=== PATIENT | male | born 1945 | race African-American/Black ===

== ENCOUNTER 2020-04-06 17:41 | Outpatient (REF) | payer MEDICARE, SELFPAY | END 2020-04-06 17:42 | disposition home or self-care (01) | LOC: HO.MRI 17:41 | PROVIDERS: PCP Family Medicine | DX: Z13.89 Encounter for screening for other disorder (principal) ==

== ENCOUNTER 2020-04-22 10:33 | Emergency (ER) | payer MEDICARE, SELFPAY ==
--- NOTE | 2020-04-22 10:54 | ED_ITS ---
HPI - Chest Pain General Chief Complaint: Chest Pain Stated Complaint: CHEST PAIN Time Seen by Provider: 04/22/20 10:54 Source: patient Mode of arrival: ambulatory Limitations: no limitations History of Present Illness HPI narrative: Patient with no known coronary artery disease in the past complaining of chest pain and left shoulder pain going on for last few weeks pain get worse patient when patient lays down or moves his left arm no shortness of breath/cough patient been seen by complaints coordinator and plan to have a stress test next week MD complaint: chest pain Onset (ago): week(s) Timing of current episode: episodic Prior episodes: Yes Onset: during rest Pain location: left chest Pain radiation: left arm Severity: mild Quality: aching Relieving factors: movement Treatment prior to arrival: none Related Data Previous Rx's Medication Instructions Recorded ibuprofen 600 mg PO Q8H PRN #20 tab 04/22/20 Allergies Allergy/AdvReac Type Severity Reaction Status Date / Time No Known Allergies Allergy Verified 05/25/20 14:54 [No Known Allergies*] Review of Systems Review of Systems: Constitutional : No Weight loss, No Fever, No Chills ENT/Mouth : No sore throat, No Rhinorrhea Eyes: No Eye Pain, No Swelling Cardiovascular : +Chest Pain, no palpitations Respiratory : No Cough, No Sputum, no shortness of breath Gastrointestinal : no Nausea, No Vomiting, No Diarrhea, No abdominal Pain, no black stools Genitourinary : No Dysuria, No Urinary Frequency Musculoskeletal : No joint pain, No Myalgias, No Joint Swelling Skin : No Skin Lesions, No rash Neuro : No Weakness, No Numbness, No Dizziness, No Headache Psych : No Anxiety/Panic, No Depression Heme/Lymph: No Bruising, No Lymphadenopathy Endocrine : No Polyuria, No Polydipsia All other systems reviewed and are negative [facility] Past Medical History Medical History Arthritis Diabetes HTN (hypertension) Social History Social History Alcohol intake: never Smoking Status: Never smoker Use of substances other than those prescribed or required for medical reasons: No Advance Directives: No Advance Directives Information Provided: No Physical Exam Vital Signs: Vital Signs: Last Vital Signs Temp 98.9 F 04/22/20 10:58 Pulse 56 04/22/20 10:58 Resp 14 04/22/20 10:58 BP 167/90 H 04/22/20 10:58 Pulse Ox 98 04/22/20 10:58 Body Mass Index 36.8 Appearance: Alert. Oriented X3. No acute distress. Eyes: Pupils equal, round and reactive to light. ENT: Pharynx normal. Neck: Normal inspection. Neck supple. CVS: Normal heart rate and rhythm. Pulses normal. Respiratory: No respiratory distress. Breath sounds normal. Left chest wall tenderness+ left shoulder tenderness+ good range of movement of left shoulder Abdomen: Soft and nontender. Bowel sounds are present, no mass palpable, no CVA tenderness Skin: Skin warm and dry. Normal skin color. Normal skin turgor. Extremities: No lower extremity edema. Neuro: Oriented X 3. No motor deficit. No sensory deficit. MDM - Chest Pain MDM Narrative Medical decision making narrative: Patient has atypical chest pain without any acute ST T wave changes facets has sensitive troponin is negative patient plantar stress test next week advised to follow with cardiology Lab Data Attestation: I reviewed the patient's lab results. Result diagrams: 04/22/20 11:09 04/22/20 11:09 Labs: Lab Results 04/22/20 04/22/20 04/22/20 Range/Units 11:09 11:09 11:09 WBC 5.8 (4.8-10.8) X10*3/uL RBC 5.30 (4.60-5.80) X10*6/uL Hgb 14.7 (14.0-18.0) g/dl Hct 44.8 (42-52) % MCV 84.5 (80-98) fL MCH 27.7 (27.0-33.0) pg MCHC 32.8 (31.0-36.0) g/dl RDW 14.6 (11.0-16.0) % Plt Count 163 (160-400) X10*3/uL MPV 10.2 (9.4-12.4) fL Immature Gran % (Auto) 0.3 (0.0-0.4) % Neut % (Auto) 45.4 (45-73) % Lymph % (Auto) 43.5 H (20-40) % [place] % (Auto) 8.4 (2-11) % Eos % (Auto) 1.5 (0-4) % Baso % (Auto) 0.9 (0-2) % Lymph # (Auto) 2.5 (1.2-4.9) X10*3/uL [place] # (Auto) 0.5 (0.1-1.2) X10*3/uL Eos # (Auto) 0.1 (0.0-0.4) X10*3/uL Baso # (Auto) 0.1 (0.0-0.2) X10*3/uL Abs Immat Gran (auto) 0.02 (0.00-0.03) X10*3/uL Absolute Neuts (auto) 2.7 (2.0-8.3) X10*3/uL Absolute Nucleated RBC 0.000 (0.0-0.012) X10*3/uL Nucleated RBC % (auto) 0.0 (0.0-0.2) /100WBC Hold Blue Top SEE NOTE Sodium 141 (135-145) mmol/L Potassium 4.6 (3.3-5.1) mmol/l Chloride 107 (96-108) mmol/L Carbon Dioxide 27 (22-29) mmol/L Anion Gap 12 (12-20) BUN 16 (9-16) mg/dL Creatinine 0.96 (0.5-1.4) mg/dL Estim Creat Clear Calc 72.2 Estimated GFR > 60 Random Glucose 86 (60-115) mg/dL Calcium 8.4 (8.4-10.2) mg/dL Troponin I High Sens (<3.5-35.0) ng/L 04/22/20 Range/Units 11:09 WBC (4.8-10.8) X10*3/uL RBC (4.60-5.80) X10*6/uL Hgb (14.0-18.0) g/dl Hct (42-52) % MCV (80-98) fL MCH (27.0-33.0) pg MCHC (31.0-36.0) g/dl RDW (11.0-16.0) % Plt Count (160-400) X10*3/uL MPV (9.4-12.4) fL Immature Gran % (Auto) (0.0-0.4) % Neut % (Auto) (45-73) % Lymph % (Auto) (20-40) % Payne % (Auto) (2-11) % Eos % (Auto) (0-4) % Baso % (Auto) (0-2) % Lymph # (Auto) (1.2-4.9) X10*3/uL [place] # (Auto) (0.1-1.2) X10*3/uL Eos # (Auto) (0.0-0.4) X10*3/uL Baso # (Auto) (0.0-0.2) X10*3/uL Abs Immat Gran (auto) (0.00-0.03) X10*3/uL Absolute Neuts (auto) (2.0-8.3) X10*3/uL Absolute Nucleated RBC (0.0-0.012) X10*3/uL Nucleated RBC % (auto) (0.0-0.2) /100WBC Hold Blue Top Sodium (135-145) mmol/L Potassium (3.3-5.1) mmol/l Chloride (96-108) mmol/L Carbon Dioxide (22-29) mmol/L Anion Gap (12-20) BUN (9-16) mg/dL Creatinine (0.5-1.4) mg/dL Estim Creat Clear Calc Estimated GFR Random Glucose (60-115) mg/dL Calcium (8.4-10.2) mg/dL Troponin I High Sens 7.5 (<3.5-35.0) ng/L ECG Data ECG #1: Attestation: I personally reviewed and interpreted this ECG as follows: Interpretation: Normal sinus rhythm bradycardia heart rate 53 incomplete right bundle branch block left axis deviation no acute ST T-wave changes no significant change from the previous EKGs Discharge Plan Discharge Clinical Impression: Musculoskeletal chest pain Patient Disposition: Home, Self-Care Instructions: Musculoskeletal Pain (ED) Additional Instructions: take Tylenol/ Motrin for pain as needed and follow-up with PCP Prescriptions: New ibuprofen 600 mg tablet 600 mg PO Q8H PRN (Reason: pain) Qty: 20 RF: 0 Interventions: ED Discharge Assessment Last Done: 04/22/20 12:20 Discharge Date/Time: 04/22/20 12:21 Print Language: Slovenian
[2020-04-22 10:58] VITALS: BP 167/90; PULSE 56; RESP 14; TEMP 37.2; O2SAT 98; BMI 36.8
--- NOTE | 2020-04-22 10:59 | ECG_ITS ---
Test Reason : CP Blood Pressure : / mmHG Vent. Rate : 053 BPM Atrial Rate : 053 BPM P-R Int : 166 ms QRS Dur : 102 ms QT Int : 428 ms P-R-T Axes : 019 -09 024 degrees QTc Int : 401 ms Sinus bradycardia Left axis deviation Incomplete right bundle branch block Borderline ECG When compared with ECG of 19-DEC-2019 02:31, No significant change was found Referred By: Rico Castañeda Electronically Signed By:NELSY HANSEN MD
--- NOTE | 2020-04-22 10:59 | XR_ITS ---
EXAMINATION: XR CHEST CLINICAL INFORMATION: Chest pain COMPARISON: 12/19/2019 TECHNIQUE: Frontal view of the chest was obtained. FINDINGS: The cardiomediastinal silhouette is unchanged. Low lung volumes with bronchovascular crowding. No focal consolidation or pulmonary edema. No visualized pneumothorax or pleural effusion. No acute osseous findings. XR/XR chest 1V IMPRESSION: No evidence of acute pulmonary disease.
[2020-04-22] MEDS: Aspirin 81 MG TAB.CHEW 162 MG PO (11:11)
[2020-04-22 11:15] LABS: Basophils Absolute Auto 0.1 X10*3/uL (0.0-0.2); Basophils Percent Auto 0.9 % (0-2); Eosinophils Absolute Auto 0.1 X10*3/uL (0.0-0.4); Eosinophils Percent Auto 1.5 % (0-4); Hematocrit 44.8 % (42-52); Hemoglobin 14.7 g/dl (14.0-18.0); Imm Gran Abs Auto 0.02 X10*3/uL (0.00-0.03); Imm Gran Pct Auto 0.3 % (0.0-0.4); Lymphocytes Absolute Auto 2.5 X10*3/uL (1.2-4.9); Lymphocytes Percent Auto 43.5 % (20-40); MANUAL DIFF FLAG NO; Mean Corpuscular HGB Conc 32.8 g/dl (31.0-36.0); Mean Corpuscular Hemoglobin 27.7 pg (27.0-33.0); Mean Corpuscular Volume 84.5 fL (80-98); Mean Platelet Volume 10.2 fL (9.4-12.4); Monocytes Absolute Auto 0.5 X10*3/uL (0.1-1.2); Monocytes Percent Auto 8.4 % (2-11); Neutrophils Absolute Auto 2.7 X10*3/uL (2.0-8.3); Neutrophils Percent Auto 45.4 % (45-73); Platelet Count 163 X10*3/uL (160-400); Red Cell Distribution Width 14.6 % (11.0-16.0); White Blood Count 5.8 X10*3/uL (4.8-10.8)
[2020-04-22 11:36] LABS: Anion Gap 12 (12-20); Blood Urea Nitrogen 16 mg/dL (9-16); Calcium 8.4 mg/dL (8.4-10.2); Carbon Dioxide 27 mmol/L (22-29); Chloride 107 mmol/L (96-108); Creatinine Clr Calc Pharmacy 72.2; Estimated Glomerular Filt Rate > 60; Glucose Random 86 mg/dL (60-115); Potassium 4.6 mmol/l (3.3-5.1); Sodium 141 mmol/L (135-145)
[2020-04-22 11:44] LABS: Troponin-I High Sensitivity 7.5 ng/L (<3.5-35.0)
[2020-04-22] MEDS: Ketorolac Tromethamine 30 MG/ML VIAL IVPUSH (12:20)
== END 2020-04-22 12:21 | disposition home or self-care (01) ==
PROVIDERS: Emergency Provider Internal Medicine
DX: R07.9 Chest pain, unspecified (principal)
CPT/HCPCS: 36415; 71045; 80048; 84484; 85025; 93005; 96374; 99284; J1885

== ENCOUNTER → 2020-04-27 07:54 | Outpatient (REF) | payer MEDICARE, SELFPAY ==
--- NOTE | 2020-04-27 | NM_ITS ---
Myocardial perfusion study Indication: Chest pain to evaluate for myocardial ischemia Technique: The patient was brought in for a Lexiscan perfusion study on 04/27/2020. Patient performed low-level exercise and was injected 0.4 mg of Lexiscan intravenously. Within a minute of injection, 30 mCi of sestamibi was given intravenously. Images were obtained using the SPECT gamma camera interlaced with the gating device. Images were obtained in supine position. Resting perfusion study was performed on 04/28/2020. Patient was administered 30 mCi of sestamibi intravenously at rest. Images were then obtained in supine position. Images obtained with and without CT attenuation. Total DLP 92 mGy-cm. Images were processed with the software and compared side to side in short axis, horizontal long axis and vertical long axis views. Findings: The stress perfusion study showed non attenuated images show mildly to moderately reduced uptake in the basal inferior wall of the LV myocardium. Remainder of the LV myocardium is normally perfused. Impression corrected images show some thinning and mildly reduced uptake in the distal septum of the LV myocardium.. The gated study shows normal LV systolic function with calculated LVEF of 67%. LV cavity is normal in size. The gated study shows normal systolic wall thickening and contraction of segments. Resting study shows no overall change in perfusion pattern compared to stress perfusion study. Gating at rest reveals normal systolic wall motion with ejection fraction at greater than 60 %. The findings are consistent with normal myocardial perfusion. NM/NM vinay perf SPECT rest & str Impression: 1. Myocardial perfusion imaging study shows normal myocardial perfusion 2. Gated LVEF is 67% 3. Transient ischemic dilatation not present EKG is nondiagnostic for ischemia
--- NOTE | 2020-04-27 07:40 | CA_ITS ---
Acquisition Time: 2020-04-27 09:10:06 Total Exercise Time: 00:02:00 Test Indications: Dyspnea Medications: OMEPRAZOLE BUSPIRONE ALBUTEROL METFORMIN LISINOPRIL ATENOLOL AMLODIPINE PRO AIR ASA Protocol: LEXISCAN Max HR: 066 BPM 44% of Pred: 147 BPM Max BP: 112/060 mmHG Max Work Load: 1.0 METS Pharmacological stress test using Lexiscan while sitting. C/o 8/10 chest pain in left upper chest that resolves in recovery. EKG without any arrhythmias. non-diagnostic for ischemia. Nuclear images to follow. Normotensiver esponse to test. Test reviewed with Dr. Carter. Referred By: Rakesh Blackwood Overread By: Kee Patterson
== END ==
LOC: HO.CARD 07:54
PROVIDERS: Visit Provider Internal Medicine Cardiovascular Disease
DX: R07.9 Chest pain, unspecified (principal)
CPT/HCPCS: 78452; 93017; A9500; J0280; J2785

== ENCOUNTER 2020-05-25 14:49 | Emergency (ER) | payer MEDICARE, SELFPAY ==
[2020-05-25 14:51] VITALS: BP 179/89; PULSE 60; RESP 18; TEMP 37.3; O2SAT 97; BMI 37.8
--- NOTE | 2020-05-25 16:00 | ED_ITS ---
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 Mode of arrival: ambulatory Limitations: no limitations History of Present Illness MD elicited complaint: headache and other (blurred vision, eye pain) Pertinent past history: other (no AC therapy, hx of cataracts and glaucoma for which he is being treated) Onset (ago): month(s) (blurred vision, eye pain and headache x 2 weeks) Onset description: gradually Location: occipital Severity: similar to previous episodes Quality & Timing: throbbing Exacerbating factors: none Relieving factors: nothing Context: occurred at rest Associated symptoms: other (blurred vision x 2 weeks - saw his eye doctor last week and checked his pressure given drops but states this is chronic and nothing new, also c/o feeling eye pain which was also during that time period) Treatments prior to arrival: other (evaluation by his eye doctor 1 week ago with symptoms 1 week prior) Related Data Previous Rx's Medication Instructions Recorded ibuprofen 600 mg PO Q8H PRN #20 tab 04/22/20 Allergies Allergy/AdvReac Type Severity Reaction Status Date / Time No Known Allergies Allergy Verified 05/25/20 14:54 [No Known Allergies*] Review of Systems Review of Systems: Constitutional : No Fever, No Chills, No Fatigue ENT/Mouth : No sore throat, No Rhinorrhea Eyes: pos Eye Pain, No Swelling, No Redness Cardiovascular : No Chest Pain, No SOB, No Dyspnea on Exertion Respiratory : No Cough, No Sputum Gastrointestinal : No Nausea, No Vomiting, No Diarrhea, No abdominal Pain Genitourinary : No Dysuria, No Urinary Frequency, No Hematuria, Musculoskeletal : No joint pain, No Myalgias, No Joint Swelling Skin : No Skin Lesions, No rash Neuro : No Weakness, No Numbness, No Dizziness, positive Headache Psych : No Anxiety/Panic, No Depression Heme/Lymph: No Bruising, No Bleeding,No Lymphadenopathy Endocrine : No Polyuria, No Polydipsia All other systems reviewed and are negative [facility] Past Medical History Attestation statement: The following information was validated with the patient. Medical History Arthritis Diabetes HTN (hypertension) Social History Social History Alcohol intake: never Smoking Status: Never smoker Advance Directives: No Advance Directives Information Provided: No Physical Exam Vital Signs: Vital Signs: Last Vital Signs Temp 98.0 F 05/25/20 16:42 Pulse 47 L 05/25/20 16:42 Resp 17 05/25/20 16:42 BP 144/79 H 05/25/20 16:42 Pulse Ox 96 05/25/20 16:42 Body Mass Index 37.8 Appearance: Alert. Oriented X3. No acute distress. Eyes: Pupils equal, round and reactive to light. able to count fingers and denies blurry vision at this time ENT: Pharynx normal. Neck: Normal inspection. Neck supple. no meningeal signs CVS: Normal heart rate and rhythm. Pulses normal. Respiratory: No respiratory distress. Breath sounds normal. Abdomen: Soft and nontender. Skin: Skin warm and dry. Normal skin color. Normal skin turgor. Extremities: No lower extremity edema. No calf ttp Neuro: Oriented X 3. No motor deficit. No sensory deficit. Steady gait no ataxia no drift Course Course Course Narrative: pateient states he feels better and wants to go home, stable for DC at this time MDM - Headache MDM Narrative Medical decision making narrative: 74 yo male wtih MIRIAM, HTN, cataracts and glaucoma c/o intermittent blurry vision, headaches, eye pain - all almost 1 month and was seen by his eye doctor and is on drops, has no blurry vision at this time and is in no distress has normal neuro exam and no ataxia, will obtain basic labs, CT head for mass, PO pain control - doubt acute glaucoma as he has no significant pain on exam, just had his eyes checked and is compliant with his eye drops - had his eye exam 7 days after the onset Lab Data Result diagrams: 05/25/20 16:41 05/25/20 16:41 Labs: Lab Results 05/25/20 05/25/20 05/25/20 Range/Units 16:40 16:40 16:41 WBC 6.5 (4.8-10.8) X10*3/uL RBC 5.40 (4.60-5.80) X10*6/uL Hgb 14.8 (14.0-18.0) g/dl Hct 45.9 (42-52) % MCV 85.0 (80-98) fL MCH 27.4 (27.0-33.0) pg MCHC 32.2 (31.0-36.0) g/dl RDW 14.3 (11.0-16.0) % Plt Count 162 (160-400) X10*3/uL MPV 10.5 (9.4-12.4) fL Immature Gran % (Auto) 0.5 H (0.0-0.4) % Neut % (Auto) 44.4 L (45-73) % Lymph % (Auto) 45.1 H (20-40) % [place] % (Auto) 7.6 (2-11) % Eos % (Auto) 1.5 (0-4) % Baso % (Auto) 0.9 (0-2) % Lymph # (Auto) 2.9 (1.2-4.9) X10*3/uL [place] # (Auto) 0.5 (0.1-1.2) X10*3/uL Eos # (Auto) 0.1 (0.0-0.4) X10*3/uL Baso # (Auto) 0.1 (0.0-0.2) X10*3/uL Abs Immat Gran (auto) 0.03 (0.00-0.03) X10*3/uL Absolute Neuts (auto) 2.9 (2.0-8.3) X10*3/uL Absolute Nucleated RBC 0.000 (0.0-0.012) X10*3/uL Nucleated RBC % (auto) 0.0 (0.0-0.2) /100WBC PT 12.4 (10.8-13.0) SEC INR 1.0 (0.9-1.1) APTT 34.8 (24.1-38.0) SEC Sodium (135-145) mmol/L Potassium (3.3-5.1) mmol/l Chloride (96-108) mmol/L Carbon Dioxide (22-29) mmol/L Anion Gap (12-20) BUN (9-16) mg/dL Creatinine (0.5-1.4) mg/dL Estim Creat Clear Calc Estimated GFR Random Glucose (60-115) mg/dL Calcium (8.4-10.2) mg/dL Magnesium (1.6-2.6) mg/dL Total Bilirubin (0.0-1.0) mg/dL Direct Bilirubin (0.0-0.5) mg/dL AST (5-37) U/L ALT (0-40) U/L Alkaline Phosphatase (39-117) U/L Troponin I High Sens 5.5 (<3.5-35.0) ng/L Total Protein (6.5-8.0) g/dL Albumin (3.5-5.0) g/dL 05/25/20 Range/Units 16:41 WBC (4.8-10.8) X10*3/uL RBC (4.60-5.80) X10*6/uL Hgb (14.0-18.0) g/dl Hct (42-52) % MCV (80-98) fL MCH (27.0-33.0) pg MCHC (31.0-36.0) g/dl RDW (11.0-16.0) % Plt Count (160-400) X10*3/uL MPV (9.4-12.4) fL Immature Gran % (Auto) (0.0-0.4) % Neut % (Auto) (45-73) % Lymph % (Auto) (20-40) % [place] % (Auto) (2-11) % Eos % (Auto) (0-4) % Baso % (Auto) (0-2) % Lymph # (Auto) (1.2-4.9) X10*3/uL [place] # (Auto) (0.1-1.2) X10*3/uL Eos # (Auto) (0.0-0.4) X10*3/uL Baso # (Auto) (0.0-0.2) X10*3/uL Abs Immat Gran (auto) (0.00-0.03) X10*3/uL Absolute Neuts (auto) (2.0-8.3) X10*3/uL Absolute Nucleated RBC (0.0-0.012) X10*3/uL Nucleated RBC % (auto) (0.0-0.2) /100WBC PT (10.8-13.0) SEC INR (0.9-1.1) APTT (24.1-38.0) SEC Sodium 141 (135-145) mmol/L Potassium 4.4 (3.3-5.1) mmol/l Chloride 103 (96-108) mmol/L Carbon Dioxide 31 H (22-29) mmol/L Anion Gap 11 L (12-20) BUN 17 H (9-16) mg/dL Creatinine 1.04 (0.5-1.4) mg/dL Estim Creat Clear Calc 67.4 Estimated GFR > 60 Random Glucose 98 (60-115) mg/dL Calcium 8.9 (8.4-10.2) mg/dL Magnesium 2.0 (1.6-2.6) mg/dL Total Bilirubin 0.2 (0.0-1.0) mg/dL Direct Bilirubin < 0.2 (0.0-0.5) mg/dL AST 18 (5-37) U/L ALT 21 (0-40) U/L Alkaline Phosphatase 84 (39-117) U/L Troponin I High Sens (<3.5-35.0) ng/L Total Protein 6.8 (6.5-8.0) g/dL Albumin 4.1 (3.5-5.0) g/dL ECG Data Attestation: I personally reviewed and interpreted this ECG as follows: ECG interpretation date: 05/25/20 ECG interpretation time: 16:39 Interpretation: Rate: 48 Rhythm: sinus bradycardia Lane: left Normal P waves. Normal ROGER. Normal QRS complex. ST T wave : normal no JAILENE qTC: normal prior studies: no acute ischemia The study has been interpreted contemporaneously by me. . Discharge Plan Discharge Clinical Impression: Tension headache Patient Disposition: Home, Self-Care Instructions: Acute Headache (ED) Additional Instructions: return to ED for any worsening symptoms or concerns Prescriptions: No Action ibuprofen 600 mg tablet 600 mg PO Q8H PRN (Reason: pain) Qty: 20 RF: 0 Referrals: [place],[facility] [Primary Care Provider] - 2 days (if not better on Friday) Print Language: Montenegrin
--- NOTE | 2020-05-25 16:12 | ECG_ITS ---
Test Reason : HEADACHE Blood Pressure : / mmHG Vent. Rate : 048 BPM Atrial Rate : 048 BPM P-R Int : 160 ms QRS Dur : 112 ms QT Int : 454 ms P-R-T Axes : 011 -08 022 degrees QTc Int : 405 ms Sinus bradycardia Incomplete right bundle branch block Borderline ECG When compared with ECG of 22-APR-2020 10:40, No significant change was found Referred By: Maggi Michelle Electronically Signed By:ABIGAIL MEJIA
--- NOTE | 2020-05-25 16:12 | CT_ITS ---
EXAMINATION: CT HEAD WITHOUT CONTRAST CLINICAL INFORMATION: Headache. COMPARISON: None TECHNIQUE: Contiguous axial imaging was performed from the skull base to vertex without intravenous administration of contrast. This CT examination was performed using dose optimization techniques as appropriate, variously including the following: *Automated exposure control *Adjustment of mA and/or kV according to patient size (this includes techniques or standardized protocols for targeted exams where dose is matched to indication/reason for exam; i.e. extremities or head) *Use of iterative reconstruction technique DLP: 661 mGy-cm FINDINGS: There is no evidence of acute intracranial hemorrhage or territorial infarction. No abnormal mass effect or midline shift is seen. Johnson to white matter differentiation is well preserved. No extra-axial fluid collections are identified. The ventricles are normal in size. There is no abnormal attenuation within the brain parenchyma. The osseous structures and soft tissues are normal. There is minimal mucoperiosteal thickening left ethmoid and left frontal sinuses.. CT/CT head/brain wo con IMPRESSION: No acute intracranial process seen.
[2020-05-25 16:42] VITALS: BP 144/79; PULSE 47; RESP 17; TEMP 36.7; O2SAT 96
[2020-05-25 16:50] LABS: MANUAL DIFF FLAG NO
[2020-05-25] MEDS: oxyCODONE HCl Immed Release 5 MG TABLET PO (16:52)
[2020-05-25 16:58] LABS: Basophils Absolute Auto 0.1 X10*3/uL (0.0-0.2); Basophils Percent Auto 0.9 % (0-2); Eosinophils Absolute Auto 0.1 X10*3/uL (0.0-0.4); Eosinophils Percent Auto 1.5 % (0-4); Hematocrit 45.9 % (42-52); Hemoglobin 14.8 g/dl (14.0-18.0); Imm Gran Abs Auto 0.03 X10*3/uL (0.00-0.03); Imm Gran Pct Auto 0.5 % (0.0-0.4); Lymphocytes Absolute Auto 2.9 X10*3/uL (1.2-4.9); Lymphocytes Percent Auto 45.1 % (20-40); Mean Corpuscular HGB Conc 32.2 g/dl (31.0-36.0); Mean Corpuscular Hemoglobin 27.4 pg (27.0-33.0); Mean Platelet Volume 10.5 fL (9.4-12.4); Monocytes Absolute Auto 0.5 X10*3/uL (0.1-1.2); Monocytes Percent Auto 7.6 % (2-11); Neutrophils Absolute Auto 2.9 X10*3/uL (2.0-8.3); Neutrophils Percent Auto 44.4 % (45-73); Platelet Count 162 X10*3/uL (160-400); Red Cell Distribution Width 14.3 % (11.0-16.0); White Blood Count 6.5 X10*3/uL (4.8-10.8)
[2020-05-25 17:02] LABS: Prothrombin Time 12.4 SEC (10.8-13.0)
[2020-05-25 17:04] LABS: Partial Thromboplastin Time 34.8 SEC (24.1-38.0)
[2020-05-25 17:06] LABS: Alanine Aminotransferase 21 U/L (0-40); Albumin Level 4.1 g/dL (3.5-5.0); Alkaline Phosphatase 84 U/L (39-117); Anion Gap 11 (12-20); Aspartate Amino Transferase 18 U/L (5-37); Bilirubin Direct < 0.2 mg/dL (0.0-0.5); Bilirubin Total 0.2 mg/dL (0.0-1.0); Blood Urea Nitrogen 17 mg/dL (9-16); Calcium 8.9 mg/dL (8.4-10.2); Carbon Dioxide 31 mmol/L (22-29); Chloride 103 mmol/L (96-108); Creatinine Clr Calc Pharmacy 67.4; Estimated Glomerular Filt Rate > 60; Glucose Random 98 mg/dL (60-115); Potassium 4.4 mmol/l (3.3-5.1); Sodium 141 mmol/L (135-145); Total Protein 6.8 g/dL (6.5-8.0)
[2020-05-25 17:10] LABS: Troponin-I High Sensitivity 5.5 ng/L (<3.5-35.0)
== END 2020-05-25 18:37 | disposition home or self-care (01) ==
PROVIDERS: Emergency Provider Emergency Medicine
DX: G44.209 Tension-type headache, unspecified, not intractable (principal); H53.8 Other visual disturbances; Z79.899 Other long term (current) drug therapy
CPT/HCPCS: 36415; 70450; 80048; 80076; 83735; 84484; 85025; 85610; 85730; 93005; 99284

== ENCOUNTER 2020-10-20 11:21 | Outpatient (REF) | payer MEDICARE, SELFPAY | END 2020-10-20 11:22 | disposition home or self-care (01) | LOC: HO.LAB 11:21 | PROVIDERS: Visit Provider Internal Medicine | DX: Z20.822 Contact with and (suspected) exposure to COVID-19 (principal) | CPT/HCPCS: C9803; U0003; U0005 ==

== ENCOUNTER 2021-06-02 20:11 | Emergency (ER) | payer MEDICARE, SELFPAY ==
--- NOTE | ~2021-06-02 | XR_ITS ---
EXAMINATION: XR CHEST CLINICAL INFORMATION: Chest pain COMPARISON: 04.22.2020 TECHNIQUE: Frontal view of the chest was obtained. FINDINGS: Normal symmetric lung volumes. No parenchymal consolidation. No pleural effusion. No pneumothorax. Cardiomediastinal silhouette and pulmonary vascularity are within normal limits. Aorta is tortuous and atherosclerotic. No acute osseous abnormalities. XR/XR chest 1V IMPRESSION: Unremarkable examination.
[2021-06-02 20:21] VITALS: BP 170/85; PULSE 53; RESP 16; TEMP 36.6; O2SAT 0; BMI 30.9
[2021-06-02 20:55] LABS: COVID-19 Test Negative (Negative)
[2021-06-02 23:25] VITALS: BP 163/79; PULSE 52; RESP 16; TEMP 36.7; O2SAT 98
--- NOTE | 2021-06-02 23:45 | ECG_ITS ---
Test Reason : CHEST PAIN Blood Pressure : / mmHG Vent. Rate : 050 BPM Atrial Rate : 050 BPM P-R Int : 182 ms QRS Dur : 100 ms QT Int : 456 ms P-R-T Axes : 011 -16 002 degrees QTc Int : 415 ms Sinus bradycardia Incomplete right bundle branch block Borderline ECG When compared with ECG of 25-MAY-2020 16:34, No significant change was found Referred By: Devang Fortune Electronically Signed By:ABIGAIL MEJIA
--- NOTE | 2021-06-02 23:46 | ED.CHESTPAIN ---
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 Chest pain started since 11/22 in the morning, woke up with left-sided chest pain, pain is localized to the left chest area, no radiation of the pain, pain described as dull aching pain, intermittent since 630 in the morning, the pain is worse with taking a deep breath. no relieving factor. Patient also is diabetic complaining of redness and itching of his penis for the past 2 days, patient tried the cream he uses for his psoriasis but with no relief. No penile discharge, patient is sexually not active for many years, patient declined any risk for STD. Related Data Previous Rx's Medication Instructions Recorded ibuprofen 600 mg tablet 600 mg PO Q8H PRN #20 tab 04/22/20 nystatin-triamcinolone 100,000 1 appl TOPICAL TID #30 g 06/03/21 unit/g-0.1 % topical cream Allergies Allergy/AdvReac Type Severity Reaction Status Date / Time No Known Allergies Allergy Verified 05/25/20 14:54 [No Known Allergies*] Review of Systems Review of Systems: All other systems are reviewed and are negative Constitutional: Reports as per HPI and Reports no additional constitutional complaints Eyes: Reports as per HPI and Reports no additional eye complaints Reports system reviewed and no additional complaints, except as documented Cardiovascular: Reports as per HPI and Reports no additional cardiovascular complaints Respiratory: Reports as per HPI and Reports no additional respiratory complaints Gastrointestinal: Reports as per HPI and Reports no additional gastrointestinal complaints Genitourinary: Reports no additional female genitourinary complaints Musculoskeletal: Reports no additional musculoskeletal complaints Skin/Breast: Reports system reviewed and no additional complaints, except as docu Psychiatric: Reports no additional psychiatric complaints Endocrine: Reports no additional endocrine complaints Hematologic/Lymphatic: Reports no additional hematologic/lymphatic complaints Allergic/Immunologic: Reports no additional allergic/immunologic complaints Reports system reviewed and no additional complaints, except as documented and Reports Abnormal speech present PMFSH Past Medical History Medical History Arthritis Diabetes HTN (hypertension) Social History Social History Alcohol intake: never Advance Directives: No Advance Directives Information Provided: No Physical Exam Vital Signs: Vital Signs: Last Vital Signs Temp 98.0 F 06/02/21 23:25 Pulse 52 06/02/21 23:25 Resp 16 06/02/21 23:25 BP 163/79 H 06/02/21 23:25 Pulse Ox 98 06/02/21 23:25 BMI result Body Mass Index 30.9 Vital signs have been reviewed as appeared to be correct. Blood pressure normal. Heart rate normal. Respiration rate normal. Temperature normal. Oxygen saturation normal. Appearance: Alert. Oriented X3. No acute distress. Head: Normal external exam. Normocephalic. Atraumatic. No Valentino signs noted. No raccoon eyes noted Eyes: PERRLA. EOMI. Conjunctiva and sclera normal. Eyelids normal. ENT: TM's Normal. Pharynx normal. Uvula midline. Moist mucous membranes. No trismus noted. No drooling noted. No muffled voice noted. Neck: Normal inspection. Neck supple. FROM. No adenopathy. Thyroid Normal. No meningeal signs. No neck mass noted. CVS: Normal heart rate and rhythm. Heart sound normal. No murmurs noted. Pulses normal throughout. Respiratory: No respiratory distress. Painless inspiration. Breath sounds normal. No wheezes/rales/rhonchi noted. Chest nontender. No accessory muscle usage noted or decreased air movement noted. Abdomen: Soft and nontender. Bowel sounds normal in all 4 quadrants. No distention noted. No organomegaly noted. No visible injury noted. exam: Redness of the glans penis, no penile discharge. Back: No CVA tenderness. Full range of motion noted. Skin: Skin warm and dry. Normal skin color. Normal skin turgor. No rashes/lesions/lacerations noted. Extremities: No lower extremity edema. Extremities exhibit normal range of motion. Extremities nontender. Neuro: Oriented X 3. Cranial nerve exam: II-XII are grossly intact No motor deficit. No sensory deficit. Reflexes normal. Course Course Course Narrative: For assessment and plan. 75-year-old male came in with complaint of chest pain started over 18 hours ago, patient has a negative high sensitive troponin, non ischemic finding on the EKG, unremarkable labs patient at low risk for PE/DVT. Patient should be safe to be discharged home. Patient also is complaining of redness of the gland penis, physical exam is consistent with fungal balanitis will treat with nystatin cream. MDM - Chest Pain Medical Records Data Attestation: I reviewed the patient's medical records. Lab Data Attestation: I reviewed the patient's lab results. Result diagrams: 06/03/21 00:12 06/03/21 00:12 Labs: Lab Results 06/02/21 06/03/21 06/03/21 Range/Units 20:34 00:12 00:12 WBC 5.6 (4.8-10.8) X10*3/uL RBC 5.75 (4.60-5.80) X10*6/uL Hgb 15.9 (14.0-18.0) g/dl Hct 49.5 (42.0-52.0) % MCV 86.1 (80.0-98.0) fL MCH 27.7 (27.0-33.0) pg MCHC 32.1 (31.0-36.0) g/dl RDW 14.6 (11.0-16.0) % Plt Count 128 L (160-400) X10*3/uL MPV 10.7 (9.4-12.4) fL Immature Gran % (Auto) 0.4 (0.0-0.4) % Neut % (Auto) 49.1 (45-73) % Lymph % (Auto) 39.5 (20-40) % [place] % (Auto) 8.9 (2-11) % Eos % (Auto) 1.4 (0-4) % Baso % (Auto) 0.7 (0-2) % Lymph # (Auto) 2.2 (1.2-4.9) X10*3/uL [place] # (Auto) 0.5 (0.1-1.2) X10*3/uL Eos # (Auto) 0.1 (0.0-0.4) X10*3/uL Baso # (Auto) 0.0 (0.0-0.2) X10*3/uL Abs Immat Gran (auto) 0.02 (0.00-0.03) X10*3/uL Absolute Neuts (auto) 2.7 (2.0-8.3) x10*3/uL Absolute Nucleated RBC 0.000 (0.0-0.012) X10*3/uL Nucleated RBC % (auto) 0.0 (0.0-0.2) /100WBC Sodium 142 (135-145) mmol/L Potassium 4.4 (3.3-5.1) mmol/L Chloride 105 (96-108) mmol/L Carbon Dioxide 30 H (22-29) mmol/L Anion Gap 11 L (12-20) BUN 16 (9-16) mg/dL Creatinine 1.04 (0.5-1.4) mg/dL Estim Creat Clear Calc 60.0 Estimated GFR > 60 Random Glucose 100 (60-115) mg/dL Calcium 9.3 (8.4-10.2) mg/dL Total Bilirubin 0.5 (0.0-1.0) mg/dL Direct Bilirubin 0.2 (0.0-0.5) mg/dL AST 20 (5-37) U/L ALT 24 (0-40) U/L Alkaline Phosphatase 79 (39-117) U/L Troponin I High Sens (<3.5-35.0) ng/L Total Protein 6.9 (6.5-8.0) g/dL Albumin 4.0 (3.5-5.0) g/dL Lipase 36 (8-78) U/L Urine Color Urine Appearance Urine pH (5.0-8.0) Ur Specific [place] (1.005-1.025) Urine Protein (NEG-TRACE) MG/DL Urine Glucose (UA) (NEG) MG/DL Urine Ketones (NEG) MG/DL Urine Blood (NEG) Urine Nitrite (NEG) Ur Leukocyte Esterase (NEG) COVID-19 (EDDA) Negative (Negative) COVID-19 Clin Com See Note 06/03/21 06/03/21 Range/Units 00:12 00:15 WBC (4.8-10.8) X10*3/uL RBC (4.60-5.80) X10*6/uL Hgb (14.0-18.0) g/dl Hct (42.0-52.0) % MCV (80.0-98.0) fL MCH (27.0-33.0) pg MCHC (31.0-36.0) g/dl RDW (11.0-16.0) % Plt Count (160-400) X10*3/uL MPV (9.4-12.4) fL Immature Gran % (Auto) (0.0-0.4) % Neut % (Auto) (45-73) % Lymph % (Auto) (20-40) % [place] % (Auto) (2-11) % Eos % (Auto) (0-4) % Baso % (Auto) (0-2) % Lymph # (Auto) (1.2-4.9) X10*3/uL [place] # (Auto) (0.1-1.2) X10*3/uL Eos # (Auto) (0.0-0.4) X10*3/uL Baso # (Auto) (0.0-0.2) X10*3/uL Abs Immat Gran (auto) (0.00-0.03) X10*3/uL Absolute Neuts (auto) (2.0-8.3) x10*3/uL Absolute Nucleated RBC (0.0-0.012) X10*3/uL Nucleated RBC % (auto) (0.0-0.2) /100WBC Sodium (135-145) mmol/L Potassium (3.3-5.1) mmol/L Chloride (96-108) mmol/L Carbon Dioxide (22-29) mmol/L Anion Gap (12-20) BUN (9-16) mg/dL Creatinine (0.5-1.4) mg/dL Estim Creat Clear Calc Estimated GFR Random Glucose (60-115) mg/dL Calcium (8.4-10.2) mg/dL Total Bilirubin (0.0-1.0) mg/dL Direct Bilirubin (0.0-0.5) mg/dL AST (5-37) U/L ALT (0-40) U/L Alkaline Phosphatase (39-117) U/L Troponin I High Sens 7.2 (<3.5-35.0) ng/L Total Protein (6.5-8.0) g/dL Albumin (3.5-5.0) g/dL Lipase (8-78) U/L Urine Color STRAW Urine Appearance CLEAR Urine pH 6.0 (5.0-8.0) Ur Specific [place] 1.010 (1.005-1.025) Urine Protein NEG (NEG-TRACE) MG/DL Urine Glucose (UA) NEG (NEG) MG/DL Urine Ketones NEG (NEG) MG/DL Urine Blood TRACE (NEG) Urine Nitrite NEG (NEG) Ur Leukocyte Esterase NEG (NEG) COVID-19 (EDDA) (Negative) COVID-19 Clin Com Imaging Data Chest x-ray: Attestation: I personally reviewed and interpreted this imaging study as follows: Radiologist's impression: Unremarkable examination. ECG Data ECG #1: Attestation: I personally reviewed and interpreted this ECG as follows: Interpretation: Sinus bradycardia 50 beats per minutes, incomplete right bundle-branch block, unremarkable intervals, no ST-T changes. EKG unchanged from previous EKG. Discharge Plan Discharge Clinical Impression: Balanitis, Chest pain Patient Disposition: Home, Self-Care Instructions: Chest Pain (ED), Balanitis (ED) Prescriptions: New nystatin-triamcinolone 100,000-0.1 unit/g-% cream 1 appl topical TID Qty: 30 RF: 0 No Action ibuprofen 600 mg tablet 600 mg PO Q8H PRN (Reason: pain) Qty: 20 RF: 0 Referrals: Physician,Unknown J [Primary Care Provider] - 2 days
[2021-06-03 00:18] LABS: Hemoglobin 15.9 g/dl (14.0-18.0); Imm Gran Abs Auto 0.02 X10*3/uL (0.00-0.03); Imm Gran Pct Auto 0.4 % (0.0-0.4); Neutrophils Absolute Auto 2.7 x10*3/uL (2.0-8.3); PLT CLUMP 1; Red Cell Distribution Width 14.6 % (11.0-16.0); SCAN SMEAR FLAG 1
[2021-06-03 00:20] LABS: Basophils Percent Auto 0.7 % (0-2); Eosinophils Absolute Auto 0.1 X10*3/uL (0.0-0.4); Eosinophils Percent Auto 1.4 % (0-4); Hematocrit 49.5 % (42.0-52.0); Lymphocytes Absolute Auto 2.2 X10*3/uL (1.2-4.9); Lymphocytes Percent Auto 39.5 % (20-40); Mean Corpuscular HGB Conc 32.1 g/dl (31.0-36.0); Mean Corpuscular Hemoglobin 27.7 pg (27.0-33.0); Mean Corpuscular Volume 86.1 fL (80.0-98.0); Mean Platelet Volume 10.7 fL (9.4-12.4); Monocytes Absolute Auto 0.5 X10*3/uL (0.1-1.2); Monocytes Percent Auto 8.9 % (2-11); Neutrophils Percent Auto 49.1 % (45-73); Platelet Count 128 X10*3/uL (160-400); Red Blood Count 5.75 X10*6/uL (4.60-5.80); White Blood Count 5.6 X10*3/uL (4.8-10.8)
[2021-06-03 00:22] LABS: MANUAL DIFF FLAG NO
[2021-06-03 00:38] LABS: Alanine Aminotransferase 24 U/L (0-40); Alkaline Phosphatase 79 U/L (39-117); Anion Gap 11 (12-20); Aspartate Amino Transferase 20 U/L (5-37); Bilirubin Direct 0.2 mg/dL (0.0-0.5); Bilirubin Total 0.5 mg/dL (0.0-1.0); Blood Urea Nitrogen 16 mg/dL (9-16); Calcium 9.3 mg/dL (8.4-10.2); Carbon Dioxide 30 mmol/L (22-29); Chloride 105 mmol/L (96-108); Estimated Glomerular Filt Rate > 60; Glucose Random 100 mg/dL (60-115); Lipase 36 U/L (8-78); Potassium 4.4 mmol/L (3.3-5.1); Sodium 142 mmol/L (135-145); Total Protein 6.9 g/dL (6.5-8.0)
[2021-06-03 00:42] LABS: Troponin-I High Sensitivity 7.2 ng/L (<3.5-35.0)
[2021-06-03 00:52] LABS: Appearance Urine CLEAR; Color Urine STRAW; Glucose Urine UA NEG (NEG); Leukocyte Esterase Urine NEG (NEG); Nitrite Urine NEG (NEG); UACC Culture Trigger NO; Urine Blood TRACE (NEG); Urine Ketones NEG (NEG); Urine Protein NEG (NEG-TRACE)
[2021-06-03 01:00] LABS: WBC Urine 0-2 /HPF (0-4)
== END 2021-06-03 01:34 | disposition home or self-care (01) ==
PROVIDERS: Emergency Provider Emergency Medicine
DX: N48.1 Balanitis (principal); R07.9 Chest pain, unspecified; E11.9 Type 2 diabetes mellitus without complications; I10 Essential (primary) hypertension; Z20.822 Contact with and (suspected) exposure to COVID-19
CPT/HCPCS: 36415; 71045; 80048; 80076; 81001; 83690; 84484; 85025; 87635; 93005; 99283; 99284

== ENCOUNTER 2021-08-09 10:52 | Outpatient (REF) | payer MEDICARE, SELFPAY ==
--- NOTE | ~2021-08-09 | XR_ITS ---
EXAMINATION: CERVICAL SPINE, THORACIC SPINE AND CHEST X-RAY CLINICAL INFORMATION: Neck pain and back pain. COMPARISON: None TECHNIQUE: 3 views cervical spine, 2 views thoracic spine and 2 views chest. FINDINGS: CERVICAL SPINE: There is normal cervical lordosis. The vertebral heights, alignment and disc heights are normal. There is minimal ventral spondylosis at the C5-C6 disc level. There is no visible acute fracture, dislocation or subluxation seen. DORSAL SPINE: There is maintained thoracic kyphosis. The vertebral heights and alignment are normal. There is no visible acute fracture, dislocation or subluxation seen. The paravertebral soft tissues are normal. CHEST: The lungs are well-expanded and clear of acute process. The heart size and pulmonary vascularity is normal. No gross bony abnormality seen. XR/XR thoracic spine 2V IMPRESSION: Unremarkable cervical spine exam except for minimal ventral spondylosis at the C5-C6 disc level. Unremarkable dorsal spine. Unremarkable chest exam.
--- NOTE | ~2021-08-09 | XR_ITS ---
EXAMINATION: CERVICAL SPINE, THORACIC SPINE AND CHEST X-RAY CLINICAL INFORMATION: Neck pain and back pain. COMPARISON: None TECHNIQUE: 3 views cervical spine, 2 views thoracic spine and 2 views chest. FINDINGS: CERVICAL SPINE: There is normal cervical lordosis. The vertebral heights, alignment and disc heights are normal. There is minimal ventral spondylosis at the C5-C6 disc level. There is no visible acute fracture, dislocation or subluxation seen. DORSAL SPINE: There is maintained thoracic kyphosis. The vertebral heights and alignment are normal. There is no visible acute fracture, dislocation or subluxation seen. The paravertebral soft tissues are normal. CHEST: The lungs are well-expanded and clear of acute process. The heart size and pulmonary vascularity is normal. No gross bony abnormality seen. XR/XR cervical spine 3V IMPRESSION: Unremarkable cervical spine exam except for minimal ventral spondylosis at the C5-C6 disc level. Unremarkable dorsal spine. Unremarkable chest exam.
--- NOTE | ~2021-08-09 | XR_ITS ---
EXAMINATION: CERVICAL SPINE, THORACIC SPINE AND CHEST X-RAY CLINICAL INFORMATION: Neck pain and back pain. COMPARISON: None TECHNIQUE: 3 views cervical spine, 2 views thoracic spine and 2 views chest. FINDINGS: CERVICAL SPINE: There is normal cervical lordosis. The vertebral heights, alignment and disc heights are normal. There is minimal ventral spondylosis at the C5-C6 disc level. There is no visible acute fracture, dislocation or subluxation seen. DORSAL SPINE: There is maintained thoracic kyphosis. The vertebral heights and alignment are normal. There is no visible acute fracture, dislocation or subluxation seen. The paravertebral soft tissues are normal. CHEST: The lungs are well-expanded and clear of acute process. The heart size and pulmonary vascularity is normal. No gross bony abnormality seen. XR/XR chest 2V IMPRESSION: Unremarkable cervical spine exam except for minimal ventral spondylosis at the C5-C6 disc level. Unremarkable dorsal spine. Unremarkable chest exam.
== END 2021-08-09 10:53 | disposition home or self-care (01) ==
LOC: HO.XRAY 10:52
PROVIDERS: Absent Provider Internal Medicine; PCP Internal Medicine; Visit Provider Family Medicine
DX: M54.9 Dorsalgia, unspecified (principal); M54.2 Cervicalgia; R06.02 Shortness of breath
CPT/HCPCS: 71046; 72040; 72070

== ENCOUNTER 2021-09-01 01:50 | Emergency (ER) | payer OTHER, SELFPAY ==
--- NOTE | ~2021-09-01 | XR_ITS ---
EXAMINATION: XR CHEST CLINICAL INFORMATION: Chest pain COMPARISON: 08/09/2021 TECHNIQUE: Frontal view of the chest was obtained. FINDINGS: The lungs are mildly hypoinflated. No focal consolidation is seen. No evidence of pneumothorax, significant pleural effusion, or pulmonary edema. Cardiac silhouette appears at the upper limits of normal in size and may be accentuated by low lung volumes. No acute osseous findings are seen. XR/XR chest 1V IMPRESSION: Mildly hypoinflated lungs without acute findings.
--- NOTE | 2021-09-01 01:51 | ECG_ITS ---
Test Reason : CP Blood Pressure : / mmHG Vent. Rate : 053 BPM Atrial Rate : 053 BPM P-R Int : 174 ms QRS Dur : 098 ms QT Int : 428 ms P-R-T Axes : 022 -14 037 degrees QTc Int : 401 ms Sinus bradycardia Incomplete right bundle branch block Borderline ECG When compared with ECG of 03-JUN-2021 00:29, No significant change was found Referred By: Generic ED Physician Electronically Signed By:LOU CARR MD
[2021-09-01 01:53] VITALS: BP 156/72; PULSE 53; RESP 18; TEMP 35.8; O2SAT 99; BMI 30.9
[2021-09-01 02:06] LABS: MANUAL DIFF FLAG NO
[2021-09-01 02:08] LABS: Basophils Absolute Auto 0.1 X10*3/uL (0.0-0.2); Basophils Percent Auto 0.7 % (0-2); Eosinophils Absolute Auto 0.1 X10*3/uL (0.0-0.4); Eosinophils Percent Auto 1.1 % (0-4); Hematocrit 43.7 % (42.0-52.0); Hemoglobin 14.4 g/dl (14.0-18.0); Imm Gran Abs Auto 0.04 X10*3/uL (0.00-0.03); Imm Gran Pct Auto 0.5 % (0.0-0.4); Lymphocytes Percent Auto 40.6 % (20-40); Mean Corpuscular Hemoglobin 27.7 pg (27.0-33.0); Mean Corpuscular Volume 84.2 fL (80.0-98.0); Mean Platelet Volume 10.7 fL (9.4-12.4); Monocytes Absolute Auto 0.6 X10*3/uL (0.1-1.2); Monocytes Percent Auto 8.6 % (2-11); Neutrophils Absolute Auto 3.6 x10*3/uL (2.0-8.3); Neutrophils Percent Auto 48.5 % (45-73); Platelet Count 147 X10*3/uL (160-400); Red Blood Count 5.19 X10*6/uL (4.60-5.80); Red Cell Distribution Width 15.1 % (11.0-16.0); White Blood Count 7.5 X10*3/uL (4.8-10.8)
[2021-09-01 02:13] VITALS: BP 139/73; PULSE 48; RESP 19; TEMP 36.6; O2SAT 96
[2021-09-01 02:32] LABS: Anion Gap 12 (12-20); Blood Urea Nitrogen 20 mg/dL (9-16); Calcium 9.2 mg/dL (8.4-10.2); Carbon Dioxide 28 mmol/L (22-29); Chloride 106 mmol/L (96-108); Creatinine Clr Calc Pharmacy 59.7; Estimated Glomerular Filt Rate > 60; Glucose Random 86 mg/dL (60-115); Potassium 3.9 mmol/L (3.3-5.1); Sodium 142 mmol/L (135-145)
[2021-09-01 02:36] LABS: Troponin-I High Sensitivity 4.8 ng/L (<3.5-35.0)
--- NOTE | 2021-09-01 02:48 | ED.CHESTPAIN ---
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 Mode of arrival: ambulatory Limitations: no limitations History of Present Illness MD complaint: chest pain Onset (ago): day(s) (on 08/31 at 1am) Timing of current episode: constant Prior episodes: Yes Onset: during rest Pain location: left chest Pain radiation: none Severity: moderate Quality: tightness Relieving factors: nothing Exacerbating factors: inspiration Associated symptoms: dyspnea Treatment prior to arrival: none Related Data Previous Rx's Medication Instructions Recorded ibuprofen 600 mg tablet 600 mg PO Q8H PRN #20 tab 04/22/20 nystatin-triamcinolone 100,000 1 appl TOPICAL TID #30 g 06/03/21 unit/g-0.1 % topical cream miconazole nitrate 2 % topical 1 appl TOPICAL BID #28 g 06/07/21 cream Allergies Allergy/AdvReac Type Severity Reaction Status Date / Time No Known Allergies Allergy Verified 09/01/21 01:59 [No Known Allergies*] Review of Systems Review of Systems: Constitutional : No Weight loss, No Fever, No Chills ENT/Mouth : No sore throat, No Rhinorrhea Eyes: No Eye Pain, No Swelling Cardiovascular : pos Chest Pain, pos SOB, no Dyspnea on Exertion, No Orthopnea, No Edema, No Palpitations Respiratory : No Cough, No Sputum Gastrointestinal : no Nausea, No Vomiting, No Diarrhea, No abdominal Pain, No Hematochezia, No Melena Genitourinary : No Dysuria, No Urinary Frequency Musculoskeletal : No joint pain, No Myalgias, No Joint Swelling Skin : No Skin Lesions, No rash Neuro : No Weakness, No Numbness, No Dizziness, No Headache Psych : No Anxiety/Panic, No Depression Heme/Lymph: No Bruising, No Lymphadenopathy Endocrine : No Polyuria, No Polydipsia All other systems reviewed and are negative PMFSH Past Medical History Attestation statement: The following information was validated with the patient. Medical History Arthritis Diabetes HTN (hypertension) Social History Social History (Updated 09/01/21 @ 03:08 by Maggi Michelle DO) Alcohol intake: never Patient Tobacco Use Status: Never used Tobacco Advance Directives: No Advance Directives Information Provided: Yes Physical Exam Vital Signs: Vital Signs: Last Vital Signs Temp 97.7 F 09/01/21 04:13 Pulse 51 09/01/21 04:13 Resp 18 09/01/21 04:13 BP 129/64 09/01/21 04:13 Pulse Ox 96 09/01/21 04:13 BMI result Body Mass Index 30.9 Appearance: Alert. Oriented X3. No acute distress. Eyes: Pupils equal, round and reactive to light. ENT: Pharynx normal. Neck: Normal inspection. Neck supple. CVS: Normal heart rate and rhythm. Pulses normal. Chest wall: ttp along L chest reproduces pain Respiratory: No respiratory distress. Breath sounds normal. Abdomen: Soft and nontender. Skin: Skin warm and dry. Normal skin color. Normal skin turgor. Extremities: No lower extremity edema. No calf ttp Neuro: Oriented X 3. No motor deficit. No sensory deficit. Course Course Course Narrative: repeat trop negative stable for DC MDM - Chest Pain MDM Narrative Medical decision making narrative: 76 yo male with hx of HTN, DM here with c/o L sided chest pain that is reproduceable and hurts to breathe. Denies trauma, cough, fevers. At this time will need labs, troponin x 2, EKG, ddimer - seems MSK in nature. PO pain medications. Dispo per results and findings. Lab Data Result diagrams: 09/01/21 02:01 09/01/21 02:01 Labs: Lab Results 09/01/21 09/01/21 09/01/21 Range/Units 02:01 02:01 02:01 WBC 7.5 (4.8-10.8) X10*3/uL RBC 5.19 (4.60-5.80) X10*6/uL Hgb 14.4 (14.0-18.0) g/dl Hct 43.7 (42.0-52.0) % MCV 84.2 (80.0-98.0) fL MCH 27.7 (27.0-33.0) pg MCHC 33.0 (31.0-36.0) g/dl RDW 15.1 (11.0-16.0) % Plt Count 147 L (160-400) X10*3/uL MPV 10.7 (9.4-12.4) fL Immature Gran % (Auto) 0.5 H (0.0-0.4) % Neut % (Auto) 48.5 (45-73) % Lymph % (Auto) 40.6 H (20-40) % [place] % (Auto) 8.6 (2-11) % Eos % (Auto) 1.1 (0-4) % Baso % (Auto) 0.7 (0-2) % Lymph # (Auto) 3.0 (1.2-4.9) X10*3/uL [place] # (Auto) 0.6 (0.1-1.2) X10*3/uL Eos # (Auto) 0.1 (0.0-0.4) X10*3/uL Baso # (Auto) 0.1 (0.0-0.2) X10*3/uL Abs Immat Gran (auto) 0.04 H (0.00-0.03) X10*3/uL Absolute Neuts (auto) 3.6 (2.0-8.3) x10*3/uL Absolute Nucleated RBC 0.000 (0.0-0.012) X10*3/uL Nucleated RBC % (auto) 0.0 (0.0-0.2) /100WBC D-Dimer High Sensitivty NG/ML Sodium 142 (135-145) mmol/L Potassium 3.9 (3.3-5.1) mmol/L Chloride 106 (96-108) mmol/L Carbon Dioxide 28 (22-29) mmol/L Anion Gap 12 (12-20) BUN 20 H (9-16) mg/dL Creatinine 1.03 (0.5-1.4) mg/dL Estim Creat Clear Calc 59.7 Estimated GFR > 60 Random Glucose 86 (60-115) mg/dL Calcium 9.2 (8.4-10.2) mg/dL Troponin I High Sens 4.8 (<3.5-35.0) ng/L 09/01/21 09/01/21 Range/Units 03:05 05:21 WBC (4.8-10.8) X10*3/uL RBC (4.60-5.80) X10*6/uL Hgb (14.0-18.0) g/dl Hct (42.0-52.0) % MCV (80.0-98.0) fL MCH (27.0-33.0) pg MCHC (31.0-36.0) g/dl RDW (11.0-16.0) % Plt Count (160-400) X10*3/uL MPV (9.4-12.4) fL Immature Gran % (Auto) (0.0-0.4) % Neut % (Auto) (45-73) % Lymph % (Auto) (20-40) % [place] % (Auto) (2-11) % Eos % (Auto) (0-4) % Baso % (Auto) (0-2) % Lymph # (Auto) (1.2-4.9) X10*3/uL [place] # (Auto) (0.1-1.2) X10*3/uL Eos # (Auto) (0.0-0.4) X10*3/uL Baso # (Auto) (0.0-0.2) X10*3/uL Abs Immat Gran (auto) (0.00-0.03) X10*3/uL Absolute Neuts (auto) (2.0-8.3) x10*3/uL Absolute Nucleated RBC (0.0-0.012) X10*3/uL Nucleated RBC % (auto) (0.0-0.2) /100WBC D-Dimer High Sensitivty < 150 NG/ML Sodium (135-145) mmol/L Potassium (3.3-5.1) mmol/L Chloride (96-108) mmol/L Carbon Dioxide (22-29) mmol/L Anion Gap (12-20) BUN (9-16) mg/dL Creatinine (0.5-1.4) mg/dL Estim Creat Clear Calc Estimated GFR Random Glucose (60-115) mg/dL Calcium (8.4-10.2) mg/dL Troponin I High Sens 3.9 (<3.5-35.0) ng/L ECG Data ECG #1: Attestation: I personally reviewed and interpreted this ECG as follows: ECG interpretation date: 09/01/21 ECG interpretation time: 03:09 Interpretation: Rate: 53 Rhythm: sinus bradycardia Lilly: left Normal P waves. Normal ROGER. incomplete RBBB ST T wave : normal no JAILENE qTC: normal prior studies: no acute ischemia The study has been interpreted contemporaneously by me. . Discharge Plan Discharge Clinical Impression: Atypical chest pain Patient Disposition: Home, Self-Care Instructions: Chest Pain (ED) Additional Instructions: return to ED for any worsening symptoms or concerns Prescriptions: No Action ibuprofen 600 mg tablet 600 mg PO Q8H PRN (Reason: pain) Qty: 20 0RF nystatin-triamcinolone 100,000-0.1 unit/g-% cream 1 appl topical TID Qty: 30 0RF miconazole nitrate 2 % cream 1 appl topical BID Qty: 28 0RF Referrals: [facility] [Primary Care Provider] - (if not better) Print Language: Kazakh
[2021-09-01] MEDS: HYDROcodone Bit/Acetam 5/325 TABLET 1 TAB PO (03:18)
[2021-09-01 03:25] LABS: D Dimer High Sensitivity < 150 NG/ML
[2021-09-01 04:13] VITALS: BP 129/64; PULSE 51; RESP 18; TEMP 36.5; O2SAT 96
[2021-09-01 06:01] LABS: Troponin-I High Sensitivity 3.9 ng/L (<3.5-35.0)
[2021-09-01 06:27] VITALS: BP 132/65; PULSE 55; RESP 15; O2SAT 97
== END 2021-09-01 07:03 | disposition home or self-care (01) ==
PROVIDERS: Emergency Provider Emergency Medicine
DX: R07.89 Other chest pain (principal); E11.9 Type 2 diabetes mellitus without complications; I10 Essential (primary) hypertension; Z79.899 Other long term (current) drug therapy
CPT/HCPCS: 36415; 71045; 80048; 84484; 85025; 85379; 93005; 99284; 99285

== ENCOUNTER → 2021-09-26 09:14 | Outpatient (REF) | payer OTHER, SELFPAY ==
--- NOTE | 2021-09-26 09:18 | CA_ITS ---
Transthoracic Echocardiogram Patient (Last, First, Middle): Osorio Castillo J Gender: Male Date of : 1945 Age: 76 Procedure Date: 09/26/2021 Procedure Type: Transthoracic Echocardiogram Location: OP Height: 162.56 cm Weight: 81.65 kg BSA: 1.87 m2 Heart Rate: bpm BP: 130 / 80 mmHg Dispute Coordinator: WALLY Henao MD: Salena Hutton DO Director Of Content And Programming: Bo Carter MD Symptoms: SOB Study Quality: Good ECG Rhythm: Sinus Conclusions: - 1. Normal LV systolic function with impaired relaxation filling pattern 2. Mildly dilated left atrium 3. Mild aortic and mitral regurgitation 4. Normal RV systolic pressure 5. No gross pericardial effusion Findings Left Ventricle Normal left ventricular size, thickness, and systolic function. The visually estimated ejection fraction is between 60-65%. Spectral Doppler is indicative of an impaired relaxation filling pattern. E/E prime ratio is between 8 and 15 consistent with indeterminate filling pressures. Evidence suggests grade I (mild) diastolic dysfunction. Peak GLS is , -20.4%, within normal limits. Right Ventricle Normal right ventricular cavity size and systolic function. Atria The left atrium is mildly dilated. There is no evidence of interatrial shunt. The right atrium is normal in size. Aortic Valve There is mild thickening of the aortic valve. There is no aortic valve stenosis. There is mild aortic valve regurgitation. Mitral Valve There is mild anterior and posterior mitral leaflet thickening. There is mild mitral valve regurgitation. There is no mitral valve stenosis. Pulmonic Valve The pulmonic valve was not well visualized. Tricuspid Valve Likely normal tricuspid valve structure and function. There is trace tricuspid valve regurgitation. The right ventricular systolic pressure is normal. The right ventricular systolic pressure is 26 mmHg. Normal right atrial pressure. There is no evidence of pulmonary hypertension. Great Vessels All visible segments of the aorta are normal in size. The pulmonary artery was not well visualized. Venous The inferior vena cava is normal in size and collapses greater than 50% with inspiration. Pericardium/Pleural There is no evidence of pericardial effusion. Measurements 2D Linear Measurements IVSd: 1.16 0.6-0.9/0.6-1.0 cm LVIDd: 4.50 3.9-5.3/4.2-5.9 cm LVIDd Index: 2.41 2.4-3.2/2.2-3.1 cm/m2 LVIDs: 2.98 2.0-3.6 cm LVPWd: 1.12 0.7-1.1 cm LA Diam: 3.50 2.7-3.8/3.0-4.0 cm LAIDs Index: 1.87 1.5-2.3 cm/m2 LV Mass: 229.36 67-162/88-224 g LV Mass Index: 122.65 43-95/49-115 g/m2 LVOT Diam: 2.20 3.0+(-)1.3 cm 2D Systolic Function EF 4C: 65.00 >55% EF 2C: 67.40 >55% EF BiP: 64.60 >55% Mitral Valve MV Pk E: 0.70 MV PK A: 0.77 MV Decel Time: 271.00 E/A: 0.90 E'Lateral: 7.07 E'Medial: 5.66 E/E' Med: 12.40 E/E' Lat: 10.00 PHT: 80.00 MVA PHT: 2.75 Decel Robertson: 2.59 Aortic Valve AoV Pk Abram: 1.60 AoV Mn Abram: 1.16 AoV VTI: 0.40 AoV Pk Grad: 10.00 Aov Mn Grad: 6.00 DANIEL Cont.VTI: 2.96 AI Pk Abram: 4.96 AI Robertson: 1.62 LVOT LVOT Pk Abram: 1.19 LVOT Mn Abram: 0.85 LVOT VTI: 0.31 LVOT Pk Grad: 6.00 LVOT Mn Grad: 3.00 LVOT Diam: 2.20 LVOT Area: 3.80 Diastolic Function MV Pk E: 0.70 MV Pk A: 0.77 E/A: 0.90 E'Medial: 5.66 E/E' Med: 12.40 E' Laterial: 7.07 E/E' Lat: 10.00 Right Ventricle TAPSE (mm): 25.20 TVS' Abram: 11.30 Tricuspid Valve TR Pk Abram: 2.42 TR Pk Grad: 23.00 RA Press: 3.00 RVSP: 26.00 Great Vessels Aorta Sinus of Valsalva: 3.93 2.0-3.[address] Ridge: 3.25 1.7-3.4 cm Ao Asc: 3.80 2.1-3.4 cm Ao Arch: 2.70 Updated in Other Vendor System with Status of Final Bo Carter MD electronically signed on 09/26/2021 11:49:23 AM with status of Final
== END ==
LOC: HO.CARD 09:14
PROVIDERS: Visit Provider Family Medicine
DX: R06.02 Shortness of breath (principal)
CPT/HCPCS: 93306; 93356

== ENCOUNTER 2021-11-25 08:37 | Emergency (ER) | payer OTHER, SELFPAY ==
[2021-11-25 10:14] LABS: COVID-19 Test Positive (Negative); IDNOW Serial# 55D5AD1C; Strep A Nucleic Acid Negative (Negative)
[2021-11-25 10:19] VITALS: BP 151/67; PULSE 57; RESP 18; TEMP 37.3; O2SAT 97; BMI 30.9
--- NOTE | 2021-11-25 10:51 | ED.URI ---
HPI - URI/Sore Throat General Chief Complaint: Upper Respiratory Symptoms Stated Complaint: Headache/Fever/Sore throat Time Seen by Provider: 11/25/21 10:51 History of Present Illness HPI Narrative: Patient complains of mild body aches, fatigue, felt warm, and a mild sore throat for 1 day, started yesterday, fully vaccinated for COVID, no shortness of breath no chest pain no nausea no vomiting he is eating and drinking normally and breathing comfortable Related Data Previous Rx's Medication Instructions Recorded ibuprofen 600 mg tablet 600 mg PO Q8H PRN pain #20 tabs 04/22/20 nystatin-triamcinolone 100,000 1 appl topical TID #30 grams 06/03/21 unit/g-0.1 % topical cream miconazole nitrate 2 % topical 1 appl topical BID #28 grams 06/07/21 cream Allergies Allergy/AdvReac Type Severity Reaction Status Date / Time No Known Allergies Allergy Verified 09/01/21 01:59 [No Known Allergies*] Review of Systems Review of Systems: Positive for mild sore throat, body aches, fatigue, feeling feverish Negatives no chills no dizziness no weakness no fainting no feeling faint no headache no neck pain no stiff neck no chest pain no shortness of breath no palpitations no abdominal pain no nausea vomiting or diarrhea no dysuria no skin rash Yes all other systems are reviewed and are negative [facility] Past Medical History Source: nursing notes reviewed Medical History Arthritis Diabetes HTN (hypertension) Social History Social History (Updated 09/01/21 @ 03:08 by Maggi Michelle DO) Alcohol intake: never Patient Tobacco Use Status: Never used Tobacco Advance Directives: No Advance Directives Information Provided: Yes Physical Exam Vital Signs: Vital Signs: Last Vital Signs Temp 99.2 F 11/25/21 10:19 Pulse 57 11/25/21 10:19 Resp 18 11/25/21 10:19 BP 151/67 H 11/25/21 10:19 Pulse Ox 97 11/25/21 10:19 O2 Del Method 11/25/21 10:19 BMI result Body Mass Index 30.9 General appearance comfortable no distress The sinuses nontender The pharynx is clear without redness swelling or exudate, mucous membranes moist, voice normal Neck is supple Respiratory no distress Chest is clear to auscultation bilateral Heart no murmur Abdomen soft nontender Extremities full range of motion x4 Skin no rash Course Course Course Narrative: Patient with 1 day of COVID system symptoms tested positive for COVID, when it checked with Pharmacy there were multiple drug interactions making Paxlovid difficult for him to take so he is referred for monoclonal antibodies Other collins well-appearing with no shortness of breath tolerating p.o. breathing comfortably ambulating easily MDM - URI/Sore Throat Lab Data Labs: Lab Results 11/25/21 11/25/21 Range/Units 09:52 09:52 COVID-19 (EDDA) Positive A (Negative) COVID-19 Clin Com See Note S. pyogenes GrpA [place] Negative (Negative) Discharge Plan Discharge Clinical Impression: COVID-19 Patient Disposition: Home, Self-Care Additional Instructions: You tested positive for COVID and are not seriously ill at this moment in time but COVID can get significantly worse We referred you for monoclonal antibody treatment in [facility], you have a she with the phone number They will call you, or you can call them if you have not heard from them by Friday morning Return any time for difficulty breathing, any worse condition or any concerns Prescriptions: No Action ibuprofen 600 mg tablet 600 mg PO Q8H PRN (Reason: pain) Qty: 20 0RF nystatin-triamcinolone 100,000-0.1 unit/g-% cream 1 appl topical TID Qty: 30 0RF miconazole nitrate 2 % cream 1 appl topical BID Qty: 28 0RF
== END 2021-11-25 12:42 | disposition home or self-care (01) ==
PROVIDERS: Emergency Provider Emergency Medicine Emergency Medical Services
DX: U07.1 COVID-19 (principal); R51.9 Headache, unspecified; R05.9 Cough, unspecified; J02.9 Acute pharyngitis, unspecified; Z79.899 Other long term (current) drug therapy
CPT/HCPCS: 87635; 87651; 99282; 99283

== ENCOUNTER 2021-12-14 02:03 | Emergency (ER) | payer OTHER, SELFPAY ==
--- NOTE | 2021-12-14 | ECG_ITS ---
Test Reason : BACK PAIN Blood Pressure : / mmHG Vent. Rate : 046 BPM Atrial Rate : 046 BPM P-R Int : 166 ms QRS Dur : 100 ms QT Int : 450 ms P-R-T Axes : 009 -17 012 degrees QTc Int : 393 ms Sinus bradycardia Incomplete right bundle branch block Borderline ECG When compared with ECG of 01-SEP-2021 01:52, No significant change was found Referred By: Maggi Michelle Electronically Signed By:Lauro Charles
--- NOTE | ~2021-12-14 | XR_ITS ---
EXAMINATION: XR CHEST CLINICAL INFORMATION: Chest pain COMPARISON: 09/01/2021 TECHNIQUE: Frontal view of the chest was obtained. FINDINGS: The lungs are hypoinflated with suggestion of minimal bibasilar atelectasis. No focal consolidation is seen. No evidence of pneumothorax, significant pleural effusion, or overt pulmonary edema. The cardiomediastinal contour is unremarkable. No acute osseous findings are seen. XR/XR chest 1V IMPRESSION: Low lung volumes without definite acute findings.
--- NOTE | 2021-12-14 02:17 | ED_ITS ---
HPI - Back Pain/Injury General Chief Complaint: Back Pain/Injury Stated Complaint: back pain, travels to his chest Time Seen by Provider: 12/14/21 02:17 Source: patient and lang interpreter Mode of arrival: ambulatory Limitations: no limitations History of Present Illness HPI Narrative: 76 yo male with hx of COPD, sleep apnea, HTN, DM here with c/o of pleuritic L sided chest pain starting at 1am. Pain is worse with breathing and movement MD elicited complaint: other (chest pain) Onset (ago): hour(s) (1am today ) Timing: intermittent Severity: moderate Quality: sharp Location: left upper back Radiation: chest Exacerbating factors: movement and deep breaths Relieving factors: none Context: other (woke from sleep) Associated symptoms: denies other symptoms Work related injury: No Related Data Previous Rx's Medication Instructions Recorded ibuprofen 600 mg tablet 600 mg PO Q8H PRN pain #20 tabs 04/22/20 nystatin-triamcinolone 100,000 1 appl topical TID #30 grams 06/03/21 unit/g-0.1 % topical cream miconazole nitrate 2 % topical 1 appl topical BID #28 grams 06/07/21 cream Allergies Allergy/AdvReac Type Severity Reaction Status Date / Time No Known Allergies Allergy Verified 12/14/21 02:18 [No Known Allergies*] Review of Systems Review of Systems: Constitutional : No Weight loss, No Fever, No Chills ENT/Mouth : No sore throat, No Rhinorrhea Eyes: No Eye Pain, No Swelling Cardiovascular : pos Chest Pain, pos SOB, no Dyspnea on Exertion, No Orthopnea, No Edema, No Palpitations Respiratory : No Cough, No Sputum Gastrointestinal : no Nausea, No Vomiting, No Diarrhea, No abdominal Pain, No Hematochezia, No Melena Genitourinary : No Dysuria, No Urinary Frequency Musculoskeletal : No joint pain, No Myalgias, No Joint Swelling Skin : No Skin Lesions, No rash Neuro : No Weakness, No Numbness, No Dizziness, No Headache Psych : No Anxiety/Panic, No Depression Heme/Lymph: No Bruising, No Lymphadenopathy Endocrine : No Polyuria, No Polydipsia All other systems reviewed and are negative PMFSH Past Medical History Attestation statement: The following information was validated with the patient. Medical History Arthritis Diabetes HTN (hypertension) Social History Social History Alcohol intake: never Patient Tobacco Use Status: Never used Tobacco Use of substances other than those prescribed or required for medical reasons: No Advance Directives: No Advance Directives Information Provided: No Physical Exam Vital Signs: Vital Signs: Last Vital Signs Temp 97.5 F 12/14/21 02:29 Pulse 46 L 12/14/21 04:00 Resp 22 H 12/14/21 04:00 BP 136/82 12/14/21 04:00 Pulse Ox 95 12/14/21 04:00 O2 Del Method 12/14/21 04:00 BMI result Body Mass Index 30.9 Appearance: Alert. Oriented X3. No acute distress. Eyes: Pupils equal, round and reactive to light. ENT: Pharynx normal. Neck: Normal inspection. Neck supple. CVS: Normal heart rate and rhythm. Pulses normal. Chest: ttp along left anterior chest wall reproduces pain Respiratory: No respiratory distress. Breath sounds normal. Abdomen: Soft and nontender. Skin: Skin warm and dry. Normal skin color. Normal skin turgor. Extremities: No lower extremity edema. No calf ttp Neuro: Oriented X 3. No motor deficit. No sensory deficit. Course Course Course Narrative: repeat trop flat, ddimer negative stable for DC, previously low HRs MDM - Back Pain/Injury MDM Narrative Medical decision making narrative: 76 yo male with hx of COPD, sleep apnea, HTN, DM here with c/o L sided pleuritic chest pain at this time will need EKG, CXR, troponin x 2, ddimer - pain is reproduceable and he is in no distress watching TV. Dispo per results and findings. Lab Data Result diagrams: 12/14/21 02:59 12/14/21 02:59 Labs: Lab Results 12/14/21 12/14/21 12/14/21 Range/Units 02:59 02:59 02:59 WBC 4.9 (4.8-10.8) X10*3/uL RBC 5.10 (4.60-5.80) X10*6/uL Hgb 14.3 (14.0-18.0) g/dl Hct 43.4 (42.0-52.0) % MCV 85.1 (80.0-98.0) fL MCH 28.0 (27.0-33.0) pg MCHC 32.9 (31.0-36.0) g/dl RDW 14.6 (11.0-16.0) % Plt Count 142 L (160-400) X10*3/uL MPV 10.7 (9.4-12.4) fL Immature Gran % (Auto) 0.4 (0.0-0.4) % Neut % (Auto) 46.4 (45-73) % Lymph % (Auto) 40.7 H (20-40) % [place] % (Auto) 10.7 (2-11) % Eos % (Auto) 1.0 (0-4) % Baso % (Auto) 0.8 (0-2) % Lymph # (Auto) 2.0 (1.2-4.9) X10*3/uL [place] # (Auto) 0.5 (0.1-1.2) X10*3/uL Eos # (Auto) 0.1 (0.0-0.4) X10*3/uL Baso # (Auto) 0.0 (0.0-0.2) X10*3/uL Abs Immat Gran (auto) 0.02 (0.00-0.03) X10*3/uL Absolute Neuts (auto) 2.3 (2.0-8.3) x10*3/uL Absolute Nucleated RBC 0.000 (0.0-0.012) X10*3/uL Nucleated RBC % (auto) 0.0 (0.0-0.2) /100WBC D-Dimer High Sensitivty 157 NG/ML Sodium 142 (135-145) mmol/L Potassium 4.1 (3.3-5.1) mmol/L Chloride 109 H (96-108) mmol/L Carbon Dioxide 24 (22-29) mmol/L Anion Gap 13 (12-20) BUN 24 H (9-16) mg/dL Creatinine 0.92 (0.5-1.4) mg/dL Estim Creat Clear Calc 66.9 Estimated GFR > 60 Random Glucose 109 (60-115) mg/dL Calcium 8.5 D (8.4-10.2) mg/dL Magnesium 2.0 (1.6-2.6) mg/dL Total Bilirubin 0.5 (0.0-1.0) mg/dL Direct Bilirubin 0.2 (0.0-0.5) mg/dL AST 20 (5-37) U/L ALT 22 (0-40) U/L Alkaline Phosphatase 103 D (39-117) U/L Troponin I High Sens (<3.5-35.0) ng/L Total Protein 6.2 L (6.5-8.0) g/dL Albumin 3.6 (3.5-5.0) g/dL 12/14/21 12/14/21 Range/Units 02:59 05:03 WBC (4.8-10.8) X10*3/uL RBC (4.60-5.80) X10*6/uL Hgb (14.0-18.0) g/dl Hct (42.0-52.0) % MCV (80.0-98.0) fL MCH (27.0-33.0) pg MCHC (31.0-36.0) g/dl RDW (11.0-16.0) % Plt Count (160-400) X10*3/uL MPV (9.4-12.4) fL Immature Gran % (Auto) (0.0-0.4) % Neut % (Auto) (45-73) % Lymph % (Auto) (20-40) % [place] % (Auto) (2-11) % Eos % (Auto) (0-4) % Baso % (Auto) (0-2) % Lymph # (Auto) (1.2-4.9) X10*3/uL [place] # (Auto) (0.1-1.2) X10*3/uL Eos # (Auto) (0.0-0.4) X10*3/uL Baso # (Auto) (0.0-0.2) X10*3/uL Abs Immat Gran (auto) (0.00-0.03) X10*3/uL Absolute Neuts (auto) (2.0-8.3) x10*3/uL Absolute Nucleated RBC (0.0-0.012) X10*3/uL Nucleated RBC % (auto) (0.0-0.2) /100WBC D-Dimer High Sensitivty NG/ML Sodium (135-145) mmol/L Potassium (3.3-5.1) mmol/L Chloride (96-108) mmol/L Carbon Dioxide (22-29) mmol/L Anion Gap (12-20) BUN (9-16) mg/dL Creatinine (0.5-1.4) mg/dL Estim Creat Clear Calc Estimated GFR Random Glucose (60-115) mg/dL Calcium (8.4-10.2) mg/dL Magnesium (1.6-2.6) mg/dL Total Bilirubin (0.0-1.0) mg/dL Direct Bilirubin (0.0-0.5) mg/dL AST (5-37) U/L ALT (0-40) U/L Alkaline Phosphatase (39-117) U/L Troponin I High Sens 6.3 D 5.3 (<3.5-35.0) ng/L Total Protein (6.5-8.0) g/dL Albumin (3.5-5.0) g/dL ECG Data Attestation: I personally reviewed and interpreted this ECG as follows: ECG interpretation date: 12/14/21 ECG interpretation time: 02:18 Interpretation: Rate: 46 Rhythm: sinus bradycardia [place]: Normal P waves. Normal ROGER. incomplete RBBB ST T wave : normal no JAILENE qTC: normal prior studies: no acute ischemia The study has been interpreted contemporaneously by me. Discharge Plan Discharge Clinical Impression: Atypical chest pain Patient Disposition: Home, Self-Care Instructions: Chest Pain (ED) Additional Instructions: return to ED for any worsening symptoms or concerns hable con lopez m?dico acerca de lopez dolor en el pecho - an?lisis de adrienne del coraz?n negativos y prueba de co?gulos de adrienne negativa Prescriptions: No Action ibuprofen 600 mg tablet 600 mg PO Q8H PRN (Reason: pain) Qty: 20 0RF nystatin-triamcinolone 100,000-0.1 unit/g-% cream 1 appl topical TID Qty: 30 0RF miconazole nitrate 2 % cream 1 appl topical BID Qty: 28 0RF Referrals: [facility] [Primary Care Provider] - 3 days Print Language: Greek
[2021-12-14 02:18] VITALS: BP 173/84; PULSE 51; RESP 18; TEMP 36.4; O2SAT 93; BMI 30.9
[2021-12-14 02:29] VITALS: BP 165/84; PULSE 46; RESP 20; TEMP 36.4; O2SAT 94
[2021-12-14] MEDS: Acetaminophen 325 MG TABLET 650 MG PO (03:00)
[2021-12-14] MEDS: Cyclobenzaprine HCl 10 MG TABLET PO (03:00)
[2021-12-14 03:03] LABS: MANUAL DIFF FLAG NO
[2021-12-14 03:05] LABS: Basophils Percent Auto 0.8 % (0-2); Eosinophils Absolute Auto 0.1 X10*3/uL (0.0-0.4); Hematocrit 43.4 % (42.0-52.0); Hemoglobin 14.3 g/dl (14.0-18.0); Imm Gran Abs Auto 0.02 X10*3/uL (0.00-0.03); Imm Gran Pct Auto 0.4 % (0.0-0.4); Lymphocytes Percent Auto 40.7 % (20-40); Mean Corpuscular HGB Conc 32.9 g/dl (31.0-36.0); Mean Corpuscular Volume 85.1 fL (80.0-98.0); Mean Platelet Volume 10.7 fL (9.4-12.4); Monocytes Absolute Auto 0.5 X10*3/uL (0.1-1.2); Monocytes Percent Auto 10.7 % (2-11); Neutrophils Absolute Auto 2.3 x10*3/uL (2.0-8.3); Neutrophils Percent Auto 46.4 % (45-73); Platelet Count 142 X10*3/uL (160-400); Red Cell Distribution Width 14.6 % (11.0-16.0); White Blood Count 4.9 X10*3/uL (4.8-10.8)
[2021-12-14 03:12] LABS: D Dimer High Sensitivity 157 NG/ML
[2021-12-14 03:26] LABS: Troponin-I High Sensitivity 6.3 ng/L (<3.5-35.0)
[2021-12-14 03:27] LABS: Alanine Aminotransferase 22 U/L (0-40); Albumin Level 3.6 g/dL (3.5-5.0); Alkaline Phosphatase 103 U/L (39-117); Anion Gap 13 (12-20); Aspartate Amino Transferase 20 U/L (5-37); Bilirubin Direct 0.2 mg/dL (0.0-0.5); Bilirubin Total 0.5 mg/dL (0.0-1.0); Blood Urea Nitrogen 24 mg/dL (9-16); Calcium 8.5 mg/dL (8.4-10.2); Carbon Dioxide 24 mmol/L (22-29); Chloride 109 mmol/L (96-108); Creatinine Clr Calc Pharmacy 66.9; Estimated Glomerular Filt Rate > 60; Glucose Random 109 mg/dL (60-115); Potassium 4.1 mmol/L (3.3-5.1); Sodium 142 mmol/L (135-145); Total Protein 6.2 g/dL (6.5-8.0)
[2021-12-14 04:00] VITALS: BP 136/82; PULSE 46; RESP 22; O2SAT 95
[2021-12-14 05:27] LABS: Troponin-I High Sensitivity 5.3 ng/L (<3.5-35.0)
[2021-12-14 05:52] VITALS: BP 153/65; PULSE 45; RESP 19; O2SAT 94
== END 2021-12-14 06:08 | disposition home or self-care (01) ==
PROVIDERS: Emergency Provider Emergency Medicine
DX: R07.89 Other chest pain (principal); I10 Essential (primary) hypertension; E11.9 Type 2 diabetes mellitus without complications
CPT/HCPCS: 36415; 71045; 80048; 80076; 83735; 84484; 85025; 85379; 93005; 99283; 99284; 99285

== ENCOUNTER → 2022-07-18 10:55 | Outpatient (BNVA) | payer OTHER, SELFPAY | PROVIDERS: PCP Emergency Medicine; Visit Provider Nurse Practitioner Family | DX: M47.26 Other spondylosis with radiculopathy, lumbar region (principal); E11.40 Type 2 diabetes mellitus with diabetic neuropathy, unspecified; I10 Essential (primary) hypertension; Z86.59 Personal history of other mental and behavioral disorders | CPT/HCPCS: 99202 ==

== ENCOUNTER 2022-09-04 11:35 | Emergency (ER) | payer OTHER, SELFPAY ==
--- NOTE | ~2022-09-04 | XR_ITS ---
EXAMINATION: XR CHEST CLINICAL INFORMATION: Chest pain COMPARISON: 12/14/2021 TECHNIQUE: 2 views of the chest were obtained. FINDINGS: No focal consolidation, pulmonary edema, or pleural effusion. Stable cardiomediastinal silhouette. XR/XR chest 2V IMPRESSION: No acute cardiopulmonary findings.
--- NOTE | ~2022-09-04 | CT_ITS ---
EXAMINATION: CT ABDOMEN AND PELVIS WITHOUT CONTRAST CLINICAL INFORMATION: Abdominal pain. Diarrhea. COMPARISON: None available. TECHNIQUE: Multidetector volumetric imaging was performed from the superior aspect of the liver through the pubic symphysis. Sagittal and coronal reformatted images were obtained on the technologist's workstation. This CT examination was performed using dose optimization techniques as appropriate, variously including the following: *Automated exposure control *Adjustment of mA and/or kV according to patient size (this includes techniques or standardized protocols for targeted exams where dose is matched to indication/reason for exam; i.e. extremities or head) *Use of iterative reconstruction technique DLP: 653 mGy-cm FINDINGS: LUNG BASES: The visualized lung bases are unremarkable. LIVER, GALLBLADDER, AND BILIARY TREE: The liver is normal in size, shape, and attenuation. No focal hepatic lesion or biliary ductal dilatation is present. The gallbladder is unremarkable with no evidence of radiopaque gallstones, gallbladder wall thickening, or obvious pericholecystic inflammatory changes. PANCREAS: Unremarkable. SPLEEN: Unremarkable. ADRENAL GLANDS: Unremarkable. KIDNEYS AND URETERS: The kidneys are normal in size, shape, and attenuation. No hydronephrosis, hydroureter, or calculi seen. No perinephric stranding. Small left renal cyst. No imaging follow-up recommended. BLADDER: Unremarkable. GASTROINTESTINAL TRACT: Diverticulosis. No evidence of diverticulitis. Duodenal diverticulum adjacent to the head of the pancreas. The small and large bowel are otherwise unremarkable. The appendix is unremarkable. ABDOMINAL WALL: No significant hernia is appreciated. LYMPH NODES: Normal. VASCULAR: Unremarkable. PELVIC VISCERA: Slightly enlarged prostate gland. OSSEOUS STRUCTURES: Degenerative changes of the spine. CT/CT abdomen pelvis wo IV con IMPRESSION: Diverticulosis. No evidence of diverticulitis. Slightly enlarged prostate gland. Fleischner guidelines were followed.
[2022-09-04 11:39] VITALS: BP 127/69; PULSE 54; RESP 18; TEMP 36.6; O2SAT 98; BMI 31.8
--- NOTE | 2022-09-04 11:40 | ED_ITS ---
HPI - Chest Pain General Chief Complaint: Back Pain/Injury <Danielle Wong NP - Last Filed: 09/04/22 12:30> Stated Complaint: Chest pain/Back pain <Danielle Wong NP - Last Filed: 09/04/22 12:30> Time Seen by Provider: 09/04/22 12:56 <Danielle Wong NP - Last Filed: 09/04/22 12:30> Source: patient and RN notes reviewed <OSWALDO Crooks - Last Filed: 09/04/22 18:12> Mode of arrival: ambulatory <OSWALDO Crooks Last Filed: 09/04/22 18:12> Limitations: no limitations <OSWALDO Crooks Last Filed: 09/04/22 18:12> History of Present Illness HPI narrative: This is a 77-year-old Algerian-speaking male, with a past medical history of hyperlipidemia, hypertension, and diabetes, who presents emergency department today with complaints of chest pain x3 days. Patient reports that he woke up in the middle the night with this chest pain and has been constant since. He describes this chest pain as pressure and electricity that radiates down his left arm. He has some shortness of breath associated with pain. Patient reports that he had couple episodes of diarrhea test he denies any abdominal pain, nausea, fevers, chills, dizziness, blurred vision, calf pain. Denies any recent travels, cancer history, history of blood clots, recent hospitalizations or surgeries. He is a former smoker, quit 20 years ago. No other complaints or concerns at this time. <OSWALDO Crooks Last Filed: 09/04/22 18:12> MD complaint: chest pain <OSWALDO Crooks Last Filed: 09/04/22 18:12> Onset (ago): day(s) <OSWALDO Crooks Last Filed: 09/04/22 18:12> Timing of current episode: constant <OSWALDO Crooks Last Filed: 09/04/22 18:12> Prior episodes: No <OSWALDO Crooks Last Filed: 09/04/22 18:12> Onset: during rest and awoke with symptoms <OSWALDO Crooks Last Filed: 09/04/22 18:12> Pain location: left chest and right chest <OSWALDO Crooks - Last Filed: 09/04/22 18:12> Pain radiation: left arm <OSWALDO Crooks - Last Filed: 09/04/22 18:12> Severity: moderate <OSWALDO Crooks - Last Filed: 09/04/22 18:12> Quality: tightness and shooting <OSWALDO Crooks - Last Filed: 09/04/22 18:12> Relieving factors: nothing <OSWALDO Crooks - Last Filed: 09/04/22 18:12> Exacerbating factors: nothing <OSWALDO Crooks - Last Filed: 09/04/22 18:12> Treatment prior to arrival: none <OSWALDO Crooks - Last Filed: 09/04/22 18:12> Risk Factors Coronary artery disease risk factors: diabetes, hyperlipidemia and hypertension <OSWALDO Crooks - Last Filed: 09/04/22 18:12> Thoracic aortic dissection risk factors: none <OSWALDO Crooks Last Filed: 09/04/22 18:12> Related Data Home Medications: Home Medications Medication Instructions Recorded Confirmed albuterol sulfate 90 mcg/actuation 2 puff inhalation Q4-6H PRN 07/18/22 aerosol inhaler (Ventolin HFA) amlodipine 5 mg tablet 5 mg PO DAILY blood pressure 07/18/22 atorvastatin 10 mg tablet 10 mg PO BEDTIME 07/18/22 betamethasone dipropionate 0.05 % topical BID 07/18/22 topical ointment buspirone 5 mg tablet 5 mg PO BID 07/18/22 carvedilol 3.125 mg tablet 3.125 mg PO BID 07/18/22 clobetasol 0.05 % topical cream g topical DAILY 07/18/22 diclofenac sodium 1 % topical gel 2 g topical BID PRN pain 07/18/22 fluticasone propionate 250 0 inh inhalation 07/18/22 mcg/actuation blister powder for inhalation (Flovent Diskus) lisinopril 30 mg tablet 30 mg PO DAILY 07/18/22 olopatadine 0.2 % eye drops 1 drp ophthalmic (eye) BID 07/18/22 sertraline 50 mg tablet 50 mg PO DAILY 07/18/22 tramadol 50 mg tablet 50 mg PO Q12H PRN 07/18/22 Previous Rx's Medication Instructions Recorded ibuprofen 600 mg tablet 600 mg PO Q8H PRN pain #20 tabs 04/22/20 nystatin-triamcinolone 100,000 1 appl topical TID #30 grams 06/03/21 unit/g-0.1 % topical cream miconazole nitrate 2 % topical 1 appl topical BID #28 grams 06/07/21 cream <Danielle Wong NP - Last Filed: 09/04/22 12:30> Allergies/Adverse Reactions: Allergies Allergy/AdvReac Type Severity Reaction Status Date / Time No Known Allergies Allergy Verified 12/14/21 02:18 [No Known Allergies*] <Danielle Wong NP - Last Filed: 09/04/22 12:30> Review of Systems Review of Systems: Yes all other systems are reviewed and are negative <OSWALDO Crooks - Last Filed: 09/04/22 18:12> [facility] Past Medical History Attestation statement: The following information was validated with the patient. <OSWALDO Crooks - Last Filed: 09/04/22 18:12> Medical History: Medical History Arthritis Diabetes HTN (hypertension) <Danielle Wong NP - Last Filed: 09/04/22 12:30> Social History Social History: Social History Alcohol intake: never Patient Tobacco Use Status: Never used Tobacco Smoked in Last 30 Days: No Use of substances other than those prescribed or required for medical reasons: No Advance Directives: No Advance Directives Information Provided: Yes <Danielle Wong NP - Last Filed: 09/04/22 12:30> Physical Exam Vital Signs: Vital Signs: Last Vital Signs Temp 98.0 F 09/04/22 13:16 Pulse 50 09/04/22 14:41 Resp 19 09/04/22 14:41 BP 122/71 09/04/22 14:41 Pulse Ox 97 09/04/22 14:41 O2 Del Method Room Air 09/04/22 14:41 BMI result Body Mass Index 31.8 <Danielle Wong NP - Last Filed: 09/04/22 12:30> Vital Signs: Last Vital Signs Temp 98.0 F 09/04/22 13:16 Pulse 50 09/04/22 14:41 Resp 19 09/04/22 14:41 BP 122/71 09/04/22 14:41 Pulse Ox 97 09/04/22 14:41 O2 Del Method Room Air 09/04/22 14:41 BMI result Body Mass Index 31.8 <OSWALDO Crooks - Last Filed: 09/04/22 18:12> Appearance: Alert. Oriented X3. No acute distress. Eyes: Pupils equal, round and reactive to light. ENT: Pharynx normal. Moist mucus membranes Neck: Normal inspection. Neck supple. CVS: Normal heart rate and rhythm. Pulses normal. S1S2 regular. Respiratory: No respiratory distress. Breath sounds normal. Lungs clear to auscultation bilaterally. Abdomen: Soft, tenderness to palpation to the right lower quadrant with mild guarding. Normoactive bowel sounds Skin: Skin warm and dry. Normal skin color. Normal skin turgor. No rashes. Extremities: No lower extremity edema. No calf tenderness, no lower extremity edema Neuro: Oriented X 3. No motor deficit. No sensory deficit. CN II-XII intact. <OSWALDO Crooks - Last Filed: 09/04/22 18:12> Course Course Course Narrative: This is a rapid medical exam. Deferred additional HPI, ROS, PE to primary provider. 77 yo male with history of DM, back pain here with 2 days of left shoulder/left chest pain x 2 days with no other associated symptoms. Worsened with movement and deep breathing. Will check labs, EKG, CXR, covid screen. VSS <Danielle Wong NP - Last Filed: 09/04/22 12:30> Reevaluation(s) Reevaluation #1: Patient reports that his chest pain is improved after aspirin. First troponin 5.9. CT abdomen and 2nd troponin still pending. <OSWALDO Crooks - Last Filed: 09/04/22 18:12> Time: 14:20 <OSWALDO Crooks - Last Filed: 09/04/22 18:12> Reevaluation #2: Second troponin 6. Patient re-evaluated. Patient reports that he has been pain-free since receiving aspirin today. Patient has a flat troponin x2, chest x-ray normal. No tachycardia, hypoxia, or risk factors for PE. No lower extremity swelling or calf pain. Patient is completely asymptomatic and would like to be discharged. I stressed the importance of following up with his primary care physician regarding this visit. Patient understands and agrees with plan. Patient stable for discharge. <OSWALDO Crooks - Last Filed: 09/04/22 18:12> Time: 16:20 <OSWALDO Crooks - Last Filed: 09/04/22 18:12> Medications Administered Discontinued Medications Generic Name Dose Route Start Last Admin Trade Name Freq PRN Reason Stop Dose Admin Aspirin 324 mg 09/04/22 13:19 09/04/22 13:31 Aspirin 81 Mg Tab.Chew PO 09/04/22 13:20 324 mg ONCE ONE Administration Nitroglycerin 0.4 mg 09/04/22 13:19 09/04/22 15:43 Nitroglycerin 0.4 Mg Tab.Subl SUBLINGUAL 09/04/22 13:20 Not Given ONCE ONE <Danielle Wong NP - Last Filed: 09/04/22 12:30> Medications Administered Discontinued Medications Generic Name Dose Route Start Last Admin Trade Name Freq PRN Reason Stop Dose Admin Aspirin 324 mg 09/04/22 13:19 09/04/22 13:31 Aspirin 81 Mg Tab.Chew PO 09/04/22 13:20 324 mg ONCE ONE Administration Nitroglycerin 0.4 mg 09/04/22 13:19 09/04/22 15:43 Nitroglycerin 0.4 Mg Tab.Subl SUBLINGUAL 09/04/22 13:20 Not Given ONCE ONE <OSWALDO Croosk - Last Filed: 09/04/22 18:12> Medical Decision Making Medical Decision Making MDM Narrative: 77-year-old female, with a past medical history of diabetes, hyperlipidemia, hypertension, presents emergency department today with 3 day history of chest pain that awoke him while he is sleeping. He states that his pain has been constant and radiates intermittently down his left arm. He r eports some associated shortness of breath. Vital signs within normal limits upon arrival. Patient is well-appearing is in no acute distress. On examination patient has reproducible left-sided chest pain as well as left-sided abdominal pain. Patient medicated with aspirin, deferring nitroglycerin secondary to bradycardia at 54. CT abdomen obtained due to tenderness palpation his left lower quadrant. EKG with sinus bradycardia with incomplete right bundle-branch block similar to previous EKGs. Plan: CT abdomen, troponin x2, labs, EKG <OSWALDO Crooks - Last Filed: 09/04/22 18:12> Differential Diagnosis Differential Diagnoses: The differential diagnosis associated with the presentation includes <OSWALDO Crooks - Last Filed: 09/04/22 18:12> ACS, Pneumonia, pneumothorax, chest wall strain <OSWALDO Crooks - Last Filed: 09/04/22 18:12> Lab Data Result Diagrams: 09/04/22 11:54 09/04/22 11:54 <Danielle Wong NP - Last Filed: 09/04/22 12:30> Labs: Lab Results 09/04/22 09/04/22 09/04/22 Range/Units 11:54 11:54 11:54 WBC 4.7 L (4.8-10.8) X10*3/uL RBC 5.36 (4.60-5.80) X10*6/uL Hgb 15.0 (14.0-18.0) g/dl Hct 45.6 (42.0-52.0) % MCV 85.1 (80.0-98.0) fL MCH 28.0 (27.0-33.0) pg MCHC 32.9 (31.0-36.0) g/dl RDW 14.6 (11.0-16.0) % Plt Count 142 L (160-400) X10*3/uL MPV 10.4 (9.4-12.4) fL Immature Gran % (Auto) 0.6 H (0.0-0.4) % Neut % (Auto) 43.8 L (45-73) % Lymph % (Auto) 45.9 H (20-40) % [place] % (Auto) 8.1 (2-11) % Eos % (Auto) 0.8 (0-4) % Baso % (Auto) 0.8 (0-2) % Lymph # (Auto) 2.2 (1.2-4.9) X10*3/uL [place] # (Auto) 0.4 (0.1-1.2) X10*3/uL Eos # (Auto) 0.0 (0.0-0.4) X10*3/uL Baso # (Auto) 0.0 (0.0-0.2) X10*3/uL Abs Immat Gran (auto) 0.03 (0.00-0.03) X10*3/uL Absolute Neuts (auto) 2.1 (2.0-8.3) x10*3/uL Absolute Nucleated RBC 0.000 (0.0-0.012) X10*3/uL Nucleated RBC % (auto) 0.0 (0.0-0.2) /100WBC PT 11.9 (10.0-13.1) SEC INR 1.0 (0.9-1.1) D-Dimer High Sensitivty 178 NG/ML Sodium 140 (135-145) mmol/L Potassium 4.5 (3.3-5.1) mmol/L Chloride 109 H (96-108) mmol/L Carbon Dioxide 24 (22-29) mmol/L Anion Gap 12 (12-20) BUN 17 H (9-16) mg/dL Creatinine 1.05 (0.5-1.4) mg/dL Estim Creat Clear Calc 56.5 Estimated GFR > 60 Random Glucose 147 H (60-115) mg/dL Calcium 8.9 (8.4-10.2) mg/dL Total Bilirubin 0.3 (0.0-1.0) mg/dL Direct Bilirubin 0.1 (0.0-0.5) mg/dL AST 27 (5-37) U/L ALT 28 (0-40) U/L Alkaline Phosphatase 91 (39-117) U/L Troponin I High Sens (<3.5-35.0) ng/L Total Protein 6.2 L (6.5-8.0) g/dL Albumin 3.7 (3.5-5.0) g/dL COVID-19 (EDDA) (Negative) COVID-19 Clin Com 09/04/22 09/04/22 09/04/22 Range/Units 11:54 12:23 14:57 WBC (4.8-10.8) X10*3/uL RBC (4.60-5.80) X10*6/uL Hgb (14.0-18.0) g/dl Hct (42.0-52.0) % MCV (80.0-98.0) fL MCH (27.0-33.0) pg MCHC (31.0-36.0) g/dl RDW (11.0-16.0) % Plt Count (160-400) X10*3/uL MPV (9.4-12.4) fL Immature Gran % (Auto) (0.0-0.4) % Neut % (Auto) (45-73) % Lymph % (Auto) (20-40) % [place] % (Auto) (2-11) % Eos % (Auto) (0-4) % Baso % (Auto) (0-2) % Lymph # (Auto) (1.2-4.9) X10*3/uL [place] # (Auto) (0.1-1.2) X10*3/uL Eos # (Auto) (0.0-0.4) X10*3/uL Baso # (Auto) (0.0-0.2) X10*3/uL Abs Immat Gran (auto) (0.00-0.03) X10*3/uL Absolute Neuts (auto) (2.0-8.3) x10*3/uL Absolute Nucleated RBC (0.0-0.012) X10*3/uL Nucleated RBC % (auto) (0.0-0.2) /100WBC PT (10.0-13.1) SEC INR (0.9-1.1) D-Dimer High Sensitivty NG/ML Sodium (135-145) mmol/L Potassium (3.3-5.1) mmol/L Chloride (96-108) mmol/L Carbon Dioxide (22-29) mmol/L Anion Gap (12-20) BUN (9-16) mg/dL Creatinine (0.5-1.4) mg/dL Estim Creat Clear Calc Estimated GFR Random Glucose (60-115) mg/dL Calcium (8.4-10.2) mg/dL Total Bilirubin (0.0-1.0) mg/dL Direct Bilirubin (0.0-0.5) mg/dL AST (5-37) U/L ALT (0-40) U/L Alkaline Phosphatase (39-117) U/L Troponin I High Sens 5.9 6.0 (<3.5-35.0) ng/L Total Protein (6.5-8.0) g/dL Albumin (3.5-5.0) g/dL COVID-19 (EDDA) Negative (Negative) COVID-19 Clin Com See Note <Danielle Wong, WELFARE DIRECTOR - Last Filed: 09/04/22 12:30> Lab Results 09/04/22 09/04/22 09/04/22 Range/Units 11:54 11:54 11:54 WBC 4.7 L (4.8-10.8) X10*3/uL RBC 5.36 (4.60-5.80) X10*6/uL Hgb 15.0 (14.0-18.0) g/dl Hct 45.6 (42.0-52.0) % MCV 85.1 (80.0-98.0) fL MCH 28.0 (27.0-33.0) pg MCHC 32.9 (31.0-36.0) g/dl RDW 14.6 (11.0-16.0) % Plt Count 142 L (160-400) X10*3/uL MPV 10.4 (9.4-12.4) fL Immature Gran % (Auto) 0.6 H (0.0-0.4) % Neut % (Auto) 43.8 L (45-73) % Lymph % (Auto) 45.9 H (20-40) % [place] % (Auto) 8.1 (2-11) % Eos % (Auto) 0.8 (0-4) % Baso % (Auto) 0.8 (0-2) % Lymph # (Auto) 2.2 (1.2-4.9) X10*3/uL [place] # (Auto) 0.4 (0.1-1.2) X10*3/uL Eos # (Auto) 0.0 (0.0-0.4) X10*3/uL Baso # (Auto) 0.0 (0.0-0.2) X10*3/uL Abs Immat Gran (auto) 0.03 (0.00-0.03) X10*3/uL Absolute Neuts (auto) 2.1 (2.0-8.3) x10*3/uL Absolute Nucleated RBC 0.000 (0.0-0.012) X10*3/uL Nucleated RBC % (auto) 0.0 (0.0-0.2) /100WBC PT 11.9 (10.0-13.1) SEC INR 1.0 (0.9-1.1) D-Dimer High Sensitivty 178 NG/ML Sodium 140 (135-145) mmol/L Potassium 4.5 (3.3-5.1) mmol/L Chloride 109 H (96-108) mmol/L Carbon Dioxide 24 (22-29) mmol/L Anion Gap 12 (12-20) BUN 17 H (9-16) mg/dL Creatinine 1.05 (0.5-1.4) mg/dL Estim Creat Clear Calc 56.5 Estimated GFR > 60 Random Glucose 147 H (60-115) mg/dL Calcium 8.9 (8.4-10.2) mg/dL Total Bilirubin 0.3 (0.0-1.0) mg/dL Direct Bilirubin 0.1 (0.0-0.5) mg/dL AST 27 (5-37) U/L ALT 28 (0-40) U/L Alkaline Phosphatase 91 (39-117) U/L Troponin I High Sens (<3.5-35.0) ng/L Total Protein 6.2 L (6.5-8.0) g/dL Albumin 3.7 (3.5-5.0) g/dL COVID-19 (EDDA) (Negative) COVID-19 Clin Com 09/04/22 09/04/22 09/04/22 Range/Units 11:54 12:23 14:57 WBC (4.8-10.8) X10*3/uL RBC (4.60-5.80) X10*6/uL Hgb (14.0-18.0) g/dl Hct (42.0-52.0) % MCV (80.0-98.0) fL MCH (27.0-33.0) pg MCHC (31.0-36.0) g/dl RDW (11.0-16.0) % Plt Count (160-400) X10*3/uL MPV (9.4-12.4) fL Immature Gran % (Auto) (0.0-0.4) % Neut % (Auto) (45-73) % Lymph % (Auto) (20-40) % [place] % (Auto) (2-11) % Eos % (Auto) (0-4) % Baso % (Auto) (0-2) % Lymph # (Auto) (1.2-4.9) X10*3/uL [place] # (Auto) (0.1-1.2) X10*3/uL Eos # (Auto) (0.0-0.4) X10*3/uL Baso # (Auto) (0.0-0.2) X10*3/uL Abs Immat Gran (auto) (0.00-0.03) X10*3/uL Absolute Neuts (auto) (2.0-8.3) x10*3/uL Absolute Nucleated RBC (0.0-0.012) X10*3/uL Nucleated RBC % (auto) (0.0-0.2) /100WBC PT (10.0-13.1) SEC INR (0.9-1.1) D-Dimer High Sensitivty NG/ML Sodium (135-145) mmol/L Potassium (3.3-5.1) mmol/L Chloride (96-108) mmol/L Carbon Dioxide (22-29) mmol/L Anion Gap (12-20) BUN (9-16) mg/dL Creatinine (0.5-1.4) mg/dL Estim Creat Clear Calc Estimated GFR Random Glucose (60-115) mg/dL Calcium (8.4-10.2) mg/dL Total Bilirubin (0.0-1.0) mg/dL Direct Bilirubin (0.0-0.5) mg/dL AST (5-37) U/L ALT (0-40) U/L Alkaline Phosphatase (39-117) U/L Troponin I High Sens 5.9 6.0 (<3.5-35.0) ng/L Total Protein (6.5-8.0) g/dL Albumin (3.5-5.0) g/dL COVID-19 (EDDA) Negative (Negative) COVID-19 Clin Com See Note <OSWALDO Crooks Last Filed: 09/04/22 18:12> Independent Interpretation I performed an independent interpretation of an: EKG <OSWALDO Crooks Filed: 09/04/22 18:12> Interpretation: Vent. Rate : 053 BPM ? ? Atrial Rate : 053 BPM ?? P-R Int : 164 ms? QRS Dur : 104 ms ? ? QT Int : 428 ms ? ? ? P-R-T Axes : 012 -25 020 degrees ?? QTc Int : 401 ms ? Sinus bradycardia Incomplete right bundle branch block Borderline ECG When compared with ECG of 14-DEC-2021 02:02, No significant change was found <OSWALDO Crooks Filed: 09/04/22 18:12> Radiology Impression Discussion of test interpretation with radiology: I have reviewed the radiologist's reading. <OSWALDO Crooks Filed: 09/04/22 18:12> Radiologist Impression: EXAMINATION: CT ABDOMEN AND PELVIS WITHOUT CONTRAST? CLINICAL INFORMATION: Abdominal pain. Diarrhea.? COMPARISON: None available.? TECHNIQUE: Multidetector volumetric imaging was performed from the superior aspect of the liver through the pubic symphysis. Sagittal and coronal reformatted images were obtained on the technologist's workstation.? This CT examination was performed using dose optimization techniques as appropriate, variously including the following: *Automated exposure control *Adjustment of mA and/or kV according to patient size (this includes techniques or standardized protocols for targeted exams where dose is matched to indication/reason for exam; i.e. extremities or head) *Use of iterative reconstruction technique DLP: 653 mGy-cm FINDINGS: LUNG BASES: The visualized lung bases are unremarkable.? LIVER, GALLBLADDER, AND BILIARY TREE: The liver is normal in size, shape, and attenuation. No focal hepatic lesion or biliary ductal dilatation is present. The gallbladder is unremarkable with no evidence of radiopaque gallstones, gallbladder wall thickening, or obvious pericholecystic inflammatory changes.? PANCREAS: Unremarkable.? SPLEEN: Unremarkable.? ADRENAL GLANDS: Unremarkable.? KIDNEYS AND URETERS: The kidneys are normal in size, shape, and attenuation. No hydronephrosis, hydroureter, or calculi seen. No perinephric stranding. Small left renal cyst. No imaging follow-up recommended. BLADDER: Unremarkable.? GASTROINTESTINAL TRACT: Diverticulosis. No evidence of diverticulitis. Duodenal diverticulum adjacent to the head of the pancreas. The small and large bowel are otherwise unremarkable. The appendix is unremarkable.? ABDOMINAL WALL: No significant hernia is appreciated.? LYMPH NODES: Normal. VASCULAR: Unremarkable. PELVIC VISCERA: Slightly enlarged prostate gland. OSSEOUS STRUCTURES: Degenerative changes of the spine. CT/CT abdomen pelvis wo IV con IMPRESSION: Diverticulosis. No evidence of diverticulitis. Slightly enlarged prostate gland.? ? Fleischner guidelines were followed. Dictated By: Lisa Dickens MD <OSWALDO Crooks - Last Filed: 09/04/22 18:12> Scores Heart Score History: -1- moderately suspicious <OSWALDO Crooks - Last Filed: 09/04/22 18:12> ECG: -0- normal <OSWALDO Crooks - Last Filed: 09/04/22 18:12> Age: -2- > or = 65 <OSWALDO Crooks - Last Filed: 09/04/22 18:12> Risk factory: -2- 3 or more risk factors or treated atherosclerosis <OSWALDO Crooks - Last Filed: 09/04/22 18:12> Troponin: -0- < or = normal limit <OSWALDO Crooks - Last Filed: 09/04/22 18:12> Score: 5 <OSWALDO Crooks - Last Filed: 09/04/22 18:12> Risk: 16.6% <OSWALDO Crooks - Last Filed: 09/04/22 18:12> Discharge Plan Discharge Clinical Impression: Chest pain <Danielle Wong NP - Last Filed: 09/04/22 12:30> Patient Disposition: Home, Self-Care <Danielle Wong NP - Last Filed: 09/04/22 12:30> Instructions: Chest Pain (ED) <Danielle Wong NP - Last Filed: 09/04/22 12:30> Additional Instructions: Your chest x-ray, CT scan, blood work performed today was reassuring. We gave you aspirin and your chest pain completely resolved. Please follow-up with your primary care physician regarding this visit. If you develop any new or worsening symptoms please return for re-evaluation. Jacobo radiograf?a de t?rax, tomograf?a computarizada, an?lisis de adrienne realizados hoy fueron tranquilizadores. Te dimos aspirina y tu dolor de pecho se resolvi? por completo. Ondina un seguimiento con jacobo m?dico de atenci?n primaria con respecto a esta visita. Si desarrolla s?ntomas nuevos o que empeoran, regrese para minesh reevaluaci?n. <Danielle Wong NP - Last Filed: 09/04/22 12:30> Prescriptions: No Action ibuprofen 600 mg tablet 600 mg PO Q8H PRN (Reason: pain) Qty: 20 0RF nystatin-triamcinolone 100,000-0.1 unit/g-% cream 1 appl topical TID Qty: 30 0RF miconazole nitrate 2 % cream 1 appl topical BID Qty: 28 0RF sertraline 50 mg tablet 50 mg PO DAILY buspirone 5 mg tablet 5 mg PO BID clobetasol 0.05 % cream topical DAILY olopatadine 0.2 % drops 1 drp ophthalmic (eye) BID tramadol 50 mg tablet 50 mg PO Q12H PRN carvedilol 3.125 mg tablet 3.125 mg PO BID diclofenac sodium 1 % gel 2 g topical BID PRN (Reason: pain) Flovent Diskus 250 mcg/actuation blister with device 0 inh inhalation betamethasone dipropionate 0.05 % ointment topical BID lisinopril 30 mg tablet 30 mg PO DAILY amlodipine 5 mg tablet 5 mg PO DAILY atorvastatin 10 mg tablet 10 mg PO BEDTIME albuterol sulfate [Ventolin HFA] 90 mcg/actuation HFA aerosol inhaler 2 puff inhalation Q4-6H PRN <Danielle Wong NP - Last Filed: 09/04/22 12:30> Interventions: ED Discharge Assessment Last Done: 09/04/22 16:59 <Danielle Wong NP - Last Filed: 09/04/22 12:30> Discharge Date/Time: 09/04/22 17:00 <Danielle Wong NP - Last Filed: 09/04/22 12:30> Print Language: Algerian <Danielle Wong NP - Last Filed: 09/04/22 12:30>
--- NOTE | 2022-09-04 11:40 | ECG_ITS ---
Test Reason : chest pain Blood Pressure : / mmHG Vent. Rate : 053 BPM Atrial Rate : 053 BPM P-R Int : 164 ms QRS Dur : 104 ms QT Int : 428 ms P-R-T Axes : 012 -25 020 degrees QTc Int : 401 ms Sinus bradycardia Incomplete right bundle branch block Borderline ECG When compared with ECG of 14-DEC-2021 02:02, No significant change was found Referred By: Danielle Wong Electronically Signed By:LOU CARR MD
[2022-09-04 12:08] LABS: MANUAL DIFF FLAG NO
[2022-09-04 12:09] LABS: Basophils Percent Auto 0.8 % (0-2); Eosinophils Percent Auto 0.8 % (0-4); Hematocrit 45.6 % (42.0-52.0); Imm Gran Abs Auto 0.03 X10*3/uL (0.00-0.03); Imm Gran Pct Auto 0.6 % (0.0-0.4); Lymphocytes Absolute Auto 2.2 X10*3/uL (1.2-4.9); Lymphocytes Percent Auto 45.9 % (20-40); Mean Corpuscular HGB Conc 32.9 g/dl (31.0-36.0); Mean Corpuscular Volume 85.1 fL (80.0-98.0); Mean Platelet Volume 10.4 fL (9.4-12.4); Monocytes Absolute Auto 0.4 X10*3/uL (0.1-1.2); Monocytes Percent Auto 8.1 % (2-11); Neutrophils Absolute Auto 2.1 x10*3/uL (2.0-8.3); Neutrophils Percent Auto 43.8 % (45-73); Platelet Count 142 X10*3/uL (160-400); Red Blood Count 5.36 X10*6/uL (4.60-5.80); Red Cell Distribution Width 14.6 % (11.0-16.0); White Blood Count 4.7 X10*3/uL (4.8-10.8)
[2022-09-04 12:27] LABS: Alanine Aminotransferase 28 U/L (0-40); Albumin Level 3.7 g/dL (3.5-5.0); Alkaline Phosphatase 91 U/L (39-117); Anion Gap 12 (12-20); Aspartate Amino Transferase 27 U/L (5-37); Bilirubin Direct 0.1 mg/dL (0.0-0.5); Bilirubin Total 0.3 mg/dL (0.0-1.0); Blood Urea Nitrogen 17 mg/dL (9-16); Calcium 8.9 mg/dL (8.4-10.2); Carbon Dioxide 24 mmol/L (22-29); Chloride 109 mmol/L (96-108); Creatinine Clr Calc Pharmacy 56.5; Estimated Glomerular Filt Rate > 60; Glucose Random 147 mg/dL (60-115); Potassium 4.5 mmol/L (3.3-5.1); Sodium 140 mmol/L (135-145); Total Protein 6.2 g/dL (6.5-8.0)
[2022-09-04 12:32] LABS: Prothrombin Time 11.9 SEC (10.0-13.1); Troponin-I High Sensitivity 5.9 ng/L (<3.5-35.0)
--- OUTSIDE RECORDS SUMMARY | 2022-09-04 12:44 | XMS_ITS | Continuity of Care Document ---
Author Name Unknown Organization [facility] ter Address [address] [place] [id number]- Care Team Providers Care Dehydration Plant Operator Name Role Phone Not on Staff, PCP Primary Care Physician Unavail able Encounter [facility] [place] Date(s): 09/28/21 - 11/24/[address] [address] Attending Physician: Jaren Estrada MD Admitting Physician: Jaren Estrada MD Referring Physician: Marta Grande MD Allergies, Adverse Reactions, Alerts No Known Allergies Immunizations Given and Recorded Vaccine Date Status Refusal Reason Influenza Vaccine (oldterm) 1 02/01/09 Given Tetanus-Diphth Toxoids, Adult (oldterm) 2 12/21/08 Given 1Admin Note: vis 11/30 2Admin Note: vis given Medications Advair HFA 115 mcg / 21 mcg 2 puffs, Inhalation, 2 times a day, # 60 each, 6 Refills, Maintenance, 09/28/21 15:46:00 EDT, Aerosol, [id number], Partial fill upon patient request if the prescription is for a schedule II opioid drug., 2 puffs Inhalation 2 times a day, 165,... Start Date: 09/28/21 Status: Ordered amlodipine 5 mg oral tablet By Mouth, Daily before breakfast, 0 Refills, Maintenance, 01/12/14 11:44:36, Tablet Start Date: 01/12/14 Status: Ordered Aspirin = 81 mg, By Mouth, Daily, 0 Refills Start Date: 10/13/08 Status: Ordered Cymbalta 60 mg oral enteric coated capsule 1 capsule = 60 mg, By Mouth, Daily, # 30 capsule, 0 Refills, Maintenance, 01/11/14 15:47:07, EC Capsule Start Date: 01/11/14 Status: Ordered Lipitor 10 mg oral tablet 1 tablet = 10 mg, By Mouth, Daily, # 30 tablet, 0 Refills, Maintenance, 01/11/14 15:44:50, Tablet Start Date: 01/11/14 Status: Ordered lisinopril 40 mg oral tablet 1 tablet = 40 mg, By Mouth, Daily, # 90 tablet, 0 Refills, Maintenance Start Date: 08/15/09 Stop Date: 01/20/09 Status: Ordered nitroglycerin 0.4 mg sublingual tablet 1 tablet = 0.4 mg, Sublingual, Every 5 minutes, PRN Chest Pain, # 100 tablet, 0 Refills, Maintenance, 01/11/14 15:44:06, Tablet Start Date: 01/11/14 Status: Ordered omeprazole 20 mg oral enteric coated capsule 1 capsule = 20 mg, By Mouth, Daily, # 30 capsule, 0 Refills, Maintenance, 01/11/14 15:46:51, EC Capsule Start Date: 01/11/14 Status: Ordered Percocet-5 Tablet 1, tablet, By Mouth, Every 6 hours, PRN, Refills 0, Tot. Refills 0, Maintenance, 01/11/14 15:48:50 Start Date: 01/11/14 Status: Ordered Spacer Spacer, See Instructions, # 1 each, Refills 0, Tot. Refills 0, Maintenance, Use as directed with MDI. ICD-10: J45.909, 09/28/21 15:49:00 EDT, Supply, 165, cm, 09/28/21 15:29:00 EDT, Height Start Date: 09/28/21 Status: Ordered tramadol 50 mg oral tablet 1 tablet = 50 mg, By Mouth, Every 8 hours, PRN Pain, # 20 tablet, 0 Refills, Maintenance Start Date: 09/27/09 Status: Ordered Problem List Condition Effective Dates Status Health Status Inform ant Chronic low back pain(Confirmed) 06/28/09 Active Hypertension(Confirmed) Active Obese class I(Confirmed) Active
--- OUTSIDE RECORDS SUMMARY | 2022-09-04 12:44 | XMS_ITS | Continuity of Care Document ---
Author Name Unknown Organization [facility] Address [address] [place] [address]- Care Team Providers Care Chief Security Officer Name Role Phone Not on Staff, PCP Primary Care Physician Unavail able [place] [facility] [place] - 03/27/22 [facility] [address] [place], [place] [address] Allergies, Adverse Reactions, Alerts No Known Allergies Immunizations Given and Recorded Vaccine Date Status Refusal Reason Influenza Vaccine (oldterm) 1 02/01/09 Given Tetanus-Diphth Toxoids, Adult (oldterm) 2 12/21/08 Given 1Admin Note: vis 11/30 2Admin Note: vis given Medications Advair HFA 230 mcg / 21 mcg 2 puffs, Inhalation, 2 times a day, # 180 each, 6 Refills, Maintenance, 02/04/22 10:14:00 EDT, Aerosol, [id number], Partial fill upon patient request if the prescription is for a schedule II opioid drug., 2 puffs Inhalation 2 times a day, 165,... Start Date: 02/04/22 Status: Ordered Albuterol (Eqv-Proventil HFA) 90 mcg/inh inhalation aerosol 2 puffs, Inhalation, Every 6 hours, PRN Wheezing/Shortness of Breath, # 18 Gm, 6 Refills, Maintenance, 02/26/22 12:45:00 EDT, [id number], Partial fill upon patient request if the prescriptionis for a schedule II opioid drug., 165, cm, ... Start Date: 02/26/22 Status: Ordered amlodipine 5 mg oral tablet [...] Date: 09/27/09 Status: Ordered Problem List Condition Confirmation Course Effective Dates Status Health St [facility] Informant Chronic low back pain Confirmed 06/28/09 Active Hypertension Confirmed Active Obese class I Confirmed Active Patient Care team information Personnel Name: Not on Staff, PCP
--- OUTSIDE RECORDS SUMMARY | 2022-09-04 12:44 | XMS_ITS | Continuity of Care Document ---
Author Name Unknown Organization [facility] ter Address [address] [place] [address]- Care Team Providers Care Lan Analyst Name Role Phone Not on Staff, PCP Primary Care Physician Unavail able [place] [facility] [place] - 04/06/[address] [address]- Attending Physician: Jaren Estrada MD Admitting Physician: [...] I Confirmed Active Patient Care team information Care Team Personnel Name: Not on Staff, PCP Position: S Physician (General Medicine) Member Role: PCP Care Team Related Persons Name: SUE TANG Address: home [address] [place] [id number]
--- OUTSIDE RECORDS SUMMARY | 2022-09-04 12:44 | XMS_ITS | Continuity of Care Document ---
Author Name Unknown Organization [facility] Address [address] [address]- Care Team Providers Care Forklift Picker Name Role Phone Not on Staff, PCP Primary Care Physician Unavail able Encounter [facility] [place] Date(s): 08/10/21 - 12/06/21 [facility] [address] [place] [address] [place] [address] [place] Attending Physician: Marta Grande MD Admitting Physician: Marta Grande MD Referring Physician: Salena Hutton DO Allergies, Adverse Reactions, Alerts No Known Allergies Immunizations Given and Recorded Vaccine Date Status Refusal Reason Influenza Vaccine (oldterm) 1 02/01/09 Given Tetanus-Diphth Toxoids, Adult (oldterm) 2 12/21/08 Given 1Admin Note: vis 11/30 2Admin Note: vis given Medications Advair HFA 115 mcg / 21 mcg 2 puffs, Inhalation, 2 times a day, # 60 each, 6 Refills, Maintenance, 09/28/21 15:46:00 EDT, Aerosol, [id number], Partial fill upon patient request if the [...]
--- OUTSIDE RECORDS SUMMARY | 2022-09-04 12:44 | XMS_ITS | Continuity of Care Document ---
Author Name Unknown Organization [facility] Address [address] [place] [address]- Care Team Providers Care Product Builder Name Role Phone Not on Staff, PCP Primary Care Physician Unavail able Encounter [facility] [place] Date(s): 02/04/22 - 03/06/22 [facility] [address] [place], [place] [address] Allergies, Adverse Reactions, Alerts No Known Allergies [...]
[2022-09-04 12:59] LABS: COVID-19 Test Negative (Negative); IDNOW Serial# 08D9AD1C
[2022-09-04 13:16] VITALS: BP 139/79; PULSE 53; RESP 14; TEMP 36.7; O2SAT 93
[2022-09-04] MEDS: Aspirin 81 MG TAB.CHEW 324 MG PO (13:31)
[2022-09-04 14:41] VITALS: BP 122/71; PULSE 50; RESP 19; O2SAT 97
[2022-09-04 16:56] LABS: D Dimer High Sensitivity 178 NG/ML
== END 2022-09-04 17:00 | disposition home or self-care (01) ==
PROVIDERS: Nurse Practitioner Family; Physician Assistant Medical; Emergency Provider Emergency Medicine
DX: R07.9 Chest pain, unspecified (principal); R19.7 Diarrhea, unspecified; R10.9 Unspecified abdominal pain; I10 Essential (primary) hypertension; E78.5 Hyperlipidemia, unspecified; E11.8 Type 2 diabetes mellitus with unspecified complications
CPT/HCPCS: 36415; 71046; 74176; 80048; 80076; 84484; 85025; 85379; 85610; 87635; 93005; 99284

== ENCOUNTER 2023-01-30 18:05 | Outpatient (REF) | payer OTHER, SELFPAY ==
[2023-01-30 19:22] LABS: Influenza A PCR NEGATIVE (Negative); Influenza B PCR NEGATIVE (Negative); Resp Syncy Virus RNA Qual PCR NEGATIVE (Negative); SARS COV2 PCR INHOUSE NEGATIVE (Negative)
== END 2023-01-30 18:06 | disposition home or self-care (01) ==
LOC: HO.HHCLNP 18:05
PROVIDERS: Visit Provider Family Medicine
DX: Z20.822 Contact with and (suspected) exposure to COVID-19 (principal); J06.9 Acute upper respiratory infection, unspecified
CPT/HCPCS: 0241U

== ENCOUNTER 2023-03-19 11:29 | Emergency (ER) | payer OTHER, SELFPAY ==
--- NOTE | ~2023-03-19 | CT_ITS ---
EXAMINATION: CT HEAD W/O IV CONTRAST CT CERVICAL SPINE W/O IV CONTRAST CLINICAL INFORMATION: Posterior neck pain. Headache for 3 days. COMPARISON: Head CT from 05/15/2020 Radiographs of cervical spine from 08/09/2021. TECHNIQUE: Head - Contiguous axial imaging of the head was performed from the skull base to the vertex without the administration of intravenous contrast, and axial images are reconstructed at 2 mm and 5 mm slice thickness. Cervical spine - A volumetric, helical CT acquisition of the cervical spine was obtained without contrast; in addition to the standard set of axial images, multiplanar reformatted images were provided in the coronal and sagittal imaging planes. This CT examination was performed using dose optimization techniques as appropriate, variously including the following: *Automated exposure control *Adjustment of mA and/or kV according to patient size (this includes techniques or standardized protocols for targeted exams where dose is matched to indication/reason for exam; i.e. extremities or head) *Use of iterative reconstruction technique DLP: 1102 mGy-cm (total) FINDINGS: HEAD: No acute intracranial findings. Johnson to white matter differentiation is preserved. No evidence of intracranial hemorrhage, major vascular territory infarction, focal mass effect or midline shift. 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 Mild parenchymal volume loss with commensurate prominence of ventricles and sulci; no hydrocephalus or extra-axial fluid collections. The calvarium is intact and the visualized paranasal sinuses, mastoid air cells and middle ear cavities are clear. The temporomandibular joints are intact. There have been ocular lens extractions. The orbits are intact. CERVICAL SPINE: The craniocervical junction is normal. The occipital condyles, dens and atlantodental articulation are intact. There is mild dextrocurvature of the cervical and upper thoracic spine. The vertebral body heights and alignment are maintained. No fractures in the anterior or posterior elements. No prevertebral soft tissue edema or hematoma. The disc spaces are preserved. Small anterior vertebral osteophytes are present at C5-C6. The facet joints are unremarkable. Masses mild multilevel uncovertebral joint hypertrophy of the cervical spine. There is no overt disc herniation or spinal canal stenosis. Thyroid gland is unremarkable. CT/CT cervical spine wo IV con IMPRESSION: * No intracranial hemorrhage or other acute intracranial pathology. * No fracture or malalignment in the cervical spine. * There is mild spondylosis at C5-C6.
[2023-03-19 11:39] VITALS: BP 135/63; PULSE 47; RESP 16; TEMP 36.4; O2SAT 96; BMI 32.3
--- NOTE | 2023-03-19 11:45 | ED.GENADULT ---
HPI - General Adult General Chief complaint: General Medical Stated complaint: Headache Sent By [facility] History of Present Illness HPI narrative: left before completing treatment by ED provider. Related Data Home Medications Medication Instructions Recorded Confirmed albuterol sulfate 90 mcg/actuation 2 puff inhalation Q4-6H PRN 07/18/22 aerosol inhaler (Ventolin HFA) amlodipine 5 mg tablet 5 mg PO DAILY blood pressure 07/18/22 atorvastatin 10 mg tablet 10 mg PO BEDTIME 07/18/22 betamethasone dipropionate 0.05 % topical BID 07/18/22 topical ointment buspirone 5 mg tablet 5 mg PO BID 07/18/22 carvedilol 3.125 mg tablet 3.125 mg PO BID 07/18/22 clobetasol 0.05 % topical cream g topical DAILY 07/18/22 diclofenac sodium 1 % topical gel 2 g topical BID PRN pain 07/18/22 fluticasone propionate 250 0 inh inhalation 07/18/22 mcg/actuation blister powder for inhalation (Flovent Diskus) lisinopril 30 mg tablet 30 mg PO DAILY 07/18/22 olopatadine 0.2 % eye drops 1 drp ophthalmic (eye) BID 07/18/22 sertraline 50 mg tablet 50 mg PO DAILY 07/18/22 tramadol 50 mg tablet 50 mg PO Q12H PRN 07/18/22 Previous Rx's Medication Instructions Recorded ibuprofen 600 mg tablet 600 mg PO Q8H PRN pain #20 tabs 04/22/20 nystatin-triamcinolone 100,000 1 appl topical TID #30 grams 06/03/21 unit/g-0.1 % topical cream miconazole nitrate 2 % topical 1 appl topical BID #28 grams 06/07/21 cream Allergies Allergy/AdvReac Type Severity Reaction Status Date / Time No Known Allergies Allergy Verified 12/14/21 02:18 [No Known Allergies*] [facility] Past Medical History Medical History Arthritis Diabetes HTN (hypertension) Social History Social History Alcohol intake: never Patient Tobacco Use Status: Never used Tobacco Advance Directives: No Advance Directives Information Provided: No Physical Exam ED Vital Signs: Vital Signs - 24 hr 03/19/23 11:39 Temperature 97.5 F Pulse Rate 47 L Respiratory Rate 16 Blood Pressure 135/63 Pulse Oximetry 96 Oxygen Delivery Method Room Air BMI result Body Mass Index 32.3 Course Course Course Narrative: RME: 77 yold male presents to the ED for posterior neck pain and headache radiating down back and upper shoulders. patient denies any chest pain, shortness of breath, or lateral neck pain raditng left arm. patient dnies any fecer, nausea, chills, phtophobia, or trauma. Neuro exam is intact. headCT and cervical spine ct ordered. labs and EkG ordered Medical Decision Making Lab Data 03/19/23 12:14 03/19/23 12:14 Labs: Lab Results 03/19/23 Range/Units 12:14 WBC 4.6 L (4.8-10.8) X10*3/uL RBC 5.40 (4.60-5.80) X10*6/uL Hgb 14.8 (14.0-18.0) g/dl Hct 46.4 (42.0-52.0) % MCV 85.9 (80.0-98.0) fL MCH 27.4 (27.0-33.0) pg MCHC 31.9 (31.0-36.0) g/dl RDW 14.7 (11.0-16.0) % Plt Count 123 L (160-400) X10*3/uL MPV 10.6 (9.4-12.4) fL Immature Gran % (Auto) 0.4 (0.0-0.4) % Neut % (Auto) 48.9 (45-73) % Lymph % (Auto) 40.0 (20-40) % [place] % (Auto) 8.9 (2-11) % Eos % (Auto) 1.1 (0-4) % Baso % (Auto) 0.7 (0-2) % Lymph # (Auto) 1.8 (1.2-4.9) X10*3/uL [place] # (Auto) 0.4 (0.1-1.2) X10*3/uL Eos # (Auto) 0.1 (0.0-0.4) X10*3/uL Baso # (Auto) 0.0 (0.0-0.2) X10*3/uL Abs Immat Gran (auto) 0.02 (0.00-0.03) X10*3/uL Absolute Neuts (auto) 2.3 (2.0-8.3) x10*3/uL Absolute Nucleated RBC 0.000 (0.0-0.012) X10*3/uL Nucleated RBC % (auto) 0.0 (0.0-0.2) /100WBC PT 12.5 (11.1-13.3) SEC INR 1.0 (0.9-1.1) APTT 30.4 (26.0-36.4) SEC Sodium 144 (135-145) mmol/L Potassium 3.7 (3.3-5.1) mmol/L Chloride 107 (96-108) mmol/L Carbon Dioxide 31 H (22-29) mmol/L Anion Gap 10 L (12-20) BUN 14 (9-16) mg/dL Creatinine 0.92 (0.5-1.4) mg/dL Estim Creat Clear Calc 67.2 Estimated GFR > 60 Random Glucose 106 (60-115) mg/dL Calcium 9.4 (8.4-10.2) mg/dL Total Bilirubin 0.4 (0.0-1.0) mg/dL AST 23 (5-37) U/L ALT 21 (0-40) U/L Alkaline Phosphatase 87 (39-117) U/L Troponin I High Sens 7.8 (<3.5-35.0) ng/L Total Protein 6.7 (6.5-8.0) g/dL Albumin 3.9 (3.5-5.0) g/dL COVID-19 ([facility]) Negative (Negative) COVID-19 Clin Com See Note Influenza Type A ([place]) Negative (Negative) Influenza Type B ([place]) Negative (Negative) Influenza A & B Note See Note Discharge Plan Discharge Clinical Impression: Headache Patient Disposition: Left W/O Completing Treatment Prescriptions: No Action ibuprofen 600 mg tablet 600 mg PO Q8H PRN (Reason: pain) Qty: 20 0RF nystatin-triamcinolone 100,000-0.1 unit/g-% cream 1 appl topical TID Qty: 30 0RF miconazole nitrate 2 % cream 1 appl topical BID Qty: 28 0RF sertraline 50 mg tablet 50 mg PO DAILY buspirone 5 mg tablet 5 mg PO BID clobetasol 0.05 % cream topical DAILY olopatadine 0.2 % drops 1 drp ophthalmic (eye) BID tramadol 50 mg tablet 50 mg PO Q12H PRN carvedilol 3.125 mg tablet 3.125 mg PO BID diclofenac sodium 1 % gel 2 g topical BID PRN (Reason: pain) Flovent Diskus 250 mcg/actuation blister with device 0 inh inhalation betamethasone dipropionate 0.05 % ointment topical BID lisinopril 30 mg tablet 30 mg PO DAILY amlodipine 5 mg tablet 5 mg PO DAILY atorvastatin 10 mg tablet 10 mg PO BEDTIME albuterol sulfate [Ventolin HFA] 90 mcg/actuation HFA aerosol inhaler 2 puff inhalation Q4-6H PRN Discharge Date/Time: 03/19/23 17:47
--- NOTE | 2023-03-19 11:48 | ECG_ITS ---
Test Reason : neck pain radiating to shoulder Blood Pressure : / mmHG Vent. Rate : 045 BPM Atrial Rate : 045 BPM P-R Int : 182 ms QRS Dur : 104 ms QT Int : 476 ms P-R-T Axes : 010 -22 018 degrees QTc Int : 411 ms Sinus bradycardia Incomplete right bundle branch block Borderline ECG When compared with ECG of 04-SEP-2022 11:44, No significant change was found Referred By: Prosper Arboleda Electronically Signed By:NELSY HANSEN MD
[2023-03-19 12:20] LABS: MANUAL DIFF FLAG NO
[2023-03-19 12:35] LABS: Basophils Percent Auto 0.7 % (0-2); Eosinophils Absolute Auto 0.1 X10*3/uL (0.0-0.4); Eosinophils Percent Auto 1.1 % (0-4); Hematocrit 46.4 % (42.0-52.0); Hemoglobin 14.8 g/dl (14.0-18.0); Imm Gran Abs Auto 0.02 X10*3/uL (0.00-0.03); Imm Gran Pct Auto 0.4 % (0.0-0.4); Lymphocytes Absolute Auto 1.8 X10*3/uL (1.2-4.9); Mean Corpuscular HGB Conc 31.9 g/dl (31.0-36.0); Mean Corpuscular Hemoglobin 27.4 pg (27.0-33.0); Mean Corpuscular Volume 85.9 fL (80.0-98.0); Mean Platelet Volume 10.6 fL (9.4-12.4); Monocytes Absolute Auto 0.4 X10*3/uL (0.1-1.2); Monocytes Percent Auto 8.9 % (2-11); Neutrophils Absolute Auto 2.3 x10*3/uL (2.0-8.3); Neutrophils Percent Auto 48.9 % (45-73); Platelet Count 123 X10*3/uL (160-400); Red Cell Distribution Width 14.7 % (11.0-16.0); White Blood Count 4.6 X10*3/uL (4.8-10.8)
[2023-03-19 12:36] LABS: Alanine Aminotransferase 21 U/L (0-40); Albumin Level 3.9 g/dL (3.5-5.0); Alkaline Phosphatase 87 U/L (39-117); Anion Gap 10 (12-20); Aspartate Amino Transferase 23 U/L (5-37); Bilirubin Total 0.4 mg/dL (0.0-1.0); Blood Urea Nitrogen 14 mg/dL (9-16); Calcium 9.4 mg/dL (8.4-10.2); Carbon Dioxide 31 mmol/L (22-29); Chloride 107 mmol/L (96-108); Creatinine Clr Calc Pharmacy 67.2; Estimated Glomerular Filt Rate > 60; Glucose Random 106 mg/dL (60-115); Potassium 3.7 mmol/L (3.3-5.1); Sodium 144 mmol/L (135-145); Total Protein 6.7 g/dL (6.5-8.0)
[2023-03-19 12:44] LABS: Troponin-I High Sensitivity 7.8 ng/L (<3.5-35.0)
[2023-03-19 12:54] LABS: IDNOW Serial# 08D9AD1C
[2023-03-19 12:55] LABS: COVID-19 Test Negative (Negative); IDNOW Serial# BCCEAD1C; Influenza A Negative (Negative); Influenza B2 Negative (Negative)
[2023-03-19 13:10] LABS: Prothrombin Time 12.5 SEC (11.1-13.3)
[2023-03-19 13:13] LABS: Partial Thromboplastin Time 30.4 SEC (26.0-36.4)
== END 2023-03-19 17:47 | disposition left against medical advice (07) ==
PROVIDERS: Physician Assistant; Emergency Provider Emergency Medicine
DX: R51.9 Headache, unspecified (principal); M54.2 Cervicalgia; E11.40 Type 2 diabetes mellitus with diabetic neuropathy, unspecified; I10 Essential (primary) hypertension; R00.1 Bradycardia, unspecified; I45.10 Unspecified right bundle-branch block; R06.3 Periodic breathing; Z79.899 Other long term (current) drug therapy
CPT/HCPCS: 70450; 72125; 80053; 84484; 85025; 85610; 85730; 87502; 87635; 93005; 99283; 99284

== ENCOUNTER 2023-04-02 10:35 | Outpatient (AMB) | payer OTHER, SELFPAY ==
--- NOTE | 2023-04-02 12:14 | AM.OFFWIN_ITS ---
Intake Vital Signs 04/02/23 12:18 Height 5 ft 4 in Weight 180 lb BMI 30.9 BP 120/64 Blood Pressure Location Rt brachial Pulse 48 L Pulse Source Pulse Oximeter Pulse Oximetry (%) 98 Oxygen Delivery Method Room Air Intake Visit Reasons: EST/left eye popped blood vessel?(lobby) Intake Note: Pt is here c/o left eye redness. Patient Tobacco Use Status: Never used Tobacco Allergies No Known Allergies [No Known Allergies*] Allergy (Verified 04/02/23 12:45) HPI EST/left eye popped blood vessel?(lobby) HPI Details 77-year-old male presents to the office for a sick visit. Complaining of a red eye. Does not recall any fall or injury. Does not wear contact lenses. [facility] Medical History Arthritis Diabetes HTN (hypertension) Social History Alcohol intake: never Patient Tobacco Use Status: Never used Tobacco Physical Exam Vital Signs: Last Vital Signs Pulse 48 L 04/02/23 12:18 BP 120/64 04/02/23 12:18 Pulse Ox 98 04/02/23 12:18 Oxygen Delivery Method Room Air 04/02/23 12:18 BMI result Body Mass Index 30.9 Eyes Other: Left eye: Subconjunctival hemorrhage on the nasal side of the left eye. Corneas clear. Assessment & Plan Assessment & Plan (1) Subconjunctival hemorrhage: Code(s): H11.30 - Conjunctival hemorrhage, unspecified eye Plan: Reassurance. Symptoms should be self-limiting. Coding Level of Care Code Est Pt Level 3 (34569) Diagnoses Subconjunctival hemorrhage H11.30
[2023-04-02 12:18] VITALS: BP 120/64; PULSE 48; O2SAT 98; BMI 30.9
== END 2023-04-02 13:06 | disposition home or self-care (01) ==
PROVIDERS: Visit Provider Internal Medicine
DX: H11.30 Conjunctival hemorrhage, unspecified eye (principal)
CPT/HCPCS: 99213

== ENCOUNTER 2023-10-29 09:33 | Outpatient (REF) | payer OTHER, SELFPAY ==
[2023-10-29 12:07] LABS: MANUAL DIFF FLAG NO
[2023-10-29 12:17] LABS: Eosinophils Absolute Auto 0.1 X10*3/uL (0.0-0.4); Eosinophils Percent Auto 1.5 % (0-4); Hematocrit 45.1 % (42.0-52.0); Hemoglobin 14.5 g/dl (14.0-18.0); Imm Gran Abs Auto 0.03 X10*3/uL (0.00-0.03); Imm Gran Pct Auto 0.7 % (0.0-0.4); Lymphocytes Absolute Auto 1.6 X10*3/uL (1.2-4.9); Lymphocytes Percent Auto 38.4 % (20-40); Mean Corpuscular HGB Conc 32.2 g/dl (31.0-36.0); Mean Corpuscular Hemoglobin 27.8 pg (27.0-33.0); Mean Corpuscular Volume 86.4 fL (80.0-98.0); Mean Platelet Volume 11.1 fL (9.4-12.4); Monocytes Absolute Auto 0.6 X10*3/uL (0.1-1.2); Monocytes Percent Auto 14.1 % (2-11); Neutrophils Absolute Auto 1.8 x10*3/uL (2.0-8.3); Neutrophils Percent Auto 44.3 % (45-73); Platelet Count 133 X10*3/uL (160-400); Red Blood Count 5.22 X10*6/uL (4.60-5.80); Red Cell Distribution Width 15.5 % (11.0-16.0); White Blood Count 4.1 X10*3/uL (4.8-10.8)
[2023-10-29 12:31] LABS: Alanine Aminotransferase 21 U/L (0-40); Albumin Level 3.7 g/dL (3.5-5.0); Alkaline Phosphatase 79 U/L (39-117); Anion Gap 10 (12-20); Aspartate Amino Transferase 23 U/L (5-37); Bilirubin Direct 0.2 mg/dL (0.0-0.5); Bilirubin Total 0.3 mg/dL (0.0-1.0); Blood Urea Nitrogen 18 mg/dL (9-16); Calcium 9.1 mg/dL (8.4-10.2); Carbon Dioxide 28 mmol/L (22-29); Chloride 108 mmol/L (96-108); Cholesterol 117 mg/dL (<200); Estimated Glomerular Filt Rate > 60; Glucose Random 106 mg/dL (60-115); HDL Cholesterol 45 mg/dL (>40); LDL Cholesterol Calculated 57 mg/dL (<100); Potassium 4.2 mmol/L (3.3-5.1); Sodium 142 mmol/L (135-145); Total Protein 6.4 g/dL (6.5-8.0); Triglycerides 77 mg/dL (<150)
[2023-10-29 12:51] LABS: TSH reflex Free T4 1.41 uIU/mL (0.32-4.0)
== END 2023-10-29 09:34 | disposition home or self-care (01) ==
LOC: HO.HHCL 09:33
PROVIDERS: Visit Provider Internal Medicine
DX: E11.65 Type 2 diabetes mellitus with hyperglycemia (principal); I10 Essential (primary) hypertension
CPT/HCPCS: 36415; 80048; 80061; 80076; 84443; 85025

== ENCOUNTER 2023-12-18 10:43 | Outpatient (REF) | payer OTHER, SELFPAY ==
[2023-12-18 11:25] LABS: MANUAL DIFF FLAG NO
[2023-12-18 11:35] LABS: Basophils Absolute Auto 0.1 X10*3/uL (0.0-0.2); Basophils Percent Auto 1.2 % (0-2); Eosinophils Absolute Auto 0.1 X10*3/uL (0.0-0.4); Eosinophils Percent Auto 2.2 % (0-4); Hemoglobin 15.3 g/dl (14.0-18.0); Imm Gran Abs Auto 0.02 X10*3/uL (0.00-0.03); Imm Gran Pct Auto 0.5 % (0.0-0.4); Lymphocytes Absolute Auto 1.9 X10*3/uL (1.2-4.9); Lymphocytes Percent Auto 45.7 % (20-40); Mean Corpuscular HGB Conc 33.3 g/dl (31.0-36.0); Mean Corpuscular Volume 84.1 fL (80.0-98.0); Mean Platelet Volume 10.7 fL (9.4-12.4); Monocytes Absolute Auto 0.5 X10*3/uL (0.1-1.2); Monocytes Percent Auto 12.3 % (2-11); Neutrophils Absolute Auto 1.6 x10*3/uL (2.0-8.3); Neutrophils Percent Auto 38.1 % (45-73); Platelet Count 136 X10*3/uL (160-400); Red Blood Count 5.47 X10*6/uL (4.60-5.80); Red Cell Distribution Width 14.9 % (11.0-16.0); White Blood Count 4.1 X10*3/uL (4.8-10.8)
[2023-12-18 12:25] LABS: Alanine Aminotransferase 20 U/L (0-40); Albumin Level 3.9 g/dL (3.5-5.0); Alkaline Phosphatase 79 U/L (39-117); Anion Gap 13 (12-20); Aspartate Amino Transferase 21 U/L (5-37); Bilirubin Direct 0.1 mg/dL (0.0-0.5); Bilirubin Total 0.3 mg/dL (0.0-1.0); Blood Urea Nitrogen 14 mg/dL (9-16); C Reactive Protein 0.17 mg/dL (< or = 0.50); Calcium 9.2 mg/dL (8.4-10.2); Carbon Dioxide 25 mmol/L (22-29); Chloride 108 mmol/L (96-108); Estimated Glomerular Filt Rate > 60; Glucose Random 98 mg/dL (60-115); Potassium 4.2 mmol/L (3.3-5.1); Sodium 142 mmol/L (135-145); Total Protein 6.5 g/dL (6.5-8.0)
== END 2023-12-18 10:44 | disposition home or self-care (01) ==
LOC: HO.HHCL 10:43
PROVIDERS: Visit Provider Family Medicine
DX: K59.00 Constipation, unspecified (principal); R10.84 Generalized abdominal pain
CPT/HCPCS: 36415; 80048; 80076; 85025; 86140

== ENCOUNTER 2024-03-19 10:07 | Outpatient (AMB) | payer OTHER, SELFPAY ==
--- NOTE | 2024-03-19 10:08 | A.OFFVIS_ITS ---
Vital Signs 03/19/24 10:16 Height 5 ft 4 in Weight 190 lb 14.725 oz BMI 32.8 BP 138/76 Blood Pressure Location Lt brachial Position Sitting Pulse 46 L Pulse Source Pulse Oximeter Pulse Oximetry (%) 97 Oxygen Delivery Method Room Air Intake Visit Reasons: Colonoscopy Screening Intake Note: Relevant Flags or Indicators ? Requires Telegraph And Teletype Operator? Y Osorio presents in office today for a scheduled colonoscopy consultation. CC; According to historical visits, pt has previous colo with Dr. Tavera. How ever, upon calling [facility], they have no record of this and refuse to see him. According to HV, it has documented evidence of hyperplastic polyps ~2017. Pt's daughter confirms the procedure. Relevant GI Sx as reported per pt? None ? Hx of any recent surgeries? None ? Pertinent FMHx? Sister (colo cancer) Telegraph And Teletype Operator Required: Yes Telegraph And Teletype Operator Services: Telegraph And Teletype Operator Offered & Declined Telegraph And Teletype Operator Name: Family Information Interpreted: non-clinical & clinical Accompanied by: Daughter Allergies No Known Allergies [No Known Allergies*] Allergy (Verified 03/19/24 10:09) Medication List - Last Reconciled 03/19/24 by Yesenia Hirsch, QUILLER OPERATOR- albuterol sulfate 90 mcg/actuation (Ventolin HFA) 2 puffs inhalation Q4-6H PRN amlodipine 5 mg PO DAILY aspirin (Adult Aspirin Regimen) 81 mg PO DAILY atorvastatin 10 mg PO BEDTIME betamethasone dipropionate 0.05% topical BID buspirone 5 mg PO BID carvedilol 3.125 mg PO BID cholecalciferol (vitamin D3) (Vitamin D3) 50 mcg PO DAILY clobetasol 0.05% grams topical DAILY diclofenac sodium 1% 2 grams topical BID PRN fluticasone propionate 250 mcg/actuation (Flovent Diskus) 0 inhalations inhalation ibuprofen 600 mg PO Q8H PRN lisinopril 30 mg PO DAILY melatonin 1-1.5 tabs miconazole nitrate 2% 1 appl topical BID nystatin-triamcinolone 100,000-0.1 unit/g-% 1 appl topical TID olopatadine 0.2% (Pataday Once Daily Relief) 1 drp ophthalmic (eye) BEDTIME sertraline 50 mg PO DAILY tramadol 50 mg PO Q12H PRN HPI HPI Colonoscopy Screening: Details: 78 year old? male with past medical history of hypercholesteremia, hypertension, sleep apnea, depression, insomnia, is here today for pre colonoscopy screening.? Last colonoscopy was in November of 2016, tubular adenoma found. Patient was found to have suboptimal prep in the left side of his colon. Recommended to repeat colonoscopy in 5 years. Patient was sent to us by his PCP.? Patient denies any gastrointestinal symptoms in the past or at present.? Denies any personal or family history of gastrointestinal disease, colon polyps, or CRC.? Denies history of difficulty with sedation or anesthesia in the past.? History of sleep apnea.? Patient denies any cardiac or respiratory symptoms. Denies any chest pain or shortness of breath with or without exertion. Patient sees cardiology and reports to be doing well. Patient had normal nuclear stress test in 2019.?? No history of infectious? diseases like hepatitis A, B, C, HIV or tuberculosis.? Patient is not on any anticoagulation PFSH Medical History HTN (hypertension) Arthritis Diabetes Surgical History History of colonoscopy Social History Alcohol intake: former Patient Tobacco Use Status: Never used Tobacco Review of Systems Const Denies weight gain and Denies weight loss ENT Reports no additional complaints, Denies dysphagia and Denies odynophagia Card Reports no additional complaints Resp Reports no additional complaints GI Denies abdominal pain, Denies belching, Denies melena, Denies bloating, Denies change in bowel habits, Denies dysphagia, Denies excessive flatus, Denies dyspepsia, Denies heartburn, Denies diarrhea, Denies loose stools, Denies nausea, Denies odynophagia and Denies vomiting Reports no additional complaints Musc Reports no additional complaints Neuro Reports no additional complaints Psych Reports no additional complaints Endo Reports no additional complaints Physical Exam Vital Signs: Last Vital Signs Pulse 46 L 03/19/24 10:16 BP 138/76 03/19/24 10:16 Pulse Ox 97 03/19/24 10:16 Oxygen Delivery Method Room Air 03/19/24 10:16 BMI result Body Mass Index 32.8 Const General: healthy appearing, no acute distress and well developed Nutritional Appearance: well nourished and obese Orientation/consciousness: patient oriented x3 Resp Effort & Inspection: normal respiratory effort, able to speak in complete sentences, no tracheal deviation and symmetric chest movement Auscultation: clear to auscultation bilaterally Cardio Rate: regular rate GI Inspection: Yes normal to inspection, No distended and Yes obesity Palpation (GI): Soft to palpation, not firm, nontender and No hepatosplenomegaly present Auscultation: normal bowel sounds General: Yes no CVA tenderness Back/Spine/Pelvis Back: no CVA tenderness Skin General skin exam: elasticity normal, turgor normal and dry skin Neuro General: patient oriented x3 Psych Appearance: grossly normal Mental Status: mental status grossly normal Assessment & Plan Assessment & Plan (1) Screen for colon cancer: Code(s): Z12.11 - Encounter for screening for malignant neoplasm of colon Plan Patient denies any GI, cardiac or respiratory symptoms.? Patient has normal nuclear stress test in 2019. Denies any chest pain, shortness of breath with or without exertion. Denies any issues with anesthesia in the past.? Denies any history of sleep apnea.? No history infectious diseases in the past or present.? Patient is on low-dose aspirin..? No family history of colon cancer or polyps.? Patient denies melena, hematochezia, unintentional weight loss or ribbon like stools.? Discussed at length the pre-procedure,? prep, diet & medications as well as what to expect prior, during and after the procedure.?? Stressed the importance of good bowel prep.? Recommended the use of Vaseline or Calmoseptine OTC & baby wipes with bowel movements to promote comfort.? ?Patient verbalizes understanding and agrees to plan of care.? He was given the opportunity to ask questions and all questions answered.? We will see him after the procedure.? Medications: New polyethylene glycol 3350 (Miralax) As directed by gastroenterology department at [facility] 238 grams PO ONCE 238 grams 0RF Z12.11 - Encounter for screening for malignant neoplasm of colon bisacodyl (Dulcolax (bisacodyl)) take 4 tabs at noon the day before your colonoscopy 20 mg (4 x 5 mg) PO ONCE 1 day 4 tabs 0RF Z12.11 - Encounter for screening for malignant neoplasm of colon Coding Level of Care Code New Pt Level 3 (03553) Diagnoses Screen for colon cancer Z12.11 Time Spent (min) 40 Comment 30 minutes spent with patient and additional 10 minutes reviewing his records
[2024-03-19 10:16] VITALS: BP 138/76; PULSE 46; O2SAT 97; BMI 32.8
== END 2024-03-19 10:43 | disposition home or self-care (01) ==
PROVIDERS: Visit Provider Nurse Practitioner Family
DX: Z01.818 Encounter for other preprocedural examination (principal); Z12.11 Encounter for screening for malignant neoplasm of colon; Z86.0100 Personal history of colon polyps, unspecified
CPT/HCPCS: 99024

== ENCOUNTER → 2024-03-19 10:07 | Outpatient (BNVA) | payer OTHER, SELFPAY | PROVIDERS: Visit Provider Nurse Practitioner Family | DX: Z12.11 Encounter for screening for malignant neoplasm of colon (principal); Z86.0100 Personal history of colon polyps, unspecified | CPT/HCPCS: 99212 ==

== ENCOUNTER 2024-04-01 10:16 | Emergency (ER) | payer OTHER, SELFPAY ==
--- NOTE | ~2024-04-01 | XR_ITS ---
EXAMINATION: XR LUMBOSACRAL SPINE CLINICAL INFORMATION: Pain. COMPARISON: None available. TECHNIQUE: Three views of the lumbosacral spine. FINDINGS: Facet joint hypertrophy L5-S1. No acute cortical disruption. No gross malalignment. No lytic or blastic lesions. XR/XR lumbar spine 2-3V IMPRESSION: Spondylosis L5-S1 without acute fracture or trauma-related listhesis. Electronically signed by: Jens Vazquez MD 04/01/2024 12:18 PM [facility]
[2024-04-01 10:41] VITALS: BP 121/65; PULSE 52; RESP 16; TEMP 36.2; O2SAT 96; BMI 32.6
--- NOTE | 2024-04-01 11:36 | ED.BACK ---
HPI - Back Pain/Injury General Chief Complaint: Back Pain/Injury Stated Complaint: Back pain Time Seen by Provider: 04/01/24 11:20 Source: patient, RN notes reviewed and old records reviewed Mode of arrival: ambulatory History of Present Illness ED Provider: Cindy Silveira PA-C HPI Narrative: 78-year-old male with a past medical history of HTN, arthritis, diabetes, presenting to the ED complaining of acute on chronic low back pain radiating down bilateral LE x few days. Has been taking tramadol without relief. Denies recent injury, trauma, fall. Reports associated paresthesias down bilateral LE. Denies weakness, incontinence/retention, hematuria / dysuria, abdominal pain, fever Related Data Home Medications ?Medication ?Instructions ?Recorded ?Confirmed albuterol sulfate 90 mcg/actuation 2 puff inhalation Q4-6H PRN 07/18/22 03/19/24 aerosol inhaler (Ventolin HFA) amlodipine 5 mg tablet 5 mg PO DAILY blood pressure 07/18/22 03/19/24 atorvastatin 10 mg tablet 10 mg PO BEDTIME 07/18/22 03/19/24 betamethasone dipropionate 0.05 % topical BID 07/18/22 03/19/24 topical ointment buspirone 5 mg tablet 5 mg PO BID 07/18/22 03/19/24 carvedilol 3.125 mg tablet 3.125 mg PO BID 07/18/22 03/19/24 clobetasol 0.05 % topical cream g topical DAILY 07/18/22 03/19/24 diclofenac sodium 1 % topical gel 2 g topical BID PRN pain 07/18/22 03/19/24 fluticasone propionate 250 0 inh inhalation 07/18/22 03/19/24 mcg/actuation blister powder for inhalation (Flovent Diskus) lisinopril 30 mg tablet 30 mg PO DAILY 07/18/22 03/19/24 sertraline 50 mg tablet 50 mg PO DAILY 07/18/22 03/19/24 tramadol 50 mg tablet 50 mg PO Q12H PRN 07/18/22 03/19/24 aspirin 81 mg tablet,delayed 81 mg PO DAILY 03/19/24 03/19/24 release (Adult Aspirin Regimen) cholecalciferol (vitamin D3) 50 50 mcg PO DAILY 03/19/24 03/19/24 mcg (2,000 unit) capsule (Vitamin D3) melatonin 5 mg capsule mg PO BEDTIME PRN 03/19/24 03/19/24 Previous Rx's ?Medication ?Instructions ?Recorded ibuprofen 600 mg tablet 600 mg PO Q8H PRN pain #20 tabs 04/22/20 nystatin-triamcinolone 100,000 1 appl topical TID #30 grams 06/03/21 unit/g-0.1 % topical cream miconazole nitrate 2 % topical 1 appl topical BID #28 grams 06/07/21 cream olopatadine 0.2 % eye drops 1 drp ophthalmic (eye) BEDTIME 04/02/23 (Pataday Once Daily Relief) #2.5 mL bisacodyl 5 mg tablet,delayed 20 mg (4 x 5 mg) PO ONCE 1 day #4 03/19/24 release (Dulcolax (bisacodyl)) tabs polyethylene glycol 3350 17 238 g PO ONCE #238 grams 03/19/24 gram/dose oral powder (Miralax) acetaminophen 500 mg tablet 500 mg PO Q6H PRN fever or pain 04/01/24 (Tylenol Extra Strength) #14 tabs cyclobenzaprine 5 mg tablet 5 mg PO Q8H PRN pain (scale score 04/01/24 7-10) 5 days #14 tabs lidocaine 5 % topical patch 1 patch topical DAILY PRN pain #30 04/01/24 (Lidoderm) ea Allergies Allergy/AdvReac Type Severity Reaction Status Date / Time No Known Allergies Allergy Verified 04/01/24 10:45 [No Known Allergies*] Review of Systems Review of Systems: Yes all other systems are reviewed and are negative Constitutional: Constitutional: Reports as per HPI Neurologic: Denies Sensory deficit (Neuro) [facility] Past Medical History Attestation statement: The following information was validated with the patient. Source: old records reviewed Medical History HTN (hypertension) Arthritis Diabetes Surgical History History of colonoscopy Social History Social History Alcohol intake: former Patient Tobacco Use Status: Never used Tobacco Advance Directives: No Advance Directives Information Provided: Yes Physical Exam Vital Signs: Vital Signs: Last Vital Signs Temp 97.1 F 04/01/24 12:50 Pulse 52 04/01/24 12:50 Resp 16 04/01/24 12:50 BP 121/65 04/01/24 12:50 Pulse Ox 96 04/01/24 12:50 O2 Del Method Room Air 04/01/24 12:50 BMI result Body Mass Index 32.6 Const: General: cooperative, healthy appearing and no acute distress Orientation/consciousness: patient oriented x3 Limitations: no limitations HEENT: Head: Yes normal to inspection and Yes atraumatic Ears: hearing grossly normal bilaterally General nose exam: Normal external nose present Face and sinus: Yes normal facial exam Eyes: General: appearance normal, both eyes and all related structures EOM: EOMs intact bilaterally Neck: Neck: Yes normal visual inspection and Yes no meningeal signs Resp: Effort & Inspection: normal respiratory effort and no respiratory distress Cardio: Rate: regular rate GI: Inspection: Yes normal to inspection Palpation (GI): Soft to palpation, nontender, no guarding and not rigid : General: Yes no CVA tenderness Back/Spine/Pelvis: Other: No midline cervical/thoracic/lumbar spinous tenderness/step-off or deformity. + bilateral lumbar paraspinal reproducible tenderness to palpation. No rash/erythema Back: no CVA tenderness Skin: Rashes: no rashes Wounds: no wounds Neuro: Other: Strength intact throughout. No saddle anesthesia. Sensation intact to light touch. Neurovascular intact distally General: patient oriented x3, gait normal, tone normal, moves all extremities, no meningeal signs and no focal motor deficits Cranial nerves: Yes CN's II-XII intact bilaterally Gait exam (Neuro): Normal gait present Motor exam (neuro): 5/5 motor strength present throughout Sensory Exam: No Sensory deficit (Neuro) Extrem: General: Yes normal to inspection Course Course Course Narrative: 1227--XR lumbar spine 2-3V IMPRESSION: Spondylosis L5-S1 without acute fracture or trauma-related listhesis. Results discussed with patient including worrisome signs and symptoms and strict return precautions, and when to return to the emergency department. They verbalized understanding and feel safe for discharge at this time. Medications Administered Discontinued Medications Generic Name Dose Route Start Last Admin Trade Name Freq PRN Reason Stop Dose Admin Cyclobenzaprine HCl 10 mg 04/01/24 11:37 04/01/24 11:48 Cyclobenzaprine Hcl 10 Mg Tablet PO 04/01/24 11:38 10 mg ONCE ONE Administration Lidocaine 1 patch 04/01/24 11:37 04/01/24 11:48 Lidocaine 4 % Patch Adh..Patch TRANSDERMA 04/01/24 11:38 1 patch ONCE ONE Administration Protocol Medical Decision Making Medical Decision Making MDM Narrative: 78-year-old male with a past medical history of HTN, arthritis, diabetes, presenting to the ED complaining of acute on chronic low back pain radiating down bilateral LE x few days. On exam vital signs stable, NAD, nontoxic appearing physical exam as noted above with reproducible MSK tenderness. No midline spinous tenderness or red flag symptoms. Ambulating with steady gait. No saddle anesthesia. Concern for MSK pain/strain vs herniated disc vs sciatica. Low suspicion for cauda equina, cord compression, epidural abscess, renal stone or pyelo. Plan: X-rays ordered in triage, pain control Please refer to course for remaining clinical decision making, interpretation of labs/imaging results, and discussions with consultants and/or family members. Differential Diagnosis Differential Diagnoses: The differential diagnosis associated with the presentation includes As above Independent Interpretation I performed an independent interpretation of an: Plain X-Ray Radiology Impression Discussion of test interpretation with radiology: I have reviewed the radiologist's reading. External Record Review External record reviewed: Inpatient record, Office record, Outpatient record, Prior outpatient labs, Prior outpatient radiology, Primary care record and Outside ED record Tests considered The following testing was considered but not selected: As above Prescription Management I considered prescription management with: Pain Medication Chronic Conditions Patient?s care impacted by: Other Social Determinants Patient?s care significantly limited by Social Determinants of Health including: Problems related to primary support group and Other Social Determinant of Health Discharge Plan Discharge Clinical Impression: Lumbar radiculopathy Patient Disposition: Home, Self-Care Instructions: Lumbar Radiculopathy (ED) Additional Instructions: Your pain is likely musculoskeletal Flexeril is a muscle relaxer, take at night as it makes you drowsy, do not drive, drink alcohol, or operate machinery while taking it Lidoderm patches are numbing patches, apply to painful area In addition take Tylenol at home If symptoms persist or worsen, pain becomes unbearable, you developed urinary retention or incontinence, or weakness return to the ED Prescriptions: New acetaminophen [Tylenol Extra Strength] 500 mg tablet 500 mg PO Q6H PRN (Reason: fever or pain) Qty: 14 0RF lidocaine [Lidoderm] 5 % adhesive patch,medicated 1 patch topical DAILY MDD remove after 12 hours PRN (Reason: pain) Qty: 30 0RF Rx Instructions: leave on most painful area for up to 12 hrs cyclobenzaprine 5 mg tablet 5 mg PO Q8H PRN (Reason: pain (scale score 7-10)) 5 Days Qty: 14 0RF No Action ibuprofen 600 mg tablet 600 mg PO Q8H PRN (Reason: pain) Qty: 20 0RF nystatin-triamcinolone 100,000-0.1 unit/g-% cream 1 appl topical TID Qty: 30 0RF miconazole nitrate 2 % cream 1 appl topical BID Qty: 28 0RF olopatadine [Pataday Once Daily Relief] 0.2 % drops 1 drp ophthalmic (eye) BEDTIME Qty: 2.5 0RF sertraline 50 mg tablet 50 mg PO DAILY buspirone 5 mg tablet 5 mg PO BID clobetasol 0.05 % cream topical DAILY tramadol 50 mg tablet 50 mg PO Q12H PRN carvedilol 3.125 mg tablet 3.125 mg PO BID diclofenac sodium 1 % gel 2 g topical BID PRN (Reason: pain) Flovent Diskus 250 mcg/actuation blister with device 0 inh inhalation betamethasone dipropionate 0.05 % ointment topical BID lisinopril 30 mg tablet 30 mg PO DAILY amlodipine 5 mg tablet 5 mg PO DAILY atorvastatin 10 mg tablet 10 mg PO BEDTIME albuterol sulfate [Ventolin HFA] 90 mcg/actuation HFA aerosol inhaler 2 puff inhalation Q4-6H PRN cholecalciferol (vitamin D3) [Vitamin D3] 50 mcg (2,000 unit) capsule 50 mcg PO DAILY melatonin 5 mg capsule PO BEDTIME PRN Rx Instructions: 1-1.5 tabs aspirin [Adult Aspirin Regimen] 81 mg tablet,delayed release (DR/EC) 81 mg PO DAILY bisacodyl [Dulcolax (bisacodyl)] 5 mg tablet,delayed release (DR/EC) 20 mg PO ONCE 1 Days Qty: 4 0RF Rx Instructions: take 4 tabs at noon the day before your colonoscopy polyethylene glycol 3350 [Miralax] 17 gram/dose powder 238 g PO ONCE Qty: 238 0RF Rx Instructions: As directed by gastroenterology department at [facility] Referrals: [facility] [place] [facility] [Provider Group] Tammy Payan MD [Primary Care Provider] - Interventions: ED Discharge Assessment Last Done: 04/01/24 12:50 Discharge Date/Time: 04/01/24 12:50 Print Language: Bahraini
[2024-04-01] MEDS: Lidocaine 4 % Patch ADH..PATCH 1 PATCH TRANSDERMA (11:48)
[2024-04-01] MEDS: Cyclobenzaprine HCl 10 MG TABLET PO (11:48)
[2024-04-01 12:50] VITALS: BP 121/65; PULSE 52; RESP 16; TEMP 36.2; O2SAT 96
== END 2024-04-01 12:50 | disposition home or self-care (01) ==
PROVIDERS: Emergency Provider Emergency Medicine; PCP Internal Medicine
DX: M54.16 Radiculopathy, lumbar region (principal); Z79.899 Other long term (current) drug therapy
CPT/HCPCS: 72100; 99283

== ENCOUNTER → 2024-04-01 11:00 | Outpatient (BNV) | payer OTHER, SELFPAY | PROVIDERS: Emergency Provider Emergency Medicine; PCP Internal Medicine; Visit Provider Radiology Diagnostic Radiology | DX: M54.50 Low back pain, unspecified (principal) | CPT/HCPCS: 72100 ==

== ENCOUNTER 2024-04-06 11:52 | Outpatient (REF) | payer OTHER, SELFPAY ==
[2024-04-06 14:14] LABS: MANUAL DIFF FLAG NO
[2024-04-06 14:24] LABS: Basophils Percent Auto 0.9 % (0-2); Eosinophils Absolute Auto 0.1 X10*3/uL (0.0-0.4); Eosinophils Percent Auto 1.1 % (0-4); Hematocrit 47.2 % (42.0-52.0); Hemoglobin 15.1 g/dl (14.0-18.0); Imm Gran Abs Auto 0.02 X10*3/uL (0.00-0.03); Imm Gran Pct Auto 0.4 % (0.0-0.4); Lymphocytes Absolute Auto 2.1 X10*3/uL (1.2-4.9); Lymphocytes Percent Auto 44.3 % (20-40); Mean Corpuscular Hemoglobin 27.3 pg (27.0-33.0); Mean Corpuscular Volume 85.4 fL (80.0-98.0); Mean Platelet Volume 11.2 fL (9.4-12.4); Monocytes Absolute Auto 0.5 X10*3/uL (0.1-1.2); Monocytes Percent Auto 11.2 % (2-11); Neutrophils Percent Auto 42.1 % (45-73); Platelet Count 153 X10*3/uL (160-400); Red Blood Count 5.53 X10*6/uL (4.60-5.80); Red Cell Distribution Width 15.1 % (11.0-16.0); White Blood Count 4.6 X10*3/uL (4.8-10.8)
[2024-04-06 14:45] LABS: Anion Gap 13 (12-20); Blood Urea Nitrogen 15 mg/dL (9-16); Calcium 10.1 mg/dL (8.4-10.2); Carbon Dioxide 30 mmol/L (22-29); Chloride 105 mmol/L (96-108); Estimated Glomerular Filt Rate > 60; Glucose Random 109 mg/dL (60-115); Potassium 5.1 mmol/L (3.3-5.1); Sodium 143 mmol/L (135-145)
== END 2024-04-06 11:53 | disposition home or self-care (01) ==
LOC: HO.CHCLDS 11:52
PROVIDERS: Visit Provider Internal Medicine
DX: L20.9 Atopic dermatitis, unspecified (principal)
CPT/HCPCS: 36415; 80048; 85025

== ENCOUNTER 2024-06-08 14:52 | Outpatient (REF) | payer OTHER, SELFPAY ==
--- NOTE | ~2024-06-08 | US_ITS ---
EXAMINATION: US TRIPLEX LOWER EXTREMITY, RIGHT CLINICAL INFORMATION: Edema, right lower extremity. COMPARISON: None available. TECHNIQUE: Color-flow triplex imaging with spectral analysis and compression Doppler were performed on the right lower extremity. FINDINGS: Respiratory variation, normal compression and augmented flow are noted throughout the right lower extremity. The visualized common femoral vein, superficial femoral vein, profunda femoral vein, popliteal vein and midcalf peroneal and posterior tibial venous segments show no evidence of deep venous thrombosis. There is no Morrow's cyst. Prominent 2.3 cm lymph node, right inguinal region with a fatty hilum. US/US venous duplex LE RT IMPRESSION: No acute deep venous thrombosis involving the right lower extremity. Negative exam. Electronically signed by: Jens Vazquez MD 06/08/2024 03:45 PM [facility]
== END 2024-06-08 14:53 | disposition home or self-care (01) ==
LOC: HO.US 14:52
PROVIDERS: Visit Provider Internal Medicine
DX: R60.0 Localized edema (principal)
CPT/HCPCS: 93971

== ENCOUNTER → 2024-06-08 14:55 | Outpatient (BNV) | payer OTHER, SELFPAY | PROVIDERS: Visit Provider Radiology Diagnostic Radiology | DX: R22.41 Localized swelling, mass and lump, right lower limb (principal) | CPT/HCPCS: 93971 ==

== ENCOUNTER 2024-06-13 07:18 | Outpatient (REF) | payer OTHER, SELFPAY ==
--- NOTE | ~2024-06-13 | MR_ITS ---
EXAMINATION: MR LUMBAR SPINE WITHOUT IV CONTRAST History: persistent pain Technique: Sagittal T1, T2 and STIR, and axial T1 and T2 weighted images of the lumbar spine were obtained per departmental protocol. Comparison: Correlation is made to plain films of the lumbar spine dated 04/01/2024. Findings: The vertebral bodies maintain normal height, alignment, and marrow signal intensity. There is degenerative disc disease at the T11-12 and T12-L1 levels with disc desiccation and loss of disc height. The lumbar disks maintain normal height and hydration. At T12-L1,there is a mild disc bulge. There is no central spinal or neural foraminal stenosis. At L1-2, there is no evidence of disc herniation, central spinal stenosis, or neural foraminal narrowing. At L2-3, there is no evidence of disc herniation, central spinal stenosis, or neural foraminal narrowing. At L3-4, there is a mild disc bulge with central annular tear. There is mild bilateral facet osteoarthritis causing bilateral neural foraminal narrowing. There is no central spinal stenosis. At L4-5, there is a moderate diffuse disc bulge with a central annular tear. There is moderate facet osteoarthritis causing bilateral neural foraminal narrowing At L5-S1, . There is a mild disc bulge. There is facet osteoarthritis causing bilateral neural foraminal narrowing. There is no central spinal stenosis. The conus terminates at the T12-L1 level and demonstrates normal signal intensity. Evaluation of the paraspinal soft tissues demonstrates a 2.5 cm left renal cyst. MR/MR lumbar spine wo con Impression: Degenerative changes of the lumbar spine as described. Electronically signed by: Matthew Hart MD 06/14/2024 01:04 PM [facility]ITT[facility]
--- NOTE | ~2024-06-13 | MR_ITS ---
CLINICAL HISTORY: persistent dizziness MR Brain without gadolinium Comparison: None Findings: No restricted diffusion. No intracranial mass or hemorrhage. No midline shift. No hydrocephalus. There is moderate diffuse atrophy and white matter signal changes possibly related to chronic microvascular ischemia. Vascular flow voids are intact. The orbits are normal. The sinuses and mastoid air cells are clear. No focal bone lesion. IMPRESSION: No acute findings. Findings possibly related to chronic microvascular ischemia This document has been electronically signed by: Christiano Cruz MD on 06/13/2024 08:52:01
== END 2024-06-13 07:19 | disposition home or self-care (01) ==
LOC: HO.MRI 07:18
PROVIDERS: Visit Provider Internal Medicine
DX: M54.42 Lumbago with sciatica, left side (principal); M54.41 Lumbago with sciatica, right side; G89.29 Other chronic pain; R42 Dizziness and giddiness
CPT/HCPCS: 70551; 72148

== ENCOUNTER → 2024-06-13 07:33 | Outpatient (BNV) | payer OTHER, SELFPAY | PROVIDERS: Visit Provider Specialist | DX: M51.369 Other intervertebral disc degeneration, lumbar region without mention of lumbar back pain or lower extremity pain (principal) | CPT/HCPCS: 70551; 72148 ==

== ENCOUNTER 2024-06-22 08:55 | Outpatient (RCR) | payer OTHER, SELFPAY ==
[2024-06-23 11:01] VITALS: BP 132/70; PULSE 59
== END 2024-10-27 08:54 | disposition home or self-care (01) ==
LOC: HO.PT 08:55
PROVIDERS: PCP Internal Medicine; Visit Provider Internal Medicine
DX: H83.2X3 Labyrinthine dysfunction, bilateral (principal)
CPT/HCPCS: 97112; 97163

== ENCOUNTER 2024-08-05 09:21 | Day surgery (SDC) | payer OTHER, SELFPAY ==
[2024-08-03 14:09] VITALS: BMI 32.8
--- NOTE | 2024-08-04 08:44 | P.CONAN_ITS ---
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 If so, by whom?: No Are you DNR?: No Advance Directives: No Advance Directives Information Provided: Yes Recently lost weight without trying: No Meds Allergies Allergy/AdvReac Type Severity Reaction Status Date / Time No Known Allergies Allergy Verified 04/01/24 10:45 [No Known Allergies*] Home Medications ?Medication ?Instructions ?Recorded ?Confirmed ?Last Taken ?Type albuterol sulfate 90 mcg/actuation 2 puff inhalation Q4-6H PRN 07/18/22 08/03/24 Unknown History aerosol inhaler (Ventolin HFA) Shortness Of Breath amlodipine 5 mg tablet 5 mg PO DAILY blood pressure 07/18/22 08/03/24 Unknown History atorvastatin 10 mg tablet 10 mg PO BEDTIME 07/18/22 08/03/24 Unknown History betamethasone dipropionate 0.05 % 1 appl topical BID 07/18/22 08/03/24 Unknown History topical ointment buspirone 5 mg tablet 5 mg PO BID 07/18/22 08/03/24 Unknown History carvedilol 3.125 mg tablet 3.125 mg PO BID 07/18/22 08/03/24 Unknown History clobetasol 0.05 % topical cream 1 appl topical DAILY 07/18/22 08/03/24 Unknown History diclofenac sodium 1 % topical gel 2 g topical BID PRN pain 07/18/22 08/03/24 Unknown History fluticasone propionate 250 1 inh inhalation BID 07/18/22 08/03/24 Unknown History mcg/actuation blister powder for inhalation (Flovent Diskus) lisinopril 30 mg tablet 30 mg PO DAILY 07/18/22 08/03/24 Unknown History sertraline 50 mg tablet 50 mg PO DAILY 07/18/22 08/03/24 Unknown History tramadol 50 mg tablet 50 mg PO Q12H PRN Pain 07/18/22 08/03/24 Unknown History aspirin 81 mg tablet,delayed 81 mg PO DAILY 03/19/24 08/03/24 Unknown History release (Adult Aspirin Regimen) cholecalciferol (vitamin D3) 50 50 mcg PO DAILY 03/19/24 08/03/24 Unknown History mcg (2,000 unit) capsule (Vitamin D3) melatonin 5 mg capsule 5 mg PO BEDTIME PRN Insomnia 03/19/24 08/03/24 Unknown History Exam Height,Weight and Vital Signs: Height 5 ft 4 in Weight 86.636 kg Pertinent Lab Results Pertinent Lab Results: Laboratory Tests 04/06/24 11:53 WBC 4.6 L Hgb 15.1 Hct 47.2 Plt Count 153 L Sodium 143 Potassium 5.1 D Chloride 105 Carbon Dioxide 30 H BUN 15 Creatinine 1.04 Narrative Narrative: EKG 2022 Vent. Rate : 045 BPM Atrial Rate : 045 BPM P-R Int : 182 ms QRS Dur : 104 ms QT Int : 476 ms P-R-T Axes : 010 -22 018 degrees QTc Int : 411 ms Sinus bradycardia Incomplete right bundle branch block Borderline ECG When compared with ECG of 04-SEP-2022 11:44, No significant change was found ECHO 2022 1. LV size is nml 2. Mod LVH 3. Overall LV sys function nml with EF 55-60% 4. Moderate aortic regurg 5. Mild Mitral regurg 6. Cannot determine pulmo pressures 7. No pericardial effusion 8. Asc aorta is dilated to 41mm 9. 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 If so, by whom?: No Are you DNR?: No Advance Directives: No Advance Directives Information Provided: Yes Recently lost weight without trying: No Meds Allergies Allergy/AdvReac Type Severity Reaction Status Date / Time No Known Allergies Allergy Verified 04/01/24 10:45 [No Known Allergies*] Home Medications ?Medication ?Instructions ?Recorded ?Confirmed ?Last Taken ?Type albuterol sulfate 90 mcg/actuation 2 puff inhalation Q4-6H PRN 07/18/22 08/03/24 Unknown History aerosol inhaler (Ventolin HFA) Shortness Of Breath amlodipine 5 mg tablet 5 mg PO DAILY blood pressure 07/18/22 08/03/24 Unknown History atorvastatin 10 mg tablet 10 mg PO BEDTIME 07/18/22 08/03/24 Unknown History betamethasone dipropionate 0.05 % 1 appl topical BID 07/18/22 08/03/24 Unknown History topical ointment buspirone 5 mg tablet 5 mg PO BID 07/18/22 08/03/24 Unknown History carvedilol 3.125 mg tablet 3.125 mg PO BID 07/18/22 08/03/24 Unknown History clobetasol 0.05 % topical cream 1 appl topical DAILY 07/18/22 08/03/24 Unknown History diclofenac sodium 1 % topical gel 2 g topical BID PRN pain 07/18/22 08/03/24 Unknown History fluticasone propionate 250 1 inh inhalation BID 07/18/22 08/03/24 Unknown History mcg/actuation blister powder for inhalation (Flovent Diskus) lisinopril 30 mg tablet 30 mg PO DAILY 07/18/22 08/03/24 Unknown History sertraline 50 mg tablet 50 mg PO DAILY 07/18/22 08/03/24 Unknown History tramadol 50 mg tablet 50 mg PO Q12H PRN Pain 07/18/22 08/03/24 Unknown History aspirin 81 mg tablet,delayed 81 mg PO DAILY 03/19/24 08/03/24 Unknown History release (Adult Aspirin Regimen) cholecalciferol (vitamin D3) 50 50 mcg PO DAILY 03/19/24 08/03/24 Unknown History mcg (2,000 unit) capsule (Vitamin D3) melatonin 5 mg capsule 5 mg PO BEDTIME PRN Insomnia 03/19/24 08/03/24 Unknown History Exam Height,Weight and Vital Signs: Height 5 ft 4 in Weight 86.636 kg Vital Signs Temp Pulse Resp BP Pulse Ox O2 Del Method 08/05/24 11:31 98.2 F 50 16 144/75 H 98 Room Air Pertinent Lab Results Pertinent Lab Results: Lab Results 08/05/24 Range/Units 11:36 POC Glucose 87 (60-115) mg/dL Laboratory Tests 04/06/24 11:53 WBC 4.6 L Hgb 15.1 Hct 47.2 Plt Count 153 L Sodium 143 Potassium 5.1 D Chloride 105 Carbon Dioxide 30 H BUN 15 Creatinine 1.04 Airway Mallampati Class: II TM Dist: >3cm Neck ROM: Full Denture: Upper Partial: Lower Loose/Missing/Broken Teeth: Yes (Full top denture, partial lower denture(not in). Denies broken or loose teeth) Heart: RRR Lungs: CTAB Assessment and Plan Assessment Anesthesia Assessment: Anesthesia Plan Discussed and Chart Reviewed Final Anesthetic Review Family History of Problems with Anesthesia: No History of Problems with Anesthesia: No NPO: Yes ASA Class: III Final Preanesthetic Review: No Changes in Pt Med Stat, Meds/Allgs Chart Reviewed, Consent Obtained/Reviewed and Anes Risks/Benef Reviewed Patient Risk: Intermediate Procedure Risk: Low Assessment/Block/Sedation in SS: Assess/Block/Sedation-SS Anesthetic Plan Anesthetic Plan: TIVA Disposition: Standard PACU
[2024-08-05 11:31] VITALS: BP 144/75; PULSE 50; RESP 16; TEMP 36.8; O2SAT 98; BMI 30.6
[2024-08-05 11:39] LABS: Glucose, Whole Blood 87 mg/dL (60-115)
[2024-08-05] MEDS: Lactated Ringers 1,000 ML 100 ML IVCONT (11:39)
--- NOTE | 2024-08-05 12:52 | MHC.SHP ---
Pre-Procedural Eval Section A - 24 Hr Update-Section A only Date of Service: 08/05/24 Section B - Complete if H&P > 30 days Chief Complaint: Hx of polyps Details of Present Illness: Medical History HTN (hypertension) Arthritis Diabetes Surgical History History of colonoscopy Present Medications: see Short Stay Collaborative assessment Allergies: Allergies Allergy/AdvReac Type Severity Reaction Status Date / Time No Known Allergies Allergy Verified 04/01/24 10:45 [No Known Allergies*] Review of Systems Review of Systems Comment: Ten point ROS negative Exam Exam Comment: Gen appear: No acute distress HEENT: no icterus Chest: No overt resp distress Abd: soft, nontender, nondistended Psych: Stable affect, answering questions appropriately Neuro: A/Ox3 noted to move all extremities spontaneously Ext: no peripheral edema Plan Diagnosis/Plan: Unchanged I have reviewed the history and physical and performed a pertinent physical examination on my patient. No changes have occurred unless specified. Time Spent With Patient Time: Total time managing care of this patient today ____ minutes.
--- NOTE | 2024-08-05 13:47 | P.OPN-COLO_ITS ---
Colonoscopy Operative Note Operative Note Date of Service: 08/05/24 Narrative: Procedure: Colonoscopy Indication: Personal history of polyps Endoscopist: Dipti Kenyon MD Anesthesia Provider: Shavon Boyce CRNA Anesthesia type: MAC Instrument: Olympus [id number]-H190L Consent: Indication, risks vs benefits, and alternatives were discussed with the patient who gave written informed consent to proceed. An carry out clerk and shelf stocker was utilized to assist with the consent. EKG, pulse, pulse oximetry and blood pressure were monitored throughout the procedure. Please see anesthesia flowsheet. Procedure: The patient was brought to the procedure room and placed in the left lateral decubitus position. IV medications were administered by the anesthesia provider in attendance. A digital rectal exam was performed which was normal. A distal attachment cap was affixed to the tip of the colonoscope which was then inserted through the anus and advanced through the colon to the cecum at 80 cm. Appendiceal orifice and ileocecal valve were identified. Mucosa was carefully examined under high definition white light as the instrument was slowly withdrawn in a retrograde panoramic fashion. Retroflexion was performed in rectum. The procedure was not difficult. There were no immediate obvious complications. The quality of the prep was BBPS: 0+1+2 = inadequate Withdrawal time 10 minutes. Limitations: Poor prep. Findings: Mucosa: Semi solid present through most of the right colon precluding exam for polyp detection. Protruding lesions: * Medium internal hemorrhoids without stigmata of recent bleeding. Excavated lesions: * Mild diverticulosis of left sided colon. Impression: 1. Poor prep 2. Diverticulosis 3. Internal hemorrhoids Recommendations: - Poor prep. - Repeat colonoscopy in 1 year if patient with history of advanced adenoma on previous colonoscopy.
[2024-08-05 14:38] VITALS: BP 130/71; PULSE 49; RESP 12; TEMP 36.4; O2SAT 97
[2024-08-05 14:50] VITALS: BP 139/74; PULSE 49; RESP 12; TEMP 36.4; O2SAT 97
== END 2024-08-05 15:53 | disposition home or self-care (01) ==
PROVIDERS: PCP Internal Medicine; Visit Provider Internal Medicine
PROC: 0DJD8ZZ Inspection of Lower Intestinal Tract, Via Natural or Artificial Opening Endoscopic (ICD-10-PCS; CPT 45378; principal; 2024-08-05 13:20)
DX: Z12.11 Encounter for screening for malignant neoplasm of colon (principal); Z86.0101 Personal history of adenomatous and serrated colon polyps; K57.30 Diverticulosis of large intestine without perforation or abscess without bleeding; K64.8 Other hemorrhoids; I10 Essential (primary) hypertension; I45.10 Unspecified right bundle-branch block; E11.9 Type 2 diabetes mellitus without complications; M19.90 Unspecified osteoarthritis, unspecified site; G47.31 Primary central sleep apnea; Z79.51 Long term (current) use of inhaled steroids; Z79.899 Other long term (current) drug therapy; Z79.82 Long term (current) use of aspirin
CPT/HCPCS: G0105; 82947; J2003; J2704

== ENCOUNTER → 2024-08-05 09:21 | Outpatient (BNV) | payer OTHER, SELFPAY | PROVIDERS: PCP Internal Medicine; Visit Provider Internal Medicine | DX: Z12.11 Encounter for screening for malignant neoplasm of colon (principal); Z86.0100 Personal history of colon polyps, unspecified; K57.30 Diverticulosis of large intestine without perforation or abscess without bleeding; Z91.199 Patient's noncompliance with other medical treatment and regimen due to unspecified reason | CPT/HCPCS: G0105 ==

== ENCOUNTER 2024-10-07 13:15 | Outpatient (AMB) | payer OTHER, SELFPAY ==
--- NOTE | 2024-10-07 13:44 | A.OFFVIS_ITS ---
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 Intake Note: New patient 2nd opinion dx chest pain c/o when over exerting will get a stabling pain in chest lasting a few seconds Orthopedic Cast Specialist Required: Yes Orthopedic Cast Specialist Services: Orthopedic Cast Specialist Offered & Declined Puzzle Assembler: Puzzle Assembler Present Accompanied by: Grand Child Allergies No Known Allergies [No Known Allergies*] Allergy (Verified 04/01/24 10:45) Medication List - Last Reconciled 10/07/24 by Bo Carter MD acetaminophen (Tylenol Extra Strength) 500 mg PO Q6H PRN albuterol sulfate 90 mcg/actuation (Ventolin HFA) 2 puffs inhalation Q4-6H PRN amlodipine 5 mg PO DAILY aspirin (Adult Aspirin Regimen) 81 mg PO DAILY atorvastatin 10 mg PO BEDTIME betamethasone dipropionate 0.05% 1 appl topical BID bisacodyl (Dulcolax (bisacodyl)) 20 mg (4 x 5 mg) PO ONCE 1 day bisacodyl (Dulcolax (bisacodyl)) 20 mg (4 x 5 mg) PO ONCE 1 day buspirone 5 mg PO BID carvedilol 3.125 mg PO BID cholecalciferol (vitamin D3) (Vitamin D3) 50 mcg PO DAILY clobetasol 0.05% 1 appl topical DAILY diclofenac sodium 1% 2 grams topical BID PRN fluticasone propionate 250 mcg/actuation (Flovent Diskus) 1 inh inhalation BID ibuprofen 600 mg PO Q8H PRN lidocaine 5% (Lidoderm) 1 patch topical DAILY PRN MDD remove after 12 hours lisinopril 30 mg PO DAILY melatonin 5 mg PO BEDTIME PRN methocarbamol 500 mg PO TID PRN miconazole nitrate 2% 1 appl topical BID nystatin-triamcinolone 100,000-0.1 unit/g-% 1 appl topical TID olopatadine 0.2% (Pataday Once Daily Relief) 1 drp ophthalmic (eye) BEDTIME polyethylene glycol 3350 (Miralax) 238 grams PO ONCE polyethylene glycol 3350 (Miralax) 238 grams PO ONCE 1 day sertraline 50 mg PO DAILY tramadol 50 mg PO Q12H PRN HPI Comments Details: Osorio was referred for cardiology evaluation, accompanied by his granddaughter who acts as sheltered workshop worker. Patient already is seeing another cardiology group in the area for last few years and has been worked up extensively by them as per the granddaughter. Granddaughter is not aware as to why he needs to see another photographic platemaker. Seems like patient had a fall few months ago. No clear syncopal episode. Patient denies any prolonged palpitation irregular heartbeat. Used to have chest pain when he was doing heavy lifting but denies any chest pain since he has stopped doing heavy lifting. He was worked up for that and as per the granddaughter had a stress test as well as echocardiogram. Was told that he had thickening of the muscle of the heart and was the reason for his chest pain. However he exercise extensively and bikes from [place] to [place] and has no symptoms when he does exertional activity. He has history of hypertension and on multiple antihypertensives and blood pressures been well optimized. Bowel on diabetes with chest per the granddaughter who is well controlled. Uses CPAP regularly [facility] Medical History (Updated 10/07/24 @ 14:18 by Bo Carter MD) Bundle branch block, right Central sleep apnea Depression Elevated cholesterol Back pain HTN (hypertension) Arthritis Diabetes Surgical History History of colonoscopy Social History Alcohol intake: former Patient Tobacco Use Status: Never used Tobacco Review of Systems Const Denies chills, Denies daytime sleepiness, Denies fatigue, Denies fever(s), Denies frequent falls, Denies poor appetite, Denies snoring, Denies stops breathing during sleep, Denies weakness, Denies weight gain and Denies weight loss Eyes Denies loss of vision ENT Denies dizziness and Denies hearing loss Card Denies chest pain, Denies claudication, Denies leg edema, Denies lightheadednes s, Denies palpitations, Denies dyspnea, Denies dyspnea on exertion and Denies orthopnea Resp Denies cough, Denies excessive phlegm production, Denies dyspnea, Denies dyspnea on exertion, Denies snoring and Denies wheezing GI Denies abdominal pain, Denies hematochezia, Denies change in bowel habits, Denies nausea and Denies vomiting Denies dysuria and Denies urinary frequency Musc Denies arthralgias, Denies muscle weakness, Denies numbness and Denies other (frequent falls) Skin/Breast Denies nail changes and Denies rash Neuro Denies Abnormal speech present, Denies dizziness, Denies frequent falls, Denies loss of vision, Denies memory loss, Denies numbness and Denies weakness Psych Denies depression and Denies memory loss Endo Denies fatigue and Denies palpitations Dante/Lymph Reports easy bruising and Reports other (anemia) Aller/Immun Denies wheezing Physical Exam Vital Signs: Last Vital Signs Pulse 50 10/07/24 13:45 BP 122/80 10/07/24 13:45 BMI result Body Mass Index 29.5 Const General: cooperative, comfortable, no acute distress, well developed, alert, awake and Physically active Nutritional Appearance: average body habitus and well nourished Orientation/consciousness: patient oriented x3 HEENT Head: Yes normocephalic and Yes atraumatic Neck Neck: Yes trachea midline, Yes supple and Yes no JVD Resp Effort & Inspection: normal respiratory effort Auscultation: clear to auscultation bilaterally Cardio Jugular venous distension: no JVD Palpation: normal PMI Rate: regular rate Rhythm: regular rhythm Heart sounds: S1 normal heart sound present, S2 normal heart sound present, no click, no gallops, no murmurs and no rubs GI Auscultation: normal bowel sounds Skin General skin exam: no rashes or lesions noted Neuro General: patient oriented x3 Speech: No Abnormal speech present Extrem General: Yes no clubbing, cyanosis or edema Psych Appearance: grossly normal Office Procedures EKG Details: EKG shows sinus bradycardia with incomplete right bundle-branch block otherwise normal EKG [id number], Complete Assessment & Plan Assessment & Plan (1) HTN (hypertension): Comment: follows [facility] Cardiovascular Code(s): I10 - Essential (primary) hypertension Category: Medical Plan: Patient with longstanding hypertension on multiple antihypertensives and blood pressure is well optimized. Has been seen in the cardiology group outside. Has been worked up by them and as per the granddaughter there was no evidence of known significant coronary disease and has normal LV ejection fraction with hypertensive heart disease. Will try to obtain reports from the office although he is currently not having any active cardiac symptoms. There was no symptoms concerning for angina or heart failure. Blood pressure is currently well optimized encouraged to continue current therapy. Continue aggressive management of his metabolic syndrome. He is exercising extensively and has no symptoms with exertion. Encouraged to continue to participate in physical activity as tolerated. At this point time no further cardiac workup is indicated in his recommended to follow up with his cardiology group. Coding Level of Care Code New Pt Level 3 (26294) Complex EM visit Add On G2211 Diagnoses HTN (hypertension) I10 CPT Codes EKG - CPT: 99861-[id number], Complete ([id number])
[2024-10-07 13:45] VITALS: BP 122/80; PULSE 50; BMI 29.5
--- OUTSIDE RECORDS SUMMARY | 2024-10-07 13:48 | XMS_ITS | Encounter Summary ---
Author Organization [employer] Address [address] [place] [address] Care Team Providers Care Junior Administrative Assistant Name Role Phone Tammy Payan MD Primary Care Provide r Reason for Visit * Reason Comments Med Refill Encounter Details Date Type Department Care Team ([facility] st Contact Info) Description 03/28/2023 Refill [facility] [address], [place] [phone] Tammy Payan MD [address] [place], [place] [phone] Other chronic pain Social History Tobacco Use Types Packs/Day Years Used Date Smoking Tobacco: Former Cigarettes Smokeless Tobacco: Never Alcohol Use Standard Drinks/Week Comments Never 0 (1 standard drink = 0.6 oz pur e alcohol) Housing Stability Answer Date Recorded What is your housing situation today? I have marvni trevino 03/19/[address] you li ve. Do you have problems with any of the following? None of the above 03/19/2023 Food Insecurity Answer Date Recorded Within the past 12 months, y ou worried that your food would run out before you got money to buy more: Never True 03/19/2023 Within the past 12 months,th e food you bought just didn't last and you didn't have enough money to get more: Never True Transportation Answer Date Recorded In the past 12 months, has l ack of transportation kept you from medical appts, meetings, work or from getting things needed for daily living? No 03/19/2023 Utilities Answer Date Recorded In the past 12 months, has t he electric, gas, oil or water company threatened to shut off services in your home? No 03/19/2023 Depression Answer Date Recorded Patient Health Questionnaire-2 Score 0 07/24/2022 Sex and Gender Information Value Date Recorded Sex Assigned at Male 03/25/2022 10:15 AM EDT Legal Sex Male 10:15 AM EDT Gender Identity Male 03/25/2022 10:15 AM EDT Sexual Orientation Choose not to disclose 2021 10:15 AM EDT documented as of this encounter Miscellaneous Notes * Telephone Encounter - Tammy Pimentel MD - 03/28/2023 12:18 PM EDT Already done during today's visit documented in this encounter Plan of Treatment Upcoming Encounters Date Type Department Care Team (Late st Contact Info) Description 11/12/2024 9:00 AM EDT Telemedicine [facility] [address] [place] [address] Catherine North RN 11/29/2024 8:00 AM EDT Office Visit [facility] ADULT DENTAL [address] [place] [address] Sarah Gongora 12/09/2024 1:30 PM EDT Office Visit [facility] OPTOMETRY [address] [place] [address] MyronCorrina manriquez, OD [address] [place] [address] documented as of this encounter Visit Diagnoses Diagnosis Other chronic pain documented in this encounter Care Teams Junior Administrative Assistant Relationship Specialty Start Date End Date Tammy Payan MD [address] [place] [address] PCP - General Family Medicine 06/09/20 documented as of this encounter
--- OUTSIDE RECORDS SUMMARY | 2024-10-07 13:48 | XMS_ITS | Encounter Summary ---
Author Organization [employer] Address [address] [place] [address] Care Team Providers Care Publicity Expert Name Role Phone Tammy Payan MD Primary Care Provide r Reason for Visit * Reason Comments Med Refill Encounter Details Date Type Department Care Team ([facility] st Contact Info) Description 06/15/2024 Refill [facility] [address], [place] [phone] Tammy Payan MD [address] [place], [place] [phone] Multiple joint pain Social History Tobacco Use Types Packs/Day Years Used Date Smoking Tobacco: Former Cigarettes Passive Smoke Exposure: Current Smokeless Tobacco: Never Alcohol Use Standard Drinks/Week Comments Never 0 (1 standard drink = 0.6 oz pur e alcohol) Depression Answer Date Recorded Patient Health Questionnaire-9 Score 6 01/23/2024 Patient Health Questionnaire-9 Score 6 01/23/2024 Last PHQ-9: Questionnaire Data Not on file 0 01/23/2024 Housing Stability Answer Date Recorded What is your housing situation today? I have marvin trevino 10/14/[address] you li ve. Do you have problems with any of the following? None of the above 10/14/2023 Food Insecurity Answer Date Recorded Within the past 12 months, y ou worried that your food would run out before you got money to buy more: Never True 01/23/2024 Within the past 12 months,th e food you bought just didn't last and you didn't have enough money to get more: Never True Transportation Answer Date Recorded In the past 12 months, has l ack of transportation kept you from medical appts, meetings, work or from getting things needed for daily living? No 10/14/2023 Utilities Answer Date Recorded In the past 12 months, has t he electric, gas, oil or water company threatened to shut off services in your home? No 01/23/2024 Depression Answer Date Recorded Patient Health Questionnaire-2 Score 2 01/23/2024 Internet Access Answer Date Recorded Internet Access Q1 Yes 01/23/2024 Internet Access Q2 Not on file 01/23/2024 Sex and Gender Information Value Date Recorded Sex Assigned at Male 03/25/2022 10:15 AM EDT Legal Sex Male 10:15 AM EDT Gender Identity Male 03/25/2022 10:15 AM EDT Sexual Orientation Choose not to disclose 2021 10:15 AM EDT documented as of this encounter Plan of Treatment Upcoming Encounters Date Type Department Care Team (Late st Contact Info) Description 11/12/2024 9:00 AM EDT Telemedicine [facility] [address] [place] [phone] Catherine North, ALLI 11/29/2024 8:00 AM EDT Office Visit [facility] [address] [place] [address] Sarah Gongora 12/09/2024 1:30 PM EDT Office Visit [facility] [address] [place] [address] Corrina Sanches, OD [address] [place] [address] documented as of this encounter Visit Diagnoses Diagnosis Multiple joint pain Pain in joint, multiple sites documented in this encounter Additional Health Concerns Assessment Noted Time PHQ-9 Depression Total Score: 6 01/23/20 24 10:06 AM EDT documented as of this encounter Care Teams Publicity Expert Relationship Specialty Start Date End Date Tammy Payan MD [address] [place] [address] PCP - General Family Medicine 06/09/20 documented as of this encounter
--- OUTSIDE RECORDS SUMMARY | 2024-10-07 13:48 | XMS_ITS | Encounter Summary ---
Author Organization [employer] Address [address] [place] [address] Care Team Providers Care Chef & Owner Name Role Phone Tammy Payan MD Primary Care Provide r Encounter Details Date Type Department Care Team (Late st Contact Info) Description 11/25/2023 Orders Only [facility] [address] [place], [place] [phone] ProviderNgozi MD Social History Tobacco Use Types Packs/Day Years [...] before you got money to buy more: Sometimes True 2023 Within the past 12 months,th e food you bought just didn't last and you didn't have enough money to get more: Sometimes True 10/14/2023 Transportation Answer Date Recorded In the past [...] Info) Description 11/12/2024 9:00 AM EDT Telemedicine [facility] [address] [place] [address] Catherine North RN 11/29/2024 8:00 AM EDT Office Visit [facility] [address] [place] [address] Sarah Gongora 12/09/2024 1:30 PM EDT Office Visit [facility] [address] [place] [address] Corrina Sanches, OD [address] [place] [address] documented as of this encounter Procedures Procedure Name Priority Date/Time Associated Diagnosis Comments DERMATOPATHOLOGY REPORT Routine 11/18/19 12:36 PM EDT documented in this encounter Results * Dermatopathology Report (11/18/2023 12:36 PM EDT) us Historical Provider LAB BLOOD ORDERABLES Marily l Result documented in this encounter Visit Diagnoses Not on filedocumented in this encounter Care Teams Chef & Owner Relationship Specialty Start Date End Date Tammy Payan MD [address] [place] [address] PCP - General Family Medicine 06/09/20 documented as of this encounter
--- OUTSIDE RECORDS SUMMARY | 2024-10-07 13:49 | XMS_ITS | Clinical Summary ---
Author Organization [employer] Address [address] [place] [address] Care Team Providers Care Professional Poker Player Name Role Phone Tammy Payan MD Primary Care Provide r Allergies No known active allergies Medications dextran 70-hypromellose (artificial tears) 0.1-0.3 % ophthalmic solution apply 2 drops in each eye every 8 hrs as needed Active aspirin 81 MG EC tablet 1 tab PO daily Active cetirizine (ZyrTEC) 10 MG tablet take 1 tablet by oral route every day Active ibuprofen 800 MG tablet take 1 tablet by oral route 3 times every day with food Active ketotifen (Zaditor) 0.025 % ophthalmic solution instill 1 drop by ophthalmic route 2 times every day into affected eye(s) Active mirtazapine (Remeron) 7.5 MG tablet take 1 tablet by oral route every day at bedtime Active apremilast (Otezla) 10 & 20 & 30 MG tablet therapy pack tablet therapy pack FOLLOW BOX INSTRUCTIONS Active albuterol (ProAir HFA) 108 (90 Base) MCG/ACT inhaler inhale 2 puff by inhalation route every 4 - 6 hours as needed Active simethicone (Mylicon,Gas-X) 180 MG capsule take one with meals 3 times a day as needed Active terbinafine (LamISIL) 1 % cream apply by topical route every day to the affected and surrounding areas of skin 10/14/2 021 Active tiZANidine (Zanaflex) 2 MG tablet take 1 tablet by oral route every 8 hours as needed not to exceed 3 doses in 24 hours as needed for back muscle spasm 022 Active lidocaine (Lidoderm) 5 % patchIndication s:Chronic bilateral low back pain with right-sided sciatica apply 1 patch by transdermal route every day (May wear up to 12hours.) Strength: 5 % prn for low back pain 30 patch 022 Active lisinopril 30 MG tabletIndicatio ns:Essential hypertension Take 1 tablet (30 mg) by mouth in the morning. 90 tablet 3 023 Active Blood Pressure Monitoring (Omron 3 Series BP Monitor) deviceIndicatio ns:Essential hypertension Use to check blood pressure daily, goal <140/90 1 each 023 Active Flovent Diskus 250 MCG/ACT aerosol powder INHALE 1 PUFF TWICE DAILY. RINSE MOUTH AFTER USING. 60 each 3 023 Active clotrimazole (Clotrimazole Anti-Fungal) 1 % creamIndication s:Tinea cruris APPLY TO THE AFFECTED AREA(S) TOPICALLY TWICE DAILY IN THE MORNING AND IN THE EVENING FOR RASH on penis french 60 g 2 023 Active calcipotriene (Dovonex) 0.005 % ointment APPLY TO THE AFFECTED AREA(S) EVERY DAY RUB IN GENTLY AND COMPLETELY 60 g 3 023 Active hydrOXYzine HCl (Atarax) 25 MG tabletIndicatio ns:Pruritus Take 1 tablet (25 mg) by mouth every 6 (six) hours if needed for itching for up to 10 days. 30 tablet 024 Active glucose blood (FREESTYLE LITE) test stripIndication s:Psoriasis TEST BLOOD SUGAR EVERY DAY DIRECTED 100 strip 5 024 Active hydrOXYzine pamoate (Vistaril) 25 MG capsule Take 1 capsule (25 mg) by mouth every 6 (six) hours if needed for itching for up to 10 days. 30 capsule 024 Active FreeStyle lancetsIndicati ons:Type 2 diabetes mellitus with hyperglycemia, without long-term current use of insulin ([facility]) 1 each by Other route Once per day. 100 each 12 024 2024 Active busPIRone (Buspar) 5 MG tablet Take 5 mg by mouth. 022 Active carvedilol (Coreg) 3.125 MG tablet Take 3.125 mg by mouth 2 times daily. Active dupilumab (Dupixent) 300 MG/2ML solution prefilled syringe injectionIndica tions:Atopic dermatitis in adult Inject 1 Syringe (300 mg) under the skin every 14 (fourteen) days. 2 mL 11 024 Active glycerin (Adult) 2 g suppositoryIndi cations:Constip ation, unspecified constipation type Insert 1 suppository (2 g) into the rectum if needed each day for constipation. 24 suppository 024 Active atorvastatin (Lipitor) 10 MG tablet TAKE 1 TABLET BY MOUTH EVERY DAY AT BEDTIME 90 tablet 1 024 Active cholecalciferol (Vitamin D-3) 50 MCG (1999 UT) capsuleIndicati ons:Vitamin D deficiency Take 1 capsule by mouth daily 90 capsule 3 024 Active folic acid (Folvite) 1 MG tabletIndicatio ns:Atopic dermatitis in adult Take 1 tablet (1 mg) by mouth Once per day. 30 tablet 11 024 2024 Active Blood Glucose Monitoring Suppl (mYwindowe) w/Device kit TEST BLOOD SUGAR EVERY DAY 1 kit 024 Active lidocaine (Lidoderm) 5 % patchIndication s:Chronic low back pain, unspecified back pain laterality, unspecified whether sciatica present APPLY 1 PATCH TOPICALLY TO SKIN, LEAVE ON FOR 12 HOURS AND OFF FOR 12 HOURS DIRECTED 30 patch 1 024 Active amLODIPine (Norvasc) 5 MG tablet TAKE 1 TABLET BY MOUTH EVERY DAY 90 tablet 1 024 Active omeprazole OTC (PriLOSEC OTC) 20 MG EC tabletIndicatio ns:Generalized abdominal pain Take 1 tablet (20 mg) by mouth before breakfast. Do not crush, chew, or split. 30 tablet 11 025 2025 Active atorvastatin (Lipitor) 10 MG tabletIndicatio ns:Type 2 diabetes mellitus with hyperglycemia, without long-term current use of insulin ([facility]) TAKE 1 TABLET BY MOUTH EVERY DAY AT BEDTIME 90 tablet 1 025 Active doxepin (SINEquan) 10 MG capsuleIndicati ons:Pruritus TAKE 1 CAPSULE BY MOUTH AT BEDTIME 30 capsule 1 025 Active naloxone (Narcan) 4 mg/0.1 mL nasal sprayIndication s:Multiple joint pain FOR SUSPECTED OPIOID OVERDOSE. SPRAY 0.1mL IN ONE NOSTRIL. REPEAT IN ALTERNATE NOSTRIL 2-3 MINUTES IF NEEDED. SEEK MEDICAL ATTENTION IMMEDIATELY EVEN IF PATIENT RESPONDS. 2 each 2 025 Active acetaminophen (Tylenol) 500 MG tabletIndicatio ns:Chronic bilateral low back pain with bilateral sciatica Take 2 tablets (1,000 mg) by mouth every 8 (eight) hours if needed for moderate pain or fever for up to 25 doses. 50 tablet 025 Active gabapentin (Neurontin) 400 MG capsule TAKE 1 CAPSULE BY MOUTH EVERY DAY AT BEDTIME 30 capsule 1 025 Active triamcinolone (Kenalog) 0.1 % creamIndication s:Pruritus,Derm atitis, unspecified,Pru ritus Apply topically if needed in the morning and at bedtime (pain and swelling). 80 g 3 025 Active Diclofenac Sodium 1 % gelIndications: Multiple joint pain APPLY 2 GRAMS TOPICALLY AFFECTED AREA(S) TWICE DAILY NEEDED FOR PAIN 100 g 3 025 Active traMADol (Ultram) 50 MG tabletIndicatio ns:Multiple joint pain TAKE 1 TABLET BY MOUTH EVERY TWELVE HOURS NEEDED FOR SEVERE PAIN 56 tablet 025 2024 Active traMADol (Ultram) 50 MG tabletIndicatio ns:Multiple joint pain TAKE 1 TABLET BY MOUTH EVERY TWELVE HOURS NEEDED FOR SEVERE PAIN 56 tablet 025 2024 Discontinued Active Problems Problem Noted Date Diagnosed Date Acute otitis media 07/22/2024 Assessment & Plan (07/22/2024 12:24 PM EST): Augmentin prescribed twice a day for 7-day Dizziness 06/08/2024 Assessment & Plan (07/22/2024 12:24 PM EST): I printed the information of the ENT and physical therapy referral Chronic bilateral low back pain with bilateral s ciatica 06/08/2024 Assessment & Plan (07/22/2024 12:24 PM EST): Apply heat on affected area Acetaminophen as needed Other chest pain 06/08/2024 Vestibular disequilibrium involving both inner e ars 06/08/2024 Leg edema, right 06/08/2024 Generalized abdominal pain 12/18/2023 Assessment & Plan (12/18/2023 10:35 AM EDT): -no evidence of acute abdomen -likely due to constipation, which pt reports -differential includes GERD and constipation, less likely early diverticulitis -will trial omeprazole and glycerin suppositories -given strict ER precautions -ordered labs to r/o infectious origin -advised if symptoms worsen to go to ER to get CT scan Constipation 12/18/2023 Pruritus 06/17/2023 Assessment & Plan (06/17/2023 4:32 PM EST): Hydroxyzine PRN Dermatology referral printed and given to patient Rectal pain 03/28/2023 Assessment & Plan (10/23/2023 9:58 AM EDT): GI referral printed for patient Chronic headache 03/28/2023 Assessment & Plan (03/28/2023 10:42 AM EDT): Acetaminophen PRN, lease consult with retort engineer about CPAP machine Dermatitis 03/28/2023 Class 1 obesity 01/16/2023 Treatment-emergent central sleep apnea 3 Candidiasis 01/16/2023 Assessment & Plan (01/16/2023 1:34 PM EDT): No evidence of super infection. We reviewed which medication to use on which body part. If symptoms do not improve call and follow up with dermatology. -Clotrimazole cream given. Aortic valve regurgitation 05/06/2022 Bradycardia 05/06/2022 Chronic obstructive lung disease 05/06/2022 Dry eyes 05/06/2022 Hypertension 05/06/2022 Assessment & Plan (07/22/2024 12:23 PM EST): Seems to be under control advised low-sodium diet continue with same medication regimen Assessment & Plan (04/21/2024 10:15 AM EST): -Today his blood pressure is elevated but on further questioning he only took one of his blood pressure medications, Ia advise to take all of them withou missing them I also advised: - Aerobic exercise to reduce BP. Initial goal of 30 min walk 3-5x/week. Increase as tolerated. - low-sodium diet (goal: <2g/day) and heart healthy diet such as DASH to reduce BP and prevent ASCVD. - Home BP monitoring 1-2 x day with goal of <140/90. - Seek immediate medical attention for chest pain, palpitations, SOB, syncope, or sudden changes in mental status. - Do not change or discontinue current prescriptions without first consulting health care provider Assessment & Plan (01/23/2024 10:55 AM EDT): Today BP is elevated I advise low Na diet and weight reduction C/w amlodipine 5mg daily and carvedilol 3.125mg BID on review of chart it looks he is not taking lisinopril I advise to monitor BP at home log BP and bring medication to nurse visit in 2 weeks If BP is not at goal and he is not taking lisinopril plan is to add lisinopril 10mg daily if he is taking lisinopril plan is to increase amlodipine dose to 10mg Assessment & Plan (10/23/2023 9:58 AM EDT): Maintenance: BMP: ordered today Lipid Panel: ordered today ASCVD Risk:Patient is on atorvastatin 10 mg and aspirin 81mg daily - Aerobic exercise to reduce BP. Initial goal of 30 min walk 3-5x/week. Increase as tolerated. - low-sodium diet (goal: <2g/day) and heart healthy diet such as DASH to reduce BP and prevent ASCVD. - Home BP monitoring 1-2 x day with goal of <140/90. - Seek immediate medical attention for chest pain, palpitations, SOB, syncope, or sudden changes in mental status. - Do not change or discontinue current prescriptions without first consulting health care provider Assessment & Plan (06/17/2023 4:31 PM EST): - Aerobic exercise to reduce BP. Initial goal of 30 min walk 3-5x/week. Increase as tolerated. - low-sodium diet (goal: <2g/day) and heart healthy diet such as DASH to reduce BP and prevent ASCVD. - Home BP monitoring 1-2 x day with goal of <140/90. - Seek immediate medical attention for chest pain, palpitations, SOB, syncope, or sudden changes in mental status. - Do not change or discontinue current prescriptions without first consulting health care provider Assessment & Plan (03/28/2023 10:43 AM EDT): - Aerobic exercise to reduce BP. Initial goal of 30 min walk 3-5x/week. Increase as tolerated. - low-sodium diet (goal: <2g/day) and heart healthy diet such as DASH to reduce BP and prevent ASCVD. - Home BP monitoring 1-2 x day with goal of <140/90. - Seek immediate medical attention for chest pain, palpitations, SOB, syncope, or sudden changes in mental status. - Do not change or discontinue current prescriptions without first consulting health care provider Assessment & Plan (01/01/2023 9:38 AM EDT): I advise to take his medications every day and do not miss any dose continue taking lisinopril 30mg daily and amlodipine 5mg daily Monitor BP at home and come back in 2 weeks for nurse visit if BP is not at goal increase lisinopril to 40mg and increase amlodipine to 10mg I advise low Na diet and weight reduction Assessment & Plan (10/11/2022 1:57 PM EDT): - Aerobic exercise to reduce BP. Initial goal of 30 min walk 3-5x/week. Increase as tolerated. - low-sodium diet (goal: <2g/day) and heart healthy diet such as DASH to reduce BP and prevent ASCVD. - Home BP monitoring 1-2 x day with goal of <140/90. - Seek immediate medical attention for chest pain, palpitations, SOB, syncope, or sudden changes in mental status. - Do not change or discontinue current prescriptions without first consulting health care provider Assessment & Plan (07/24/2022 9:35 AM EST): Uncontrolled, it may be related to pain. Compliant w/meds Continue lisinopril + amlodipine same dose FU in 6w after being seen by pain clinic Counseled re low salt diet/increase moderate physical activity. Check home BP BIW and prn CP/DC/ALLEN Non smoking patient. 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 We reviewed which medication to use on which body part. If symptoms do not improve call and follow up with dermatology. Restarts clobetasol ointment 01/16/2023. 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 Type 2 diabetes mellitus 07/31/2019 Assessment & Plan (07/22/2024 12:24 PM EST): Diabetes is: controlled - Lab Results Component Value Date HGBA1C 6.0 07/22/2024 HGBA1C 5.9 04/21/2024 HGBA1C 5.7 12/16/2023 - Lab Results Component Value Date MICROALBUR 27.4 02/15/2021 CREATININE 1.04 04/06/2024 -Changes: Diabetic diet counseling done today - Diabetic eye exam: Referral done - Diabetic foot exam: Pending - Continue lifestyle modifications - Continue current medications - Follow up: 3 months Assessment & Plan (04/21/2024 10:16 AM EST): Diabetes is: controlled - Lab Results Component Value Date HGBA1C 5.9 04/21/2024 HGBA1C 5.7 12/16/2023 HGBA1C 6.2 (A) 06/17/2023 - Lab Results Component Value Date MICROALBUR 27.4 02/15/2021 CREATININE 1.04 04/06/2024 -Changes: none - Diabetic eye exam:pending - Diabetic foot exam:pending - Continue lifestyle modifications - Continue current medications - Follow up: 3 months Assessment & Plan (01/23/2024 10:56 AM EDT): Controlled c/w same medications and interventions Assessment & Plan (10/23/2023 9:59 AM EDT): Diabetes is: controlled - Lab Results Component Value Date HGBA1C 6.2 (A) 06/17/2023 HGBA1C 6.2 (A) 01/01/2023 HGBA1C 6.1 (H) 08/08/2022 - Lab Results Component Value Date MICROALBUR 27.4 02/15/2021 CREATININE 0.92 03/19/2023 -Changes: none - Diabetic eye exam:up to date - Diabetic foot exam:up to date - Continue lifestyle modifications - Continue current medications - Follow up: 3 months Assessment & Plan (06/17/2023 4:31 PM EST): - Lab Results Component Value Date HGBA1C 6.2 (A) 06/17/2023 HGBA1C 6.2 (A) 01/01/2023 HGBA1C 6.1 (H) 08/08/2022 - Lab Results Component Value Date MICROALBUR 27.4 02/15/2021 CREATININE 0.92 03/19/2023 - Diabetic eye exam:pending - Diabetic foot exam:pneding - Continue lifestyle modifications - Continue current medications Assessment & Plan (03/28/2023 10:43 AM EDT): Lab Results Component Value Date HGBA1C 6.2 (A) 01/01/2023 HGBA1C 6.1 (H) 08/08/2022 HGBA1C 6.3 (A) 07/24/2022 - Lab Results Component Value Date MICROALBUR 27.4 02/15/2021 CREATININE 0.92 03/19/2023 - Diabetic eye exam: - Diabetic foot exam: - Continue lifestyle modifications - Continue current medications Assessment & Plan (01/01/2023 9:39 AM EDT): - Lab Results Component Value Date HGBA1C 6.2 (A) 01/01/2023 HGBA1C 6.1 (H) 08/08/2022 HGBA1C 6.3 (A) 07/24/2022 - Lab Results Component Value Date MICROALBUR 27.4 02/15/2021 CREATININE 1.05 09/04/2022 - Diabetic eye exam: up to date - Diabetic foot exam: pending - Continue lifestyle modifications Assessment & Plan (10/11/2022 2:01 PM EDT): - Lab Results Component Value Date HGBA1C 6.1 (H) 08/08/2022 HGBA1C 6.3 (A) 07/24/2022 HGBA1C 6.2 (H) 05/09/2020 - Lab Results Component Value Date MICROALBUR 27.4 02/15/2021 CREATININE 1.05 09/04/2022 - Diabetic eye exam: up to date - Diabetic foot exam: done today, I will prescribe for patient diabetic shoes - Continue lifestyle modifications - Continue current medications Assessment & Plan (07/24/2022 9:36 AM EST): Controlled. A1c is at goal. Continue on life style modifications rx Counseled re more frequent low calorie/carb meals. Check fgstk 1x daily Encouraged physical activity as tolerated. I will send a rx for DM shoes due to plantar hyperkeratoses//risk of ulcerations. FU in 3 months. Mixed anxiety and depressive disorder 10/05/2018 Multiple joint pain 10/05/2018 Neck pain 10/05/2018 Senile hyperkeratosis 06/12/2018 Spasm 02/03/2014 Spinal stenosis 11/23/2012 Assessment & Plan (07/24/2022 9:32 AM EST): He has known DDD L-spine, currently on tramadol bid and gabapentin. MRI spine pending by pain clinic. Tylenol 1000mg bid x 2w then prn Increase gabapentin to 400mg at bedtime and fu w me in 6w Use Lidocaine patch prn + PTC mentholated creams Asthma 07/20/2012 Restrictive lung disease 07/20/2012 Morbid obesity 05/15/2012 Depressive disorder 03/30/2012 Obstructive sleep apnea syndrome 03/30/2012 Assessment & Plan (03/28/2023 10:42 AM EDT): F/u with specialist Assessment & Plan (01/01/2023 9:36 AM EDT): Patient follows with pulmonary, he reports his asthma medications where adjusted and he feels better, he also reports retort engineer ordered again his CPAP and he is waiting for it Shoulder pain 03/30/2012 Gastroesophageal reflux disease 11/01/2011 Hypertensive left ventricular hypertrophy 2011 Chronic low back pain 06/28/2009 Assessment & Plan (10/23/2023 9:59 AM EDT): Apply heat on affected area C/w PRMN pain meds, lidocaine patch refilled today Assessment & Plan (10/11/2022 1:59 PM EDT): Continue with current interventions Encounters Date Type Department Care Team Description 09/17/2024 Refill [facility] [address] [place] [address] Tammy Payan MD Multiple joint pain 08/31/2024 Orders Only [facility] [address] [place] [address] Acosta Burnett MD 08/27/2024 Refill [facility] [address] [place] [address] Tammy Payan MD Multiple joint pain 08/19/2024 Telephone [facility] [address] [place] [address] Tammy Payan MD 08/10/2024 10:00 AM EDT Office Visit [facility] [address] [place] [address] Acosta Burnett MD Pruritus (Primary Dx); Dermatitis, unspecified; Pruritus 08/10/2024 Travel 08/09/2024 Refill [facility] [address] [place] [address] Tammy Payan MD Multiple joint pain 08/06/2024 Refill [facility] [address] [place] [phone] Tammy Payan MD 08/05/2024 Orders Only GENERIC EXTERNAL DATA DEPARTMENT Provider, Generic External Data 08/04/[address] [address] Catherine North, ALLI Received SEARCH ENGINE OPTIMIZATION STRATEGIST Agreement and BPI Form 08/02/[address] [address] Tammy Payan MD verbal order request 07/22/2024 10:45 AM EST Office Visit [address] [address] Tammy Payan MD Acute otitis media, unspecified otitis media type (Primary Dx); Type 2 diabetes mellitus with hyperglycemia, without long-term current use of insulin (CMS/HCC); Primary hypertension; Dizziness; Chronic bilateral low back pain with bilateral sciatica 07/22/2024 Travel 07/20/2024 Orders Only [address] [address] Tammy Payan MD Type 2 diabetes mellitus with hyperglycemia, without long-term current use of insulin (CMS/HCC) (Primary Dx) 07/20/[address] [address] Tammy Payan MD telephone call 07/14/2024 Refill [facility] [address] [place] [phone] Tammy Payan MD Multiple joint pain 07/14/2024 Refill [facility] [address] [place] [address] [phone] Tammy Payan MD Multiple joint pain 07/14/2024 Refill [facility] [address] [place] [phone] Tammy Payan MD Multiple joint pain from Last 3 Months Immunizations Immunization Administration Dates Next Due Influenza High-dose Quadriva lent Preservative Free 03/28/2023,03/17/2020 Influenza Injectable Quadriv alant Preservative Free IIV4 MDCK 03/23/2021 Influenza Whole 02/01/2009 Influenza injectable quadriv alent preservative free 05/21/2019 Influenza, High Dose Seasona l, Preservative Free 04/21/2024 Influenza, IIV3, injectable 03/15/2011, 8 Influenza, Split (incl. anju fied surface antigen) 03/31/2013,03/30/2012 Pfizer Covid-19 Vaccine 12+ 04/21/2024,0 02/22/2021,08/18/2020,07/28 Pneumococcal Conjugate PCV 13 07/23/2019 Pneumococcal Polysaccharide PPSV23 10/11/2022, RSV Bivalent 09/02/2023 TD (adult), 2 Lf tetanus tox oid, preservative free, adsorbed 05/27/2008,01/24/2000 Td (adult), unspecified 12/21/2008 Tdap 03/30/2012 Zoster, Recombinant 09/02/2023,,04/28/2020,02/20 Social History Tobacco Use Types Packs/Day Years Used Date Smoking Tobacco: Former Cigarettes Passive Smoke Exposure: Current Smokeless Tobacco: Never Tobacco Cessation:Counseling Given: Not Answered Alcohol Use Standard Drinks/Week Comments Never 0 [...] not to disclose 2021 10:15 AM EDT Last Filed Vital Signs Vital Sign Reading Time Taken Comments Blood Pressure 147/76 08/10/2024 10:07 AM EDT Pulse 48 08/10/2024 10:07 AM EDT Temperature 36.7 ??C (98 ??F) 08/10/2024 10:07 AM EDT Respiratory Rate 20 08/10/2024 10:07 AM EDT Oxygen Saturation 98% 08/10/2024 10:07 AM EDT Inhaled Oxygen Concentration - - Weight 84.8 kg (187 lb) 08/10/2024 10:07 AM EDT Height 162.6 cm (5' 4 ) 08/10/2024 10:07 AM EDT Body Mass Index 32.1 08/10/2024 10:07 AM EDT Plan of Treatment Upcoming Encounters Date Type Department Care Team (Late st Contact Info) Description 11/12/2024 9:00 AM EDT Telemedicine [facility] [address] [place] [address] Catherine North RN 11/29/2024 8:00 AM EDT Office Visit [facility] [address], [place] [phone] Sarah Gongora 12/09/2024 1:30 PM EDT Office Visit [facility] [address] [place] [address] Corrina Sanches, OD [address] [place] [address] Health Maintenance Due Date Last Done Comments Anal Pap 1946 Dental X-Ray: Bitewings 1946 Dental X-Ray: Full Mouth 1946 Eye Exam 1956 Hepatitis A Vaccines (1 of 2 - Risk 2-dose series) 1965 Hepatitis B Vaccines (1 of 3 - Risk 3-dose series) 2006 DTaP/Tdap/Td Vaccines (2 - Td or Tdap) 03/30/2022 03/30/2012, 12/21/2008, 05/27/2008, Additional history exists Diabetes: Foot Exam 10/12/2023 10/11/2022, 10/11/2022, 10/11/2022, Additional history exists Dental Oral Exam 06/04/2024 12/02/2023 Dental Prophylaxis 06/04/2024 12/02/2023 COVID-19 Vaccine ( season) 2024 04/21/2024, 02/22/2021, 08/18/2020, Additional history exists Lipid Panel 10/28/2024 10/29/2023, 07/24, 02/15/2021, Additional history exists Diabetes: Hemoglobin A1C 01/19/2025 025, 04/21/2024, 12/16/2023, Additional history exists Depression Screening 01/22/2025 01/23/2024, 01/23/20 24 SDOH Screening 01/22/2025 01/23/2024 Alcohol/Substance Use Screening 04/21/2025 04/21/2024 Tobacco Screening 08/10/2025 08/10/2024 Hepatitis C Screening Completed 08/08/2022, 020 Pneumococcal Vaccine: 50+ Years Completed 10/11/2022, 07/23/2019, 01/24/2000 RSV Patients and Patients Aged 60 years or older Completed 09/02/2023 Zoster Vaccines Completed 09/02/2023, 03/27, 04/28/2020, Additional history exists Influenza Vaccine Completed 04/21/2024, , 03/23/2021, Additional history exists HIB Vaccines Aged Out No longer eligi ble based on patient's age to complete this topic HPV Vaccines Aged Out No longer eligi ble based on patient's age to complete this topic IPV Vaccines Aged Out No longer eligi ble based on patient's age to complete this topic Meningococcal B Vaccine Aged Out No l onger eligible based on patient's age to complete this topic Meningococcal Vaccine Aged Out No aliyah corinne eligible based on patient's age to complete this topic RSV under 20 months Aged Out No longe r eligible based on patient's age to complete this topic Rotavirus Vaccines Aged Out No longer eligible based on patient's age to complete this topic Procedures Procedure Name Priority Date/Time Associated Diagnosis Comments GLUCOSE, WHOLE BLOOD Routine 08/05/2024 11:36 AM EDT POCT GLYCATED HEMOGLOBIN, TOTAL Routine 07/22/2024 10:10 AM EST Type 2 diabetes mellitus with hyperglycemia, without long-term current use of insulin ([facility] [facility] POCT GLUCOSE Routine 07/22/2024 10:09 AM EST Type 2 diabetes mellitus with hyperglycemia, without long-term current use of insulin ([facility]) PROPHYLAXIS - ADULT Routine 12/02/2023 8 :00 AM EDT Dental plaque Dental calculus PERIODIC ORAL EVALUATION - ESTABLISHED PATIENT Routine 12/02/2023 8:00 AM EDT Dental plaque Dental calculus Encounter for dental examination Dental caries LIPID PANEL, STANDARD Routine 10/29/2023 9:36 AM EDT Type 2 diabetes mellitus with hyperglycemia, without long-term current use of insulin ([facility]) Primary hypertension HEPATITIS C AB W/RFL RNA, PCR W/RFL GENOTYPE,LIPA Routine 08/08/2022 9:33 AM EDT Penile lesion from Last 3 Months or Most Recently Relevant to Health Maintenance Results * Glucose, Whole Blood (08/05/2024 11:36 AM EDT) Glucose, Whole Blood 87 60 - 115 mg/dL [facility] Comment:METER #: [id number] 08/05/2024 11:3 6 AM EDT 08/05/2024 11:39 AM EDT us Generic External Data Provider LAB BLOOD ORDERAB LES Final Result [facility] [address] [place] [phone] * POCT HGB A1C (07/22/2024 10:10 AM EST) Hemoglobin A1C 6.0 4.0 - 6.0 % QC Media Lot # [id number] Lot# Expiration Date ,440 Blood 07/22/2024 10:1 0 AM EST us Tammy Pimentel MD POINT OF CARE TEST EN TER/EDIT ORDERABLES Final Result * POCT Glucose (07/22/2024 10:09 AM EST) Glucose Blood, POC 106 60 - 200 mg/dL QC Media Lot # [id number] Lot# Expiration Date ,053,973 Blood Capillary blood specimen / Unknown 07/22/2024 10:09 AM EST us Tammy Pimentel MD POINT OF CARE TEST EN TER/EDIT ORDERABLES Final Result * Lipid Panel, Standard (10/29/2023 9:36 AM EDT) Triglycerides 77 <150 mg/dL [facility] Comment:Desirable Triglyceri de: less than 150 mg/dLBorderline High Triglyceride 150-199 mg/dLHigh Triglyceride: 200-499 mg/dLVery High Triglyceride: greater than or equal to 5OO mg/dL Cholesterol 117 <200 mg/dL [facility] Comment:Desirable Cholestero l: less than 200 mg/dLBorderline High Cholesterol: 200-239 mg/dLHigh Cholesterol: greater than 239 mg/dL LDL Cholesterol Calculated 57 <100 mg/dL [facility] Comment:Desirable LDL: less than 100 mg/dLNear Optimal/Above Optimal LDL: 110- 129 mg/dLBorderline High LDL: 130-159 mg/dLHigh LDL: 160-189 mg/dLVery High LDL: greater than or equal to 190 mg/dL HDL Cholesterol 45 >40 mg/dL [facility] Comment:Desirable HDL: great er than 40 mg/dL Note: This HDL assay may give artificially low results in patients with liver disease. Blood Venous blood specimen / Unknown 10/29/2023 9:36 AM EDT 10/29/2023 11:56 AM EDT us Tammy Pimentel MD LAB BLOOD ORDERABLES Final Result Performing Organization Address City/[facility]/ZIP Co de Phone Number [facility] [address] [place] [address] [phone] * Hepatitis C Antibody with Reflex to HCV RNA,PCR w/Reflex to Genotype, LiPA (08/08/2022 9:33 AM EDT) Hepatitis C Antibody NON-REACT VIJAYA NON-REACT VIJAYA [facility] Index 0.06 <1.00 [facility] [place] [facility] Comment: HCV antibody was non-reactive. There is no laboratory evidence of HCV infection. In most cases, no further action is required. However, if recent HCV exposure is suspected, a test for HCV RNA (test code 74127) is suggested. For additional information, please refer to [email or web address] (This link is being provided for informational/ educational purposes only.) 08/08/2022 9:33 AM EDT 08/08/2022 9:34 AM EDT Narrative [facility] - 08/09/2022 6:44 PM EDT FASTING:UNKNOWN FASTING: UNKNOWN us Salena Hutton DO LAB BLOOD ORDERABLES Final R esult [facility] [address], [place] [address] [facility] [address] [place] [address] from Last 3 Months or Most Recently Relevant to Health Maintenance Insurance * Guarantor: Osorio Castillo Account Type Relation to Patient Date of Phone Billing Address Personal/Family Self [address] [place] Care Teams Professional Poker Player Relationship Specialty Start Date End Date Tammy Payan MD [address] [place] [address] PCP - General Family Medicine 06/09/20
--- OUTSIDE RECORDS SUMMARY | 2024-10-07 13:49 | XMS_ITS | Data Portability ---
Author Organization [employer] Address [address] [place] [address] Care Team Providers Care Briquette Machine Operator Helper Name Role Phone [facility] Referring Provider [facility] Referring Provider Assessment Encounter Date Assessment Date Assessment LastModified by Organization Details LastModified Time 12/07/2021 12/07/2021 I have reviewed and agree with the assessment and plan as documented by the radio sales account executive. I provided real time medical direction for this encounter and was immediately available to provide additional phone based assistance as needed. History as noted by radio sales account executive. Pt with recent cough, diagnosed with Covid-19 on 11/25 and received IV MAB. Pt reports that he no longer has congestion and he denies any fever or SOB, but he continues to have a cough intermittently productive of clear sputum and feels fatigued. He also reports burning pain in his bilateral chest with breathing. On exam, pt appears comfortable in no distress. Speech normal. Vital signs and O2 sat normal. Lungs clear, no wheezing. Impression: Post-viral (Covid-19) cough. No evidence at this time to suggest bacterial pneumonia or PE. Vital signs and O2 sat are normal and pt has no dyspnea. Lungs are clear. Discussed with pt (with radio sales account executive translating into Sri [place]ankan) that his current symptoms are related to his recent Covid infection and may last for several more weeks. He is prescribed benzonatate to use for his cough. Primary care team should f/u with the pt after the weekend, in 3-5 days to check on the patient's status. Pt instructed to seek medical attention right away with any worsening or new symptoms, such as fever or SOB. [email or web address] Not available 12/07/2021 15:51:51 Plan of Treatment Reminders Order Date Submit Date Provider Last Modified By Organization Details Last Modified Time Details Appointments None recorded. Lab None recorded. Referral None recorded. Procedures None recorded. Surgeries None recorded. Imaging None recorded. Medication Orders benzonatate 100 mg capsule 2021 022 [facility] #[id number], [address] [facility], [place], [address], 10:28:49 Patient TargetsNo targets recorded. Patient InstructionsNo instructions recorded. Reason for Referral None Reported. Medical Equipment None Reported. Medications Name Sig Start Date Stop Date Status Note LastModified by Organization Details LastModified Time buspirone 5 mg tablet active Not Available Not Available No t Available tizanidine 2 mg tablet TAKE 1 TABLET BY MOUTH EVERY 8 HOURS NEEDED FOR MUSCLE SPASMS IN BACK. DO NOT EXCEED 3 DOSES IN 24 HOURS active Not Available Not Available No t Available atorvastatin 10 mg tablet TAKE 1 TABLET BY MOUTH AT BEDTIME active Not Available Not Available No t Available miconazole nitrate 2 % topical cream APPLY 1 APPLICATION TOPICALLY DOS VECES AL D A active Not Available Not Available No t Available ibuprofen 800 mg tablet TAKE 1 TABLET BY MOUTH THREE TIMES DAILY WITH FOOD active Not Available Not Available No t Available simethicone 180 mg capsule TAKE 1 CAPSULE BY MOUTH THREE TIMES DAILY WITH MEALS NEEDED active Not Available Not Available No t Available fluconazole 150 mg tablet TAKE 1 TABLET BY ORAL ROUTE ONCE A WEEK FOR 6 WEEKS active Not Available Not Available Not Available ketotifen 0.025 % (0.035 %) eye drops PLACE 1 DROP INTO THE AFFECTED EYE(S) TWICE DAILY active Not Available Not Available Not Available prednisone 20 mg tablet TAKE 2 TABLETS BY MOUTH ONCE DAILY FOR 5 DAYS active Not Available Not Available No t Available betamethason e, augmented 0.05 % topical cream APPLY SPARINGLY TWICE A DAY TO AFFECTED AREAS IF NEEDED AVOID SENSITIVE SKIN active Not Available Not Available No t Available doxycycline hyclate 50 mg capsule TOME STEVE C PSULA DOS VECES AL D A active Not Available Not Available No t Available amlodipine 5 mg tablet TAKE 1 TABLET BY MOUTH EVERY DAY (for high blood pressure) active Not Available Not Available No t Available doxepin 10 mg capsule TAKE 1 CAPSULE BY MOUTH EVERY DAY active Not Available Not Available No t Available doxycycline monohydrate 100 mg tablet TOME STEVE TABLETA POR V A ORAL DOS VECES AL D A FOR 30 DAYS active Not Available Not Available No t Available tramadol 50 mg tablet TAKE 1 TABLET BY MOUTH EVERY 12 HOURS NEEDED active Not Available Not Available No t Available carvedilol 3.125 mg tablet TAKE 1 TABLET BY MOUTH TWICE DAILY WITH FOOD active Not Available Not Available No t Available prednisolone acetate 1 % eye drops,suspen debra INSTILL 1 DROP INTO BOTH EYES TWICE A DAY FOR 3 WEEKS THEN D/C active Not Available Not Available No t Available amlodipine 10 mg tablet TAKE 1 TABLET BY MOUTH EVERY DAY active Not Available Not Available No t Available benzonatate 100 mg capsule TOME STEVE C PSULA RAMA VECES AL D A CUANDO SEA NECESARIO POR 10 D active Not Available Not Available Not Available cephalexin 500 mg capsule TOME 1 C PSULA DOS VECES AL D A active Not Available Not Available No t Available erythromycin 5 mg/gram (0.5 %) eye ointment APPLY 1/2 INCH RIBBON INTO THE AFFECTED EYE(S) THREE TIMES DAILY active Not Available Not Available No t Available olopatadine 0.1 % eye drops PONGA STEVE GOTA EN LOS DOS OJOS DOS VECES AL D A active Not Available Not Available No t Available lisinopril 30 mg tablet TAKE 1 TABLET BY MOUTH EVERY DAY active Not Available Not Available No t Available gabapentin 300 mg capsule TAKE 1 CAPSULE BY ORAL ROUTE 1 TIME EVERY EVENING BEFORE BED FOR NEUROPATHY active Not Available Not Available N ot Available gabapentin 100 mg capsule TAKE 1 CAPSULE BY MOUTH THREE TIMES DAILY active Not Available Not Available Not Available clobetasol 0.05 % topical ointment APPLY A THIN LAYER TO AFFECTED AREA(S) EVERY DAY active Not Available Not Available No t Available betamethason e dipropionate 0.05 % topical ointment MIX WITH cerave AND APPLY A THIN LAYER TO AFFECTED AREA(S) TWICE DAILY active Not Available Not Available Not Available clotrimazole 1 % topical cream APPLY TO AFFECTED AREA(S) AND SURROUNDING AREA(S) TWICE DAILY IN THE MORNING AND EVENING active Not Available Not Available No t Available sertraline 50 mg tablet active Not Available Not Available Not Available Ventolin HFA 90 mcg/actuatio n aerosol inhaler INHALE 2 PUFFS BY MOUTH EVERY 4 TO 6 HOURS NEEDED active Not Available Not Available No t Available calcipotrien e 0.005 % topical ointment APPLY A THIN LAYER TO AFFECTED AREA(S) EVERY DAY RUB IN GENTLY AND COMPLETELY active Not Available Not Available N ot Available Advair HFA 115 mcg-21 mcg/actuatio n aerosol inhaler INHALE 2 PUFFS DOS VECES AL D A active Not Available Not Available No t Available FreeStyle Lite Strips TEST BLOOD SUGAR EVERY DAY active Not Available Not Available No t Available Athlete's Foot (terbinafine ) 1 % topical cream APPLY TO THE AFFECTED AREA(S) AND SURROUNDING AREA(S) EVERY DAY active Not Available Not Available No t Available FreeStyle [place] Lite kit TEST BLOOD SUGAR EVERY DAY active Not Available Not Available No t Available diclofenac 1 % topical gel APPLY 2 GRAMS TOPICALLY TWICE DAILY NEEDED FOR PAIN active Not Available Not Available No t Available Flovent Diskus 250 mcg/actuatio n powder for inhalation INHALE 1 PUFF BY MOUTH TWICE DAILY. RINSE MOUTH AFTER USING. active Not Available Not Available No t Available Artificial Tears ([id number] beatriz-glyceri n) 1 %-0.2 %-0.2 % eye drops INSTILL 2 DROPS IN EACH EYE EVERY 8 HOURS NEEDED active Not Available Not Available No t Available TRUEplus Lancets 33 gauge TEST BLOOD SUGAR EVERY DAY active Not Available Not Available No t Available Vitals Date Recorded Heart rate Respiratory rate Oxygen saturation Oxygen saturation in Arterial blood by Pulse oximetry Body temperature Systolic blood pressure Diastolic blood pressure Provider Name and Address Organization Details Last Updated DateTime 2 56 /min 18 /min 99 % 99 % 98.5 [degF] 142 mm[Hg] 81 mm[Hg] Tyrone Brady MD [address] [place] [address],[address], [place], [phone] [place] [address] [email or web address] 15:37:07 Date Recorded Respiratory rate Oxygen saturation Oxygen saturation in Arterial blood by Pulse oximetry Body temperature Heart rate Systolic blood pressure Diastolic blood pressure Provider Name and Address Organization Details Last Updated DateTime 2 16 /min 99 % 99 % 98.5 [degF] 56 /min 142 mm[Hg] 81 mm[Hg] Not Available [employer] 15:53:15 Social History None recorded. Functional Status None recorded. Mental Status None recorded. Family History Nothing Reported. Medical History No medical history recorded. Past Encounters Encounter ID Performer Location Encounter Start Date Encounter Closed Date Diagnosis/Indication Diagnosis SNOMED-CT Code Diagnosis ICD10 Code Diagnosis Note [id number] Tyrone Brady MD [facility] [email or web address] [address] [place] [phone] 12/07/2021 15:35:31 02/26/2022 12:02:24 Cough 91904303 R05.9 Health Concerns Section Related Observation LastModified by Organization Detai ls LastModified Time None Recorded Concern Status LastModified by Organization Details LastModified Time None Recorded Advance Directives Directive None Recorded Payers Insurance Date Sequence Insurance Name Policy Number Policy Berman Covered Member ID Berman Member ID Guarantor Name 09/18/2023 1 [facility] - DOS PRIOR TO 2022 - DUAL ELIGIBLE (MEDICARE REPLACEMENT/ADV ANTAGE - HMO) Osorio Castillo [id number] Osorio Castillo 09/18/2023 1 [facility] - DOS ON OR AFTER 2022 - DUAL ELIGIBLE - RETIREMENT OPTIONS AND ONE CARE (MEDICARE REPLACEMENT/ADV ANTAGE - HMO) Osorio Castillo [id number] Osorio Castillo Notes Date Note Type Note Provider Name and Address Organization Details Recorded Time 12/07/2021 text/html This was a supervised home visit with radio sales account executive Raulito Michael. HPI: Member reported his lungs hurt, has congestive cough, nauseous and reported was treated at the ER on 11/25/2021 for fever and sore throat, Lab was positive for Covid 19. Treated and had IV's with Covid treated the following Friday on 11/27, still felling weak and tires easily. Denies fever, sob or chest pains. Member would like his lungs checked and stated does not wish ER unless if needed. .................. .................. .................. .................. .................. .................. .................. ............... CRC Nursing Assessment: Comments: CRC RN DID NOT NEED FURTHER INFORMATION TO PROCSESS VISIT Member reported his lungs hurt, has congestive cough, nauseous and reported was treated at the ER on 11/25/2021 for fever and sore throat, Lab was positive for Covid 19. Treated and had IV's with Covid treated the following Friday on 11/27, still felling weak and tires easily. Denies fever, sob or chest pains. Member would like his lungs checked and stated does not wish ER unless if needed. .................. .................. .................. .................. .................. .................. .................. ............... [facility] Note: Vitals, assessment .................. .................. .................. .................. .................. .................. .................. ............... Disposition: Fulfilled Tyrone Brady MD [address] [facility],[address], [place], [phone], AMINAH GARZA 12/07/2021 16:36:24
--- OUTSIDE RECORDS SUMMARY | 2024-10-07 13:49 | XMS_ITS | Encounter Summary ---
Author Organization [employer] Address [address] [facility] [address] [place] [address] Care Team Providers Care Infrastructure Director Name Role Phone Tammy Payan MD Primary Care Provide r Encounter Details Date Type Department Care Team ([facility] st Contact Info) Description 08/31/2024 Orders Only [facility] MED [facility] PEDS [address] [place], [place] [phone] Acosta Burnett MD [address] [place] [address] Social History Tobacco Use Types Packs/Day Years [...] Info) Description 11/12/2024 9:00 AM EDT Telemedicine [facility] MEDICINE [address] [place] [address] Catherine North, ALLI 11/29/2024 8:00 AM EDT Office Visit [facility] ADULT DENTAL [address] [place] [address] Sarah Gongora 12/09/2024 1:30 PM EDT Office Visit [facility] OPTOMETRY [address] [place] [address] Myron, Corrina, OD [address] [place] [address] documented as of this encounter Visit Diagnoses Not on filedocumented in this encounter Additional Health Concerns Assessment Noted Time PHQ-9 Depression Total Score: 6 01/23/20 24 10:06 AM EDT documented as of this encounter Care Teams Infrastructure Director Relationship Specialty Start Date End Date Tammy Payan MD [address] [place] [address] PCP - General Family Medicine 06/09/20 documented as of this encounter
--- OUTSIDE RECORDS SUMMARY | 2024-10-07 13:49 | XMS_ITS | Encounter Summary ---
Author Organization [employer] Address [address] [place] [address] Care Team Providers Care Wire Brush Maker Name Role Phone Tammy Payan MD Primary Care Provide r Encounter Details Date Type Department Care Team (Late st Contact Info) Description 12/05/2023 Orders Only [facility] MED & PEDS [address] [place], [place] [phone] ProviderNgozi MD Social History Tobacco Use Types [...] Info) Description 11/12/2024 9:00 AM EDT Telemedicine [facility] MEDICINE [address] [place] [address] Catherine North RN 11/29/2024 8:00 AM EDT Office Visit [facility] ADULT DENTAL [address] [place] [address] Sarah Gongora 12/09/2024 1:30 PM EDT Office Visit [facility] OPTOMETRY [address] [place] [address] Corrina Sanches, OD [address] [place] [address] documented as of this encounter Procedures Procedure Name Priority Date/Time Associated Diagnosis Comments DERMATOPATHOLOGY REPORT Routine 11/18/2023 3:59 PM EDT documented in this encounter Results * Dermatopathology Report (11/18/2023 3:59 PM EDT) us Historical Provider LAB BLOOD ORDERABLES Marily l Result documented in this encounter Visit Diagnoses Not on filedocumented in this encounter Care Teams Wire Brush Maker Relationship Specialty Start Date End Date Tammy Payan MD [address] [place] [address] PCP - General Family Medicine 06/09/20 documented as of this encounter
--- OUTSIDE RECORDS SUMMARY | 2024-10-07 13:49 | XMS_ITS | Data Portability ---
Author Organization [place] - [facility], Allergy Address [address] [place] [id number] Care Team Providers Care Builder'S Labourer Name Role Phone DALE ALFREDO Primary Care Provider DALE ALFREDO Referring Provider Assessment Encounter Date Assessment Date Assessment LastModified by Organization Details LastModified Time 09/10/2024 09/10/2024 Patient with recent history of episodic positionally induced vertigo. Antonio-Hallpike was negative for vertigo and rotary nystagmus at physical therapy recently, deferred today. We discussed that the patient? s previous pattern of symptoms are most consistent with benign paroxysmal positional vertigo (BPPV), which may have been triggered or exacerbated by his poorly controlled diabetes. The pathophysiology of BPPV was discussed in detail. Patient currently requires no further workup or treatment. BPPV can recur and if the classic positionally induced symptoms do recur, patient can be provided with a referral to physical therapist knowledgeable with performance of Kodi maneuvers and vestibular therapy.? ? ? mboni Not available 09/10/2024 11:29:35 Plan of Treatment Reminders Order Date Submit Date Provider Last Modified By Organization Details Last Modified Time Details Appointments None record ed. Lab None record ed. Referral None record ed. Procedures None record ed. Surgeries None record ed. Imaging None record ed. Medication Orders None record ed. Patient TargetsNo targets recorded. Patient InstructionsNo instructions recorded. Reason for Referral None Reported. Results Created Date Observation Date Name Description Value Unit Range Abnormal Flag Note LastModifiedBy Organization Detail LastModifiedTime 09/14/19 25 audio gram No observ ation record ed. BARCODE Not Available 2024 10:01:14 Result Notes None recorded. Problems Name Problem SNOMED Code Status Onset Date Resolution Date Notes Provider Name and Address Organization Details Recorded Time Abnormal auditory perception 82474633 Active 2024 Jaclyn franco [place] [facility] 10:42:20 Tinnitus of right ear 4562040090651 Active 2024 PONCE BACON PA-C [address] [facility], [place], [phone], [facility] 11:29:09 Benign paroxysmal positional vertigo 471337558 Active 2024 PONCE BACON PA-C [address] [facility], [place], [phone], [facility] 11:29:24 Problem Notes None recorded. Procedures Surgical History Date Name Laterality Status Provider Name and Address Organization Details Recorded Time 09/11/19 25 Tympanometry - 35198 completed Jaclyn Lewis MA [facility] 09/10/2024 10:42:05 09/11/19 25 [employer] - 55192 completed Jaclyn Lewis MA [facility] 09/10/2024 10:42:00 Imaging Results Imaging Date Name Status LastModified by Organ [facility] Details LastModified Time 09/13/2024 audiogram completed BARCODE Information no t available 09/13/2024 10:01:14 Procedure Notes None recorded. Medical Equipment None Reported. Allergies No known drug allergies Medications Name Sig Start Date Stop Date Status Note LastModified by Organization Details LastModified Time atorvastati n 10 mg tablet TAKE 1 TABLET BY MOUTH DAILY AT BEDTIME active Not Available Not Available No t Available hydrocodone 5 mg-acetamin ophen 325 mg tablet TAKE 1 TABLET BY MOUTH EVERY 4 HOURS NEEDED active Not Available Not Available No t Available gabapentin 400 mg capsule TAKE 1 CAPSULE BY MOUTH AT BEDTIME active Not Available Not Available No t Available amlodipine 5 mg tablet TAKE 1 TABLET BY MOUTH EVERY DAY active Not Available Not Available No t Available doxepin 10 mg capsule TAKE 1 CAPSULE BY MOUTH DAILY AT BEDTIME active Not Available Not Available No t Available tramadol 50 mg tablet TAKE 1 TABLET BY MOUTH EVERY TWELVE HOURS NEEDED FOR SEVERE PAIN active Not Available Not Available No t Available acetaminoph en 500 mg tablet TAKE 2 TABLETS BY MOUTH EVERY 8 HOURS NEEDED FOR MODERATE PAIN OR FEVER active Not Available Not Available No t Available triamcinolo ne acetonide 0.1 % topical cream APPLY TOPICALLY TO THE AFFECTED AREA(S) TWICE DAILY IN THE MORNING AND AT BEDTIME NEEDED (PAIN AND SWELLING) active Not Available Not Available No t Available carvedilol 3.125 mg tablet TAKE 1 TABLET BY MOUTH TWICE DAILY WITH FOOD active Not Available Not Available No t Available methotrexat e sodium 2.5 mg tablet TAKE 6 TABLETS (15 MG) BY MOUTH ONCE A WEEK active Not Available Not Available No t Available meclizine 25 mg tablet TAKE 1 TABLET BY MOUTH THREE TIMES DAILY IN THE MORNING, AT NOON, AND AT BEDTIME NEEDED FOR DIZZINESS FOR UP TO 10 DAYS active Not Available Not Available No t Available lidocaine 5 % topical patch APPLY 1 PATCH TOPICALLY TO SKIN, LEAVE ON FOR 12 HOURS AND OFF FOR 12 HOURS DIRECTED active Not Available Not Available No t Available omeprazole 20 mg capsule,del ayed release TAKE 1 CAPSULE BY MOUTH EVERY DAY BEFORE BREAKFAST . DO NOT BREAK, CRUSH, DISSOLVE OR CHEW active Not Available Not Available No t Available folic acid 1 mg tablet TAKE 1 TABLET BY MOUTH EVERY DAY active Not Available Not Available No t Available hydroxyzine HCl 25 mg tablet TAKE 1 TABLET BY MOUTH AT BEDTIME NEEDED PRURITIS active Not Available Not Available No t Available albuterol sulfate HFA 90 mcg/actuati on aerosol inhaler INHALE 2 PUFFS BY MOUTH EVERY 6 HOURS NEEDED FOR WHEEZING/ SHORTNESS OF BREATH active Not Available Not Available No t Available ipratropium bromide 21 mcg (0.03 %) nasal spray 2 SPRAYS NARES, BOTH DAILY AT BEDTIME active Not Available Not Available No t Available amoxicillin 875 mg-potassiu m clavulanate 125 mg tablet TAKE 1 TABLET BY MOUTH TWICE DAILY FOR 7 DAYS active Not Available Not Available No t Available Laxative (bisacodyl) 5 mg tablet,keiry yed release TAKE 4 TABLETS BY MOUTH AT NOON THE DAY BEFORE YOUR COLONOSCO PY 09/10 completed Not Available Not Available Not Available glycerin (adult) rectal suppository UNWRAP and INSERT 1 SUPPOSITO RY RECTALLY EVERY DAY NEEDED CONSTIPAT ION 09/10 completed Not Available Not Available Not Available fluticasone propionate 230 mcg-salmete rol 21 mcg/actuati on HFA inhaler INHALE 2 PUFFS DOS VECES AL D A active Not Available Not Available No t Available FreeStyle Lite Strips USE DIRECTED TO TEST BLOOD SUGAR EVERY DAY active Not Available Not Available No t Available FreeStyle [place] Lite kit USE DIRECTED TO TEST BLOOD SUGAR EVERY DAY active Not Available Not Available No t Available diclofenac 1 % topical gel APPLY 2 GRAMS TOPICALLY TO AFFECTED AREA(S) TWICE DAILY NEEDED FOR PAIN active Not Available Not Available No t Available Gavilax 17 gram/dose oral powder TAKE 238 G ORALLY ONCE DIRECTED BY GASTROENT EROLOGY*I NS* active Not Available Not Available No t Available Vitamin D3 50 mcg (2,000 unit) capsule TAKE 1 CAPSULE BY MOUTH EVERY DAY active Not Available Not Available No t Available TRUEplus Lancets 33 gauge USE DIRECTED TO TEST BLOOD SUGAR EVERY DAY active Not Available Not Available No t Available Refresh Celluvisc 1 % eye gel in a dropperette PONGA STEVE GOTA EN LOS DOS OJOS CUATRO VECES AL D A active Not Available Not Available No t Available naloxone 4 mg/actuatio n nasal spray FOR SUSPECTED OPIOID OVERDOSE. SPRAY 0.1mL IN ONE NOSTRIL. REPEAT IN ALTERNATE NOSTRIL 2-3 MINUTES IF NEEDED. SEEK MEDICAL ATTENTION IMMEDIATE LY EVEN IF PATIENT RESPONDS. active Not Available Not Available No t Available Vitals Date Recorded Body height Body mass index (BMI) Body weight Provider Name and Address Organization Details Last Updated DateTime 09/10/2024 162.56 cm 30.9 kg/m2 60004.63 g Aditi Butt [place] - [facility] 09/10/2024 11:02:05 Social History None recorded. Functional Status None recorded. Mental Status None recorded. Family History Nothing Reported. Medical History Condition Response Tonsil Infections N Emphysema N Glaucoma N Depression Y COPD N Nasal or Sinus Problems N Anesthesia Complications N Arthritis N Hearing Loss N Cancer N Stroke N High Cholesterol N Liver Disease N Headaches Y Fibromyalgia N Speech Delay N Kidney Disease Y Allergies/Hayfever N Heart Problems N Anxiety Y Migraines Y Thyroid Problems N Developmental Delay N Anemia N Immune System Disorder N Heart Attack ([place]) N Other Skin Condition N Diabetes Y Rhinitis N Bleeding Disorder N Food Allergy N Hyperlipidemia N Dementia N Nasal polyps N Asthma N Sleep Disorder N GERD/Reflux N Hypertension Y Past Encounters Encounter ID Performer Location Encounter Start Date Encounter Closed Date Diagnosis/Indication Diagnosis SNOMED-CT Code Diagnosis ICD10 Code Diagnosis Note [id number] PONCE BACON PA-C [facility] [address] [address] 09/10/2024 09:44:30 09/10/2024 11:55:41 Abnormal auditory perception 98710285 H93.299 Audiologic al evaluation results: Right ear: {{Normal N ormal through 2 kHz Mild M oderate Mo derately-s evere Pura re Profoun d [facility]ent[facility] lly normal#}} {{hearing* hearing. 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 Left ear: {{Normal N ormal through 2 kHz Mild M oderate Mo derately-s evere Pura re Profoun d [facility]ent[facility] lly normal#}} {{hearing* hearing. 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 Tympanomet ry: Right Ear:{{Type A* Type A with rounded peak Type A with double peak Type As Type As with rounded peak Type Ad Type C Type C, shallow & rounded peak Type B Type B with large volume Cou ld not maintain a hermetic seal}} Left Ear:{{Type A* Type A with rounded peak Type A with double peak Type As Type As with rounded peak Type Ad Type C Type C, shallow & rounded peak Type B Type B with large volume Cou ld not maintain a hermetic seal}} Tinnitus of right ear 48 [id number] 108 H93.11 Benign par oxysmal positional vertigo 131537958 H81.13 Health Concerns Section Related Observation LastModified by Organization Detai ls LastModified Time None Recorded Concern Status LastModified by Organization Details LastModified Time None Recorded Advance Directives Directive None Recorded Payers Insurance Date Sequence Insurance Name Policy Number Policy Berman Covered Member ID Berman Member ID Guarantor Name 09/10/[address] [facility] - DOS ON OR AFTER 2022 - ONE CARE (MEDICARE REPLACEMENT/ADV ANTAGE - HMO) Osorio Castillo [id number] Osorio Castillo Notes Date Note Type Note Provider Name and Address Organization Details Recorded Time 09/10/2024 text/html 79yo male with diabetes and migraine presents for evaluation of disequilibrium. This started 4 months ago while on vacation. Granddaughter reports he was not checking his blood sugar at the time, and eating outside of his diabetic diet. He had a fall, and subjectively reports negative CT imaging and negative cardiac workup. Denies loss of consciousness. Since then, patient reports room-spinning dizziness lasting a couple seconds that occurs every couple weeks. This is not triggered by head position change. Associated double vision that resolves. No hearing loss. Occasional right-sided tinnitus. Patient denies associated confusion, slurred speech, chest pain, photophobia, nausea or vomiting. Patient went to vestibular therapy. Physical therapist was not suspicious for acute benign positional vertigo. Channing-Hallpike was negative at that time. PONCE BACON PA-C [address] [place] [address], [phone], [facility] - [facility] 09/10/2024 11:29:55
--- OUTSIDE RECORDS SUMMARY | 2024-10-07 13:49 | XMS_ITS | Encounter Summary ---
Author Organization [employer] Address [address] [facility] [address] [place] [address] Care Team Providers Care Tobacco Cutter Name Role Phone Tammy Payan MD Primary Care Provide r Encounter Details Date Type Department Care Team (Latest Contact Info) Description 04/08/2022 Abstract [facility] CONVERSIONS Dental, Provider, DDS Social History Tobacco Use Types Packs/Day Years Used Date Smoking Tobacco: Never Assessed Sex and Gender Information Value Date Recorded Sex Assigned at Male 03/25/2022 10:15 AM EDT Legal Sex Male 10:15 AM EDT Gender Identity Male 03/25/2022 10:15 AM EDT Sexual Orientation Choose not to disclose 2021 10:15 AM EDT documented as of this encounter Plan of Treatment Upcoming Encounters Date Type Department Care Team (Late st Contact Info) Description 11/12/2024 9:00 AM EDT Telemedicine [facility] MEDICINE [address] [place] [address] Catherine North RN 11/29/2024 8:00 AM EDT Office Visit [facility] ADULT DENTAL [address] [place] [address] Sarah Gongora 12/09/2024 1:30 PM EDT Office Visit [facility] OPTOMETRY [address] [place] [address] Corrina Sanches, OD [address] [place] [address] documented as of this encounter Visit Diagnoses Not on filedocumented in this encounter Care Teams Tobacco Cutter Relationship Specialty Start Date End Date Tammy Payan MD [address] [place] [address] PCP - General Family Medicine 06/09/20 documented as of this encounter
--- OUTSIDE RECORDS SUMMARY | 2024-10-07 13:49 | XMS_ITS | Encounter Summary ---
Author Organization [employer] Address [address] [facility] [address] [place] [address] Care Team Providers Care Cage Tender Name Role Phone Tammy Payan MD Primary Care Provide r Encounter Details Date Type Department Care Team (Latest Contact Info) Description 04/05/2021 Abstract [facility] CONVERSIONS Dental, Provider, DDS Social History Tobacco [...] Info) Description 11/12/2024 9:00 AM EDT Telemedicine [facility] MEDICINE [address] [place] [address] Catherine North RN 11/29/2024 8:00 AM EDT Office Visit [facility] ADULT DENTAL [address] [place], [place] [phone] Sarah Gongora 12/09/2024 1:30 PM EDT Office Visit [facility] OPTOMETRY [address] [place] [address] Corrina Sanches, OD [address] [place] [address] documented as of this encounter Visit Diagnoses Not on filedocumented in this encounter Care Teams Cage Tender Relationship Specialty Start Date End Date Tammy Payan MD [address] [place] [address] PCP - General Family Medicine 06/09/20 documented as of this encounter
--- OUTSIDE RECORDS SUMMARY | 2024-10-07 13:49 | XMS_ITS | Encounter Summary ---
Author Organization [employer] Address [address] [facility] [address] [place] [address] Care Team Providers Care Master Data Analyst Name Role Phone Tammy Payan MD Primary Care Provide r Reason for Visit * Reason Comments Med Refill Encounter Details Date Type Department Care Team ([facility] Contact Info) Description 11/04/2022 Refill [facility] [address] [place], [place] [phone] Tammy Payan MD [address] [place], [place] [phone] Tinmargarita trujillo Social History Tobacco Use Types Packs/Day Years Used Date Smoking Tobacco: Never Smokeless Tobacco: Never Alcohol Use Standard Drinks/Week Comments Never 0 (1 standard drink = 0.6 oz pur e alcohol) Depression Answer Date Recorded Patient Health Questionnaire-2 Score 0 07/24/2022 Sex and Gender Information Value Date Recorded Sex Assigned at Male 03/25/2022 10:15 AM EDT Legal Sex Male 10:15 AM EDT Gender Identity Male 03/25/2022 10:15 AM EDT Sexual Orientation Choose not to disclose 2021 10:15 AM EDT COVID-19 Exposure Response Date Recorded In the last 10 days, have yo u been in contact with someone who was confirmed or suspected to have Coronavirus/COVID-19? No / Unsure 10/11/2022 1:14 PM EDT documented as of this encounter Plan of Treatment Upcoming Encounters Date Type Department Care Team (Late Contact Info) Description 11/12/2024 9:00 AM EDT Telemedicine [facility] MEDICINE [address] [place] [address] Catherine North, ALLI 11/29/2024 8:00 AM EDT Office Visit [facility] ADULT DENTAL [address] [place], [place] [phone] Sarah Gongora 12/09/2024 1:30 PM EDT Office Visit [facility] OPTOMETRY [address] [place], [place] [phone] Corrina Sanches, OD [address] [place] [address] documented as of this encounter Visit Diagnoses Diagnosis Tinea cruris Dermatophytosis of groin and perianal area documented in this encounter Care Teams Master Data Analyst Relationship Specialty Start Date End Date Tammy Payan MD [address] [place], [place] [phone] PCP - General Family Medicine 06/09/20 documented as of this encounter
--- OUTSIDE RECORDS SUMMARY | 2024-10-07 13:49 | XMS_ITS | Encounter Summary ---
Author Organization [employer] Address [address] [place] [address] [address] [place] [address] Care Team Providers Care Outreach Analyst Name Role Phone Tammy Payan MD Primary Care Provide r Reason for Referral * Consultation (Routine) - Authorized Specialty Diagnoses / Procedures Referred By Contrikki t Referred To Contact Dermatology Diagnoses Atopic dermatitis in adult Acosta Burnett MD [address] [place] [address] Phone: tel: fax: ZZZ Duplicate - [facility] [address] [place], [place] Phone: tel: fax: Referral ID Status Reason Start Date Expiration Date Visits Requested Visits Authorized [id number] Authorized Specialty Services Required 12/24/2023 12/23/2024 1 1 Encounter Details Date Type Department Care Team (Late st Contact Info) Description 12/24/2023 Orders Only [facility]EDS [address] [place] [address] Acosta Burnett MD [address], [place] [phone] Atopic dermatitis in adult (Primary Dx) Social History Tobacco Use Types Packs/Day Years [...] Info) Description 11/12/2024 9:00 AM EDT Telemedicine [facility] MEDICINE [address] [place] [address] Catherine North RN 11/29/2024 8:00 AM EDT Office Visit [facility] ADULT DENTAL [address] [place], [place] [phone] Sarah Gongora 12/09/2024 1:30 PM EDT Office Visit [facility] OPTOMETRY [address] [place], [place] [phone] Corrina Sanches, BECKY [address] [place] [address] Scheduled Referrals Name Type Priority Associated Diagnoses Order Schedule Referral to Dermatology Outpatient Referral Routine Atopic dermatitis in adult Expected: 12/24/2023 (Approximate), Expires: 12/23/2024 documented as of this encounter Visit Diagnoses Diagnosis Atopic dermatitis in adult- Primary documented in this encounter Care Teams Outreach Analyst Relationship Specialty Start Date End Date Tammy Payan MD [address] [place] [address] PCP - General Family Medicine 06/09/20 documented as of this encounter
== END 2024-10-07 14:13 | disposition home or self-care (01) ==
LOC: HO.HCS 13:15
PROVIDERS: PCP Internal Medicine; Visit Provider Internal Medicine Cardiovascular Disease
DX: I10 Essential (primary) hypertension (principal)
CPT/HCPCS: 93010; 99213; G2211

== ENCOUNTER → 2024-10-07 13:15 | Outpatient (BNVA) | payer OTHER, SELFPAY | PROVIDERS: PCP Internal Medicine; Visit Provider Internal Medicine Cardiovascular Disease | DX: I10 Essential (primary) hypertension (principal); R00.1 Bradycardia, unspecified; I45.19 Other right bundle-branch block | CPT/HCPCS: 93005; 99212 ==

== ENCOUNTER 2024-12-27 07:55 | Emergency (ER) | payer OTHER, SELFPAY ==
--- NOTE | ~2024-12-27 | XR_ITS ---
EXAMINATION: XR CHEST CLINICAL INFORMATION: cp COMPARISON: Portable 23, 12/14/2021. TECHNIQUE: Frontal view of the chest was obtained. FINDINGS: The cardiac, hilar, and mediastinal contours are normal. The lungs are clear bilaterally. No pneumothorax or effusion. No focal osseous or soft tissue abnormality. XR/XR chest 1V IMPRESSION: No active pulmonary disease. Electronically signed by: Fadi Cabrera MD 12/27/2024 09:47 AM EDT
--- NOTE | ~2024-12-27 | CT_ITS ---
EXAMINATION: CT HEAD WITHOUT CONTRAST CLINICAL INFORMATION: mi COMPARISON: March 19, 2003. TECHNIQUE: Contiguous axial imaging was performed from the skull base to vertex without intravenous administration of contrast. This CT examination was performed using dose optimization techniques as appropriate, variously including the following: *Automated exposure control *Adjustment of mA and/or kV according to patient size (this includes techniques or standardized protocols for targeted exams where dose is matched to indication/reason for exam; i.e. extremities or head) *Use of iterative reconstruction technique DLP: 749 mGy-cm FINDINGS: No acute intracranial hemorrhage, mass effect, midline shift, hydrocephalus or herniation. Bilateral multifocal patchy deep periventricular white matter hypodensity involving centrum semiovale and rios radiata. Prominence of the extra-axial CSF spaces cerebral sulci and ventricles likely central volume loss. Sellar/suprasellar region demonstrated no gross masses. There is normal position of the cerebellar tonsils. Calcified plaques in the cavernous supraclinoid segments both ICAs. No air-fluid levels in the paranasal sinuses. Tympanic cavities and mastoid cells are aerated. 4 mm densities in the intraconal compartments of the orbits probably vascular. Probable prior surgery/antrectomy right maxillary sinus., Medial wall CT/CT head/brain wo IV con IMPRESSION: No acute intracranial hemorrhage. Small vessel occlusive disease. Global cerebral atrophy. Electronically signed by: Jens Vazquez MD 12/27/2024 10:48 AM EDT
[2024-12-27 07:59] VITALS: BP 198/93; PULSE 52; RESP 16; TEMP 36.1; O2SAT 96; BMI 34.3
--- OUTSIDE RECORDS SUMMARY | 2024-12-27 09:03 | XMS_ITS | Patient Health Record ---
Author Organization [facility] Address [address] [place] [address] Care Team Providers Care Refinery Operator Helper Name Role Phone May Noble Primary Care Provider Matthew Carlin [phone] Reason For Referral No Information Medications Medication SIG (Take, Route, Frequency, Duration) Notes Start Date End Date Status MiraLax (colon prep) 8.3 ounce (238) grams mixed with Gatorade or Crystal Light orally begin at 5:00 p.m. the day before the procedure for 1 day 09/22/2016 Active Dulcolax (colon prep) 5 MG take at 3:00 p.m and 7:00p.m. Orally two tablets twice a day for one day for 1 day 09/22/2016 Active Lisinopril Active Atorvastatin Calcium Active Aspir-81 Active traMADol HCl Active Problems Problem Type SNOMED Code ICD Code Onset Dates Problem Status W/U Status Risk Notes Problem 161122370 Encounter for screening for malignant neoplasm of colon (Z12.11) Active confirmed Problem Screening for malignant neoplasm of rectum (162625152) Encounter for screening for malignant neoplasm of rectum (Z12.12) Active confirmed Problem 05371460 Constipation, unspecified constipation type (K59.00) Active confirmed Plan Of Treatment Future Test Test Name Order Date COLONOSCOPY 09/19/2016 Insurance Providers Payer Name Payer Address Payer Phone Subscriber Number Group Number Insured Name Patient Relationship to Insured Coverage Start Date Coverage End Date [facility] [address] [place] [phone] [id number] SHAHEEN AMAYA Self - patient is the insured Medical (General) History Medical History History ICD Code Colonoscopy 11/05/2004--mild sigmoid div erticulosis and internal hemorrhoids Hypertension Hypercholesterolemia Arthritis--back/arms Denies [place],DM,CVA,Lung disease,renal dise ase Sleep apnea--uses CPAP EGD in 1999--mild reflux, gastritis with H.pylori Surgical History Surgery Date(Month/Year) Oral surgery 08/2016
--- OUTSIDE RECORDS SUMMARY | 2024-12-27 09:03 | XMS_ITS | Encounter Summary ---
Author Organization [employer] Address [address] [facility] 7t [place] [address] Care Team Providers Care Automatic Presser Name Role Phone Tammy Payan MD Primary Care Provide r Reason for Visit * Reason Comments Med Refill Encounter Details Date Type Department Care Team ([facility] st Contact Info) Description 03/28/2023 Refill [facility] MEDICINE [address] [place], [place] [phone] Tammy Payan MD [address] [place], [place] [phone] Other chronic pain Social History Tobacco Use Types Packs/Day Years Used Date Smoking Tobacco: Former Cigarettes Smokeless Tobacco: Never Alcohol Use Standard Drinks/Week Comments Never 0 (1 standard drink = 0.6 oz pur e alcohol) Housing Stability Answer Date Recorded What is your housing situation today? I have marvin trevino 03/19/[address] you [...] Care Team (Late st Contact Info) Description 04/29/2025 10:00 AM EST Telemedicine [facility] MEDICINE [address] [place] [address] Catherine North, ALLI documented as of this encounter Visit Diagnoses Diagnosis Other chronic pain documented in this encounter Care Teams Automatic Presser Relationship Specialty Start Date End Date Tammy Payan MD [address] [place] [address] PCP - General Family Medicine 06/09/20 documented as of this encounter
--- NOTE | 2024-12-27 09:09 | ECG_ITS ---
Test Reason : headache Blood Pressure : */* mmHG Vent. Rate : 45 BPM Atrial Rate : 45 BPM P-R Int : 198 ms QRS Dur : 108 ms QT Int : 454 ms P-R-T Axes : 17 -12 30 degrees QTcB Int : 392 ms Sinus bradycardia Incomplete right bundle branch block Borderline ECG When compared with ECG of 19-Mar-2023 12:08, No significant change was found Referred By: Hortensia Perez Electronically Signed By: ABIGAIL MEJIA
[2024-12-27 09:37] LABS: MANUAL DIFF FLAG NO
[2024-12-27 09:41] LABS: Hematocrit 43.8 % (42.0-52.0); Hemoglobin 14.6 g/dl (14.0-18.0); Imm Gran Abs Auto 0.02 X10*3/uL (0.00-0.03); Imm Gran Pct Auto 0.5 % (0.0-0.4); Lymphocytes Absolute Auto 1.6 X10*3/uL (1.2-4.9); Mean Corpuscular HGB Conc 33.3 g/dl (31.0-36.0); Mean Corpuscular Hemoglobin 28.1 pg (27.0-33.0); Mean Corpuscular Volume 84.2 fL (80.0-98.0); NRBC Abs Auto 0.000 X10*3/uL (0.0-0.012); NRBC Pct Auto 0.0 /100WBC (0.0-0.2); Platelet Count 119 X10*3/uL (160-400); Red Blood Count 5.20 X10*6/uL (4.60-5.80); White Blood Count 3.9 X10*3/uL (4.8-10.8)
--- NOTE | 2024-12-27 09:47 | ED_ITS ---
HPI - Headache General Chief Complaint: Headache Stated Complaint: Sob, and headaches Time Seen by Provider: 12/27/24 08:14 History of Present Illness HPI Narrative: Patient is 79 years old presents today with having headache on the left side. Radiating to the left chest. The chest pain is dull. It is worse at night. Improved during the day. Patient had some nausea associated with it. The symptoms been on and off for the last few days. There is no traveling history. There is no history of blood clot. There is no history of diabetes positive history of high cholesterol no history of smoking no history of AR. patient is from home. No travel history hit. No history of blood clots. Did say that the chest pain is somewhat made worse with deep breath. Patient headache is not associated with any gross change in vision. It is associated with mild nausea. There is no fever no chills. There is no focal weakness. Related Data Home Medications ?Medication ?Instructions ?Recorded ?Confirmed albuterol sulfate 90 mcg/actuation 2 puff inhalation Q 4-6H PRN 07/18/22 10/07/24 aerosol inhaler (Ventolin HFA) Shortness Of Breath amlodipine 5 mg tablet 5 mg PO DAILY blood pressure 07/18/22 10/07/24 atorvastatin 10 mg tablet 10 mg PO BEDTIME 07/18/22 betamethasone dipropionate 0.05 % 1 appl topical BID 0 07/18/22 10/07/24 topical ointment buspirone 5 mg tablet 5 mg PO BID 07/18/22 5 carvedilol 3.125 mg tablet 3.125 mg PO BID 07/18/22 clobetasol 0.05 % topical cream 1 appl topical DAILY 0 07/18/22 10/07/24 diclofenac sodium 1 % topical gel 2 g topical BID PRN pain 07/18/22 10/07/24 fluticasone propionate 250 1 inh inhalation BID 10/07/24 mcg/actuation blister powder for inhalation (Flovent Diskus) lisinopril 30 mg tablet 30 mg PO DAILY 07/18/2209/23 sertraline 50 mg tablet 50 mg PO DAILY 07/18/2209/23 tramadol 50 mg tablet 50 mg PO Q12H PRN Pain 07/1810/07/24 aspirin 81 mg tablet,delayed 81 mg PO DAILY 03/19/24 0 10/07/24 release (Adult Aspirin Regimen) cholecalciferol (vitamin D3) 50 50 mcg PO DAILY 10/07/24 mcg (2,000 unit) capsule (Vitamin D3) melatonin 5 mg capsule 5 mg PO BEDTIME PRN Insomnia 03/19/24 10/07/24 Previous Rx's ?Medication ?Instructions ?Recorded ibuprofen 600 mg tablet 600 mg PO Q8H PRN pain #20 t abs 04/22/20 nystatin-triamcinolone 100,000 1 appl topical TID #30 grams 06/03/21 unit/g-0.1 % topical cream miconazole nitrate 2 % topical 1 appl topical BID #28 grams 06/07/21 cream olopatadine 0.2 % eye drops 1 drp ophthalmic (eye) BED TIME 04/02/23 (Pataday Once Daily Relief) #2.5 mL bisacodyl 5 mg tablet,delayed 20 mg (4 x 5 mg) PO ONCE 1 day #4 03/19/24 release (Dulcolax (bisacodyl)) tabs polyethylene glycol 3350 17 238 g PO ONCE #238 grams 1 gram/dose oral powder (Miralax) acetaminophen 500 mg tablet 500 mg PO Q6H PRN fever or pain 04/01/24 (Tylenol Extra Strength) #14 tabs lidocaine 5 % topical patch 1 patch topical DAILY PRN pain #30 04/01/24 (Lidoderm) ea methocarbamol 500 mg tablet 500 mg PO TID PRN muscle s pasm #10 04/13/24 tabs bisacodyl 5 mg tablet,delayed 20 mg (4 x 5 mg) PO ONCE 1 day #4 07/30/24 release (Dulcolax (bisacodyl)) tabs polyethylene glycol 3350 17 238 g PO ONCE 1 day #238 g asim 07/30/24 gram/dose oral powder (Miralax) Allergies Allergy/AdvReac Type Severity Reaction Status Date / Time No Known Allergies (No Known Allergy Verified 12/27/24 07:59 Allergies*) Review of Systems 2 Review of Systems: Positive chest pain positive headache Yes all other systems are reviewed and are negative PMFSH Past Medical History Attestation statement: The following information was validated with the patient. Medical History Bundle branch block, right Central sleep apnea Depression Elevated cholesterol Back pain HTN (hypertension) Arthritis Diabetes Surgical History History of colonoscopy Social History Social History Alcohol intake: former Patient Tobacco Use Status: Never used Tobacco Advance Directives: No Advance Directives Information Provided: Yes Physical Exam 2 Exam: Exam: Appearance: Alert. Oriented X3. No acute distress. Eyes: Pupils equal, round and reactive to light. ENT: Pharynx normal. Neck: Normal inspection. Neck supple. No lymph nodes noted. No crepitus CVS: Normal heart rate and rhythm. Pulses normal. Normal S1 and S2 Respiratory: No respiratory distress. Breath sounds normal. No Wheezing. No rales Abdomen: Soft and nontender. No rigidity. No distention. good BS x4 Skin: Skin warm and dry. Normal skin color. Normal skin turgor. Extremities: No lower extremity edema. Neurovascular intact to all extremities. No Lacerations. No Rash Neuro: Oriented X 3. No motor deficit. No sensory deficit. Moving all extermities. No slurred speech Vital Signs: Vital Signs: Last Vital Signs Temp 96.9 F 12/27/24 12:04 Pulse 48 L 12/27/24 12:04 Resp 18 12/27/24 12:04 BP 159/65 H 12/27/24 12:04 Pulse Ox 95 12/27/24 12:04 O2 Del Method Room Air 12/27/24 12:04 BMI result Body Mass Index 34.3 Medications Administered Discontinued Medications Generic Name Dose Route Start Last Admin Trade Name Freq PRN Reason Stop Dose Admin Diphenhydramine HCl 25 mg 12/27/24 09:09 12/27/24 09:29 Diphenhydramine Hcl 50 Mg/Ml Vial IVPUSH 12/27/24 09:10 25 mg ONCE ONE Administration Sodium Chloride 1,000 mls @ 999 mls/hr 12/27/24 09:15 12/27/24 11:00 Ns IV 12/27/24 10:15 Infused .Q1H1M MARK ANTHONY Infusion Ketorolac Tromethamine 15 mg 12/27/24 09:09 12/27/24 09:28 Ketorolac Tromethamine 15 Mg/Ml Vial IVPUSH 12/27/24 09:10 15 mg ONCE ONE Administration Metoclopramide HCl 10 mg 12/27/24 09:09 12/27/24 09:30 Metoclopramide Hcl 10 Mg/2 Ml Vial IVPUSH 12/27/24 09:10 10 mg ONCE ONE Administration Medical Decision Making Medical Decision Making [facility] Narrative: Patient is 79 years old with nonspecific chest pain over the left chest also goes to the head. Patient's visual acuity is grossly intact. There is no bogginess in the either suggest patient has glaucoma. Pupils are equal reactive to light. Patient had headache it is one-sided. A CT scan of the head was done. There is no evidence of bleeding. Patient neurologically intact. Given migraine treatment. The headache completely resolved. Patient's chest pain is over the left chest. Pain is not associated with deep breath. Not associated with leg swelling. No history of blood clots. Patient's D-dimer is 191. In the setting of low risk unlikely to have PE. Patient's cardiac enzymes x2 sets were negative. In the setting of atypical chest pain negative cardiac enzymes heart score is less than 3. Patient's sed rate and CRP are negative. He does not have a history to suggest temporal arteritis. Will discharge patient home. Follow-up on an outpatient basis. My interpretation patient's chest x-ray showed no evidence of pneumonia no pneumothorax. Differential Diagnosis Differential Diagnoses: The differential diagnosis associated with the presentation includes ACS, PE, intracranial bleed, temporal arteritis, glaucoma, pneumonia, pneumothorax Admission/Observation Consideration of admission/observation: Escalation of care including admission/observation considered Lab Data [facility] Lab Attestation statement: I reviewed the patient's lab results. 12/27/24 09:29 12/27/24 09:28 Labs: Lab Results 12/27/24 12/27/24 12/27/24 Range/Units 09:27 09:28 09:29 WBC 3.9 L (4.8-10.8) X10*3/uL RBC 5.20 (4.60-5.80) X10*6/uL Hgb 14.6 (14.0-18.0) g/dl Hct 43.8 (42.0-52.0) % MCV 84.2 (80.0-98.0) fL MCH 28.1 (27.0-33.0) pg MCHC 33.3 (31.0-36.0) g/dl RDW 14.9 (11.0-16.0) % Plt Count 119 L (160-400) X10*3/uL MPV 10.1 (9.4-12.4) fL Immature Gran % (Auto) 0.5 H (0.0-0.4) % Neut % (Auto) 42.4 L (45-73) % Lymph % (Auto) 41.4 H (20-40) % [place] % (Auto) 12.9 H (2-11) % Eos % (Auto) 1.8 (0-4) % Baso % (Auto) 1.0 (0-2) % Lymph # (Auto) 1.6 (1.2-4.9) X10*3/uL [place] # (Auto) 0.5 (0.1-1.2) X10*3/uL Eos # (Auto) 0.1 (0.0-0.4) X10*3/uL Baso # (Auto) 0.0 (0.0-0.2) X10*3/uL Abs Immat Gran (auto) 0.02 (0.00-0.03) X10*3/uL Absolute Neuts (auto) 1.7 L (2.0-8.3) x10*3/uL Absolute Nucleated RBC 0.000 (0.0-0.012) X10*3/uL Nucleated RBC % (auto) 0.0 (0.0-0.2) /100WBC ESR 2 (0-15) MM/HR D-Dimer High Sensitivty 191 NG/ML Sodium 142 (135-145) mmol/L Potassium 4.4 (3.3-5.1) mmol/L Chloride 110 H (96-108) mmol/L Carbon Dioxide 27 (22-29) mmol/L Anion Gap 9 L (12-20) BUN 15 (9-16) mg/dL Creatinine 0.99 (0.5-1.4) mg/dL Estim Creat Clear Calc 60.2 Estimated GFR > 60 Random Glucose 105 (60-115) mg/dL Calcium 8.9 D (8.4-10.2) mg/dL Total Bilirubin 0.4 (0.0-1.0) mg/dL Direct Bilirubin 0.2 (0.0-0.5) mg/dL AST 32 (5-37) U/L ALT 34 (0-40) U/L Alkaline Phosphatase 74 (39-117) U/L Troponin I High Sens 17.3 D (<3.5-35.0) ng/L C-Reactive Protein < 0.10 (< or = 0.50) mg/dL Total Protein 6.5 (6.5-8.0) g/dL Albumin 3.9 (3.5-5.0) g/dL Lipase 31 (8-78) U/L Urine Color Urine Appearance Urine pH (5.0-9.0) Ur Specific [place] (1.005-1.025) Urine Protein (Neg-Trace) mg/dL Urine Glucose (UA) (Negative) mg/dL Urine Ketones (Negative) mg/dL Urine Blood (Negative) Urine Nitrite (Negative) Ur Leukocyte Esterase (Negative) Urine RBC (0-2) /HPF Urine WBC (0-5) /HPF Ur Squamous Epith Cells (0-2) /HPF Urine Bacteria (None Seen) Hyaline Casts (0-2) /LPF 12/27/24 12/27/24 Range/Units 10:25 12:55 WBC (4.8-10.8) X10*3/uL RBC (4.60-5.80) X10*6/uL Hgb (14.0-18.0) g/dl Hct (42.0-52.0) % MCV (80.0-98.0) fL MCH (27.0-33.0) pg MCHC (31.0-36.0) g/dl RDW (11.0-16.0) % Plt Count (160-400) X10*3/uL MPV (9.4-12.4) fL Immature Gran % (Auto) (0.0-0.4) % Neut % (Auto) (45-73) % Lymph % (Auto) (20-40) % [place] % (Auto) (2-11) % Eos % (Auto) (0-4) % Baso % (Auto) (0-2) % Lymph # (Auto) (1.2-4.9) X10*3/uL [place] # (Auto) (0.1-1.2) X10*3/uL Eos # (Auto) (0.0-0.4) X10*3/uL Baso # (Auto) (0.0-0.2) X10*3/uL Abs Immat Gran (auto) (0.00-0.03) X10*3/uL Absolute Neuts (auto) (2.0-8.3) x10*3/uL Absolute Nucleated RBC (0.0-0.012) X10*3/uL Nucleated RBC % (auto) (0.0-0.2) /100WBC ESR (0-15) MM/HR D-Dimer High Sensitivty NG/ML Sodium (135-145) mmol/L Potassium (3.3-5.1) mmol/L Chloride (96-108) mmol/L Carbon Dioxide (22-29) mmol/L Anion Gap (12-20) BUN (9-16) mg/dL Creatinine (0.5-1.4) mg/dL Estim Creat Clear Calc Estimated GFR Random Glucose (60-115) mg/dL Calcium (8.4-10.2) mg/dL Total Bilirubin (0.0-1.0) mg/dL Direct Bilirubin (0.0-0.5) mg/dL AST (5-37) U/L ALT (0-40) U/L Alkaline Phosphatase (39-117) U/L Troponin I High Sens 16.9 (<3.5-35.0) ng/L C-Reactive Protein (< or = 0.50) mg/dL Total Protein (6.5-8.0) g/dL Albumin (3.5-5.0) g/dL Lipase (8-78) U/L Urine Color Yellow Urine Appearance Clear Urine pH 7.0 (5.0-9.0) Ur Specific [place] 1.010 (1.005-1.025) Urine Protein 30 (1+) H (Neg-Trace) mg/dL Urine Glucose (UA) Negative (Negative) mg/dL Urine Ketones Negative (Negative) mg/dL Urine Blood Negative (Negative) Urine Nitrite Negative (Negative) Ur Leukocyte Esterase Negative (Negative) Urine RBC 0-2 (0-2) /HPF Urine WBC 0-5 (0-5) /HPF Ur Squamous Epith Cells 0-2 (0-2) /HPF Urine Bacteria None Seen (None Seen) Hyaline Casts 0-2 (0-2) /LPF Independent Interpretation I performed an independent interpretation of an: EKG (Sinus heart rate is 50 WI QRS QTC normal no acute ST segment elevation noted.), Plain X-Ray (Chest x-ray showed no evidence of pneumonia no pneumothorax.) and CT Scan (CT scan of the head was grossly negative for any acute evidence of bleeding.) Radiology Impression Discussion of test interpretation with radiology: I have reviewed the radiologist's reading. External Record Review External record reviewed: Inpatient record Chronic Conditions Patient?s care impacted by: Hypertension Discharge Plan Discharge Clinical Impression: Chest pain, Headache Patient Disposition: Home, Self-Care Instructions: Acute Headache (DC), Chest Pain (DC) Prescriptions: No Action bisacodyl [Dulcolax (bisacodyl)] 5 mg tablet,delayed release (DR/EC) 20 mg PO ONCE 1 Days Qty: 4 0RF Rx Instructions: take at 12pm the day before colonoscopy with plenty of water polyethylene glycol 3350 [Miralax] 17 gram/dose powder 238 g PO ONCE 1 Days Qty: 238 0RF Rx Instructions: THE DAY BEFORE your procedure mix entire bottle with 64 ounces of Gatorade- no red, blue or purple. AT 5PM Start drinking 1 cup every 15minutes until half is gone. Continue drinking plenty of clear liquids. AT 10PM Finish drinking remaining prep. ibuprofen 600 mg tablet 600 mg PO Q8H PRN (Reason: pain) Qty: 20 0RF nystatin-triamcinolone 100,000-0.1 unit/g-% cream 1 appl topical TID Qty: 30 0RF miconazole nitrate 2 % cream 1 appl topical BID Qty: 28 0RF acetaminophen [Tylenol Extra Strength] 500 mg tablet 500 mg PO Q6H PRN (Reason: fever or pain) Qty: 14 0RF lidocaine [Lidoderm] 5 % adhesive patch,medicated 1 patch topical DAILY MDD remove after 12 hours PRN (Reason: pain) Qty: 30 0RF Rx Instructions: leave on most painful area for up to 12 hrs methocarbamol 500 mg tablet 500 mg PO TID PRN (Reason: muscle spasm) Qty: 10 0RF olopatadine [Pataday Once Daily Relief] 0.2 % drops 1 drp ophthalmic (eye) BEDTIME Qty: 2.5 0RF sertraline 50 mg tablet 50 mg PO DAILY buspirone 5 mg tablet 5 mg PO BID clobetasol 0.05 % cream 1 appl topical DAILY tramadol 50 mg tablet 50 mg PO Q12H PRN (Reason: Pain) carvedilol 3.125 mg tablet 3.125 mg PO BID diclofenac sodium 1 % gel 2 g topical BID PRN (Reason: pain) Flovent Diskus 250 mcg/actuation blister with device 1 inh inhalation BID betamethasone dipropionate 0.05 % ointment 1 appl topical BID lisinopril 30 mg tablet 30 mg PO DAILY amlodipine 5 mg tablet 5 mg PO DAILY atorvastatin 10 mg tablet 10 mg PO BEDTIME albuterol sulfate [Ventolin HFA] 90 mcg/actuation HFA aerosol inhaler 2 puff inhalation Q4-6H PRN (Reason: Shortness Of Breath) cholecalciferol (vitamin D3) [Vitamin D3] 50 mcg (2,000 unit) capsule 50 mcg PO DAILY melatonin 5 mg capsule 5 mg PO BEDTIME PRN (Reason: Insomnia) Rx Instructions: 1-1.5 tabs aspirin [Adult Aspirin Regimen] 81 mg tablet,delayed release (DR/EC) 81 mg PO DAILY bisacodyl [Dulcolax (bisacodyl)] 5 mg tablet,delayed release (DR/EC) 20 mg PO ONCE 1 Days Qty: 4 0RF Rx Instructions: take 4 tabs at noon the day before your colonoscopy polyethylene glycol 3350 [Miralax] 17 gram/dose powder 238 g PO ONCE Qty: 238 0RF Rx Instructions: As directed by gastroenterology department at [facility] Referrals: Tammy Payan MD [Primary Care Provider, Internal Medicine] Bo Carter MD [Physician, Cardiology] Print Language: Amharic
[2024-12-27 09:52] LABS: D Dimer High Sensitivity 191 NG/ML
[2024-12-27 09:54] LABS: Alanine Aminotransferase 34 U/L (0-40); Albumin Level 3.9 g/dL (3.5-5.0); Alkaline Phosphatase 74 U/L (39-117); Anion Gap 9 (12-20); Aspartate Amino Transferase 32 U/L (5-37); Blood Urea Nitrogen 15 mg/dL (9-16); Calcium 8.9 mg/dL (8.4-10.2); Carbon Dioxide 27 mmol/L (22-29); Chloride 110 mmol/L (96-108); Creatinine Clr Calc Pharmacy 60.2; Estimated Glomerular Filt Rate > 60; Lipase 31 U/L (8-78); Potassium 4.4 mmol/L (3.3-5.1); Sodium 142 mmol/L (135-145); Total Protein 6.5 g/dL (6.5-8.0)
[2024-12-27 09:58] LABS: Troponin-I High Sensitivity 17.3 ng/L (<3.5-35.0)
[2024-12-27 10:39] LABS: Appearance Urine Clear; Glucose Urine UA Negative (Negative); PH 7.0 (5.0-9.0); Specific Gravity - Urine 1.010 (1.005-1.025); UMIC TRIGGER UACC YES
[2024-12-27 12:04] VITALS: BP 159/65; PULSE 48; RESP 18; TEMP 36.1; O2SAT 95
[2024-12-27 13:25] LABS: Troponin-I High Sensitivity 16.9 ng/L (<3.5-35.0)
[2024-12-27 14:04] VITALS: BP 159/65; PULSE 48; RESP 18; TEMP 36.1; O2SAT 95
== END 2024-12-27 14:05 | disposition home or self-care (01) ==
PROVIDERS: Emergency Provider Emergency Medicine Emergency Medical Services; PCP Internal Medicine
DX: R07.9 Chest pain, unspecified (principal); R51.9 Headache, unspecified; R11.0 Nausea
CPT/HCPCS: 36415; 70450; 71045; 80048; 80076; 81001; 83690; 84484; 85025; 85379; 85652; 86140; 93005; 96361; 96374; 96375; 99284; J1200; J1885; J2765

== ENCOUNTER → 2024-12-27 09:09 | Outpatient (BNV) | payer OTHER, SELFPAY | PROVIDERS: Emergency Provider Emergency Medicine Emergency Medical Services; PCP Internal Medicine; Visit Provider Internal Medicine | DX: I45.10 Unspecified right bundle-branch block (principal); R00.1 Bradycardia, unspecified | CPT/HCPCS: 93010 ==

== ENCOUNTER → 2024-12-27 09:09 | Outpatient (BNV) | payer OTHER, SELFPAY | PROVIDERS: Emergency Provider Emergency Medicine Emergency Medical Services; PCP Internal Medicine; Visit Provider Radiology Diagnostic Radiology | DX: G31.9 Degenerative disease of nervous system, unspecified (principal); I67.89 Other cerebrovascular disease; R52 Pain, unspecified | CPT/HCPCS: 70450; 71045 ==

== ENCOUNTER 2025-03-15 14:34 | Outpatient (REF) | payer OTHER, SELFPAY ==
--- OUTSIDE RECORDS SUMMARY | 2025-03-14 15:45 | XMS_ITS | Encounter Summary ---
Author Organization [employer] Address 75 [facility] 7t [place] [address] Care Team Providers Care Collar Separator Name Role Phone Tammy Payan MD Primary Care Provide r Reason for Referral * Consultation (Urgent) - Authorized Specialty Diagnoses / Procedures Referred By Contrikki t Referred To Contact Podiatry Diagnoses Pain in toes of both feet Ingrown toenail Suzan Loo MD [address] [place] [address] Phone: tel: fax: [facility] [address] Phone: tel: fax: Referral ID Status Reason Start Date Expiration Date Visits Requested Visits Authorized [id number] Authorized Specialty Services Required 5 03/14/2026 1 1 Reason for Visit * Reason Comments sick on site Encounter Details Date Type Department Care Team (Late st Contact Info) Description 03/14/2025 3:45 PM EDT Office Visit [facility] MEDICINE [address] [place], [place] [phone] Suzan Loo MD [address] [place], [place] [phone] Pain in toes of both feet (Primary Dx); Ingrown toenail; Encounter for immunization Social History Tobacco Use Types Packs/Day Years [...] AM EDT documented as of this encounter Last Filed Vital Signs Vital Sign Reading Time Taken Comments Blood Pressure 150/78 03/14/2025 4:01 PM EDT Pulse 55 03/14/2025 4:01 PM EDT Temperature 36.1 C (97 F) 03/14/2025 4:01 PM EDT Respiratory Rate 14 03/14/2025 4:01 PM EDT Oxygen Saturation 97% 03/14/2025 4:01 PM EDT Inhaled Oxygen Concentration - - Weight 88.5 kg (195 lb 3.2 oz) 03/14/2025 4:01 P M EDT Height - - Body Mass Index 33.51 08/10/2024 10:07 AM EDT documented in this encounter Plan of Treatment Upcoming Encounters Date Type Department Care Team (Late st Contact Info) Description 03/17/2025 2:15 PM EDT Office Visit [facility] ADULT DENTAL [address] [place] [address] Curt-Estefany Aquino, DDS [address] [place] [address] 04/29/2025 10:00 AM EST Telemedicine [facility] MEDICINE [address] [place] [address] Catherine North RN 05/10/2025 10:45 AM EST Office Visit [facility] MEDICINE [address] [place] [address] Tammy Payan MD [address] [place] [address] 06/22/2025 11:30 AM EST Office Visit [facility] OPTOMETRY [address] [place] [address] Myron, Corrina, OD [address] [place] [address] Scheduled Referrals Name Type Priority Associated Diagnoses Orde r Schedule Referral to Podiatry Outpatient Referral Urgent Pain in toes of both feet Ingrown toenail Expected: 03/14/2025 (Approximate), Expires: 03/14/2026 documented as of this encounter Procedures Procedure Name Priority Date/Time Associated Diagnosis Comments CBC WITH AUTO DIFFERENTIAL Routine 03/15/2025 3:28 PM EDT Pain in toes of both feet SED RATE BY MODIFIED WESTERGREN Routine 03/15/2025 3:28 PM EDT Pain in toes of both feet C-REACTIVE PROTEIN Routine 03/15/2025 3: 28 PM EDT Pain in toes of both feet URIC ACID Routine 03/15/2025 3:28 PM EDT Pain in toes of both feet XR TOES 2+ VIEWS LEFT Routine 03/15/2025 2:50 PM EDT Pain in toes of both feet XR TOES 2+ VIEWS RIGHT Routine 03/15/2025 2:46 PM EDT Pain in toes of both feet documented in this encounter Results * Uric acid (03/15/2025 3:28 PM EDT) Uric Acid 6.0 3.4 - 7.0 mg/dL [facility] Blood Venous blood specimen / Unknown 03/15/2025 3:28 PM EDT 03/15/2025 3:28 PM EDT Suzan Loo MD LAB BLOOD ORDERABLES Final Resul t Performing Organization Address City/[facility]/ZIP Co de Phone Number [facility] [address] [place] [address] [phone] * Sed Rate by Modified Aliciaren (03/15/2025 3:28 PM EDT) Erythrocyte Sedimentation Rate 5 0 - 15 MM/HR [facility] Comment:Patients with polycy themia and many hemoglobin abnormalitiesmay have depressed sed rates whereas patients with anemiamay have elevated sed rates. Blood Venous blood specimen / Unknown 03/15/2025 3:28 PM EDT 03/15/2025 3:28 PM EDT Suzan Loo MD LAB BLOOD ORDERABLES Final Resul t Performing Organization Address City/[facility]/ZIP Co de Phone Number [facility] [address] [place] [address] [phone] * C-reactive Protein (03/15/2025 3:28 PM EDT) Pathologist [facility] C Reactive Protein 0.14 < or = 0.50 mg/dL [facility] Blood Venous blood specimen / Unknown 03/15/2025 3:28 PM EDT 03/15/2025 3:28 PM EDT us Suzan Loo MD LAB BLOOD ORDERABLES Final Resul t [facility] [address] [place] [address] [phone] * (ABNORMAL) CBC auto differential (03/15/2025 3:28 PM EDT) [facility] White Blood Count 5.3 4.8 - 10.8 X10*3/uL [facility] Red Blood Count 5.46 4.60 - 5.80 X10*6/uL [facility] Hemoglobin 14.7 14.0 - 18.0 g/dl [facility] Hematocrit 45.7 42.0 - 52.0 % [facility] Mean Corpuscular Volume 83.7 80.0 - 98.0 fL [facility] Mean Corpuscular Hemoglobin 26.9(L) 27.0 - 33.0 pg [facility] Mean Corpuscular HGB Conc 32.2 31.0 - 36.0 g/dl [facility] Red Cell Distribution Width 14.6 11.0 - 16.0 % [facility] Platelet Count 124(L) 160 - 400 X10*3/uL [facility] Mean Platelet Volume 10.0 9.4 - 12.4 fL [facility] Neutrophils Percent Auto 43.6(L) 45 - 73 % [facility] Imm Gran Pct Auto 0.4 0.0 - 0.4 % [facility] Lymphocytes Percent Auto 43.1(H) 20 - 40 % [facility] Monocytes Percent Auto 10.9 2 - 11 % [facility] Eosinophils Percent Auto 1.3 0 - 4 % [facility] Basophils Percent Auto 0.7 0 - 2 % [facility] NRBC Pct Auto 0.0 0.0 - 0.2 /100WBC [facility] Neutrophils Absolute Auto 2.3 2.0 - 8.3 x10*3/uL [facility] Imm Gran Abs Auto 0.02 0.00 - 0.03 X10*3/uL [facility] Lymphocytes Absolute Auto 2.3 1.2 - 4.9 X10*3/uL [facility] Monocytes Absolute Auto 0.6 0.1 - 1.2 X10*3/uL [facility] Eosinophils Absolute Auto 0.1 0.0 - 0.4 X10*3/uL [facility] Basophils Absolute Auto 0.0 0.0 - 0.2 X10*3/uL [facility] NRBC Abs Auto 0.000 0.0 - 0.012 X10*3/uL [facility] Blood Venous blood specimen / Unknown 03/15/2025 3:28 PM EDT 03/15/2025 3:28 PM EDT us Suzan Loo MD LAB BLOOD ORDERABLES Final Resul t Performing Organization Address City/State/[facility] Co de Phone Number [facility] [address] [place] [phone] * XR Toes 2+ Left (03/15/2025 2:50 PM EDT) Anatomical Region Laterality Modality Lower Extremities, Toes Left Radiogra phic Imaging 03/15/2025 2:50 PM EDT Narrative 03/15/2025 3:01 PM EDT [address] [address] XRay Report Signed Patient: Osorio Castillo MR#: [id number] : 1945 Acct:[id number] Age/Sex: 79 / M ADM Date: 03/15/25 Loc: [facility] Attending Dr: Suzan Loo MD Ordering Physician: Suzan Loo MD Date of Service: 03/15/25 Procedure(s): XR toe LT min 2V Accession Number(s): [id number] cc: Suzan Loo MD Reason for Exam: big toe pain, acute. No known history of gout EXAMINATION: XR TOES 2 OR MORE VIEWS LEFT HISTORY: big toe pain, acute. No known history of gout COMPARISON: There are no prior studies available for comparison. FINDINGS: Three views of the left great toe are submitted. Osseous mineralization is normal. There is no fracture or dislocation. The joint spaces are preserved. No erosions are seen. The soft tissues are unremarkable. XR/XR toe LT min 2V IMPRESSION: Unremarkable examination of the left great toe. Electronically signed by: Matthew Hart MD 03/15/2025 02:59 PM EDT RP Dictated By: Matthew Hart MD Signed By: <Electronically signed by Matthew Hart MD in OV> 03/15/25 1459 DD/ 1450 TD/TT: 03/15/25 1456 Final Inspector And Tester: Procedure Note Donotuseinterpreter, Image - 03/15/2025 [place] [address] XRay Report Signed Patient: Osorio Castillo JMR#: [id number] : 7Acct:[id number] Age/Sex: 79 / MADM Date: 03/15/25 Loc: [facility] Attending Dr: Suzan Loo MD Ordering Physician: Suzan Loo MD Date of Service: 03/15/25 Procedure(s): XR toe LT min 2V Accession Number(s): [id number] cc: Suzan Loo MD Reason for Exam: big toe pain, acute. No known history of gout EXAMINATION: XR TOES 2 OR MORE VIEWS LEFT HISTORY: big toe pain, acute. No known history of gout COMPARISON: There are no prior studies available for comparison. FINDINGS: Three views of the left great toe are submitted. Osseous mineralization is normal. There is no fracture or dislocation. The joint spaces are preserved. No erosions are seen. The soft tissues are unremarkable. XR/XR toe LT min 2V IMPRESSION: Unremarkable examination of the left great toe. Electronically signed by: Matthew Hart MD 03/15/2025 02:59 PM EDT RP Dictated By: Matthew Hart MD Signed By: <Electronically signed by Matthew Hart MD in OV> 03/15/25 1459 DD/ 1450 TD/TT: 03/15/25 1456 Final Inspector And Tester: Suzan Loo MD IMG XR PROCEDURES Final Result * XR Toes 2+ Views Right (03/15/2025 2:46 PM EDT) Anatomical Region Laterality Modality Lower Extremities, Toes Left Radiogra phic Imaging 03/15/2025 2:46 PM EDT Narrative 03/15/2025 3:04 PM EDT [place] [address] XRay Report Signed Patient: Osorio Castillo MR#: [id number] : 1945 Acct:[id number] Age/Sex: 79 / M ADM Date: 03/15/25 Loc: [facility] Attending Dr: Suzan Loo MD Ordering Physician: Suzan Loo MD Date of Service: 03/15/25 Procedure(s): XR toe RT min 2V Accession Number(s): [id number] cc: Suzan Loo MD Reason for Exam: big toe pain, acute. No known history of gout EXAMINATION: XR TOES, RIGHT CLINICAL INFORMATION: big toe pain, acute. No known history of gout COMPARISON: None available. TECHNIQUE: 3 views of the right toes were obtained. FINDINGS: There is no fracture, dislocation, or suspicious bone lesion. Joint spaces are maintained. There is normal alignment. There are no periarticular erosions involving the hallux. There is a punched-out type erosion involving the medial PIP joint of the second digit, which could be in keeping with gout. There is no soft tissue abnormality. XR/XR toe RT min 2V IMPRESSION: 1. Normal appearing hallux. No fracture, dislocation, or arthropathy. 2. Periarticular erosion involving the PIP joint of the second digit, which could be in keeping with gouty etiology. Electronically signed by: Fadi Cabrera MD 03/15/2025 03:01 PM EDT RP Dictated By: Fadi Cabrera MD Signed By: <Electronically signed by Fadi Cabrera MD in OV> 03/15/25 1501 DD/ 1446 TD/TT: 03/15/25 1456 Final Inspector And Tester: Procedure Note Donotuseinterpreter, Image - 03/15/[address] [address] XRay Report Signed Patient: Osorio Castillo JMR#: [id number] : 7Acct:[id number] Age/Sex: 79 / MADM Date: 03/15/25 Loc: HO.VICKIAY Attending Dr: Suzan Loo MD Ordering Physician: Suzan Loo MD Date of Service: 03/15/25 Procedure(s): XR toe RT min 2V Accession Number(s): [id number] cc: Suzan Loo MD Reason for Exam: big toe pain, acute. No known history of gout EXAMINATION: XR TOES, RIGHT CLINICAL INFORMATION: big toe pain, acute. No known history of gout COMPARISON: None available. TECHNIQUE: 3 views of the right toes were obtained. FINDINGS: There is no fracture, dislocation, or suspicious bone lesion. Joint spaces are maintained. There is normal alignment. There are no periarticular erosions involving the hallux. There is a punched-out type erosion involving the medial PIP joint of the second digit, which could be in keeping with gout. There is no soft tissue abnormality. XR/XR toe RT min 2V IMPRESSION: 1. Normal appearing hallux. No fracture, dislocation, or arthropathy. 2. Periarticular erosion involving the PIP joint of the second digit, which could be in keeping with gouty etiology. Electronically signed by: Fadi Cabrera MD 03/15/2025 03:01 PM EDT RP Dictated By: Fadi Cabrera MD Signed By: <Electronically signed by Fadi Cabrera MD in OV> 03/15/25 1501 DD/ 1446 TD/TT: 03/15/25 1456 Final Inspector And Tester: Suzan Loo MD IMG XR PROCEDURES Final Result documented in this encounter Visit Diagnoses Diagnosis Pain in toes of both feet- Primary Ingrown toenail Ingrowing nail Encounter for immunization documented in this encounter Additional Health Concerns Assessment Noted Time PHQ-9 Depression Total Score: 6 01/23/20 24 10:06 AM EDT documented as of this encounter Care Teams Collar Separator Relationship Specialty Start Date End Date Tammy Payan MD [address] [place] [phone] PCP - General Family Medicine 06/09/20 documented as of this encounter
--- NOTE | ~2025-03-15 | XR_ITS ---
EXAMINATION: XR TOES, RIGHT CLINICAL INFORMATION: big toe pain, acute. No known history of gout COMPARISON: None available. TECHNIQUE: 3 views of the right toes were obtained. FINDINGS: There is no fracture, dislocation, or suspicious bone lesion. Joint spaces are maintained. There is normal alignment. There are no periarticular erosions involving the hallux. There is a punched-out type erosion involving the medial PIP joint of the second digit, which could be in keeping with gout. There is no soft tissue abnormality. XR/XR toe RT min 2V IMPRESSION: 1. Normal appearing hallux. No fracture, dislocation, or arthropathy. 2. Periarticular erosion involving the PIP joint of the second digit, which could be in keeping with gouty etiology. Electronically signed by: Fadi Cabrera MD 03/15/2025 03:01 PM EDT
--- NOTE | ~2025-03-15 | XR_ITS ---
EXAMINATION: XR TOES 2 OR MORE VIEWS LEFT HISTORY: big toe pain, acute. No known history of gout COMPARISON: There are no prior studies available for comparison. FINDINGS: Three views of the left great toe are submitted. Osseous mineralization is normal. There is no fracture or dislocation. The joint spaces are preserved. No erosions are seen. The soft tissues are unremarkable. XR/XR toe LT min 2V IMPRESSION: Unremarkable examination of the left great toe. Electronically signed by: Matthew Hart MD 03/15/2025 02:59 PM EDT
[2025-03-15 15:30] LABS: MANUAL DIFF FLAG NO
[2025-03-15 16:20] LABS: Imm Gran Abs Auto 0.02 X10*3/uL (0.00-0.03); Imm Gran Pct Auto 0.4 % (0.0-0.4); NRBC Abs Auto 0.000 X10*3/uL (0.0-0.012); NRBC Pct Auto 0.0 /100WBC (0.0-0.2); PLT CLUMP 1; SCAN SMEAR FLAG 1
[2025-03-15 16:22] LABS: Hematocrit 45.7 % (42.0-52.0); Hemoglobin 14.7 g/dl (14.0-18.0); Lymphocytes Absolute Auto 2.3 X10*3/uL (1.2-4.9); Mean Corpuscular HGB Conc 32.2 g/dl (31.0-36.0); Mean Corpuscular Hemoglobin 26.9 pg (27.0-33.0); Mean Corpuscular Volume 83.7 fL (80.0-98.0); Red Blood Count 5.46 X10*6/uL (4.60-5.80)
[2025-03-15 16:24] LABS: Platelet Count 124 X10*3/uL (160-400); White Blood Count 5.3 X10*3/uL (4.8-10.8)
[2025-03-15 16:50] LABS: Uric Acid 6.0 mg/dL (3.4-7.0)
--- OUTSIDE RECORDS SUMMARY | 2025-03-15 19:38 | XMS_ITS | Encounter Summary ---
Author Organization [employer] Address 75 [facility] 7t [place] [address] Care Team Providers Care Leather Goods I Assembler Name Role Phone Tammy Payan MD Primary Care Provide r Reason for Visit * Reason Onset Date Comments Results 03/15/2025 Encounter Details Date Type Department Care Team ([facility] st Contact Info) Description 03/15/2025 Results Follow-Up [facility] MEDICINE [address] [place] [address] Suzan Loo MD [address] [place] [address] XR Toes 2+ Views Right, CBC auto differential, C-reactive Protein, Additional followed-up results: 2 Social History Tobacco Use Types Packs/Day Years [...] encounter Miscellaneous Notes * Telephone Encounter - Kristine Guzman RN - 03/15/2025 3:16 PM EDT TC placed to pt caregiver Amarilis in regard to the result of the XR of the pt toes. Amarilis was advised that the XR was normal on the left foot with some inflammatory change on the second toe of the right foot. Amarilis informed that once the pt blood work results are reviewed the provider will be ableto form a better understanding and causation of the pt pain. Amarilis stated understanding and had nofurther questions at this time. ----- Message from Suzan Loo MD sent at 03/15/2025 3:15 PM EDT ----- Please inform patient and caregiver that X-ray was normal on left foot / toes, and there was an inflammatory change on 2nd toe of right foot. Otherwise, normal. We are still waiting for lab result. Thank you. ----- Message ----- From: Anyi Ris Results In Sent: 03/15/2025 3:05 PM EDT To: Suzan Loo MD documented in this encounter Plan of Treatment Upcoming Encounters Date Type Department Care Team (Late st Contact Info) Description 03/17/2025 2:15 PM EDT Office Visit [facility] ADULT DENTAL [address] [place] [address] Estefany Oconnor, DDS [address] [place] [address] 04/29/2025 10:00 AM EST Telemedicine [facility] MEDICINE [address] [place] [address] Catherine North RN 05/10/2025 10:45 AM EST Office Visit [facility] MEDICINE [address] [place] [address] Tammy Payan MD [address] [place] [address] 06/22/2025 11:30 AM EST Office Visit [facility] OPTOMETRY [address] [place] [address] Myron, Corrina, OD [address] [place] [address] documented as of this encounter Visit Diagnoses Not on filedocumented in this encounter Additional Health Concerns Assessment Noted Time PHQ-9 Depression Total Score: 6 01/23/20 24 10:06 AM EDT documented as of this encounter Care Teams Leather Goods I Assembler Relationship Specialty Start Date End Date Tammy Payan MD [address] [place] [address] PCP - General Family Medicine 06/09/20 documented as of this encounter
--- OUTSIDE RECORDS SUMMARY | 2025-03-15 19:38 | XMS_ITS | Patient Health Record ---
Author Organization [facility] Address [address] [place] [address] Care Team Providers Care Senior Qc Technician Name Role Phone May Noble Primary Care Provider Matthew Carlin [phone] Reason For Referral No Information Medications Medication SIG (Take, Route, Frequency, Duration) Notes Start Date End Date Status MiraLax (colon prep) 8.3 ounce (238) grams mixed with Gatorade or Crystal Light orally begin at 5:00 p.m. the day before the procedure; Duration: 1 day 09/22/2016 Active Dulcolax (colon prep) 5 MG take at 3:00 p.m and 7:00p.m. Orally two tablets twice a day for one day; Duration: 1 day 09/22/2016 Active Lisinopril Active Atorvastatin Calcium Active Aspir-81 Active traMADol HCl Active Problems Problem Type SNOMED Code ICD Code Onset Dates Problem Status W/U Status Risk Notes Problem Screening for malignant neoplasm of colon (904144749) Encounter for screening for malignant neoplasm of colon (Z12.11) Active confirmed Problem Screening for malignant neoplasm of rectum (784020107) Encounter for screening for malignant neoplasm of rectum (Z12.12) Active confirmed Problem Constipation (89215037) Constipation, unspecified constipation type (K59.00) Active confirmed Plan Of Treatment Future Test Test Name Order Date COLONOSCOPY 09/19/2016 Insurance Providers Payer Name Payer Address Payer Phone Subscriber Number Group Number Insured Name Patient Relationship to Insured Coverage Start Date Coverage End Date [facility] [address] [place] [address] [id number] SHAHEEN AMAYA Self - patient is the insured Medical (General) History Medical History History ICD Code Colonoscopy 11/05/2004--mild sigmoid div erticulosis and internal hemorrhoids Hypertension Hypercholesterolemia Arthritis--back/arms Denies CO,DM,CVA,Lung disease,renal dise ase Sleep apnea--uses CPAP EGD in 1999--mild reflux, gastritis with H.pylori Surgical History Surgery Date(Month/Year) Oral surgery 08/2016
--- OUTSIDE RECORDS SUMMARY | 2025-03-15 19:38 | XMS_ITS | Encounter Summary ---
Author Organization [employer] Address [address] [facility] [address] [place] [address] Care Team Providers Care Life Sciences Teacher Name Role Phone Tammy Payan MD Primary Care Provide r Reason for Visit * Reason Comments Med Refill Encounter Details Date Type Department Care Team ([facility] Contact Info) Description 11/04/2022 Refill [facility] [address] [place] [phone] Tammy Payan MD [address] [place], [place] [phone] Tinea crshereens Social History Tobacco Use Types Packs/Day Years [...] Upcoming Encounters Date Type Department Care Team ([facility] Contact Info) Description 03/17/2025 2:15 PM EDT Office Visit [facility] ADULT DENTAL [address] [place] [address] Estefany Oconnor, DDS [address] [place] [address] 04/29/2025 10:00 AM EST Telemedicine [facility] MEDICINE [address] [place] [address] Catherine North RN 05/10/2025 10:45 AM EST Office Visit [facility] MEDICINE [address] [place] [address] Tammy Payan MD [address] [place] [address] 06/22/2025 11:30 AM EST Office Visit [facility] OPTOMETRY [address] [place] [address] Corrina Sanches, OD [address] [place] [address] documented as of this encounter Visit Diagnoses Diagnosis Tinea cruris Dermatophytosis of groin and perianal area documented in this encounter Care Teams Life Sciences Teacher Relationship Specialty Start Date End Date Tammy Payan MD [address] [place] [address] PCP - General Family Medicine 06/09/20 documented as of this encounter
--- OUTSIDE RECORDS SUMMARY | 2025-03-15 19:38 | XMS_ITS | Data Portability ---
Author Organization [place] [facility], [facility]ergy Address [address] [address] Care Team Providers Care Chiropractor Assistant Name Role Phone DALE ALFREDO Primary Care Provider DALE ALFREDO Referring Provider Assessment Encounter Date Assessment Date Assessment LastModified by Organization Details LastModified Time 09/10/2024 09/10/2024 Patient with recent history of episodic positionally induced vertigo. Antonio-Hallpike was negative for vertigo and rotary nystagmus at physical therapy recently, deferred today. We discussed that the patient s previous pattern of symptoms are most [...] with performance of Kodi maneuvers and vestibular therapy. [email or web address] Not available 09/10/2024 11:29:35 Plan of [...] Organization Details Recorded Time Abnormal auditory perception 74522091 Active 2024 Jaclyn franco [place] [facility] 10:42:20 Tinnitus of right ear 9456788443735 Active 2024 PONCE BACON PA-C [address] [facility], [place], [phone], [facility] 11:29:09 Benign paroxysmal positional vertigo 987552591 Active 2024 PONCE BACON PA-C 100 [facility], [place], [phone], [facility] 11:29:24 Problem Notes None recorded. Procedures Surgical History Date Name Laterality Status Provider Name and Address Organization Details Recorded Time 09/11/19 25 Tympanometry - 14969 completed Jaclyn Lewis [place] [facility] 09/10/2024 10:42:05 09/11/19 25 Air & Bone Audio - 47967 completed Jaclyn Lewis [place] [facility] 09/10/2024 10:42:00 Imaging Results None recorded. Procedure Notes None recorded. Medical Equipment None [...] Available Not Available No t Available FreeStyle Novice Lite kit USE DIRECTED TO TEST BLOOD [...] Updated DateTime 09/10/2024 162.56 cm 30.9 kg/m2 62380.63 g Aditi Butt [place] [facility] 09/10/2024 11:02:05 Social History None recorded. Functional Status None recorded. Mental Status None recorded. Family History Nothing Reported. Medical History Condition Response Allergies/Hayfever N Heart Problems N Anxiety Y Tonsil Infections N Emphysema N Migraines Y Thyroid Problems N Glaucoma N Depression Y COPD N Developmental Delay N Nasal or Sinus Problems N Anemia N Immune System Disorder N Anesthesia Complications N Heart Attack ([place]) N Other Skin Condition N Diabetes Y Rhinitis N Bleeding Disorder N Food Allergy N Arthritis N Hearing Loss N Hyperlipidemia N Cancer N Stroke N Dementia N Nasal polyps N Asthma N High Cholesterol N Sleep Disorder N GERD/Reflux N Liver Disease N Headaches Y Fibromyalgia N Hypertension Y Speech Delay N Kidney Disease Y Past Encounters Encounter ID Performer Location Encounter Start Date Encounter Closed Date Diagnosis/Indication Diagnosis SNOMED-CT Code Diagnosis ICD10 Code Diagnosis IMO Codes Diagnosis Note [id number] [facility] [address] [place] [address] 09/10/2024 09:44:30 09/10/2024 11:55:41 Abnormal auditory perception 16137562 H93.299 Audiologic al evaluation results: Right ear: Essentiall y normal hearing with excellent word recognitio n. Left ear: Essentiall y normal hearing with excellent word recognitio n. Tympanomet ry: Right Ear:Type A Left Ear:Type A Tinnitus of right ear 48 35398866 108 H93.11 Benign par oxysmal positional vertigo 369848316 H81.13 Health Concerns Section Related Observation LastModified by Organization Detai ls LastModified Time None Recorded Concern Status LastModified by Organization Details LastModified Time None Recorded Advance Directives Directive None Recorded Payers Insurance Date Sequence Insurance Name Policy Number Policy Berman Covered Member ID Berman Member ID Guarantor Name 09/10/2024 1 [facility] - DOS ON OR AFTER 2022 - ONE CARE (MEDICARE REPLACEMENT/ADV ANTAGE - HMO) Osorio Castillo [id number] Osorio Castillo Notes Date Note Type Note Provider Name and Address Organization Details Recorded Time 09/10/2024 text/html ROS as noted in the HPI 79yo male with diabetes and migraine presents [...] not suspicious for acute benign positional vertigo. [place]-Hallpike was negative at that time. PONCE BACON PA-C 100 [facility],[address], [address], [facility] - [facility] 09/10/2024 11:29:55
--- OUTSIDE RECORDS SUMMARY | 2025-03-15 19:38 | XMS_ITS | Encounter Summary ---
Author Organization [employer] Address [address] [facility] [address] [place] [address] Care Team Providers Care Metal Painter Name Role Phone Tammy Payan MD Primary Care Provide r Encounter Details Date Type Department Care Team (Late st Contact Info) Description 12/05/[address] [facility] CH[facility] MED & PEDS [address] [place], [place] [phone] ProviderNgozi MD Social History Tobacco Use Types [...] Description 03/17/2025 2:15 PM EDT Office Visit [facility] ADULT DENTAL [address] [place] [address] Curt-AquinoEstefany rizzo, DDS [address] [place] [address] 04/29/2025 10:[address] [facility] MEDICINE [address] [place] [address] Catherine North RN 05/10/2025 10:45 AM EST Office Visit [facility] MEDICINE [address] [place] [address] Tammy Payan MD 230 [place] [address] 06/22/2025 11:30 AM EST Office Visit [facility] OPTOMETRY [address] [place] [address] Myron, Corrina, OD 230 [place] [address] documented as of this encounter Procedures Procedure Name Priority Date/Time Associated Diagnosis Comments DERMATOPATHOLOGY REPORT Routine 11/18/2023 3:59 PM EDT documented in this encounter Results * Dermatopathology Report (11/18/2023 3:59 PM EDT) us Historical Provider LAB BLOOD ORDERABLES Marily l Result documented in this encounter Visit Diagnoses Not on filedocumented in this encounter Care Teams Metal Painter Relationship Specialty Start Date End Date Tammy Payan MD [address] [place] [phone] PCP - General Family Medicine 06/09/20 documented as of this encounter
--- OUTSIDE RECORDS SUMMARY | 2025-03-15 19:38 | XMS_ITS | Encounter Summary ---
Author Organization [employer] Address 75 [facility] 7t [place] [address] Care Team Providers Care Venue Attendant Name Role Phone Tammy Payan MD Primary Care Provide r Reason for Visit * Reason Comments Med Refill Encounter Details Date Type Department Care Team ([facility] st Contact Info) Description 03/28/2023 Refill [facility] MEDICINE [address] [place], [place] [phone] Tammy Payan MD 230 [place], [place] [phone] Other chronic pain Social History Tobacco Use [...] Description 03/17/2025 2:15 PM EDT Office Visit [facility] ADULT DENTAL [address] [place] [address] Elias-Aquino, Estefany, DDS [address] [place] [address] 04/29/2025 10:00 AM EST Telemedicine [facility] MEDICINE [address] [place] [address] Catherine North RN 05/10/2025 10:45 AM EST Office Visit [facility] MEDICINE [address] [place] [address] Tammy Payan MD [address] [place] [address] 06/22/2025 11:30 AM EST Office Visit [facility] OPTOMETRY [address] [place] [address] Corrina Sanches, OD [address] [place] [address] documented as of this encounter Visit Diagnoses Diagnosis Other chronic pain documented in this encounter Care Teams Venue Attendant Relationship Specialty Start Date End Date Tammy Payan MD [address] [place] [address] PCP - General Family Medicine 06/09/20 documented as of this encounter
--- OUTSIDE RECORDS SUMMARY | 2025-03-15 19:38 | XMS_ITS | Encounter Summary ---
Author Organization [employer] Address 75 [facility] 7t [place] [address] Care Team Providers Care Collar Stay Fuser Tender Name Role Phone Tammy Payan MD Primary Care Provide r Reason for Visit * Reason Comments Med Refill Encounter Details Date Type Department Care Team ([facility] st Contact Info) Description 03/14/2025 Refill [facility] MEDICINE [address] [place], [place] [phone] Tammy Payan MD 230 [place], [place] [phone] Multiple joint pain Social History Tobacco Use [...] Description 03/17/2025 2:15 PM EDT Office Visit [facility] ADULT DENTAL [address] [place] [address] Curt-Estefany Aquino, DDS [address] [place] [address] 04/29/2025 10:00 AM EST Telemedicine [facility] MEDICINE [address] [place] [address] Catherine North RN 05/10/2025 10:45 AM EST Office Visit [facility] MEDICINE [address] [place] [address] Tammy Payan MD [address] [place] [address] 06/22/2025 11:30 AM EST Office Visit [facility] OPTOMETRY [address] [place] [address] Corrina Sanches, OD 230 [place] [address] documented as of this encounter Visit Diagnoses Diagnosis Multiple joint pain Pain in joint, multiple sites documented in this encounter Additional Health Concerns Assessment Noted Time PHQ-9 Depression Total Score: 6 01/23/20 24 10:06 AM EDT documented as of this encounter Care Teams Collar Stay Fuser Tender Relationship Specialty Start Date End Date Tammy Payan MD [address] [place] [address] PCP - General Family Medicine 06/09/20 documented as of this encounter
--- OUTSIDE RECORDS SUMMARY | 2025-03-15 19:38 | XMS_ITS | Encounter Summary ---
Author Organization [employer] Address 75 [facility] 7t [place] [address] Care Team Providers Care Budget Engineer Name Role Phone Tammy Payan MD Primary Care Provide r Encounter Details Date Type Department Care Team ([facility] st Contact Info) Description 08/31/2024 Orders Only [facility] CHC MED & PEDS [address] [place], [place] [phone] Acosta Burnett MD [address] [place] [address] Social History Tobacco Use Types Packs/Day Years [...] Description 03/17/2025 2:15 PM EDT Office Visit [facility] ADULT DENTAL [address] [place] [address] Estefany Oconnor, DDS [address] [place] [address] 04/29/2025 10:00 AM EST Telemedicine [facility] MEDICINE [address] [place] [address] Catherine North RN 05/10/2025 10:45 AM EST Office Visit [facility] MEDICINE [address] [place] [address] Tammy Payan MD [address] [place] [address] 06/22/2025 11:30 AM EST Office Visit [facility] OPTOMETRY [address] [place] [address] Corrina Sanches, OD [address] [place] [address] documented as of this encounter Visit Diagnoses Not on filedocumented in this encounter Additional Health Concerns Assessment Noted Time PHQ-9 Depression Total Score: 6 01/23/20 24 10:06 AM EDT documented as of this encounter Care Teams Budget Engineer Relationship Specialty Start Date End Date Tammy Payan MD 230 [place] [address] PCP - General Family Medicine 06/09/20 documented as of this encounter
--- OUTSIDE RECORDS SUMMARY | 2025-03-15 19:38 | XMS_ITS | Encounter Summary ---
Author Organization [employer] Address [address] [facility] [address] [place] [address] Care Team Providers Care Wrapping Checker Name Role Phone Tammy Payan MD Primary Care Provide r Encounter Details Date Type Department Care Team (Latest Contact Info) Description 03/14/2025 Travel Social History Tobacco Use Types Packs/Day Years [...] Description 03/17/2025 2:15 PM EDT Office Visit [facility] ADULT DENTAL [address] [place] [address] Estefany Oconnor DDS [address] [place] [address] 04/29/2025 10:00 AM EST Telemedicine [facility] MEDICINE [address] [place] [address] Catherine North RN 05/10/2025 10:45 AM EST Office Visit [facility] MEDICINE [address] [place] [address] Tammy Payan MD [address] [place] [address] 06/22/2025 11:30 AM EST Office Visit [facility] OPTOMETRY [address] [place] [address] Corrina Sanches, OD [address] [place] [address] documented as of this encounter Visit Diagnoses Not on filedocumented in this encounter Additional Health Concerns Assessment Noted Time PHQ-9 Depression Total Score: 6 01/23/20 24 10:06 AM EDT documented as of this encounter Care Teams Wrapping Checker Relationship Specialty Start Date End Date Tammy Payan MD [address] [place] [address] PCP - General Family Medicine 06/09/20 documented as of this encounter
--- OUTSIDE RECORDS SUMMARY | 2025-03-15 19:38 | XMS_ITS | Encounter Summary ---
Author Organization [employer] Address 75 [facility] 7t [place] [address] Care Team Providers Care Biodiesel Operations Manager Name Role Phone Tammy Payan MD Primary Care Provide r Encounter Details Date Type Department Care Team (Latest Contact Info) Description 04/05/2021 Abstract [facility] CONVERSIONS Dental, Provider, DDS Social History Tobacco [...] 2:15 PM EDT Office Visit [facility] ADULT DENTAL [address] [place] [address] Estefany Oconnor DDS [address] [place] [address] 04/29/2025 10:00 AM EST Telemedicine [facility] MEDICINE [address] [place] [address] [phone] Catherine North, RN 05/10/2025 10:45 AM EST Office Visit [facility] MEDICINE [address] [place] [phone] Tammy Payan MD [address] [place] [phone] 06/22/2025 11:30 AM EST Office Visit [facility] OPTOMETRY [address] [place], [place] [phone] Corrina Sanches, OD [address] [place], [place] [phone] documented as of this encounter Visit Diagnoses Not on filedocumented in this encounter Care Teams Biodiesel Operations Manager Relationship Specialty Start Date End Date Tammy Payan MD 230 [place], [place] [phone] PCP - General Family Medicine 06/09/20 documented as of this encounter
--- OUTSIDE RECORDS SUMMARY | 2025-03-15 19:38 | XMS_ITS | Encounter Summary ---
Author Organization [employer] Address 75 [facility] 7t [place] [address] Care Team Providers Care Debeaker Name Role Phone Tammy Payan MD Primary Care Provide r Reason for Visit * Reason Onset Date Comments Nurse Triage 03/14/2025 Encounter Details Date Type Department Care Team ([facility] st Contact Info) Description 03/14/2025 Telephone [facility] MEDICINE [address] [place] [address] Tammy Payan MD [address] [place] [address] Nurse Triage Social History Tobacco Use Types Packs/Day Years [...] your housing situation today? I have marvin sing 10/14/[address] you li [...] encounter Miscellaneous Notes * Telephone Encounter - Renetta Pedraza RN - 03/14/2025 3:10 PM EDT Telephone call placed to pt to triage regarding below message. Pt with granddaughter Amarilis who he gave verbal consent for me to speak with. Amarilis reports that they are currently on their way to [facility]. She reports pt worse wet shoes a few days ago and since then bilateral great toenails seem infected. She reports they are red and painful. Possibly ingrown or fungal. She reports pt has been putting a salve on it x2 days without relief. Denies any open sores, drainage from site, or fever. She reports pt is prediabetic. Informed [facility] booking into 6PM. Offered appointment for 3:45 today as Cinda had cancellation. They are agreeable. Are down the road and will be here shortly. * Telephone Encounter - Caleb Marquez - 03/14/2025 2:59 PM EDT Tc from pt granddaughter stating pt has a toe infection it is also swollen . Toe has been giving ptproblems for 3 days Contact pt at [phone] (greek) documented in this encounter Plan of Treatment Upcoming Encounters Date Type Department Care Team (Late st Contact Info) Description 03/17/2025 2:15 PM EDT Office Visit [facility] ADULT DENTAL [address] [place] [address] Estefany Oconnor, DDS [address] [place] [address] 04/29/2025 10:00 AM EST Telemedicine [facility] MEDICINE [address] [place] [address] Catherine North RN 05/10/2025 10:45 AM EST Office Visit [facility] MEDICINE [address] [place] [address] Tammy Payan MD [address] [place] [address] 06/22/2025 11:30 AM EST Office Visit [facility] OPTOMETRY [address] [place] [address] Corrina Sanches, OD [address] [place] [address] documented as of this encounter Visit Diagnoses Not on filedocumented in this encounter Additional Health Concerns Assessment Noted Time PHQ-9 Depression Total Score: 6 01/23/20 24 10:06 AM EDT documented as of this encounter Care Teams Debeaker Relationship Specialty Start Date End Date Tammy Payan MD [address] [place] [address] PCP - General Family Medicine 06/09/20 documented as of this encounter
--- OUTSIDE RECORDS SUMMARY | 2025-03-15 19:38 | XMS_ITS | Encounter Summary ---
Author Organization [employer] Address 75 [facility] 7t [place] [address] Care Team Providers Care Sign Painter Name Role Phone Tammy Payan MD Primary Care Provide r Encounter Details Date Type Department Care Team (Latest Contact Info) Description 04/08/2022 Abstract [facility] CONVERSIONS Dental, Provider, DDS Social History [...] Description 03/17/2025 2:15 PM EDT Office Visit [facility] ADULT DENTAL [address] [place] [address] Estefany Oconnor DDS [address] [place] [address] 04/29/2025 10:00 AM EST Telemedicine [facility] MEDICINE [address] [place] [address] [phone] Catherine North, RN 05/10/2025 10:45 AM EST Office Visit [facility] MEDICINE [address] [place] [address] Tammy Payan MD [address] [place] [address] [phone] 06/22/2025 11:30 AM EST Office Visit [facility] OPTOMETRY [address] [place], [place] [phone] Corrina Sanches, OD 230 [place], [place] [phone] documented as of this encounter Visit Diagnoses Not on filedocumented in this encounter Care Teams Sign Painter Relationship Specialty Start Date End Date Tammy Payan MD 230 [place], [place] [phone] PCP - General Family Medicine 06/09/20 documented as of this encounter
--- OUTSIDE RECORDS SUMMARY | 2025-03-15 19:38 | XMS_ITS | Encounter Summary ---
Author Organization [employer] Address 75 [facility] [address] [place] [address] Care Team Providers Care Transfer Controller Name Role Phone Tammy Payan MD Primary Care Provide r Encounter Details Date Type Department Care Team ([facility] st Contact Info) Description 03/15/2025 Orders Only [facility] MEDICINE [address] [place], [place] [phone] Suzan Loo MD 230 [place], [place] [phone] Social History Tobacco Use Types Packs/Day Years [...] Description 03/17/2025 2:15 PM EDT Office Visit [facility] ADULT DENTAL [address] [place] [address] Estefany Oconnor, DDS [address] [place] [address] 04/29/2025 10:00 AM EST Telemedicine [facility] MEDICINE [address] [place] [address] Catherine North RN 05/10/2025 10:45 AM EST Office Visit [facility] MEDICINE [address] [place] [address] Tammy Payan MD [address] [place] [address] 06/22/2025 11:30 AM EST Office Visit [facility] OPTOMETRY [address] [place] [address] Corrina Sanches, OD [address] [place] [address] documented as of this encounter Visit Diagnoses Not on filedocumented in this encounter Additional Health Concerns Assessment Noted Time PHQ-9 Depression Total Score: 6 01/23/20 24 10:06 AM EDT documented as of this encounter Care Teams Transfer Controller Relationship Specialty Start Date End Date Tammy Payan MD [address] [place] [address] PCP - General Family Medicine 06/09/20 documented as of this encounter
--- OUTSIDE RECORDS SUMMARY | 2025-03-15 19:38 | XMS_ITS | Clinical Summary ---
Author Organization [employer] Address [address] [facility] [address] [place] [address] Care Team Providers Care Recruiting Specialist Name Role Phone Tammy Payan MD Primary Care Provide r Allergies No known active allergies Medications aspirin 81 MG EC tablet 1 tab [...] the affected and surrounding areas of skin Active tiZANidine (Zanaflex) 2 MG tablet take [...] IN THE EVENING FOR RASH on penis yakut 60 g 2 023 Active calcipotriene (Dovonex) 0.005 % ointment APPLY TO THE AFFECTED AREA(S) EVERY DAY RUB IN GENTLY AND COMPLETELY 60 g 3 023 Active hydrOXYzine HCl (Atarax) 25 MG tabletIndicatio ns:Pruritus Take 1 tablet (25 mg) by mouth every 6 (six) hours if needed for itching for up to 10 days. 30 tablet 024 Active hydrOXYzine pamoate (Vistaril) 25 MG capsule Take 1 capsule (25 mg) by mouth every 6 (six) hours if needed for itching for up to 10 days. 30 capsule 024 Active busPIRone (Buspar) 5 MG tablet Take [...] day for constipation. 24 suppository 024 Active Blood Glucose Monitoring Suppl (FreeStyle [place] Lite) w/Device kit TEST BLOOD SUGAR EVERY DAY 1 kit 024 Active lidocaine (Lidoderm) 5 % patchIndication s:Chronic low back pain, unspecified back pain laterality, unspecified whether sciatica present APPLY 1 PATCH TOPICALLY TO SKIN, LEAVE ON FOR 12 HOURS AND OFF FOR 12 HOURS DIRECTED 30 patch 1 024 Active omeprazole OTC (PriLOSEC OTC) 20 MG EC tabletIndicatio ns:Generalized abdominal pain Take 1 tablet (20 mg) by mouth before breakfast. Do not crush, chew, or split. 30 tablet 025 2025 Active acetaminophen (Tylenol) 500 MG tabletIndicatio ns:Chronic bilateral low back pain with bilateral sciatica Take 2 tablets (1,000 mg) by mouth every 8 (eight) hours if needed for moderate pain or fever for up to 25 doses. 50 tablet 025 Active glucose blood (FREESTYLE LITE) test stripIndication s:Psoriasis TEST BLOOD SUGAR EVERY DAY DIRECTED 100 strip 5 025 Active amLODIPine (Norvasc) 5 MG tablet TAKE 1 TABLET BY MOUTH EVERY DAY 90 tablet 025 Active naloxone (Narcan) 4 mg/0.1 mL nasal sprayIndication s:Multiple joint pain FOR SUSPECTED OPIOID OVERDOSE. SPRAY 0.1mL IN ONE NOSTRIL. REPEAT IN ALTERNATE NOSTRIL 2-3 MINUTES IF NEEDED. SEEK MEDICAL ATTENTION IMMEDIATELY EVEN IF PATIENT RESPONDS. 2 each 2 025 Active gabapentin (Neurontin) 400 MG capsule TAKE 1 CAPSULE BY MOUTH AT BEDTIME 30 capsule 025 Active triamcinolone (Kenalog) 0.1 % creamIndication s:Pruritus,Derm atitis, unspecified,Pru ritus Apply topically if needed in the morning and at bedtime (pain and swelling). 80 g 3 025 Active atorvastatin (Lipitor) 10 MG tablet Take 1 tablet (10 mg) by mouth at bedtime. 90 tablet 3 07/29/2 025 Active fluticasone-girish meterol (Advair) 230-21 MCG/ACT inhaler INHALE 2 PUFFS DOS VECES AL D A Active omeprazole (PriLOSEC) [address] capsule TAKE 1 CAPSULE BY MOUTH EVERY DAY BEFORE BREAKFAST. DO NOT BREAK, CRUSH, DISSOLVE OR CHEW Active sertraline (Zoloft) 50 MG tablet sertraline 50 mg tablet Active Diclofenac Sodium 1 % gelIndications: Multiple joint pain APPLY 2 GRAMS TOPICALLY TO AFFECTED AREA(S) TWICE DAILY NEEDED FOR PAIN 100 g 3 Active TRUEplus Lancets 33G miscIndications :Type 2 diabetes mellitus with hyperglycemia, without long-term current use of insulin (HCC) USE DIRECTED TO TEST BLOOD SUGAR EVERY DAY 100 each 11 Active doxepin (SINEquan) 10 MG capsuleIndicati ons:Pruritus TAKE 1 CAPSULE BY MOUTH AT BEDTIME 30 capsule 1 Active D3 Super Strength 50 MCG (2000 UT) capsuleIndicati ons:Vitamin D deficiency TAKE 1 CAPSULE BY MOUTH EVERY DAY 90 capsule 3 Active Melatonin Maximum Strength 5 MG tablet TOME 1 TABLETA POR V A ORAL DOS VECES AL D A CUANDO SEA NECESARIO Active miconazole (Micotin) 2 % cream Apply topically. Active folic acid (Folvite) 1 MG tabletIndicatio ns:Atopic dermatitis in adult TAKE 1 TABLET BY MOUTH EVERY DAY 30 tablet 11 Active traMADol (Ultram) 50 MG tabletIndicatio ns:Multiple joint pain TAKE 1 TABLET BY MOUTH EVERY TWELVE HOURS NEEDED FOR SEVERE PAIN 56 tablet Active mupirocin (Bactroban) 2 % ointment Apply topically 3 times daily for 10 days. 22 g 2024 Active triamcinolone (Kenalog) 0.5 % ointment Apply topically 2 times daily. 30 g 025 2025 Active dextran 70-hypromellose (artificial tears) 0.1-0.3 % ophthalmic solution apply 2 drops in each eye every 8 hrs as needed 2024 Discontinued(I neffective) folic acid (Folvite) 1 MG tabletIndicatio ns:Atopic dermatitis in adult Take 1 tablet (1 mg) by mouth Once per day. 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 Check home BP BIW and prn CP/MI/ALLEN Non smoking patient. Precordial pain 05/06/2022 Prurigo [...] 07/20/2012 Restrictive lung disease 07/20/2012 Morbid obesity (CMS/HCC) 05/15/2012 Depressive disorder 03/30/2012 Obstructive sleep apnea syndrome 03/30/2012 Assessment & Plan (03/28/2023 10:42 AM EDT): F/u with specialist Assessment & Plan (01/01/2023 9:36 AM EDT): Patient follows with pulmonary, he reports his asthma medications where adjusted and he feels better, he also reports real estate utilization officer ordered again his CPAP and he is [...] Encounters Date Type Department Care Team Description 03/15/2025 Orders Only [facility] [address] [place] [phone] Suzan Loo MD 03/15/2025 Results Follow-Up [facility] [address] [place] [phone] Suzan Loo MD XR Toes 2+ Views Right, CBC auto differential, C-reactive Protein, Additional followed-up results: 2 03/14/2025 3:45 PM EDT Office Visit [facility] [address] [place] [phone] Suzan Loo MD Pain in toes of both feet (Primary Dx); Ingrown toenail; Encounter for immunization 03/14/2025 Travel 03/14/2025 Telephone [facility] [address] [place] [address] Tammy Payan MD Nurse Triage 03/14/2025 Refill [facility] [address] [place] [address] Tammy Payan MD Multiple joint pain 03/10/2025 Refill [facility] [address] [place], [place] [phone] Acosta Burnett MD Atopic dermatitis in adult 03/09/2025 8:30 AM EDT Office Visit [facility] [address] [place] [address] Elias-Aquino, Estefany, DDS Partially edentulous mandible, class I edentulism (Primary Dx); Edentulous maxilla 02/17/2025 3:00 PM EDT Office Visit [facility] [address] [place] [address] Myron, Corrina, OD Meibomian gland disease, unspecified laterality (Primary Dx) 02/17/2025 Travel 02/16/2025 9:00 AM EDT Office Visit [facility] [address] [place] [address] Anastasia, Estefany, DDS Edentulous maxilla (Primary Dx); Partially edentulous mandible, class I edentulism 02/10/2025 Refill [facility] [address] [place] [phone] Tammy Payan MD Vitamin D deficiency 01/31/2025 Telephone [facility] [address] [place] [phone] Tammy Payan MD Durable Medical Equipment 01/18/2025 Telephone [facility] [address] [place] [phone] Tammy Payan MD Med Refill 01/18/2025 Refill [facility] [address] [place] [phone] Tammy Payan MD Multiple joint pain 01/09/2025 Refill [facility] [address] [place] [phone] Tammy Payan MD [facility] 01/04/2025 Refill [facility] [address] [place] [phone] Tammy Payan MD Multiple joint pain; Type 2 diabetes mellitus with hyperglycemia, without long-term current use of insulin ([facility]) 12/27/2024 Orders Only GENERIC EXTERNAL DATA DEPARTMENT Provider, Generic External Data 12/21/2024 Refill [facility] [address] [place] [phone] Tammy Payan MD 12/17/2024 Refill [facility] [address] [place] [phone] Mali Ward MD Multiple joint pain from Last 3 Months Immunizations Immunization Administration Dates Next Due Influenza High-dose Quadriva lent Preservative Free 03/28/2023,03/17/2020 Influenza Injectable Quadriv alant Preservative Free IIV4 MDCK 03/23/2021 Influenza Whole 02/01/2009 Influenza injectable quadriv alent preservative free 05/21/2019 Influenza, High Dose Seasona l, Preservative Free 03/14/2025,04/21/2024 Influenza, IIV3, injectable 03/15/2011, 8 Influenza, Split (incl. anju fied surface antigen) 03/31/2013,03/30/2012 Pfizer Covid-19 Vaccine 12+ 03/14/2025,1 06/21/2023,02/22/2021,08/18,07/28/2020 Pneumococcal Conjugate PCV 13 07/23/2019 Pneumococcal Polysaccharide [...] oz) 03/14/2025 4:01 P M EDT Height 162.6 cm (5' 4 ) 08/10/2024 10:07 AM EDT Body Mass Index 33.51 08/10/2024 10:07 AM EDT Plan of Treatment Upcoming Encounters Date Type Department Care Team (Late st Contact Info) Description 03/17/2025 2:15 PM EDT Office Visit [facility] [address] [place] [address] Estefany Oconnor DDS [address] [place] [address] 04/29/2025 10:00 AM EST Telemedicine [facility] [address] [place] [phone] Catherine North RN 05/10/2025 10:45 AM EST Office Visit [facility] [address] [place] [phone] Tammy Payan MD [address] [place], [place] [phone] 06/22/2025 11:30 AM EST Office Visit [facility] [address] [place], [place] [phone] Corrina Sanches, OD [address] [place], [place] [phone] Health Maintenance Due Date Last Done Comments Anal Pap 1945 Dental X-Ray: Bitewings 1945 Dental X-Ray: Full Mouth 1945 Hepatitis A Vaccines (1 of 2 - Risk 2-dose series) 1965 Hepatitis B Vaccines (1 of 3 - Risk 3-dose series) 2006 DTaP/Tdap/Td Vaccines (2 - Td or Tdap) 03/30/2022 03/30/2012, 12/21/2008, 05/27/2008, Additional history exists Diabetes: Foot Exam 10/12/2023 10/11/2022, 10/11/2022, 10/11/2022, Additional history exists Lipid Panel 10/28/2024 10/29/2023, 07/24, 02/15/2021, Additional history exists Diabetes: Hemoglobin A1C 01/19/2025 025, 04/21/2024, 12/16/2023, Additional history exists Depression Screening 01/22/2025 01/23/2024, 01/23/20 24 SDOH Screening 01/22/2025 01/23/2024 Alcohol/Substance Use Screening 04/21/2025 04/21/2024 Dental Prophylaxis 05/04/2025 11/01/2024, 12/02/2023 Dental Oral Exam 05/05/2025 11/02/2024, 12/02/2023 Tobacco Screening 03/14/2026 03/14/2025 Eye Exam 12/09/2026 12/09/2024, 11/23, 12/09/2024, Additional history exists Hepatitis C Screening Completed 08/08/2022, 020 Pneumococcal Vaccine: 50+ Years Completed 10/11/2022, 07/23/2019, 01/24/2000 RSV Patients and Patients Aged 60 years or older Completed 09/02/2023 Zoster Vaccines Completed 09/02/2023, 03/27, 04/28/2020, Additional history exists COVID-19 Vaccine Completed 03/14/2025, , 02/22/2021, Additional history exists Influenza Vaccine Completed 03/14/2025, , 03/28/2023, Additional history exists HIB Vaccines Aged Out [...] Procedure Name Priority Date/Time Associated Diagnosis Comments URIC ACID Routine 03/15/2025 3:28 PM EDT Pain in toes of both feet SED RATE BY MODIFIED WESTERGREN Routine 03/15/2025 3:28 PM EDT Pain in toes of both feet C-REACTIVE PROTEIN Routine 03/15/2025 3: 28 PM EDT Pain in toes of both feet CBC WITH AUTO DIFFERENTIAL Routine 03/15/2025 3:28 PM EDT Pain in toes of both feet XR TOES 2+ VIEWS LEFT Routine 03/15/2025 2:50 PM EDT Pain in toes of both feet XR TOES 2+ VIEWS RIGHT Routine 03/15/2025 2:46 PM EDT Pain in toes of both feet BITE REGISTRATION Routine 03/09/2025 8:3 0 AM EDT Partially edentulous mandible, class I edentulism Edentulous maxilla DENTURE IMPRESSION Routine 02/16/2025 9: 00 AM EDT Edentulous maxilla Partially edentulous mandible, class I edentulism HIGH SENSITIVITY TROPONIN I Routine 12/27/2024 12:55 PM EDT URINALYSIS, COMPLETE, WITH REFLEX TO CULTURE Routine 12/27/2024 10:[address] HEAD WO CONTRAST Routine 12/27/2024 1 0:09 AM EDT CBC WITH AUTO DIFFERENTIAL Routine 12/27/2024 9:29 AM EDT HIGH SENSITIVITY TROPONIN I Routine 12/27/2024 9:28 AM EDT LIPASE Routine 12/27/2024 9:28 AM EDT C-REACTIVE PROTEIN Routine 12/27/2024 9: 28 AM EDT BASIC METABOLIC PANEL Routine 12/27/2024 9:28 AM EDT HEPATIC FUNCTION PANEL Routine 12/27/2024 9:28 AM EDT D DIMER HIGH SENSITIVITY Routine 12/27/2024 9:28 AM EDT SED RATE BY MODIFIED WESTERGREN Routine 12/27/2024 9:27 AM EDT XR CHEST 1 VIEW Routine 12/27/2024 8:32 AM EDT AMB REFERRAL TO CARDIOLOGY Urgent 12/23/2024 Other chest pain PERIODIC ORAL EVALUATION - ESTABLISHED PATIENT Routine 11/02/2024 9:30 AM EDT Encounter for dental examination Dental caries PROPHYLAXIS - ADULT Routine 11/01/2024 9 :00 AM EDT Gingival bleeding Dental calculus Missing teeth, acquired POCT GLYCATED HEMOGLOBIN, TOTAL Routine 07/22/2024 10:10 AM EST Type 2 diabetes mellitus with hyperglycemia, without long-term current use of insulin ([facility]) LIPID PANEL, STANDARD Routine 10/29/2023 9:36 AM EDT Type 2 diabetes mellitus with hyperglycemia, without long-term current use of insulin ([facility]) Primary hypertension HEPATITIS C AB W/RFL RNA, PCR W/RFL GENOTYPE,LIPA Routine 08/08/2022 9:33 AM EDT Penile lesion from Last 3 Months or Most Recently Relevant to Health Maintenance Results * (ABNORMAL) CBC auto differential (03/15/2025 3:28 PM EDT) Only the most recent of2 resultswithin the time period is included. White Blood Count 5.3 4.8 - 10.8 X10*3/uL [facility] Red Blood Count 5.46 4.60 - 5.80 X10*6/uL [facility] Hemoglobin 14.7 14.0 - 18.0 g/dl [facility] Hematocrit 45.7 42.0 - 52.0 % [facility] Mean Corpuscular Volume 83.7 80.0 - 98.0 fL [facility] Mean Corpuscular Hemoglobin 26.9(L) 27.0 - 33.0 pg [facility] Mean Corpuscular HGB Conc 32.2 31.0 - 36.0 g/dl [facility] Red Cell Distribution Width 14.6 11.0 - 16.0 % [facility] Platelet Count 124(L) 160 - 400 X10*3/uL [facility] Mean Platelet Volume 10.0 9.4 - 12.4 fL [facility] Neutrophils Percent Auto 43.6(L) 45 - 73 % [facility] Imm Gran Pct Auto 0.4 0.0 - 0.4 % [facility] Lymphocytes Percent Auto 43.1(H) 20 - 40 % [facility] Monocytes Percent Auto 10.9 2 - 11 % [facility] Eosinophils Percent Auto 1.3 0 - 4 % [facility] Basophils Percent Auto 0.7 0 - 2 % [facility] NRBC Pct Auto 0.0 0.0 - 0.2 /100WBC [facility] Neutrophils Absolute Auto 2.3 2.0 - 8.3 x10*3/uL [facility] Imm Gran Abs Auto 0.02 0.00 - 0.03 X10*3/uL [facility] Lymphocytes Absolute Auto 2.3 1.2 - 4.9 X10*3/uL [facility] Monocytes Absolute Auto 0.6 0.1 - 1.2 X10*3/uL [facility] Eosinophils Absolute Auto 0.1 0.0 - 0.4 X10*3/uL [facility] Basophils Absolute Auto 0.0 0.0 - 0.2 X10*3/uL [facility] NRBC Abs Auto 0.000 0.0 - 0.012 X10*3/uL [facility] Blood Venous blood specimen / Unknown 03/15/2025 3:28 PM EDT 03/15/2025 3:28 PM EDT us Suzan Loo MD LAB BLOOD ORDERABLES Final Resul t Performing Organization Address City/[facility]/ZIP Co de Phone Number [facility] [address] [place] [phone] * Sed Rate by Modified Aliciaren (03/15/2025 3:28 PM EDT) Only the most recent of2 resultswithin the time period is included. Erythrocyte Sedimentation Rate 5 0 - 15 MM/HR [facility] Comment:Patients with polycy themia and many hemoglobin abnormalitiesmay have depressed sed rates whereas patients with anemiamay have elevated sed rates. Blood Venous blood specimen / Unknown 03/15/2025 3:28 PM EDT 03/15/2025 3:28 PM EDT Suzan Loo MD LAB BLOOD ORDERABLES Final Resul t Performing Organization Address City/[facility]/ZIP Co de Phone Number [facility] [address] [place] [address] [phone] * C-reactive Protein (03/15/2025 3:28 PM EDT) Only the most recent of2 resultswithin the time period is included. C Reactive Protein 0.14 < or = 0.50 mg/dL [facility] Blood Venous blood specimen / Unknown 03/15/2025 3:28 PM EDT 03/15/2025 3:28 PM EDT Suzan Loo MD LAB BLOOD ORDERABLES Final Resul t Performing Organization Address [facility]/ZIP Co de Phone Number [facility] [address] [place] [phone] * Uric acid (03/15/2025 3:28 PM EDT) Uric Acid 6.0 3.4 - 7.0 mg/dL [facility] Blood Venous blood specimen / Unknown 03/15/2025 3:28 PM EDT 03/15/2025 3:28 PM EDT Suzan Loo MD LAB BLOOD ORDERABLES Final Resul t Performing Organization Address [facility] de Phone Number [facility] [address] [place] [phone] * XR Toes 2+ Left (03/15/2025 2:50 PM EDT) Anatomical Region Laterality Modality Lower Extremities, Toes Left Radiogra phic Imaging 03/15/2025 2:50 PM EDT Narrative 03/15/2025 3:01 PM EDT [address] [address] XRay Report Signed Patient: Osorio Castillo MR#: [id number] : 1945 Acct:[id number] Age/Sex: 79 / M ADM Date: 03/15/25 Loc: [facility] Attending Dr: Suzan Loo MD Ordering Physician: Suzan Loo MD Date of Service: 03/15/25 Procedure(s): XR toe LT min 2V Accession Number(s): [id number] cc: Suzan Loo MD Reason for Exam: [...] 03/15/25 1459 DD/ 1450 TD/TT: 03/15/25 1456 Production Line Mechanic: Procedure Note Donotuseinterpreter, Image - 03/15/2025 [place] [address] XRay Report Signed Patient: Osorio Castillo JMR#: [id number] : 7Acct:[id number] Age/Sex: 79 / MADM Date: 03/15/25 Loc: [facility] Attending Dr: Suzan Loo MD Ordering Physician: Suzan Loo MD Date of Service: 03/15/25 Procedure(s): XR toe LT min 2V Accession Number(s): [id number] cc: Suzan Loo MD Reason for Exam: [...] Hart MD in OV> 03/15/25 1459 DD/ TD/TT: 03/15/25 145 Production Line Mechanic: us Suzan Loo MD IMG XR PROCEDURES Final Result * XR Toes 2+ Views Right (03/15/2025 2:46 PM EDT) Anatomical Region Laterality Modality Lower Extremities, Toes Left Radiogra phic Imaging 03/15/2025 2:46 PM EDT Narrative 03/15/2025 3:04 PM EDT [place] [address] XRay Report Signed Patient: Osorio Castillo MR#: [id number] : 1945 Acct:[id number] Age/Sex: 79 / M ADM Date: 03/15/25 Loc: [facility] Attending Dr: Suzan Loo MD Ordering Physician: Suzan Loo MD Date of Service: 03/15/25 Procedure(s): XR toe RT min 2V Accession Number(s): [id number] cc: Suzan Loo MD Reason for Exam: [...] 03/15/25 1501 DD/ 1446 TD/TT: 03/15/25 1456 Production Line Mechanic: Procedure Note Donotuseinterpreter, Image - 03/15/2025 [place] [address] XRay Report Signed Patient: Osorio Castillo JMR#: [id number] : 7Acct:[id number] Age/Sex: 79 / MADM Date: 03/15/25 Loc: [facility] Attending Dr: Suzan Loo MD Ordering Physician: Suzan Loo MD Date of Service: 03/15/25 Procedure(s): XR toe RT min 2V Accession Number(s): [id number] cc: Suzan Loo MD Reason for Exam: [...] 03/15/25 1501 DD/ 1446 TD/TT: 03/15/25 1456 Production Line Mechanic: us Suzan Loo MD IMG XR PROCEDURES Final Result * High Sensitivity Troponin I (12/27/2024 12:55 PM EDT) Only the most recent of2 resultswithin the time period is included. TROPONIN I HIGH SENSITIVITY 16.9 <3.5 - 35.0 ng/L [facility] Comment:The Wilson high sens itivity Troponin-I results should beused in conjunction with other diagnostic information suchas ECG, clinical observations and information, and patientsymptoms to aid in the diagnosis of AR. 12/27/2024 12:5 5 PM EDT 12/27/2024 12:56 PM EDT us Generic External Data Provider LAB BLOOD ORDERAB LES Final Result [facility] [address] [place] [address] [phone] * (ABNORMAL) Urinalysis, Complete, with Reflex to Culture (12/27/2024 10:25 AM EDT) Color Urine Yellow [facility] Appearance Urine Clear [facility] PH 7.0 5.0 - 9.0 [facility] Glucose Urine UA Negative Negative mg/dL [facility] Urine Blood Negative Negative [facility] Specific [place] - Urine 1.010 1.005 - 1.025 [facility] Urine Protein 30 (1+)(A) Neg-Trace mg/dL [facility] Urine Ketones Negative Negative mg/dL [facility] Nitrite Urine Negative Negative [facility] Leukocyte Esterase Urine Negative Negative [facility] RBC Urine 0-2 0 - 2 /HPF [facility] Urine WBC 0-5 0 - 5 /HPF [facility] Urine Squamous Epithelial Cell 0-2 0 - 2 /HPF [facility] Urine Bacteria None Seen None Seen [facility] Hyaline Casts, Urine 0-2 0 - 2 /LPF [facility] 12/27/2024 10:2 5 AM EDT 12/27/2024 10:33 AM EDT Narrative [facility] - 12/27/2024 10:43 AM EDT [id number], Clean Catch us Generic External Data Provider LAB URINE ORDERAB LES Final Result Performing Organization Address City/State/[facility] Co de Phone Number [facility] [address] [place] [phone] * CT Head w/o Contrast (12/27/2024 10:09 AM EDT) Anatomical Region Laterality Modality Head, Neck Computed Tomogra phy 12/27/2024 10:0 9 AM EDT Narrative 12/27/2024 10:51 AM EDT [address] [address] [address] Scan Report Signed Patient: Osorio Castillo MR#: [id number] : 1945 Acct:[id number] Age/Sex: 79 / M ADM Date: 12/27/24 Loc: HO.ED Attending Dr: Ordering Physician: Hortensia Perez MD Date of Service: 12/27/24 Procedure(s): CT head/brain wo IV con Accession Number(s): [id number] cc: Tammy Payan MD; Hortensia Perez MD Report Number: [id number]: Total DLP = 749.00 mGy-cm EXAMINATION: CT HEAD WITHOUT CONTRAST CLINICAL INFORMATION: mi COMPARISON: March 19, 2003. TECHNIQUE: Contiguous axial imaging was performed from the skull base to vertex without intravenous administration of contrast. This CT examination was performed using dose optimization techniques as appropriate, variously including the following: *Automated exposure control *Adjustment of mA and/or kV according to patient size (this includes techniques or standardized protocols for targeted exams where dose is matched to indication/reason for exam; i.e. extremities or head) *Use of iterative reconstruction technique DLP: 749 mGy-cm FINDINGS: No acute intracranial hemorrhage, mass effect, midline shift, hydrocephalus or herniation. Bilateral multifocal patchy deep periventricular white matter hypodensity involving centrum semiovale and rios radiata. Prominence of the extra-axial CSF spaces cerebral sulci and ventricles likely central volume loss. Sellar/suprasellar region demonstrated no gross masses. There is normal position of the cerebellar tonsils. Calcified plaques in the cavernous supraclinoid segments both ICAs. No air-fluid levels in the paranasal sinuses. Tympanic cavities and mastoid cells are aerated. 4 mm densities in the intraconal compartments of the orbits probably vascular. Probable prior surgery/antrectomy right maxillary sinus., Medial wall CT/CT head/brain wo IV con IMPRESSION: No acute intracranial hemorrhage. Small vessel occlusive disease. Global cerebral atrophy. Electronically signed by: Jens Vazquez MD 12/27/2024 10:48 AM EDT Dictated By: Jens Apple MD Signed By: <Electronically signed by Jens Pedraza MD in OV> 12/27/24 1048 DD/ 1009 TD/TT: 12/27/24 1028 Production Line Mechanic: Procedure Note Donotuseinterpreter, Image - 12/27/[address] [place] [address] [address] Scan Report Signed Patient: Osorio Castillo JMR#: [id number] : 1945cct:[id number] Age/Sex: 79 / MADM Date: 12/27/24 Loc: HO.ED Attending Dr: Ordering Physician: Hortensia Perez MD Date of Service: 12/27/24 Procedure(s): CT head/brain wo IV con Accession Number(s): [id number] cc: Tammy Payan MD; Hortensia Perez MD Report Number: [id number]: Total DLP = 749.00 mGy-cm EXAMINATION: CT HEAD WITHOUT CONTRAST CLINICAL INFORMATION: mi COMPARISON: March 19, 2003. TECHNIQUE: Contiguous axial imaging was performed from the skull base to vertex without intravenous administration of contrast. This CT examination was performed using dose optimization techniques as appropriate, variously including the following: *Automated exposure control *Adjustment of mA and/or kV according to patient size (this includes techniques or standardized protocols for targeted exams where dose is matched to indication/reason for exam; i.e. extremities or head) *Use of iterative reconstruction technique DLP: 749 mGy-cm FINDINGS: No acute intracranial hemorrhage, mass effect, midline shift, hydrocephalus or herniation. Bilateral multifocal patchy deep periventricular white matter hypodensity involving centrum semiovale and rios radiata. Prominence of the extra-axial CSF spaces cerebral sulci and ventricles likely central volume loss. Sellar/suprasellar region demonstrated no gross masses. There is normal position of the cerebellar tonsils. Calcified plaques in the cavernous supraclinoid segments both ICAs. No air-fluid levels in the paranasal sinuses. Tympanic cavities and mastoid cells are aerated. 4 mm densities in the intraconal compartments of the orbits probably vascular. Probable prior surgery/antrectomy right maxillary sinus., Medial wall CT/CT head/brain wo IV con IMPRESSION: No acute intracranial hemorrhage. Small vessel occlusive disease. Global cerebral atrophy. Electronically signed by: Jens Vazquez MD 12/27/2024 10:48 AM EDT Dictated By: Jens Apple MD Signed By: <Electronically signed by Jens Pedraza MDin OV> 12/27/24 1048 DD/ 1009 TD/TT: 12/27/24 1028 Production Line Mechanic: [facility] External Provider IMG CT PROCEDURES Final Result * D Dimer High Sensitivity (12/27/2024 9:28 AM EDT) D Dimer High Sensitivity 191 NG/ML [facility] Comment:D-DIMER HS REFERENCE RANGENote: Our assay reports D-Dimer Units (D- DU).The cut-off value for venous thromboembolic (VTE) disease is230 ng/mL. This value has a very high negative predictivevalue when the patient has a low to moderate clinicalprobability of VTE.The upper limit of normal is 243 ng/mL. 12/27/2024 9:28 AM EDT 12/27/2024 9:36 AM EDT us Generic External Data Provider LAB BLOOD ORDERAB LES Final Result Performing Organization Address [facility] Co de Phone Number [facility] [address] [place] [phone] * Lipase (12/27/2024 9:28 AM EDT) Pathologist [facility] Lipase 31 8 - 78 U/L [facility] 12/27/2024 9:28 AM EDT 12/27/2024 9:36 AM EDT us Generic External Data Provider LAB BLOOD ORDERAB LES Final Result Performing Organization Address [facility] Co de Phone Number [facility] [address] [place] [phone] * Hepatic Function Panel (12/27/2024 9:28 AM EDT) Bilirubin, Total 0.4 0.0 - 1.0 mg/dL [facility] Bilirubin, Direct 0.2 0.0 - 0.5 mg/dL [facility] Aspartate Amino Transferase 32 5 - 37 U/L [facility] Alanine Aminotransferase 34 0 - 40 U/L [facility] Total Protein 6.5 6.5 - 8.0 g/dL [facility] Albumin Level 3.9 3.5 - 5.0 g/dL [facility] Alkaline Phosphatase 74 39 - 117 U/L [facility] 12/27/2024 9:28 AM EDT 12/27/2024 9:36 AM EDT Generic External Data Provider LAB BLOOD ORDERAB LES Final Result Performing Organization Address City/[facility]/ZIP Co de Phone Number [facility] [address] [place] [phone] * (ABNORMAL) Basic Metabolic Panel (12/27/2024 9:28 AM EDT) Sodium 142 135 - 145 mmol/L [facility] Potassium 4.4 3.3 - 5.1 mmol/L [facility] Chloride 110(H) 96 - 108 mmol/L [facility] Carbon Dioxide 27 22 - 29 mmol/L [facility] Anion Gap 9(L) 12 - 20 [facility] Urea Nitrogen (BUN) 15 9 - 16 mg/dL [facility] Creatinine, Serum 0.99 0.5 - 1.4 mg/dL [facility] Creatinine Clr Calc Pharmacy 60.2 [facility] Comment:eGFR (calculated fro m the MDRD study equation) and eCrCl(calculated from the Cockcroft-Gault equation) are based ondifferent parameters and may not yield comparable results.If eCrCl result is absurd, please check patient'sheight/weight. Estimated Glomerular Filt Rate >60 [facility] Comment:Chronic Kidney Disea se: Estimated GFR < 60 mL/min/1.81s7Rsknuc Kidney Disease: Estimated GFR < 15 mL/min/1.73m2 Glucose 105 60 - 115 mg/dL [facility] Calcium 8.9 8.4 - 10.2 mg/dL [facility] 12/27/2024 9:28 AM EDT 12/27/2024 9:36 AM EDT Generic External Data Provider LAB BLOOD ORDERAB LES Final Result Performing Organization Address [facility]/ZIP Co de Phone Number [facility] [address] [place] [phone] * XR Chest 1 View (12/27/2024 8:32 AM EDT) Anatomical Region Laterality Modality Chest Radiographic Lucia ging 12/27/2024 8:32 AM EDT Narrative 12/27/2024 9:51 AM EDT [address] [address] XRay Report Signed Patient: Osorio Castillo MR#: [id number] : 1945 Acct:[id number] Age/Sex: 79 / M ADM Date: 12/27/24 Loc: .ED Attending Dr: Ordering Physician: Hortensia Perez MD Date of Service: 12/27/24 Procedure(s): XR chest 1V Accession Number(s): [id number] cc: Tammy Payan MD; Hortensia Perez MD EXAMINATION: XR CHEST CLINICAL INFORMATION: cp COMPARISON: Portable 23, 12/14/2021. TECHNIQUE: Frontal view of the chest was obtained. FINDINGS: The cardiac, hilar, and mediastinal contours are normal. The lungs are clear bilaterally. No pneumothorax or effusion. No focal osseous or soft tissue abnormality. XR/XR chest 1V IMPRESSION: No active pulmonary disease. Electronically signed by: Fadi Cabrera MD 12/27/2024 09:47 AM EDT RP Dictated By: Fadi Cabrera MD Signed By: <Electronically signed by Fadi Cabrera MD in OV> 12/27/24 0947 DD/ 0832 TD/TT: 12/27/24 0942 Production Line Mechanic: Procedure Note Donotuseinterpreter, Image - 12/27/[address] [address] XRay Report Signed Patient: Osorio Castillo JMR#: [id number] : 1945cct:[id number] Age/Sex: 79 / MADM Date: 12/27/24 Loc: .ED Attending Dr: Ordering Physician: Hortensia Perez MD Date of Service: 12/27/24 Procedure(s): XR chest 1V Accession Number(s): [id number] cc: Tammy Payan MD; Hortensia Perez MD EXAMINATION: XR CHEST CLINICAL INFORMATION: cp COMPARISON: Portable 23, 12/14/2021. TECHNIQUE: Frontal view of the chest was obtained. FINDINGS: The cardiac, hilar, and mediastinal contours are normal. The lungs are clear bilaterally. No pneumothorax or effusion. No focal osseous or soft tissue abnormality. XR/XR chest 1V IMPRESSION: No active pulmonary disease. Electronically signed by: Fadi Cabrera MD 12/27/2024 09:47 AM EDT RP Dictated By: Fadi Cabrera MD Signed By: <Electronically signed by Fadi Cabrera MD in OV> 12/27/2447 DD/ 1 TD/TT: 12/27/24941 Production Line Mechanic: Result [facility] External Provider IMG XR PROCEDURES Final Result * Referral to Cardiology (12/23/2024) Tammy Pimentel MD OUTPATIENT REFERRAL O RDERABLES Final Result * POCT HGB A1C (07/22/2024 10:10 AM EST) Hemoglobin A1C 6.0 4.0 - 6.0 % QC Media Lot # [id number] Lot# Expiration Date 799 Blood 07/22/2024 10:1 0 AM EST Tammy Pimentel MD POINT OF CARE TEST EN TER/EDIT ORDERABLES Final Result * Lipid Panel, Standard (10/29/2023 9:36 AM EDT) Triglycerides 77 <150 mg/dL [facility] Comment:Desirable Triglyceri de: less than 150 mg/dLBorderline High Triglyceride 150-199 mg/dLHigh Triglyceride: 200-499 mg/dLVery High Triglyceride: greater than or equal to 5OO mg/dL Cholesterol 117 <200 mg/dL [facility] Comment:Desirable Cholestero l: less than 200 mg/dLBorderline High Cholesterol: 200-239 mg/dLHigh Cholesterol: greater than 239 mg/dL LDL Cholesterol Calculated 57 <100 mg/dL [facility] Comment:Desirable LDL: less than 100 mg/dLNear Optimal/Above Optimal LDL: 110- 129 mg/dLBorderline High LDL: 130-159 mg/dLHigh LDL: 160-189 mg/dLVery High LDL: greater than or equal to 190 mg/dL HDL Cholesterol 45 >40 mg/dL [facility] Comment:Desirable HDL: great er than 40 mg/dL Note: This HDL assay may give artificially low results in patients with liver disease. Blood Venous blood specimen / Unknown 10/29/2023 9:36 AM EDT 10/29/2023 11:56 AM EDT us Tammy Pimentel MD LAB BLOOD ORDERABLES Final Result Performing Organization Address [facility] Co de Phone Number [facility] [address] [place] [phone] * Hepatitis C Antibody with Reflex to HCV RNA,PCR w/Reflex to Genotype, LiPA (08/08/2022 9:33 AM EDT) Hepatitis C Antibody NON-REACT VIJAYA NON-REACT VIJAYA [employer] [place] [facility] Index 0.06 <1.00 [facility] [employer] [facility] Comment: HCV antibody was non-reactive. There is no laboratory evidence of HCV infection. In most cases, no further action is required. However, if recent HCV exposure is suspected, a test for HCV RNA (test code 61263) is suggested. For additional information, please refer to http://education.Welzoo.Harir/faq/EVJ870 (This link is being provided for informational/ educational purposes only.) 08/08/2022 9:33 AM EDT 08/08/2022 9:34 AM EDT Narrative [facility] - 08/09/2022 6:44 PM EDT FASTING:UNKNOWN FASTING: UNKNOWN us Salena Hutton DO LAB BLOOD ORDERABLES Final R esult [facility] [address], [place] [address] [facility] [place] [facility] [address] [place] [address] from Last 3 Months or Most Recently Relevant to Health Maintenance Insurance [facility] Care Teams Recruiting Specialist Relationship Specialty Start Date End Date Tammy Payan MD [address] [place] [address] PCP - General Family Medicine 06/09/20
--- OUTSIDE RECORDS SUMMARY | 2025-03-15 19:38 | XMS_ITS | Encounter Summary ---
Author Organization [employer] Address [address] [place] [address] Care Team Providers Care Immigration Investigator Name Role Phone Tammy Payan MD Primary Care Provide r Encounter Details Date Type Department Care Team (Late st Contact Info) Description 11/25/2023 Orders Only [facility] CH[facility] MED & PEDS [address] [place], [place] [phone] ProviderNgozi MD Social History Tobacco Use Types [...] Description 03/17/2025 2:15 PM EDT Office Visit [facility] ADULT DENTAL [address] [place] [address] Curt-AquinoEstefany rizzo, DDS [address] [place] [address] 04/29/2025 10:00 AM EST Telemedicine [facility] MEDICINE [address] [place] [address] Catherine North RN 05/10/2025 10:45 AM EST Office Visit [facility] MEDICINE [address] [place] [address] Tammy Payan MD [address] [place] [address] 06/22/2025 11:30 AM EST Office Visit [facility] OPTOMETRY [address] [place] [address] Myron, Corrina, OD [address] [place] [address] documented as of this encounter Procedures Procedure Name Priority Date/Time Associated Diagnosis Comments DERMATOPATHOLOGY REPORT Routine 11/18/19 12:36 PM EDT documented in this encounter Results * Dermatopathology Report (11/18/2023 12:36 PM EDT) us Historical Provider LAB BLOOD ORDERABLES Marily l Result documented in this encounter Visit Diagnoses Not on filedocumented in this encounter Care Teams Immigration Investigator Relationship Specialty Start Date End Date Tammy Payan MD [address] [place] [phone] PCP - General Family Medicine 06/09/20 documented as of this encounter
--- OUTSIDE RECORDS SUMMARY | 2025-03-15 19:38 | XMS_ITS | Encounter Summary ---
Author Organization [employer] Address [address] [facility] 7t [place] [address] Care Team Providers Care Porcelain Finish Sprayer Name Role Phone Tammy Payan MD Primary Care Provide r Reason for Visit * Reason Comments Med Refill Encounter Details Date Type Department Care Team ([facility] st Contact Info) Description 03/10/2025 Refill [facility] CHC MED & PEDS [address] [place], [place] [phone] Acosta Burnett MD [address] [place] [address] Atopic dermatitis in adult Social History Tobacco Use Types Packs/Day Years [...] Description 03/17/2025 2:15 PM EDT Office Visit [facility] ADULT DENTAL [address] [place] [address] Curt-Estefany Aquino, DDS [address] [place] [address] 04/29/2025 10:00 AM EST Telemedicine [facility] MEDICINE [address] [place] [address] aCtherine North RN 05/10/2025 10:45 AM EST Office Visit [facility] MEDICINE [address] [place] [address] Tammy Payan MD [address] [place] [address] 06/22/2025 11:30 AM EST Office Visit [facility] OPTOMETRY [address] [place] [address] Corrina Sanches, OD [address] [place] [address] documented as of this encounter Visit Diagnoses Diagnosis Atopic dermatitis in adult documented in this encounter Additional Health Concerns Assessment Noted Time PHQ-9 Depression Total Score: 6 01/23/20 24 10:06 AM EDT documented as of this encounter Care Teams Porcelain Finish Sprayer Relationship Specialty Start Date End Date Tammy Payan MD [address] [place] [address] PCP - General Family Medicine 06/09/20 documented as of this encounter
--- OUTSIDE RECORDS SUMMARY | 2025-03-15 19:38 | XMS_ITS | Encounter Summary ---
Author Organization [employer] Address [address] [facility] 7t [place] [address] Care Team Providers Care Spa Experience Coordinator Name Role Phone Tammy Payan MD Primary Care Provide r Reason for Visit * Reason Comments Med Refill Encounter Details Date Type Department Care Team ([facility] st Contact Info) Description 06/15/2024 Refill [facility] MEDICINE [address] [place], [place] [phone] Tammy Payan MD [address] [place], [place] [phone] Multiple joint pain Social History Tobacco Use [...] Description 03/17/2025 2:15 PM EDT Office Visit [facility] ADULT DENTAL [address] [place] [address] Curt-Estefany Aquino, DDS [address] [place] [address] 04/29/2025 10:00 AM EST Telemedicine [facility] MEDICINE [address] [place] [address] Catherine North RN 05/10/2025 10:45 AM EST Office Visit [facility] MEDICINE [address] [place] [address] Tammy Payan MD [address] [place] [address] 06/22/2025 11:30 AM EST Office Visit [facility] OPTOMETRY [address] [place] [address] Corrina Sanches, OD [address] [place] [address] documented as of this encounter Visit Diagnoses Diagnosis Multiple joint pain Pain in joint, multiple sites documented in this encounter Additional Health Concerns Assessment Noted Time PHQ-9 Depression Total Score: 6 01/23/20 24 10:06 AM EDT documented as of this encounter Care Teams Spa Experience Coordinator Relationship Specialty Start Date End Date Tammy Payan MD [address] [place] [address] PCP - General Family Medicine 06/09/20 documented as of this encounter
--- OUTSIDE RECORDS SUMMARY | 2025-03-15 19:38 | XMS_ITS | Encounter Summary ---
Author Organization [employer] Address [address] [place] [address] 7t [place] [address] Care Team Providers Care Retail Store Assistant Name Role Phone Tammy Payan MD Primary Care Provide r Reason for Referral * Consultation (Routine) - Closed Specialty Diagnoses / Procedures Referred By Contrikki t Referred To Contact Dermatology Diagnoses Atopic dermatitis in adult Acosta Burnett MD [address] [place] [address] Phone: tel: fax: [facility] [address] [place], [place] Phone: tel: fax: Referral ID Status Reason Start Date Expiration Date V isits Requested Visits Authorized [id number] Closed Specialty Services Required 12/24/2023 12/23/2024 1 1 Encounter Details Date Type Department Care Team (Late st Contact Info) Description 12/24/2023 Orders Only [facility] CHC MED & PEDS [address] [place], [place] [phone] Acosta Burnett MD [address] [place] [phone] Atopic dermatitis in adult (Primary Dx) Social [...] 2:15 PM EDT Office Visit [facility] ADULT DENTAL [address] [place] [address] Estefany Oconnor DDS [address] [place] [phone] 04/29/2025 10:00 AM EST Telemedicine [facility] MEDICINE [address] [place] [phone] Catherine North RN 05/10/2025 10:45 AM EST Office Visit [facility] MEDICINE [address] [place] [phone] Tammy Payan MD [address] [place] [phone] 06/22/2025 11:30 AM EST Office Visit [facility] OPTOMETRY [address], [place] [phone] Corrina Sanches, OD [address] [place] [address] Scheduled Referrals Name Type Priority Associated Diagnoses Order Schedule Referral to Dermatology Outpatient Referral Routine Atopic dermatitis in adult Expected: 12/24/2023 (Approximate), Expires: 12/23/2024 documented as of this encounter Visit Diagnoses Diagnosis Atopic dermatitis in adult- Primary documented in this encounter Care Teams Retail Store Assistant Relationship Specialty Start Date End Date Tammy Payan MD [address] [place] [address] PCP - General Family Medicine 06/09/20 documented as of this encounter
== END 2025-03-15 14:35 | disposition home or self-care (01) ==
LOC: HO.XRAY 14:34
PROVIDERS: Visit Provider Family Medicine
DX: M79.674 Pain in right toe(s) (principal); M79.675 Pain in left toe(s)
CPT/HCPCS: 36415; 73660; 84550; 85025; 85652; 86140

== ENCOUNTER → 2025-03-15 14:39 | Outpatient (BNV) | payer OTHER, SELFPAY | PROVIDERS: Visit Provider Radiology Diagnostic Radiology | DX: M79.675 Pain in left toe(s) (principal); M89.8X7 Other specified disorders of bone, ankle and foot; M79.674 Pain in right toe(s) | CPT/HCPCS: 73660 ==

== ENCOUNTER 2025-05-10 11:02 | Outpatient (AMB) | payer OTHER, SELFPAY ==
[2025-05-10 11:03] VITALS: BP 132/60; PULSE 57; TEMP 36.8; O2SAT 95; BMI 34.4
--- NOTE | 2025-05-10 11:03 | AM.OFFWIN_ITS ---
Intake Vital Signs 05/10/25 11:03 Height 5 ft 3 in Weight 194 lb BMI 34.4 BP 132/60 Blood Pressure Location Rt brachial Position Sitting Pulse 57 Pulse Source Pulse Oximeter Temp 98.2 F Temp Source Oral Pulse Oximetry (%) 95 Oxygen Delivery Method Room Air Intake Visit Reasons: EP both big toes not healing from tonails cut . Intake Note: pt presents with bilaterally big toe pain and non healing wounds after apparel sales leader Dr Thompson cut his toenails a couple weeks ago Patient Tobacco Use Status: Never used Tobacco Allergies No Known Allergies (No Known Allergies*) Allergy (Verified 05/10/25 11:14) Do you need a note to return to daycare/school/sports/work: No HPI HPI Comments History of Present Illness Details Patient declined shell maker lockstitch, prefers granddaughter to interpret for him. History of Present Illness - The patient is a 79-year-old male pres enting with persistent pain and swelling in his bilateral toes. - He has a history of ingrown toenails o n each foot, for which he underwent a procedure by a apparel sales leader, Dr. Thompson, on the 03/28/25. - The procedure involved toenail removal and the application of a solution to prevent regrowth. - For nearly a month and a half post-pro cedure, he has experienced consistent pain and swelling in the toes, which is exacerbated by colder weather. - He denies any purulent discharge from the sites. - He has been tested for gout in the [facility] with negative results. - Follow-up with the apparel sales leader has been challenging due to the patient's memory issues, which have led to scheduling conflicts; his next appointment is not until June 22. Review of Systems - Integumentary/Musculoskeletal: Reports persistent pain and swelling in bilateral toes. - General: Denies signs of infection suc h as purulent drainage. - Neurological: Patient's business development representative reports memory issues impacting scheduling. All systems reviewed and are unremarkable except as noted in HPI Physical Exam General: Cooperative, healthy appearing, comfortable, no acute distress and well developed Orientation: Patient oriented x3 Limitations: No limitations Head: Normal to inspection Ears: Hearing grossly normal bilaterally Nose: Normal External nose present Face and sinus: Normal facial exam Eyes: Appearance normal, both eyes and all related structures Neck: Normal visual inspection and Yes full ROM Respiratory: Normal respiratory effort and able to speak in complete sentences. Skin: No rashes or lesions noted Neuro: Patient oriented x3 Extremities: bilateral toes with TTP laternal great toe nails, no edema or erythema or warmth, scabs noted on lateral nails. full ROM and NVI bilat great toes. no TTP MTP or DIP bilateral. [facility] Medical History (Updated 05/10/25 @ 11:34 by Hyacinth Fontenot PA-C) Pain around toenail, right foot Ingrown toenail of both feet Bundle branch block, right Central sleep apnea Depression Elevated cholesterol Back pain HTN (hypertension) Arthritis Diabetes Surgical History History of colonoscopy Social History Alcohol intake: former Patient Tobacco Use Status: Never used Tobacco Physical Exam Vital Signs: Last Vital Signs Temp 98.2 F 05/10/25 11:03 Pulse 57 05/10/25 11:03 BP 132/60 05/10/25 11:03 Pulse Ox 95 05/10/25 11:03 Oxygen Delivery Method Room Air 05/10/25 11:03 BMI result Body Mass Index 34.4 Assessment & Plan Assessment & Plan (1) Ingrown toenail of both feet: Code(s): L60.0 - Ingrowing nail Plan: Patient was informed and verbally consented to the use of an ambient scribe for clinic note documentation during this visit. - The patient's toe pain is likely a complication from his recent podiatric procedure. - There are no signs of infection, so antibiotics are not indicated at this time. - The underlying cause may be a residual ingrown toenail that was not fully addressed vs other -Was able to obtain appt for pt tomorrow at 3:30pm with Dr Araiza at [facility] Podiatry, referral sent. (2) Pain around toenail, right foot: Code(s): M79.674 - Pain in right toe(s) Plan: as above (3) Pain around toenail, left foot: Code(s): M79.675 - Pain in left toe(s) Plan: as above Orders: Referrals Podiatry Referral L60.0 - Ingrowing nail, M79.674 - Pain in right toe(s), M79.675 - Pain in left toe(s) Coding Level of Care Code New Pt Level 3 (44482) Diagnoses Ingrown toenail of both feet L60.0 Pain around toenail, right foot M79.674 Pain around toenail, left foot M79.675
--- OUTSIDE RECORDS SUMMARY | 2025-05-10 14:28 | XMS_ITS | Encounter Summary ---
Author Organization [employer] Address [address] [facility] [address] [place] [address] Care Team Providers Care Library Cataloging Technician Name Role Phone Tammy Payan MD Primary Care Provide r Reason for Visit * Reason Comments Med Refill Encounter Details Date Type Department Care Team ([facility] st Contact Info) Description 06/15/[address] [facility] MEDICINE [address] [place], [place] [phone] Tammy Payan MD [address] [place], [place] [phone] Multiple joint pain Social History Tobacco Use [...] Care Team (Late st Contact Info) Description 06/10/2025 11:00 AM EST Office Visit [facility] MEDICINE [address] [place] [address] Tammy Payan MD [address] [place] [address] 06/22/2025 11:30 AM EST Office Visit [facility] OPTOMETRY [address] [place] [address] Myron, Corrina, OD [address] [place] [address] 08/26/2025 9:00 AM EDT Telemedicine [facility] MEDICINE [address] [place] [address] Catherine North RN documented as of this encounter Visit Diagnoses Diagnosis Multiple joint pain Pain in joint, multiple sites documented in this encounter Additional Health Concerns Assessment Noted Time PHQ-9 Depression Total Score: 6 01/23/20 24 10:06 AM EDT documented as of this encounter Care Teams Library Cataloging Technician Relationship Specialty Start Date End Date Tammy Payan MD [address] [place] [id number] PCP - General Family Medicine 06/09/20 documented as of this encounter
--- OUTSIDE RECORDS SUMMARY | 2025-05-10 14:28 | XMS_ITS | Encounter Summary ---
Author Organization [employer] Address [address] [facility] [address] [place] [address] Care Team Providers Care Coding File Clerk Name Role Phone Tammy Payan MD Primary Care Provide r Reason for Visit * Reason Comments Med Refill Encounter Details Date Type Department Care Team ([facility] st Contact Info) Description 03/28/2023 Refill [facility] MEDICINE [address] [place], [place] [phone] Tammy Payan MD [address] [place], [place] [phone] Other chronic pain Social History Tobacco Use [...] Description 06/10/2025 11:00 AM EST Office Visit [facility] MEDICINE [address] [place] [address] Tammy Payan MD [address] [place] [address] 06/22/2025 11:30 AM EST Office Visit [facility] OPTOMETRY [address] [place] [address] Myron, Corrina, OD [address] [place] [address] 08/26/2025 9:00 AM EDT Telemedicine [facility] MEDICINE [address] [place] [address] Catherine North RN documented as of this encounter Visit Diagnoses Diagnosis Other chronic pain documented in this encounter Care Teams Coding File Clerk Relationship Specialty Start Date End Date Tammy Payan MD [address] [place] [address] PCP - General Family Medicine 06/09/20 documented as of this encounter
--- OUTSIDE RECORDS SUMMARY | 2025-05-10 14:28 | XMS_ITS | Patient Health Record ---
Author Organization [facility] Address [address] [place] [address] Care Team Providers Care Linux Network Administrator Name Role Phone May Noble Primary Care Provider Matthew Carlin [phone] Reason For Referral No Information Medications Medication SIG (Take, Route, Frequency, Duration) Notes Start Date End Date Status MiraLax (colon prep) 8.3 ounce (238) grams Powder mixed with Gatorade or Crystal Light orally begin at 5:00 p.m. the day before the procedure; Duration: 1 day 09/22/2016 Active Dulcolax (colon prep) 5 MG Tablet Delayed Release take at 3:00 p.m and 7:00p.m. Orally two tablets twice a day for one day; Duration: 1 day 09/22/2016 Active Lisinopril Active Atorvastatin Calcium Active Aspir-81 Active traMADol HCl Active Social History Social History Additional Details Category Social Info Options Details Miscellaneous: Marital status: single Occupation: retired Section Notes: Nonsmoker; no sig alcohol Problems Problem Type SNOMED Code ICD Code Onset Dates Problem Status W/U Status Risk Notes Problem Screening for malignant neoplasm of colon (393572243) Encounter for screening for malignant neoplasm of colon (Z12.11) Active confirmed Problem Screening for malignant neoplasm of rectum (019600233) Encounter for screening for malignant neoplasm of rectum (Z12.12) Active confirmed Problem Constipation (48250664) Constipation, unspecified constipation type (K59.00) Active confirmed Plan Of Treatment Future Test Test Name Order Date COLONOSCOPY 09/19/2016 Insurance Providers Payer Name Payer Address Payer Phone Subscriber Number Group Number Insured Name Patient Relationship to Insured Coverage Start Date Coverage End Date [facility] [address] [place] [address] [id number] SHAHEEN AMAYA Self - patient is the insured Medical (General) History Medical History History ICD Code Colonoscopy 11/05/2004--mild sigmoid div erticulosis and internal hemorrhoids Hypertension Hypercholesterolemia Arthritis--back/arms Denies HI,DM,CVA,Lung disease,renal dise ase Sleep apnea--uses CPAP EGD in 1999--mild reflux, gastritis with H.pylori Surgical History Surgery Date(Month/Year) Oral surgery 08/2016
--- OUTSIDE RECORDS SUMMARY | 2025-05-10 14:29 | XMS_ITS | Encounter Summary ---
Author Organization [employer] Address [address] [facility] [address] [place] [address] Care Team Providers Care Car Ferry Master Name Role Phone Tammy Payan MD Primary Care Provide r Encounter Details Date Type Department Care Team (Latest Contact Info) Description 04/08/2022 Abstract [facility] CONVERSIONS Dental, Provider, DDS Social History [...] 11:00 AM EST Office Visit [facility] MEDICINE [address] [place] [address] Tamym Payan MD [address] [place] [address] 06/22/2025 11:30 AM EST Office Visit [facility] OPTOMETRY [address] [place] [address] Corrina Sanches, OD [address] [place] [address] 08/26/2025 9:00 AM EDT Telemedicine [facility] MEDICINE [address] [place] [address] Catherine North, ALLI documented as of this encounter Visit Diagnoses Not on filedocumented in this encounter Care Teams Car Ferry Master Relationship Specialty Start Date End Date Tammy Payan MD [address] [place] [address] PCP - General Family Medicine 06/09/20 documented as of this encounter
--- OUTSIDE RECORDS SUMMARY | 2025-05-10 14:29 | XMS_ITS | Clinical Summary ---
Author Organization [employer] Address [address] [facility] [address] [place] [address] Care Team Providers Care Handle Sander Operator Name Role Phone Tammy Payan MD Primary [...] IN THE EVENING FOR RASH on penis taiwanese 60 g 2 023 Active calcipotriene (Dovonex) [...] 024 Active Blood Glucose Monitoring Suppl (FreeStyle [place] Lite) w/Device kit TEST BLOOD SUGAR EVERY [...] split. 30 tablet 11 025 2025 Active acetaminophen (Tylenol) 500 MG tabletIndicatio ns:Chronic bilateral low back pain with bilateral sciatica Take 2 tablets (1,000 mg) by mouth every 8 (eight) hours if needed for moderate pain or fever for up to 25 doses. 50 tablet 025 Active glucose blood (FREESTYLE LITE) test stripIndication s:Psoriasis TEST BLOOD SUGAR EVERY DAY DIRECTED 100 strip 5 025 Active naloxone (Narcan) 4 mg/0.1 mL nasal sprayIndication s:Multiple joint pain FOR SUSPECTED OPIOID OVERDOSE. SPRAY 0.1mL IN ONE NOSTRIL. REPEAT IN ALTERNATE NOSTRIL 2-3 MINUTES IF NEEDED. SEEK MEDICAL ATTENTION IMMEDIATELY EVEN IF PATIENT RESPONDS. 2 each 2 025 Active triamcinolone (Kenalog) 0.1 % creamIndication s:Pruritus,Derm atitis, unspecified,Pru ritus Apply topically if needed in the morning and at bedtime (pain and swelling). 80 g 3 025 Active atorvastatin (Lipitor) 10 MG tablet Take 1 tablet (10 mg) by mouth at bedtime. 90 tablet 3 04/19/20 25 11:15 AM EST 025 Active fluticasone-girish meterol (Advair) 230-21 MCG/ACT inhaler INHALE 2 PUFFS DOS VECES AL D A Active omeprazole (PriLOSEC) [address] capsule TAKE 1 CAPSULE BY MOUTH EVERY DAY BEFORE BREAKFAST. DO NOT BREAK, CRUSH, DISSOLVE OR CHEW Active sertraline (Zoloft) 50 MG tablet sertraline 50 mg tablet Active TRUEplus Lancets 33G miscIndications :Type 2 diabetes mellitus with hyperglycemia, without long-term current use of insulin (HCC) USE DIRECTED TO TEST BLOOD SUGAR EVERY DAY 100 each 11 025 Active D3 Super Strength 50 MCG (1999 UT) capsuleIndicati ons:Vitamin D deficiency TAKE 1 CAPSULE BY MOUTH EVERY DAY 90 capsule 3 025 Active Melatonin Maximum Strength 5 MG tablet TOME 1 TABLETA POR V A ORAL DOS VECES AL D A CUANDO SEA NECESARIO 025 Active miconazole (Micotin) 2 % cream Apply topically. Active folic acid (Folvite) 1 MG tabletIndicatio ns:Atopic dermatitis in adult TAKE 1 TABLET BY MOUTH EVERY DAY 30 tablet 11 04/19/20 25 11:16 AM EST 025 Active triamcinolone (Kenalog) 0.5 % ointment Apply topically 2 times daily. 30 g 025 2025 Active doxepin (SINEquan) 10 MG capsuleIndicati ons:Pruritus TAKE 1 CAPSULE BY MOUTH EVERY DAY AT BEDTIME 30 capsule 1 04/19/20 25 11:15 AM EST 025 Active gabapentin (Neurontin) 400 MG capsule TAKE 1 CAPSULE BY MOUTH AT BEDTIME 30 capsule 1 04/19/20 25 11:15 AM EST 025 Active traMADol (Ultram) 50 MG tabletIndicatio ns:Multiple joint pain TAKE 1 TABLET BY MOUTH EVERY TWELVE HOURS NEEDED FOR SEVERE PAIN 56 tablet 04/19/20 25 11:15 AM EST 025 Active Diclofenac Sodium 1 % gelIndications: Pain of left great toe,Pain of right great toe APPLY TOPICALLY TO THE AFFECTED AREA(S) OF TOES 2 GRAMS UP TO FOUR TIMES DAILY NEEDED 100 g 1 025 Active amLODIPine (Norvasc) 5 MG tablet TAKE 1 TABLET BY MOUTH EVERY DAY 90 tablet 1 025 Active amLODIPine (Norvasc) 5 MG tablet TAKE 1 TABLET BY MOUTH EVERY DAY 90 tablet 1 025 2024 Discontinued traMADol (Ultram) 50 MG tabletIndicatio ns:Multiple joint pain TAKE 1 TABLET BY MOUTH EVERY TWELVE HOURS NEEDED FOR SEVERE PAIN 56 tablet 025 2024 Discontinued Diclofenac Sodium 1 % gelIndications: Pain of left great toe,Pain of right great toe Apply to both great toes as needed up to 4x/day 100 g 1 025 2024 Discontinued Active Problems Problem Noted Date Diagnosed Date Balanitis 05/02/2025 Headache 05/02/2025 Tension headache 05/02/2025 HTN (hypertension) 05/02/2025 Overview (05/02/2025): follows w/[facility] Atypical chest pain 05/02/2025 Musculoskeletal chest pain 05/02/2025 MIRIAM (obstructive sleep apnea) 05/02/2025 Long-term current use of opiate analgesic 2024 COVID-19 11/01/2024 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) 11/01/2024 Subconjunctival hemorrhage 11/01/2024 [...] AM EDT): Acetaminophen PRN, lease consult with herb counselor about CPAP machine Dermatitis 03/28/2023 Class 1 [...] 07/20/2012 Restrictive lung disease 07/20/2012 Morbid obesity ([facility]/HCC) 05/15/2012 Depressive disorder 03/30/2012 Obstructive sleep apnea syndrome 03/30/2012 Assessment & Plan (03/28/2023 10:42 AM EDT): F/u with specialist Assessment & Plan (01/01/2023 9:36 AM EDT): Patient follows with pulmonary, he reports his asthma medications where adjusted and he feels better, he also reports herb counselor ordered again his CPAP and he is [...] Encounters Date Type Department Care Team Description 05/10/[address] [phone] Tammy Payan MD Durable Medical Equipment 05/09/[address] [address] Tammy Payan MD Chart Prep 05/03/2025 Orders Only [address] [address] Tammy Payan MD 05/03/[address] [address] Tammy Payan MD Durable Medical Equipment (DME: Power Recliner, Diabetic Shoes) 05/02/2025 9:30 AM EST Office Visit [facility] [address] [place] [phone] Elias-Aquino, Estefany, DDS Partially edentulous mandible, class I edentulism (Primary Dx); Edentulous maxilla 04/29/2025 10:00 AM EST Telemedicine [address] [phone] Catherine North RN Long-term current use of opiate analgesic 04/29/2025 Patient Outreach [address] [address] Tammy Payan MD Pre-visit Planning (SDOH screening negative and tobacco screening negative) 04/29/2025 Telephone [facility] [address] [place] [phone] Catherine North RN MULE DEVELOPER Agreement renewed 04/29/2025 Travel 04/26/2025 Refill [facility] [address] [place] [phone] Mali Ward MD 04/17/2025 Refill [facility] [address] [place] [phone] Rommel Leon MD Pain of left great toe; Pain of right great toe 04/15/2025 Refill [facility] [address] [place] [id number] Tammy Payan MD Multiple joint pain 04/14/[address] [address] Catherine North RN Renewal forms 04/06/2025 Refill [facility] [address] [place] [phone] Tammy Payan MD Pruritus 03/25/2025 11:00 AM EDT Office Visit [facility] [address] [place] [phone] Rommel Leon MD Pain of left great toe (Primary Dx); Pain of right great toe 03/25/2025 Telephone [facility] [address] [place] [phone] Rommel Leon MD 03/25/2025 Travel 03/25/2025 Refill [facility] [address] [place] [phone] Tammy Payan MD 03/23/[address] [address] Tammy Payan MD Call Back Request 03/17/2025 2:15 PM EDT Office Visit [facility] [address] [place] [phone] Elias-Aquino, Estefany, DDS Partially edentulous mandible, class I edentulism (Primary Dx); Edentulous maxilla 03/15/2025 Orders Only [facility] [address] [place] [phone] Suzan Loo MD 03/15/2025 Results Follow-Up [address] [address] Suzan Loo MD XR Toes 2+ Views Right, CBC auto differential, C-reactive Protein, Additional followed-up results: 2 03/14/2025 3:45 PM EDT Office Visit [facility] [address] [place] [address] Suzan Loo MD Pain in toes of both feet (Primary Dx); Ingrown toenail; Encounter for immunization 03/14/2025 Travel 03/14/[address] [address] Tammy Payan MD Nurse Triage 03/14/2025 Refill [facility] [address] [place] [address] Tammy Payan MD Multiple joint pain 03/10/2025 Refill [facility] [address] [place] [address] Acosta Burnett MD Atopic dermatitis in adult 03/09/2025 8:30 AM EDT Office Visit [facility] [address] [place] [address] Elias-Aquino, Estefany, DDS Partially edentulous mandible, class I edentulism (Primary Dx); Edentulous maxilla 02/17/2025 3:00 PM EDT Office Visit [facility] [address] [place] [address] Myron, Corrina, OD Meibomian gland disease, unspecified laterality (Primary Dx) 02/17/2025 Travel 02/16/2025 9:00 AM EDT Office Visit [facility] [address] [place] [address] Elias-Aquino, Estefany, DDS Edentulous maxilla (Primary Dx); Partially edentulous mandible, class I edentulism 02/10/2025 Refill [facility] [place] [address] Tammy Payan MD Vitamin D deficiency from Last 3 Months Immunizations Immunization Administration [...] (adult), unspecified 12/21/2008 Tdap 03/30/2012 Zoster, Recombinant 09/02/2023, 3,04/28/2020,02/20 Social History Tobacco Use Types Packs/Day Years [...] housing situation today? I have marvin trevino 04/29/[address] you li ve. Do you have problems with any of the following? None of the above 04/29/2025 Food Insecurity Answer Date Recorded Within the past 12 months, y ou worried that your food would run out before you got money to buy more: Never True 04/29/2025 Within the past 12 months,th e food you bought just didn't last and you didn't have enough money to get more: Never True 09/2024 Transportation Answer Date Recorded In the past 12 months, has l ack of transportation kept you from medical appts, meetings, work or from getting things needed for daily living? No 04/29/2025 Utilities Answer Date Recorded In the past 12 months, has t he electric, gas, oil or water company threatened to shut off services in your home? No 04/29/2025 Depression Answer Date Recorded Patient Health Questionnaire-2 Score 2 01/23/2024 Internet Access Answer Date Recorded Internet Access Q1 Yes 04/29/2025 Internet Access Q2 Not on file 04/29/2025 Sex and Gender Information Value Date Recorded Sex Assigned at Male 03/25/2022 10:15 AM EDT Legal Sex Male 10:15 AM EDT Gender Identity Male 03/25/2022 10:15 AM EDT Sexual Orientation Choose not to disclose 2021 10:15 AM EDT Last Filed Vital Signs Vital Sign Reading Time Taken Comments Blood Pressure 110/78 05/02/2025 8:39 AM EST Pulse 69 03/25/2025 10:51 AM EDT Temperature 36.6 C (97.9 F) 03/25/2025 10:51 AM EDT Respiratory Rate 16 03/25/2025 10:51 AM EDT Oxygen Saturation 97% 03/25/2025 10:51 AM EDT Inhaled Oxygen Concentration - - Weight 86.6 kg (191 lb) 03/25/2025 10:51 AM EDT Height 162.6 cm (5' 4 ) 08/10/2024 10:07 AM EDT Body Mass Index 32.79 08/10/2024 10:07 AM EDT Plan of Treatment Upcoming Encounters Date Type Department Care Team (Late st Contact Info) Description 06/10/2025 11:00 AM EST Office Visit [facility] [address] [place] [address] Tammy Payan MD [address] [place] [address] 06/22/2025 11:30 AM EST Office Visit [facility] [address] [place] [address] Corrina Sanches, OD [address] [place] [address] 08/26/2025 9:00 AM EDT Telemedicine [facility] [address] [place], [place] [phone] Catherine North, ALLI Health Maintenance Due Date Last Done Comments Anal Pap 1946 Dental X-Ray: Bitewings 1946 Dental X-Ray: Full Mouth 1946 Alcohol/Substance Use Screening 1958 Hepatitis A Vaccines (1 of 2 - Risk 2-dose series) 1965 Hepatitis B Vaccines (1 of 3 - Risk 3-dose series) 2006 DTaP/Tdap/Td Vaccines (2 - Td or Tdap) 03/30/2022 03/30/2012, 12/21/2008, 05/27/2008, Additional history exists Diabetes: Foot Exam 10/12/2023 10/11/2022, 10/11/2022, 10/11/2022, Additional history exists Lipid Panel 10/28/2024 10/29/2023, 07/24, 02/15/2021, Additional history exists Diabetes: Hemoglobin A1C 01/19/202507/22/2 025, 04/21/2024, 12/16/2023, Additional history exists Depression Screening 01/22/2025 01/23/2024, 01/23/20 Dental Prophylaxis 05/04/2025 11/01/2024, 12/02/2023 Dental Oral Exam 05/05/2025 11/02/2024, 12/02/2023 COVID-19 Vaccine ( season) 2025 03/14/2025, 04/21/2024, 02/22/2021, Additional history exists SDOH Screening 04/29/2026 04/29/2025 Tobacco Screening 05/02/2026 05/02/2025 Eye Exam 12/09/2026 12/09/2024, 11/23, 12/09/2024, Additional history exists Hepatitis C Screening Completed 08/08/2022, 020 Pneumococcal Vaccine: 50+ Years Completed 10/11/2022, 07/23/2019, 01/24/2000 RSV Patients and Patients Aged 60 years or older Completed 09/02/2023 Zoster Vaccines Completed 09/02/2023, 03/27, 04/28/2020, Additional history exists Influenza Vaccine Completed 03/14/2025, [...] on patient's age to complete this topic Goals Goal Patient Goal Type Associated Problems Recent Progress Patient-Stated? Author Help patients manage their type 2 diabetes Care Plan Help patients manage their type 2 diabetes Catherine Cartagena RN Weekly blood pressure task Care Plan Weekly blood pressure task No Catherine North RN Help patients manage their type 2 diabetes Care Plan Help patients manage their type 2 diabetes Catherine Cartagena RN Patient has chronic kidney disease Care Plan Patient has chronic kidney disease No Catherine North RN Help patients manage their type 2 diabetes Care Plan Help patients manage their type 2 diabetes Catherine Cartagena RN Patient has diabetic neuropathy Care Plan Patient has diabetic neuropathy Catherine Cartagena RN Weekly blood pressure task Care Plan Weekly blood pressure task No Catherine North RN Weekly blood pressure task Care Plan Weekly blood pressure task No Catherine North RN Patient has chronic kidney disease Care Plan Patient has chronic kidney disease Catherine Cartagena RN Patient has chronic kidney disease Care Plan Patient has chronic kidney disease No Catherine North RN Patient has diabetic neuropathy Care Plan Patient has diabetic neuropathy No Cahterine North RN Patient has diabetic neuropathy Care Plan Patient has diabetic neuropathy No Catherine North RN Weekly blood pressure task Care Plan Weekly blood pressure task No Catherine North RN Weekly blood pressure task Care Plan Weekly blood pressure task No Catherine North RN Weekly blood pressure task Care Plan Weekly blood pressure task No Catherine North RN Patient has chronic kidney disease Care Plan Patient has chronic kidney disease No Catherine North RN Patient has chronic kidney disease Care Plan Patient has chronic kidney disease No Catherine North RN Patient has chronic kidney disease Care Plan Patient has chronic kidney disease No Catherine North RN Patient has diabetic neuropathy Care Plan Patient has diabetic neuropathy No Catherine North RN Patient has diabetic neuropathy Care Plan Patient has diabetic neuropathy No Catherine North RN Patient has diabetic neuropathy Care Plan Patient has diabetic neuropathy No Catherine North RN Weekly blood pressure task Care Plan Weekly blood pressure task No Catherine North RN Weekly blood pressure task Care Plan Weekly blood pressure task No Catherine North RN Weekly blood pressure task Care Plan Weekly blood pressure task No Catherine North RN Patient has chronic kidney disease Care Plan Patient has chronic kidney disease No Catherine North RN Patient has chronic kidney disease Care Plan Patient has chronic kidney disease No Catherine North RN Patient has chronic kidney disease Care Plan Patient has chronic kidney disease No Catherine North RN Patient has diabetic neuropathy Care Plan Patient has diabetic neuropathy No Catherine North RN Patient has diabetic neuropathy Care Plan Patient has diabetic neuropathy No Catherine North RN Patient has diabetic neuropathy Care Plan Patient has diabetic neuropathy No Catherine North RN Weekly blood pressure task Care Plan Weekly blood pressure task No Catherine North RN Weekly blood pressure task Care Plan Weekly blood pressure task No Catherine North RN Weekly blood pressure task Care Plan Weekly blood pressure task No Catherine North RN Patient has chronic kidney disease Care Plan Patient has chronic kidney disease No Catherine North RN Patient has chronic kidney disease Care Plan Patient has chronic kidney disease No Catherine North RN Patient has chronic kidney disease Care Plan Patient has chronic kidney disease No Catherine North RN Patient has diabetic neuropathy Care Plan Patient has diabetic neuropathy No Catherine North, RN Patient has diabetic neuropathy Care Plan Patient has diabetic neuropathy No Catherine North RN Patient has diabetic neuropathy Care Plan Patient has diabetic neuropathy No Catherine North RN Weekly blood pressure task Care Plan Weekly blood pressure task No Terri Richelle Weekly blood pressure task Care Plan Weekly blood pressure task No Terri Richelle Weekly blood pressure task Care Plan Weekly blood pressure task No Terri Richelle Patient has chronic kidney disease Care Plan Patient has chronic kidney disease No Terri Richelle Patient has chronic kidney disease Care Plan Patient has chronic kidney disease No Terri Richelle Patient has chronic kidney disease Care Plan Patient has chronic kidney disease No Terri Richelle Patient has diabetic neuropathy Care Plan Patient has diabetic neuropathy No Terri Richelle Patient has diabetic neuropathy Care Plan Patient has diabetic neuropathy No Terri Richelle Patient has diabetic neuropathy Care Plan Patient has diabetic neuropathy No Richelle Murray Weekly blood pressure task Care Plan Weekly blood pressure task No Elias-Aquino , Estefany, DDS Weekly blood pressure task Care Plan Weekly blood pressure task No Elias-Aquino , Estefany, DDS Weekly blood pressure task Care Plan Weekly blood pressure task No Elias-Aquino , Estefany, DDS Patient has chronic kidney disease Care Plan Patient has chronic kidney disease No Elias-Aquino , Estefany, DDS Patient has chronic kidney disease Care Plan Patient has chronic kidney disease No Elias-Aquino , Estefany, DDS Patient has chronic kidney disease Care Plan Patient has chronic kidney disease No Elias-Aquino , Estefany, DDS Patient has diabetic neuropathy Care Plan Patient has diabetic neuropathy No Elias-Aquino , Estefany, DDS Patient has diabetic neuropathy Care Plan Patient has diabetic neuropathy No Elias-Aquino , Estefany, DDS Patient has diabetic neuropathy Care Plan Patient has diabetic neuropathy No Elias-Aquino , Estefany, DDS Weekly blood pressure task Care Plan Weekly blood pressure task No Colon Nury Villa Weekly blood pressure task Care Plan Weekly blood pressure task No Colon Nury Villa Weekly blood pressure task Care Plan Weekly blood pressure task No Nury Ochoa Patient has chronic kidney disease Care Plan Patient has chronic kidney disease No Nury Ochoa Patient has chronic kidney disease Care Plan Patient has chronic kidney disease No Colon [place] Patient has chronic kidney disease Care Plan Patient has chronic kidney disease No Colon N[place] Patient has diabetic neuropathy Care Plan Patient has diabetic neuropathy No Nury [place]a Patient has diabetic neuropathy Care Plan Patient has diabetic neuropathy No Colon N[place] Patient has diabetic neuropathy Care Plan Patient has diabetic neuropathy No Nury [place]a Weekly blood pressure task Care Plan Weekly blood pressure task No Tammy Payan MD Weekly blood pressure task Care Plan Weekly blood pressure task No Tammy Payan MD Weekly blood pressure task Care Plan Weekly blood pressure task No Tammy Payan MD Patient has chronic kidney disease Care Plan Patient has chronic kidney disease No Tammy Payan MD Patient has chronic kidney disease Care Plan Patient has chronic kidney disease No Tammy Payan MD Patient has chronic kidney disease Care Plan Patient has chronic kidney disease No Tammy Payan MD Patient has diabetic neuropathy Care Plan Patient has diabetic neuropathy No Tammy Payan MD Patient has diabetic neuropathy Care Plan Patient has diabetic neuropathy No Tammy Payan MD Patient has diabetic neuropathy Care Plan Patient has diabetic neuropathy No Tammy Payan MD Weekly blood pressure task Care Plan Weekly blood pressure task No Tammy Payan MD Weekly blood pressure task Care Plan Weekly blood pressure task No Tammy Payan MD Weekly blood pressure task Care Plan Weekly blood pressure task No Tammy Payan MD Patient has chronic kidney disease Care Plan Patient has chronic kidney disease No Tammy Payan MD Patient has chronic kidney disease Care Plan Patient has chronic kidney disease No Tammy Payan MD Patient has chronic kidney disease Care Plan Patient has chronic kidney disease No Tammy Payan MD Patient has diabetic neuropathy Care Plan Patient has diabetic neuropathy No Tammy Payan MD Patient has diabetic neuropathy Care Plan Patient has diabetic neuropathy No Tammy Payan MD Patient has diabetic neuropathy Care Plan Patient has diabetic neuropathy No Tammy Payan MD Weekly blood pressure task Care Plan Weekly blood pressure task No Amy Truong MA Weekly blood pressure task Care Plan Weekly blood pressure task No Amy Truong MA Weekly blood pressure task Care Plan Weekly blood pressure task No Amy Truong [place] Patient has chronic kidney disease Care Plan Patient has chronic kidney disease No Amy Truong [place] Patient has chronic kidney disease Care Plan Patient has chronic kidney disease No Amy Truong [place] Patient has chronic kidney disease Care Plan Patient has chronic kidney disease No Amy Truong [place] Patient has diabetic neuropathy Care Plan Patient has diabetic neuropathy No Amy Truong [place] Patient has diabetic neuropathy Care Plan Patient has diabetic neuropathy No Amy Truong [place] Patient has diabetic neuropathy Care Plan Patient has diabetic neuropathy No Amy Truong MA Weekly blood pressure task Care Plan Weekly blood pressure task No Lamonte Diane Weekly blood pressure task Care Plan Weekly blood pressure task No Lamonte Diane Weekly blood pressure task Care Plan Weekly blood pressure task No Lamonte Diane Patient has chronic kidney disease Care Plan Patient has chronic kidney disease No Lamonte Diane Patient has chronic kidney disease Care Plan Patient has chronic kidney disease No Lamonte Diane Patient has chronic kidney disease Care Plan Patient has chronic kidney disease No Lamonte Diane Patient has diabetic neuropathy Care Plan Patient has diabetic neuropathy No Lamonte Diane Patient has diabetic neuropathy Care Plan Patient has diabetic neuropathy No Lamonte Diane Patient has diabetic neuropathy Care Plan Patient has diabetic neuropathy No Lamonte Diane Procedures Procedure Name Priority Date/Time Associated Diagnosis Comments CASE PRESENTATION, DETAILED AND EXTENSIVE TREATMENT PLANNING Routine 05/02/2025 9:30 AM EST Partially edentulous mandible, class I edentulism Edentulous maxilla 30,31,18,19 MANDIBULAR PARTIAL DENTURE - CAST METAL FRAMEWORK WITH RESIN DENTURE BASES (INCLUDING RETENTIVE/CLASPING MATERIALS, RESTS AND TEETH) Routine 05/02/2025 9:30 AM EST Partially edentulous mandible, class I edentulism Edentulous maxilla Max COMPLETE DENTURE - MAXILLARY Routine 05/02/2025 9:30 AM EST Partially edentulous mandible, class I edentulism Edentulous maxilla WAX TRY IN Routine 03/17/2025 2:15 PM EDT Partially edentulous mandible, class I edentulism Edentulous maxilla URIC ACID Routine 03/15/2025 3:28 PM EDT [...] maxilla Partially edentulous mandible, class I edentulism PERIODIC ORAL EVALUATION - ESTABLISHED PATIENT Routine 11/02/2024 9:30 AM EDT Encounter for dental examination Dental caries PROPHYLAXIS - ADULT Routine 11/01/2024 9 :00 AM EDT Gingival bleeding Dental calculus Missing teeth, acquired POCT GLYCATED HEMOGLOBIN, TOTAL Routine 07/22/2024 10:10 AM EST Type 2 diabetes mellitus with hyperglycemia, without long-term current use of insulin (CMS/HCC) LIPID PANEL, STANDARD Routine 10/29/2023 9:36 AM EDT Type 2 diabetes mellitus with hyperglycemia, without long-term current use of insulin (CMS/HCC) Primary hypertension HEPATITIS C AB W/RFL RNA, PCR W/RFL GENOTYPE,LIPA Routine 08/08/2022 9:33 AM EDT Penile lesion from Last 3 Months or Most Recently Relevant to Health Maintenance Results * (ABNORMAL) CBC auto differential (03/15/2025 3:28 PM EDT) White Blood Count 5.3 4.8 - 10.8 X10*3/uL [facility] Red Blood Count 5.46 4.60 - 5.80 X10*6/uL [facility] Hemoglobin 14.7 14.0 - 18.0 g/dl [facility] Hematocrit 45.7 42.0 - 52.0 % [facility] Mean Corpuscular Volume 83.7 80.0 - 98.0 fL [facility] Mean Corpuscular Hemoglobin 26.9(L) 27.0 - 33.0 pg [facility] Mean Corpuscular HGB Conc 32.2 31.0 - 36.0 g/dl [facility] Red Cell Distribution Width 14.6 11.0 - 16.0 % [facility] Platelet Count 124(L) 160 - 400 X10*3/uL [facility] Mean Platelet Volume 10.0 9.4 - 12.4 fL [facility] Neutrophils Percent Auto 43.6(L) 45 - 73 % [facility] Imm Gran Pct Auto 0.4 0.0 - 0.4 % [facility] Lymphocytes Percent Auto 43.1(H) 20 - 40 % [facility] Monocytes Percent Auto 10.9 2 - 11 % [facility] Eosinophils Percent Auto 1.3 0 - 4 % [facility] Basophils Percent Auto 0.7 0 - 2 % [facility] NRBC Pct Auto 0.0 0.0 - 0.2 /100WBC [facility] Neutrophils Absolute Auto 2.3 2.0 - 8.3 x10*3/uL [facility] Imm Gran Abs Auto 0.02 0.00 - 0.03 X10*3/uL [facility] Lymphocytes Absolute Auto 2.3 1.2 - 4.9 X10*3/uL [facility] Monocytes Absolute Auto 0.6 0.1 - 1.2 X10*3/uL [facility] Eosinophils Absolute Auto 0.1 0.0 - 0.4 X10*3/uL [facility] Basophils Absolute Auto 0.0 0.0 - 0.2 X10*3/uL [facility] NRBC Abs Auto 0.000 0.0 - 0.012 X10*3/uL [facility] Blood Venous blood specimen / Unknown 03/15/2025 3:28 PM EDT 03/15/2025 3:28 PM EDT Suzan Loo MD LAB BLOOD ORDERABLES Final Resul t Performing Organization Address City/[facility]/ZIP Co de Phone Number [facility] [address] [place] [phone] * Sed Rate by Modified Westergren (03/15/2025 3:28 PM EDT) Erythrocyte Sedimentation Rate 5 0 - 15 MM/HR [facility] Comment:Patients with polycy themia and many hemoglobin abnormalitiesmay have depressed sed rates whereas patients with anemiamay have elevated sed rates. Blood Venous blood specimen / Unknown 03/15/2025 3:28 PM EDT 03/15/2025 3:28 PM EDT Suzan Loo MD LAB BLOOD ORDERABLES Final Resul t Performing Organization Address City/[facility]/ZIP Co de Phone Number [facility] [address] [place] [phone] * C-reactive Protein (03/15/2025 3:28 PM EDT) C Reactive Protein 0.14 < or = 0.50 mg/dL [facility] Blood Venous blood specimen / Unknown 03/15/2025 3:28 PM EDT 03/15/2025 3:28 PM EDT Suzan Loo MD LAB BLOOD ORDERABLES Final Resul t Performing Organization Address [facility] Co de Phone Number [facility] [address] [place] [phone] * Uric acid (03/15/2025 3:28 PM EDT) Uric Acid 6.0 3.4 - 7.0 mg/dL [facility] Blood Venous blood specimen / Unknown 03/15/2025 3:28 PM EDT 03/15/2025 3:28 PM EDT us Suzan Loo MD LAB BLOOD ORDERABLES Final Resul t Performing Organization Address [facility] Co de Phone Number [facility] [address] [place] [phone] * XR Toes 2+ Left (03/15/2025 2:50 PM EDT) Anatomical Region Laterality Modality Lower Extremities, Toes Left Radiogra phic Imaging 03/15/2025 2:50 PM EDT Narrative 03/15/2025 3:01 PM EDT [address] [address] XRay Report Signed Patient: Osorio Castillo MR#: [id number] : 1945 Acct:[id number] Age/Sex: 79 / M ADM Date: 03/15/25 Loc: LISA Attending Dr: Suzan Loo MD Ordering Physician: Suzan Loo MD Date of Service: 03/15/25 Procedure(s): XR toe LT min 2V Accession Number(s): [id number] cc: Suzan Loo MD Reason for Exam: [...] signed by Matthew Hart MD in OV> 03/15/251458 DD/ 49 TD/TT: 03/15/251455 Construction Site Crossing Guard: Procedure Note Donotuseinterpreter, Image - 03/15/2025 [place] [address] XRay Report Signed Patient: Osorio Castillo JMR#: [id number] : 7Acct:[id number] Age/Sex: 79 / MADM Date: 03/15/25 Loc: LISA Attending Dr: Suzan Loo MD Ordering Physician: Suzan Loo MD Date of Service: 03/15/25 Procedure(s): XR toe LT min 2V Accession Number(s): [id number] cc: Suazn Loo MD Reason for Exam: big toe [...] Hart MD in OV> 03/15/25 1459 DD/ 49 TD/TT: 03/15/251455 Construction Site Crossing Guard: us Suzan Loo MD IMG XR PROCEDURES Final Result * XR Toes 2+ Views Right (03/15/2025 2:46 PM EDT) Anatomical Region Laterality Modality Lower Extremities, Toes Left [facility] 03/15/2025 2:46 PM EDT Narrative 03/15/2025 3:04 PM EDT [place] [address] XRay Report Signed Patient: Osorio Castillo MR#: [id number] : 1945 Acct:[id number] Age/Sex: 79 / M ADM Date: 03/15/25 Loc: HO.JONNY Attending Dr: Suzan Loo MD Ordering Physician: Suzan Loo MD Date of Service: 03/15/25 Procedure(s): XR toe RT min 2V Accession Number(s): [id number] cc: Suzan Loo MD Reason for Exam: [...] Fadi Cabrera MD 03/15/2025 03:01 PM EDT Dictated By: Fadi Cabrera MD Signed By: <Electronically signed by Fadi Cabrera MD in OV> 03/15/25 1501 DD/ 1446 TD/TT: 03/15/25 1456 Construction Site Crossing Guard: Procedure Note Donotuseinterpreter, Image - 03/15/[address] [address] XRay Report Signed Patient: Osorio Castillo JMR#: [id number] : 7Acct:[id number] Age/Sex: 79 / MADM Date: 03/15/25 Loc: HO.XRAY Attending Dr: Suzan Loo MD Ordering Physician: Suzan Loo MD Date of Service: 03/15/25 Procedure(s): XR toe RT min 2V Accession Number(s): [id number] cc: Suzan Loo MD Reason for Exam: [...] Fadi Cabrera MD 03/15/2025 03:01 PM EDT Dictated By: Fadi Cabrera MD Signed By: <Electronically signed by Fadi Cabrera MD in OV> 03/15/25 1501 DD/ 1446 TD/TT: 03/15/25 1456 Construction Site Crossing Guard: us Suzan Loo MD IMG XR PROCEDURES Final Result * POCT HGB A1C (07/22/2024 10:10 AM EST) Hemoglobin A1C 6.0 4.0 - 6.0 % QC Media Lot # [id number] Lot# Expiration Date ,840,593 Blood 07/22/2024 10:1 0 AM EST Tammy Pimentel MD POINT OF CARE TEST EN TER/EDIT ORDERABLES Final Result * Lipid Panel, Standard (10/29/2023 9:36 AM EDT) Triglycerides 77 <150 mg/dL [facility] Comment:Desirable Triglyceri de: less than 150 mg/dLBorderline High Triglyceride 150-199 mg/dLHigh Triglyceride: 200-499 mg/dLVery High Triglyceride: greater than or equal to 5OO mg/dL Cholesterol 117 <200 mg/dL [facility] Comment:Desirable Cholestero l: less than 200 mg/dLBorderline High Cholesterol: 200-239 mg/dLHigh Cholesterol: greater than 239 mg/dL LDL Cholesterol Calculated 57 <100 mg/dL [facility] Comment:Desirable LDL: less than 100 mg/dLNear Optimal/Above Optimal LDL: 110- 129 mg/dLBorderline High LDL: 130-159 mg/dLHigh LDL: 160-189 mg/dLVery High LDL: greater than or equal to 190 mg/dL HDL Cholesterol 45 >40 mg/dL [facility] Comment:Desirable HDL: great er than 40 mg/dL Note: This HDL assay may give artificially low results in patients with liver disease. Blood Venous blood specimen / Unknown 10/29/2023 9:36 AM EDT 10/29/2023 11:56 AM EDT us Tammy Pimentel MD LAB BLOOD ORDERABLES Final Result [facility] [address] [place] [phone] * Hepatitis C Antibody with Reflex to HCV RNA,PCR w/Reflex to Genotype, LiPA (08/08/2022 9:33 AM EDT) Hepatitis C Antibody NON-REACT VIJAYA NON-REACT VIJAYA [facility] Index 0.06 <1.00 [facility] [place] [facility] Comment: HCV antibody was non-reactive. There is no laboratory evidence of HCV infection. In most cases, no further action is required. However, if recent HCV exposure is suspected, a test for HCV RNA (test code 55276) is suggested. For additional information, please refer to http://education.[employer]/faq/DXO926 (This link is being provided for informational/ educational purposes only.) 08/08/2022 9:33 AM EDT 08/08/2022 9:34 AM EDT Narrative [facility] - 08/09/2022 6:44 PM EDT FASTING:UNKNOWN FASTING: UNKNOWN Salena Hutton DO LAB BLOOD ORDERABLES Final R esult [facility] [address], [place] [phone] [employer] [place] [employer] [address] [place] [phone] from Last 3 Months or Most Recently Relevant to Health Maintenance Additional Health Concerns Active Problems Noted Date Diagnosed Date Help patients manage their type 2 diabetes 04/14 Weekly blood pressure task 04/14/2025 Help patients manage their type 2 diabetes 04/14 Patient has chronic kidney disease 04/14/2025 Help patients manage their type 2 diabetes 04/14 Patient has diabetic neuropathy 04/14/2025 Weekly blood pressure task 04/14/2025 Weekly blood pressure task 04/14/2025 Patient has chronic kidney disease 04/14/2025 Patient has chronic kidney disease 04/14/2025 Patient has diabetic neuropathy 04/14/2025 Patient has diabetic neuropathy 04/14/2025 Weekly blood pressure task 04/14/2025 Weekly blood pressure task 04/14/2025 Weekly blood pressure task 04/14/2025 Patient has chronic kidney disease 04/14/2025 Patient has chronic kidney disease 04/14/2025 Patient has chronic kidney disease 04/14/2025 Patient has diabetic neuropathy 04/14/2025 Patient has diabetic neuropathy 04/14/2025 Patient has diabetic neuropathy 04/14/2025 Weekly blood pressure task 04/15/2025 Weekly blood pressure task 04/15/2025 Weekly blood pressure task 04/15/2025 Patient has chronic kidney disease 04/15/2025 Patient has chronic kidney disease 04/15/2025 Patient has chronic kidney disease 04/15/2025 Patient has diabetic neuropathy 04/15/2025 Patient has diabetic neuropathy 04/15/2025 Patient has diabetic neuropathy 04/15/2025 Weekly blood pressure task 04/29/2025 Weekly blood pressure task 04/29/2025 Weekly blood pressure task 04/29/2025 Patient has chronic kidney disease 04/29/2025 Patient has chronic kidney disease 04/29/2025 Patient has chronic kidney disease 04/29/2025 Patient has diabetic neuropathy 04/29/2025 Patient has diabetic neuropathy 04/29/2025 Patient has diabetic neuropathy 04/29/2025 Weekly blood pressure task 04/29/2025 Weekly blood pressure task 04/29/2025 Weekly blood pressure task 04/29/2025 Patient has chronic kidney disease 04/29/2025 Patient has chronic kidney disease 04/29/2025 Patient has chronic kidney disease 04/29/2025 Patient has diabetic neuropathy 04/29/2025 Patient has diabetic neuropathy 04/29/2025 Patient has diabetic neuropathy 04/29/2025 Weekly blood pressure task 05/02/2025 Weekly blood pressure task 05/02/2025 Weekly blood pressure task 05/02/2025 Patient has chronic kidney disease 05/02/2025 Patient has chronic kidney disease 05/02/2025 Patient has chronic kidney disease 05/02/2025 Patient has diabetic neuropathy 05/02/2025 Patient has diabetic neuropathy 05/02/2025 Patient has diabetic neuropathy 05/02/2025 Weekly blood pressure task 05/03/2025 Weekly blood pressure task 05/03/2025 Weekly blood pressure task 05/03/2025 Patient has chronic kidney disease 05/03/2025 Patient has chronic kidney disease 05/03/2025 Patient has chronic kidney disease 05/03/2025 Patient has diabetic neuropathy 05/03/2025 Patient has diabetic neuropathy 05/03/2025 Patient has diabetic neuropathy 05/03/2025 Weekly blood pressure task 05/03/2025 Weekly blood pressure task 05/03/2025 Weekly blood pressure task 05/03/2025 Patient has chronic kidney disease 05/03/2025 Patient has chronic kidney disease 05/03/2025 Patient has chronic kidney disease 05/03/2025 Patient has diabetic neuropathy 05/03/2025 Patient has diabetic neuropathy 05/03/2025 Patient has diabetic neuropathy 05/03/2025 Weekly blood pressure task 05/03/2025 Weekly blood pressure task 05/03/2025 Weekly blood pressure task 05/03/2025 Patient has chronic kidney disease 05/03/2025 Patient has chronic kidney disease 05/03/2025 Patient has chronic kidney disease 05/03/2025 Patient has diabetic neuropathy 05/03/2025 Patient has diabetic neuropathy 05/03/2025 Patient has diabetic neuropathy 05/03/2025 Weekly blood pressure task 05/09/2025 Weekly blood pressure task 05/09/2025 Weekly blood pressure task 05/09/2025 Patient has chronic kidney disease 05/09/2025 Patient has chronic kidney disease 05/09/2025 Patient has chronic kidney disease 05/09/2025 Patient has diabetic neuropathy 05/09/2025 Patient has diabetic neuropathy 05/09/2025 Patient has diabetic neuropathy 05/09/2025 Weekly blood pressure task 05/10/2025 Weekly blood pressure task 05/10/2025 Weekly blood pressure task 05/10/2025 Patient has chronic kidney disease 05/10/2025 Patient has chronic kidney disease 05/10/2025 Patient has chronic kidney disease 05/10/2025 Patient has diabetic neuropathy 05/10/2025 Patient has diabetic neuropathy 05/10/2025 Patient has diabetic neuropathy 05/10/2025 Insurance [facility]LY [facility] [employer] OPTIONS (O D-SNP) DENTAL - [facility] Care Teams Handle Sander Operator Relationship Specialty Start Date End Date Tammy Payan MD [address] [place] [address] PCP - General Family Medicine 06/09/20
--- OUTSIDE RECORDS SUMMARY | 2025-05-10 14:29 | XMS_ITS | Encounter Summary ---
Author Organization [email or web address] Address [address] [facility] 7t [place] [address] Care Team Providers Care Air Twister Winder Name Role Phone Tammy Payan MD Primary Care Provide r Reason for Visit * Reason Onset Date Comments Chart Prep 05/09/2025 Encounter Details Date Type Department Care Team ([facility] st Contact Info) Description 05/09/2025 Telephone [facility] [address] [place] [address] Tammy Payan MD [address] [place] [address] Chart Prep Social History Tobacco Use Types Packs/Day Years [...] is your housing situation today? I have marvinmonique trevino 04/29/[address] you [...] encounter Miscellaneous Notes * Telephone Encounter - Amy Truong MA - 05/09/2025 11:35 AM EST Chart Prep Labs: done Images: done Referrals: appointment pending Vaccines due: Tdap, Hep B, and Hep A Screenings: foot exam and Anal pap Overdue care gaps: A1c, Glucose, SBIRT, PHQ-9, CLAUDIA-7, and Disability screen documented in this encounter Plan of Treatment Upcoming Encounters Date Type Department Care Team (Late st Contact Info) Description 06/10/2025 11:00 AM EST Office Visit [facility] [address] [place] [address] Tammy Payan MD [address] [place] [address] 06/22/2025 11:30 AM EST Office Visit [facility] [address] [place] [address] Corrina Sanches, OD [address] [place] [address] 08/26/2025 9:00 AM EDT Telemedicine [facility] [address] [place] [phone] Catherine North RN documented as of this encounter Goals Goal Patient Goal Type Associated Problems Recent Progress Patient-Stated? Author Help patients manage their type 2 diabetes Care Plan Help patients manage their type 2 diabetes Catherine Cartagena RN Weekly blood pressure task Care Plan Weekly blood pressure task No Catherine North RN Help patients manage their type 2 diabetes Care Plan Help patients manage their type 2 diabetes No Catherine North RN Patient has chronic kidney disease Care Plan Patient has chronic kidney disease No Catherine North RN Help patients manage their type 2 diabetes Care Plan Help patients manage their type 2 diabetes No Catherine North RN Patient has diabetic [...] Care Plan Weekly blood pressure task No Richelle Murray Weekly blood pressure task Care Plan Weekly blood pressure task No Richelle Murray Weekly blood pressure task Care Plan Weekly blood pressure task No Richelle Murray Patient has chronic kidney disease Care Plan Patient has chronic kidney disease No Richelle Murray Patient has chronic kidney disease Care Plan Patient has chronic kidney disease No Richelle Murray Patient has chronic kidney disease Care Plan Patient has chronic kidney disease No Richelle Murray Patient has diabetic neuropathy Care Plan Patient has diabetic neuropathy No Richelle Murray Patient has diabetic neuropathy Care Plan Patient has diabetic neuropathy No Richelle Murray Patient has diabetic neuropathy Care Plan Patient [...] Plan Weekly blood pressure task No Colon Villa, Nury Weekly blood pressure task Care Plan Weekly blood pressure task No Colon Villa, [place] Weekly blood pressure task Care Plan Weekly blood pressure task No Colon Allen N[place] Patient has chronic kidney disease Care Plan Patient has chronic kidney disease No Colon Villa, [place] Patient has chronic kidney disease Care Plan Patient has chronic kidney disease No Colon Villa, [place] Patient has chronic kidney disease Care Plan Patient has chronic kidney disease No Colon Allen N[place] Patient has diabetic neuropathy Care Plan Patient has diabetic neuropathy No Colon Allen Nury Patient has diabetic neuropathy Care Plan Patient has diabetic neuropathy No Colon Allen Nury Patient has diabetic neuropathy Care Plan Patient has diabetic neuropathy No Colon Allen Nury Weekly blood pressure task Care Plan Weekly [...] has diabetic neuropathy No Amy Truong MA documented as of this encounter Visit Diagnoses Not on filedocumented in this encounter Additional Health Concerns Active Problems Noted Date [...] neuropathy 05/09/2025 Patient has diabetic neuropathy 05/09/2025 Assessment Noted Time PHQ-9 Depression Total Score: 6 01/23/20 24 10:06 AM EDT documented as of this encounter Care Teams Air Twister Winder Relationship Specialty Start Date End Date Tammy Payan MD [address] [place] [address] PCP - General Family Medicine 06/09/20 documented as of this encounter
--- OUTSIDE RECORDS SUMMARY | 2025-05-10 14:29 | XMS_ITS | Encounter Summary ---
Author Organization [employer] Address [address] [facility] 7[address] [place] [address] Care Team Providers Care Alumni Relations Coordinator Name Role Phone Tammy Payan MD Primary Care Provide r Reason for Visit * Reason Onset Date Comments Durable Medical Equipment 05/10/2025 Encounter Details Date Type Department Care Team ([facility] st Contact Info) Description 05/10/2025 Telephone [facility] [address] [place] [address] Tammy Payan MD [address] [place] [address] Durable Medical Equipment Social History Tobacco Use Types Packs/Day Years [...] encounter Miscellaneous Notes * Telephone Encounter - Lamonte Diane - 05/10/2025 10:11 AM EST Tc from Amarilis (granddaughter and career services representative) requesting a high rise toilet seat with cars on the side. Toilet seat needs to be a perfect tribal due to the [facility] toilet seat being like that as well. Any questions contact [phone] documented in this encounter Plan of Treatment Upcoming Encounters Date Type Department Care Team ([facility] st Contact Info) Description 06/10/2025 11:00 AM EST Office Visit [facility] [address] [place] [address] Tammy Payan MD [address] [place] [phone] 06/22/2025 11:30 AM EST Office Visit [facility] [address] [place] [address] Corrina Sanches, OD [address] [place] [address] 08/26/2025 9:00 AM EDT Telemedicine [facility] [address] [place] [address] Catherine North RN documented as of this [...] blood pressure task No Colon Villa, Nury Patient has chronic kidney disease Care Plan Patient has chronic kidney disease No Colon Villa, N[place] Patient has chronic kidney disease Care Plan Patient has chronic kidney disease No Colon Villa, [place] Patient has chronic kidney disease Care Plan Patient has chronic kidney disease No Colon Villa, [place] Patient has diabetic neuropathy Care Plan Patient has diabetic neuropathy No Colon Villa, N[place] Patient has diabetic neuropathy Care Plan Patient has diabetic neuropathy No Colon Allen, Nury Patient has diabetic neuropathy Care Plan [...] Patient has chronic kidney disease No Amy rTuong [place] Patient has diabetic neuropathy Care Plan [...] Plan Patient has chronic kidney disease No Diane, Lamonte Patient has chronic kidney disease Care Plan Patient has chronic kidney disease No Diane, Lamonte Patient has chronic kidney disease Care Plan Patient has chronic kidney disease No Diane, Lamonte Patient has diabetic neuropathy Care Plan Patient has diabetic neuropathy No Diane, Lamonte Patient has diabetic neuropathy Care Plan Patient has diabetic neuropathy No Diane, Lamonte Patient has diabetic neuropathy Care Plan Patient has diabetic neuropathy No Benedicto, Lamonte documented as of this encounter Visit Diagnoses [...] neuropathy 05/10/2025 Patient has diabetic neuropathy 05/10/2025 Assessment Noted Time PHQ-9 Depression Total Score: 6 01/23/20 24 10:06 AM EDT documented as of this encounter Care Teams Alumni Relations Coordinator Relationship Specialty Start Date End Date Tammy Payan MD [address] [place] [phone] PCP - General Family Medicine 06/09/20 documented as of this encounter
--- OUTSIDE RECORDS SUMMARY | 2025-05-10 14:29 | XMS_ITS | Encounter Summary ---
Author Organization [employer] Address [address] 7[address] [place] [address] Care Team Providers Care Upsetter Helper Name Role Phone Tammy Payan MD Primary Care Provide r Encounter Details Date Type Department Care Team (Late st Contact Info) Description 11/25/2023 Orders Only [facility] [address] [place], [place] [phone] ProviderNgozi MD Social History Tobacco Use Types [...] Description 06/10/2025 11:00 AM EST Office Visit [facility] [address] [place] [address] Tammy Payan MD [address] [place] [address] 06/22/2025 11:30 AM EST Office Visit [facility] [address] [place] [address] Myron, Corrina, OD [address] [place] [address] 08/26/2025 9:00 AM EDT Telemedicine [facility] [address] [place] [address] Catherine North RN documented as of this encounter Procedures Procedure Name Priority Date/Time Associated Diagnosis Comments DERMATOPATHOLOGY REPORT Routine 11/18/19 12:36 PM EDT documented in this encounter Results * Dermatopathology Report (11/18/2023 12:36 PM EDT) us Historical Provider LAB BLOOD ORDERABLES Marily l Result documented in this encounter Visit Diagnoses Not on filedocumented in this encounter Care Teams Upsetter Helper Relationship Specialty Start Date End Date Tammy Payan MD [address] [place] [address] PCP - General Family Medicine 06/09/20 documented as of this encounter
--- OUTSIDE RECORDS SUMMARY | 2025-05-10 14:29 | XMS_ITS | Encounter Summary ---
Author Organization [employer] Address [address] [place] [address] 7t [place] [address] Care Team Providers Care Service Station Equipment Mechanic Name Role Phone Tammy Payan MD Primary Care Provide r Reason for Referral * Consultation (Routine) - Closed Specialty Diagnoses / Procedures Referred By Contrikki t Referred To Contact Dermatology Diagnoses Atopic dermatitis in adult Acosta Burnett MD [address] [place] [address] Phone: tel: fax: ZZZ Duplicate - [facility] [address] [place], [place] Phone: tel: fax: Referral ID Status Reason Start Date Expiration Date V isits Requested Visits Authorized [id number] Closed Specialty Services Required 12/24/2023 12/23/2024 1 1 Encounter Details Date Type Department Care Team (Late st Contact Info) Description 12/24/2023 Orders Only [facility] CH[facility] MED & PEDS [address] [place], [place] [phone] Acosta Burnett MD [address] [place] [address] [phone] Atopic dermatitis in adult (Primary Dx) Social [...] Upcoming Encounters Date Type Department Care Team ([facility] st Contact Info) Description 06/10/2025 11:00 AM EST Office Visit [facility] MEDICINE [address] [place] [address] Tammy Payan MD [address] [place] [address] 06/22/2025 11:30 AM EST Office Visit [facility] OPTOMETRY [address] [place] [address] Corrina Sanches, BECKY 230 [place] [address] 08/26/2025 9:00 AM EDT Telemedicine [facility] MEDICINE [address] [place] [address] Catherine North, RN Scheduled Referrals Name Type Priority Associated Diagnoses Order Schedule Referral to Dermatology Outpatient Referral Routine Atopic dermatitis in adult Expected: 12/24/2023 (Approximate), Expires: 12/23/2024 documented as of this encounter Visit Diagnoses Diagnosis Atopic dermatitis in adult- Primary documented in this encounter Care Teams Service Station Equipment Mechanic Relationship Specialty Start Date End Date Tammy Payan MD [address] [place] [address] PCP - General Family Medicine 06/09/20 documented as of this encounter
--- OUTSIDE RECORDS SUMMARY | 2025-05-10 14:29 | XMS_ITS | Encounter Summary ---
Author Organization [employer] Address [address] [facility] 7t [place] [address] Care Team Providers Care Hot Knife Cutter Name Role Phone Tammy Payan MD Primary Care Provide r Encounter Details Date Type Department Care Team ([facility] st Contact Info) Description 08/31/2024 Orders Only [facility] CHC MED & PEDS [address] [place], [place] [phone] Acosta Burnett MD [address] [place] [address] Social History Tobacco Use Types Packs/Day Years [...] Description 06/10/2025 11:00 AM EST Office Visit [facility] MEDICINE [address] [place] [address] Tammy Payan MD 230 [place] [address] 06/22/2025 11:30 AM EST Office Visit [facility] OPTOMETRY [address] [place] [address] Myron, Corrina, OD 230 [place] [address] 08/26/2025 9:00 AM EDT Telemedicine [facility] MEDICINE 230 [place] [address] Catherine North, ALLI documented as of this encounter Visit Diagnoses Not on filedocumented in this encounter Additional Health Concerns Assessment Noted Time PHQ-9 Depression Total Score: 6 01/23/20 24 10:06 AM EDT documented as of this encounter Care Teams Hot Knife Cutter Relationship Specialty Start Date End Date Tammy Payan MD [address] [place] [address] PCP - General Family Medicine 06/09/20 documented as of this encounter
--- OUTSIDE RECORDS SUMMARY | 2025-05-10 14:29 | XMS_ITS | Encounter Summary ---
Author Organization [employer] Address [address] [facility] [address] 7t [place] [address] Care Team Providers Care Flexographic Press Operator Name Role Phone Tammy Payan MD Primary Care Provide r Encounter Details Date Type Department Care Team ([facility] st Contact Info) Description 03/15/2025 Orders Only [facility] MEDICINE [address] [place], [place] [phone] Suzan Loo MD 230 [place], [place] [phone] Social History Tobacco Use Types Packs/Day Years [...] Description 06/10/2025 11:00 AM EST Office Visit [facility] MEDICINE [address] [place] [address] Tammy Payan MD 230 [place] [address] 06/22/2025 11:30 AM EST Office Visit [facility] OPTOMETRY [address] [place] [address] Myron, Corrina, OD 230 [place] [address] 08/26/2025 9:00 AM EDT Telemedicine [facility] MEDICINE [address] [place] [address] Catherine North, ALLI documented as of this encounter Visit Diagnoses Not on filedocumented in this encounter Additional Health Concerns Assessment Noted Time PHQ-9 Depression Total Score: 6 01/23/20 24 10:06 AM EDT documented as of this encounter Care Teams Flexographic Press Operator Relationship Specialty Start Date End Date Tammy Payan MD [address] [place] [address] PCP - General Family Medicine 06/09/20 documented as of this encounter
--- OUTSIDE RECORDS SUMMARY | 2025-05-10 14:29 | XMS_ITS | Encounter Summary ---
Author Organization [employer] Address [address] 7t [place] [address] Care Team Providers Care High School Biology Teacher Name Role Phone Tammy Payan MD Primary Care Provide r Encounter Details Date Type Department Care Team ([facility] st Contact Info) Description 05/03/2025 Orders Only [facility] MEDICINE [address] [place], [place] [phone] Tammy Payan MD 230 [place], [place] [phone] Social History Tobacco Use Types Packs/Day Years [...] 11:00 AM EST Office Visit [facility] MEDICINE [address] [place] [address] Tammy Payan MD 230 [place] [address] 06/22/2025 11:30 AM EST Office Visit [facility] OPTOMETRY [address] [place] [address] Myron, Corrina, OD 230 [place] [address] 08/26/2025 9:00 AM EDT Telemedicine [facility] MEDICINE [address] [place] [address] Catherine North RN documented as of this encounter Goals Goal Patient Goal Type Associated Problems Recent Progress Patient-Stated? Author Help patients manage their type 2 diabetes Care Plan Help patients manage their type 2 diabetes Catherine Cartagena, ALLI Weekly blood pressure task Care Plan Weekly blood pressure task No Catherine North, ALLI Help patients manage their type 2 diabetes Care Plan Help patients manage their type 2 diabetes No Catherine North, ALLI Patient has chronic kidney disease Care Plan Patient has chronic kidney disease Catherine Cartagena, ALLI Help patients manage their type 2 diabetes [...] has diabetic neuropathy No Colon Villa, Nury Weekly blood pressure [...] has diabetic neuropathy No Tammy Payan MD documented as of this encounter Visit Diagnoses [...] neuropathy 05/03/2025 Patient has diabetic neuropathy 05/03/2025 Assessment Noted Time PHQ-9 Depression Total Score: 6 01/23/20 24 10:06 AM EDT documented as of this encounter Care Teams High School Biology Teacher Relationship Specialty Start Date End Date Tammy Payan MD 230 [place] [address] PCP - General Family Medicine 06/09/20 documented as of this encounter
--- OUTSIDE RECORDS SUMMARY | 2025-05-10 14:29 | XMS_ITS | Encounter Summary ---
Author Organization [employer] Address [address] [facility] 7t [place] [address] Care Team Providers Care Settlement Processor Name Role Phone Tammy Payan MD Primary Care Provide r Encounter Details Date Type Department Care Team (Latest Contact Info) Description 04/05/2021 Abstract [facility] Dental, Provider, DDS Social History Tobacco [...] Description 06/10/2025 11:00 AM EST Office Visit [facility] [address] [place] [address] Tammy Payan MD [address] [place] [address] 06/22/2025 11:30 AM EST Office Visit [facility] OPTOMETRY [address] [place] [address] Corrina Sanches, OD 230 [place] [address] 08/26/2025 9:00 AM EDT Telemedicine [facility] [address] [place] [address] Catherine North, ALLI documented as of this encounter Visit Diagnoses Not on filedocumented in this encounter Care Teams Settlement Processor Relationship Specialty Start Date End Date Tammy Payan MD [address] [place] [address] PCP - General Family Medicine 06/09/20 documented as of this encounter
--- OUTSIDE RECORDS SUMMARY | 2025-05-10 14:29 | XMS_ITS | Encounter Summary ---
Author Organization [employer] Address [address] [facility] 7t [place] [address] Care Team Providers Care Substitute Nurse Name Role Phone Tammy Payan MD Primary Care Provide r Reason for Visit * Reason Onset Date Comments Durable Medical Equipment 05/03/2025 DME: P ower Recliner, Diabetic Shoes Encounter Details Date Type Department Care Team ([facility] st Contact Info) Description 05/03/2025 Telephone [facility] 230 [place], [place] [phone] Tammy Payan MD 230 [place], [place] [phone] Durable Medical Equipment (DME: Power Recliner, Diabetic Shoes) Social History Tobacco Use Types Packs/Day Years [...] Miscellaneous Notes * Telephone Encounter - Tammy Jordan - 05/05/2025 11:44 AM EST DME orders for the requested items were generated and sent to [facility] FAX with supporting documentation and letter of medical necessity. Confirmation was uploaded to Media. * Telephone Encounter - Nury Villa - 05/03/2025 12:40 PM EST Tc from [facility] requesting a prescription for - diabetic shoes - an electric recliner, along with a letter of medical necessity. To be fax over to [employer] documented in this encounter Plan of Treatment Upcoming Encounters Date Type Department Care Team (Late st Contact Info) Description 06/10/2025 11:00 AM EST Office Visit [facility] MED[facility] 230 [place] [address] Tammy Payan MD [address] [place] [address] 06/22/2025 11:30 AM EST Office Visit [facility] OPTOMETRY [address] [place], [place] [phone] Corrina Sanches, OD 230 [place] [address] 08/26/2025 9:00 AM EDT Telemedicine [facility] 230 [place] [address] Catherine North RN documented as of this encounter Goals Goal Patient Goal Type Associated Problems Recent Progress Patient-Stated? Author Help patients manage their type 2 diabetes Care Plan Help patients manage their type 2 diabetes No Catherine North RN Weekly blood pressure [...] blood pressure task No Colon Allen Nury Weekly blood pressure task Care Plan Weekly blood pressure task No Colon Nury Villa Patient has chronic kidney disease Care Plan Patient has chronic kidney disease No Colon Allen Nury Patient has chronic kidney disease Care Plan Patient has chronic kidney disease No Colon Allen Nury Patient has chronic [...] documented as of this encounter Care Teams Substitute Nurse Relationship Specialty Start Date End Date Tammy Payan MD [address] [place] [address] PCP - General Family Medicine 06/09/20 documented as of this encounter
--- OUTSIDE RECORDS SUMMARY | 2025-05-10 14:29 | XMS_ITS | Encounter Summary ---
Author Organization [employer] Address [address] [facility] [address] 7t [place] [address] Care Team Providers Care Entrepreneurship Program Director Name Role Phone Tammy Payan MD Primary Care Provide r Reason for Visit * Reason Comments Med Refill Encounter Details Date Type Department Care Team (Late Contact Info) Description 11/04/2022 Refill [facility] [address] [place] [address] [phone] Tammy Payan MD [address] [place], [place] [phone] Tinea crshereens Social History Tobacco Use Types [...] Department Care Team (Late Contact Info) Description 06/10/2025 11:00 AM EST Office Visit [facility] 230 [place] [address] Tammy Payan MD [address] [place] [address] 06/22/2025 11:30 AM EST Office Visit [facility] OPTOMETRY [address] [place] [address] Corrina Sanches, OD 230 [place] [address] 08/26/2025 9:00 AM EDT Telemedicine [facility] 230 [place] [address] Ctaherine North, ALLI documented as of this encounter Visit Diagnoses Diagnosis Tinea cruris Dermatophytosis of groin and perianal area documented in this encounter Care Teams Entrepreneurship Program Director Relationship Specialty Start Date End Date Tammy Payan MD [address] [place] [address] PCP - General Family Medicine 06/09/20 documented as of this encounter
--- OUTSIDE RECORDS SUMMARY | 2025-05-10 14:29 | XMS_ITS | Encounter Summary ---
Author Organization [employer] Address [address] [facility] [address] 7t [place] [address] Care Team Providers Care Drivers' Cash Clerk Name Role Phone Tammy Payan MD Primary Care Provide r Reason for Visit * Reason Comments Med Refill Encounter Details Date Type Department Care Team ([facility] st Contact Info) Description 03/25/2025 Refill [facility] 230 [place], [place] [phone] Tammy Payan MD 230 [place], [place] [phone] Social History Tobacco Use Types Packs/Day Years [...] Description 06/10/2025 11:00 AM EST Office Visit [facility] MEDICINE 230 [place] [address] Tammy Payan MD 230 [place] [address] 06/22/2025 11:30 AM EST Office Visit [facility] OPTOMETRY [address] [place] [address] Myron, Corrina, OD 230 [place] [address] 08/26/2025 9:00 AM EDT Telemedicine [facility] MEDICINE 230 [place] [address] Catherine North RN documented as of this encounter Visit Diagnoses Not on filedocumented in this encounter Additional Health Concerns Assessment Noted Time PHQ-9 Depression Total Score: 6 01/23/20 24 10:06 AM EDT documented as of this encounter Care Teams Drivers' Cash Clerk Relationship Specialty Start Date End Date Tammy Payan MD [address] [place] [address] PCP - General Family Medicine 06/09/20 documented as of this encounter
--- OUTSIDE RECORDS SUMMARY | 2025-05-10 14:29 | XMS_ITS | Encounter Summary ---
Author Organization [employer] Address [address] [facility] [address] 7[address] [place] [address] Care Team Providers Care Superintendent Recreation Name Role Phone Tammy Payan MD Primary Care Provide r Encounter Details Date Type Department Care Team (Late st Contact Info) Description 12/05/2023 Orders Only [facility] CH[facility] MED & PEDS [address] [place], [place] [phone] ProviderNgozi MD Social History Tobacco Use Types [...] Description 06/10/2025 11:00 AM EST Office Visit [facility] MEDICINE 230 [place] [address] Tammy Payan MD 230 [place] [address] 06/22/2025 11:30 AM EST Office Visit [facility] OPTOMETRY [address] [place] [address] Myron, Corrina, OD 230 [place] [address] 08/26/2025 9:00 AM EDT Telemedicine [facility] MEDICINE 230 [place] [address] Catherine North RN documented as of this encounter Procedures Procedure Name Priority Date/Time Associated Diagnosis Comments DERMATOPATHOLOGY REPORT Routine 11/18/2023 3:59 PM EDT documented in this encounter Results * Dermatopathology Report (11/18/2023 3:59 PM EDT) us Historical Provider LAB BLOOD ORDERABLES Marily l Result documented in this encounter Visit Diagnoses Not on filedocumented in this encounter Care Teams Superintendent Recreation Relationship Specialty Start Date End Date Tammy Payan MD [address] [place] [address] PCP - General Family Medicine 06/09/20 documented as of this encounter
== END 2025-05-10 11:35 | disposition home or self-care (01) ==
PROVIDERS: Visit Provider Physician Assistant
DX: L60.0 Ingrowing nail (principal); M79.674 Pain in right toe(s); M79.675 Pain in left toe(s)

== ENCOUNTER → 2025-05-10 11:02 | Outpatient (BNVA) | payer OTHER, SELFPAY | PROVIDERS: Visit Provider Physician Assistant | DX: L60.0 Ingrowing nail (principal); M79.674 Pain in right toe(s); M79.675 Pain in left toe(s) | CPT/HCPCS: 99202 ==

== ENCOUNTER 2025-05-11 14:21 | Outpatient (AMB) | payer OTHER, SELFPAY ==
--- NOTE | 2025-05-11 14:23 | A.OFFVIS_ITS ---
Intake Visit Reasons: ingrowing toe nail removed still painful Intake Note: Osorio is a 79 year old male who presents today as a new patient for a evaluation of his bilateral great toe ingrown nails. Patient notices that both of his great toes causing him pain when he is wearing shoes for about a month. Allergies No Known Allergies (No Known Allergies*) Allergy (Verified 05/11/25 14:33) HPI HPI ingrowing toe nail removed still painful: Details: Chief Complaint: The patient presents with pain and swelling in both of his big toes for the past month and a half after undergoing partial nail avulsions with chemical matrixectomies with another Chemical Production Technician. HPI: The patient is a 79 year old male presenting for persistent pain and swelling in his big toes. The patient has a history of chronic ingrown toenails and underwent a chemical matrixectomy approximately five to six weeks ago. Since the procedure, he has experienced persistent pain and significant swelling in both toes, which is exacerbated by cold weather and walking, causing them to become red and double in size. He also reports a throbbing sensation at night. There has been no pus or drainage observed. Home care has included Epsom salt soaks and application of silver sulfadiazine cream daily. Diabetes Mellitus: The patient has a history of diabetes but states he does not require insulin, though he does monitor his glucose levels. Arthritis: The patient has arthritis in his feet and knees and previously received injections for his knees, although not recently. Medical History: - Diabetes mellitus, nar-meigseb-jmsigorgy - Chronic ingrown toenails - Arthritis of feet and knees - Onychomycosis - Varicose veins of the feet Social History: - Substance use: The patient does not smoke or drink alcohol. - Functional Status: His granddaughter assists with his personal care, including foot care and monitoring his condition. COUNTS INCLUDE 234 BEDS AT [facility] Medical History (Updated 05/11/25 @ 20:18 by Rivera Araiza DPM) Pain around toenail, right foot Ingrown toenail of both feet Bundle branch block, right Central sleep apnea Depression Elevated cholesterol Back pain HTN (hypertension) Arthritis Diabetes Surgical History History of colonoscopy Social History Alcohol intake: former Patient Tobacco Use Status: Never used Tobacco Review of Systems Const All systems reviewed & are unremarkable except as noted in HPI and below Physical Exam Extrem Other: *Bilateral Lower Extremity Focused Exam Vascular: DP/PT 2/4, CFT<3s to digits, TG warm to cool, no edema to bilateral feet Derm: right hallux medial nail border appears s/p partial nail avulsion with fibrotic tissue, no erythema drainage or signs of infection, no loose spicules. left hallux medial and lateral nail borders appear s/p partial nail avulsion, medial border with fibronecrotic tissue with underlying granular wound bed measuring approximately 1cm x 0.3cm, no erythema drainage or clinical signs of infection. Neuro: Protective sensation grossly intact to bilateral lower extremities. MSK: Mild tenderness on palpation of the medial border left hallux. Pictures from s/p debridement Office Procedures AMB Debridement /Avulsion Details: Procedure: Sharp excisional debridement Depth: subcutaneous layer Indication: left hallux medial nail border Anesthesia: N/A Description: The site was prepped using alcohol/cleanser. A #15 Blade was used to perform a sharp excisional wound debridement of the medial nail border wound to the level of subcutaneous tissue. The lesion measured 1cm x 0.3cm at the end of debridement. Dressings: triple antibiotic ointment, band-aid Tolerance: Patient tolerated procedure well, no immediate complications. [id number] of skin tissue Procedure code (CPT) selection complete Assessment & Plan Assessment & Plan (1) Paronychia of great toe, left: Code(s): L03.032 - Cellulitis of left toe Category: Medical Plan: * Debrided left hallux medial and lateral nail borders. The medial border had a small underlying wound. This was debrided sharply and irrigated with saline. It was dressed with antibiotic ointment and a band-aid. * He was instructed to apply antibiotic ointment and a band-aid daily * No signs of infection. No indications for antibiotics at this time. No nail spicules were seen, no repeat nail avulsion is required. * It was explained that occasional flares of pain, swelling, and drainage are within the expected recovery process of post-chemical matrixectomy. Healing is likely delayed due to the patient's age, skin quality, history of a thick fungal nail, and underlying venous insufficiency. The patient was counseled to return if signs of infection develop, such as increased redness, warmth, or purulent drainage, at which point antibiotics would be considered. * The patient was instructed to return if he has any concerns with healing prior to his next appointment with his other patient access associate in May. (2) Paronychia of great toe of right foot: Code(s): L03.031 - Cellulitis of right toe Category: Medical Plan: * Debrided right hallux nail medial border scab/fibrotic tissue. no underlying wound or signs of infection. Coding Level of Care Code New Pt Level 4 (00704) Diagnoses Paronychia of great toe, left L03.032 Paronychia of great toe of right foot L03.031 CPT Codes Skin Debridement - CPT: 11091-Uzclsyzmyuw of skin tissue ([id number]) Time Spent (min) 20
--- OUTSIDE RECORDS SUMMARY | 2025-05-11 19:09 | XMS_ITS | Encounter Summary ---
Author Organization [employer] Address [address] [facility] [address] [address] 7[address] [place] [address] Care Team Providers Care Barber Tool Sharpener Name Role Phone Tammy Payan MD Primary Care Provide r Encounter Details Date Type Department Care Team (Late st Contact Info) Description 11/25/2023 Orders Only [facility] CHC MED & PEDS [address] [place], [place] [phone] ProviderNgozi MD Social History Tobacco Use Types [...] Description 06/10/2025 11:00 AM EST Office Visit [facility] MEDICINE [address] [place] [address] Tammy Payan MD 230 [place] [address] 06/22/2025 11:30 AM EST Office Visit [facility] OPTOMETRY [address] [place] [address] Myron, Corrina, OD 230 [place] [address] 08/26/2025 9:00 AM EDT Telemedicine [facility] MEDICINE [address] [place] [address] Catherine North RN documented as of this encounter Procedures Procedure Name Priority Date/Time Associated Diagnosis Comments DERMATOPATHOLOGY REPORT Routine 11/18/19 12:36 PM EDT documented in this encounter Results * Dermatopathology Report (11/18/2023 12:36 PM EDT) us Historical Provider LAB BLOOD ORDERABLES Marily l Result documented in this encounter Visit Diagnoses Not on filedocumented in this encounter Care Teams Barber Tool Sharpener Relationship Specialty Start Date End Date Tammy Payan MD 230 [place] [address] PCP - General Family Medicine 06/09/20 documented as of this encounter
--- OUTSIDE RECORDS SUMMARY | 2025-05-11 19:09 | XMS_ITS | Patient Health Record ---
Author Organization [facility] Address [address] [place] [address] Care Team Providers Care Vault Maker Name Role Phone May Noble Primary Care Provider Matthew Carlin [phone] Reason For Referral No Information Medications Medication [...] Problem Screening for malignant neoplasm of colon (214242586) Encounter for screening for malignant neoplasm of colon (Z12.11) Active confirmed Problem Screening for malignant neoplasm of rectum (338578180) Encounter for screening for malignant neoplasm of rectum (Z12.12) Active confirmed Problem Constipation (94945697) Constipation, unspecified constipation type (K59.00) Active confirmed Plan Of Treatment Future Test Test Name Order Date COLONOSCOPY 09/19/2016 Insurance Providers Payer Name Payer Address Payer Phone Subscriber Number Group Number Insured Name Patient Relationship to Insured Coverage Start Date Coverage End Date [facility] [address] [place] [address] [id number] SHAHEEN AMAYA Self - patient is the insured Medical (General) History Medical History History ICD Code Colonoscopy 11/05/2004--mild sigmoid div erticulosis and internal hemorrhoids Hypertension Hypercholesterolemia Arthritis--back/arms Denies VT,DM,CVA,Lung disease,renal dise ase Sleep apnea--uses CPAP EGD in 1999--mild reflux, gastritis with H.pylori Surgical History Surgery Date(Month/Year) Oral surgery 08/2016
--- OUTSIDE RECORDS SUMMARY | 2025-05-11 19:09 | XMS_ITS | Encounter Summary ---
Author Organization [employer] Address 75 [facility] 7t [place] [address] Care Team Providers Care Studio Designer Name Role Phone Tammy Payan MD Primary Care Provide r Reason for Visit * Reason Comments Med Refill Encounter Details Date Type Department Care Team ([facility] st Contact Info) Description 03/28/2023 Refill [facility] [address] [place], [place] [phone] Tammy Payan MD [address] [place], [place] [phone] Other chronic pain Social History Tobacco Use [...] Description 06/10/2025 11:00 AM EST Office Visit [facility] 230 [place] [address] Tammy Payan MD [address] [place] [address] 06/22/2025 11:30 AM EST Office Visit [facility] [address] [place] [address] Myron, Corrina, OD 230 [place] [address] 08/26/2025 9:00 AM EDT Telemedicine [facility] 230 [place] [address] Catherine North RN documented as of this encounter Visit Diagnoses Diagnosis Other chronic pain documented in this encounter Care Teams Studio Designer Relationship Specialty Start Date End Date Tammy Payan MD 230 [place] [address] PCP - General Family Medicine 06/09/20 documented as of this encounter
--- OUTSIDE RECORDS SUMMARY | 2025-05-11 19:09 | XMS_ITS | Encounter Summary ---
Author Organization [employer] Address 75 [facility] 7t [place] [address] Care Team Providers Care Director Investment Banking Name Role Phone Tammy Payan MD Primary Care Provide r Reason for Visit * Reason Comments Med Refill Encounter Details Date Type Department Care Team ([facility] st Contact Info) Description 06/15/[address] [facility] [address] [place], [place] [phone] Tammy Payan MD 230 [place], [place] [phone] Multiple joint pain Social History Tobacco Use [...] Description 06/10/2025 11:00 AM EST Office Visit [facility] [address] [place] [address] Tammy Payan MD 230 [place] [address] 06/22/2025 11:30 AM EST Office Visit [facility] [address] [place] [address] Myron, Corrina, OD 230 [place] [address] 08/26/2025 9:00 AM EDT Telemedicine [facility] [address] [place] [address] Catherine North RN documented as of this encounter Visit Diagnoses Diagnosis Multiple joint pain Pain in joint, multiple sites documented in this encounter Additional Health Concerns Assessment Noted Time PHQ-9 Depression Total Score: 6 01/23/20 24 10:06 AM EDT documented as of this encounter Care Teams Director Investment Banking Relationship Specialty Start Date End Date Tammy Payan MD [address] [place] [address] PCP - General Family Medicine 06/09/20 documented as of this encounter
--- OUTSIDE RECORDS SUMMARY | 2025-05-11 19:10 | XMS_ITS | Encounter Summary ---
Author Organization [employer] Address 75 [facility] 7t [place] [address] Care Team Providers Care Airplane Rigger Name Role Phone Tammy Payan MD Primary Care Provide r Reason for Visit * Reason Onset Date Comments Durable Medical Equipment 05/10/2025 Encounter Details Date Type Department Care Team ([facility] st Contact Info) Description 05/10/2025 Telephone [facility] [address] [place] [address] Tammy Payan MD 230 [place] [address] Durable Medical Equipment Social History Tobacco Use [...] AM EST Tc from Amarilis (granddaughter and vehicle care specialist) requesting a high rise toilet seat with cars on the side. Toilet seat needs to be a perfect nulato due to the [facility] toilet seat being like that as well. Any questions contact [phone] documented in this encounter Plan of Treatment Upcoming Encounters Date Type Department Care Team ([facility] st Contact Info) Description 06/10/2025 11:00 AM EST Office Visit [facility] [address] [place] [address] Tamym Payan MD 230 [place] [address] 06/22/2025 11:30 AM EST Office Visit [facility] [address] [place] [address] Corrina Sanches, OD 230 [place] [address] 08/26/2025 9:00 AM EDT Telemedicine [facility] [address] [place] [address] Catherine North RN documented as of this [...] documented as of this encounter Care Teams Airplane Rigger Relationship Specialty Start Date End Date Tammy Payan MD [address] [place] [address] PCP - General Family Medicine 06/09/20 documented as of this encounter
--- OUTSIDE RECORDS SUMMARY | 2025-05-11 19:10 | XMS_ITS | Encounter Summary ---
Author Organization [employer] Address [address] [facility] [address] 7t [place] [address] Care Team Providers Care Plastic Manager Name Role Phone Tammy Payan MD Primary Care Provide r Reason for Visit * Reason Comments Med Refill Encounter Details Date Type Department Care Team ([facility] st Contact Info) Description 03/25/2025 Refill [facility] 230 [place], [place] [phone] Tammy Payan MD 230 [place], [place] [phone] Social History Tobacco Use Types Packs/Day Years [...] Description 06/10/2025 11:00 AM EST Office Visit [facility] 230 [place] [address] Tammy Payan MD 230 [place] [address] 06/22/2025 11:30 AM EST Office Visit [facility] [address] [place] [address] Myron, Corrina, OD 230 [place] [address] 08/26/2025 9:00 AM EDT Telemedicine [facility] 230 [place] [address] Catherine North RN documented as of this encounter Visit Diagnoses Not on filedocumented in this encounter Additional Health Concerns Assessment Noted Time PHQ-9 Depression Total Score: 6 01/23/20 24 10:06 AM EDT documented as of this encounter Care Teams Plastic Manager Relationship Specialty Start Date End Date Tammy Payan MD [address] [place] [address] PCP - General Family Medicine 06/09/20 documented as of this encounter
--- OUTSIDE RECORDS SUMMARY | 2025-05-11 19:10 | XMS_ITS | Encounter Summary ---
Author Organization [employer] Address 75 [facility] 7t [place] [address] Care Team Providers Care New Order Clerk Name Role Phone Tammy Payan MD Primary Care Provide r Encounter Details Date Type Department Care Team (Latest Contact Info) Description 04/08/2022 Abstract [facility] Dental, Provider, DDS Social History Tobacco [...] Description 06/10/2025 11:00 AM EST Office Visit [facility] [address] [place] [address] Tammy Payan MD 230 [place] [address] 06/22/2025 11:30 AM EST Office Visit [facility] [address] [place] [address] Corrina Sanches, OD 230 [place] [address] 08/26/2025 9:00 AM EDT Telemedicine [facility] 230 [place] [address] Catherine North, ALLI documented as of this encounter Visit Diagnoses Not on filedocumented in this encounter Care Teams New Order Clerk Relationship Specialty Start Date End Date Tammy Payan MD 230 [place] [address] PCP - General Family Medicine 06/09/20 documented as of this encounter
--- OUTSIDE RECORDS SUMMARY | 2025-05-11 19:10 | XMS_ITS | Encounter Summary ---
Author Organization [employer] Address 75 [facility] 7t [place] [address] Care Team Providers Care Mortgage Processing Clerk Name Role Phone Tammy Payan MD Primary Care Provide r Reason for Visit * Reason Onset Date Comments Chart Prep 05/09/2025 Encounter Details Date Type Department Care Team ([facility] st Contact Info) Description 05/09/2025 Telephone [facility] 230 [place] [address] Tammy Payan MD 230 [place] [address] Chart Prep Social History Tobacco Use Types [...] Description 06/10/2025 11:00 AM EST Office Visit [facility] [address] [place] [address] Tammy Payan MD 230 [place] [address] 06/22/2025 11:30 AM EST Office Visit [facility] [address] [place] [address] Corrina Sanchse, OD 230 [place] [address] 08/26/2025 9:00 AM EDT Telemedicine [facility] [address] [place] [address] Catherine North RN documented as of this [...] documented as of this encounter Care Teams Mortgage Processing Clerk Relationship Specialty Start Date End Date Tammy Payan MD 230 [place] [address] PCP - General Family Medicine 06/09/20 documented as of this encounter
--- OUTSIDE RECORDS SUMMARY | 2025-05-11 19:10 | XMS_ITS | Encounter Summary ---
Author Organization [employer] Address [address] [facility] [address] 7t [place] [address] Care Team Providers Care Projector Booth Operator Name Role Phone Tammy Payan MD Primary Care Provide r Encounter Details Date Type Department Care Team (Late st Contact Info) Description 12/05/2023 Orders Only [facility] [address] [place], [place] [phone] ProviderNgozi MD Social History Tobacco Use Types [...] Description 06/10/2025 11:00 AM EST Office Visit [facility] 230 [place] [address] Tammy Payan MD 230 [place] [address] 06/22/2025 11:30 AM EST Office Visit [facility] [address] [place] [address] Myron, Corrina, OD 230 [place] [address] 08/26/2025 9:00 AM EDT Telemedicine [facility] [address] [place] [address] Catherine North RN documented as of this encounter Procedures Procedure Name Priority Date/Time Associated Diagnosis Comments DERMATOPATHOLOGY REPORT Routine 11/18/2023 3:59 PM EDT documented in this encounter Results * Dermatopathology Report (11/18/2023 3:59 PM EDT) us Historical Provider LAB BLOOD ORDERABLES Marily l Result documented in this encounter Visit Diagnoses Not on filedocumented in this encounter Care Teams Projector Booth Operator Relationship Specialty Start Date End Date Tammy Payan MD 230 [place] [address] PCP - General Family Medicine 06/09/20 documented as of this encounter
--- OUTSIDE RECORDS SUMMARY | 2025-05-11 19:10 | XMS_ITS | Data Portability ---
Author Organization [place] [facility], [facility] Address [address] [address] Care Team Providers Care Paving Stone Installer Name Role Phone DALE ALFREDO Primary Care Provider [phone] DALE ALFREDO Referring Provider Assessment Encounter Date [...] Organization Details Recorded Time Abnormal auditory perception 75489486 Active 2024 Jaclyn franco [place] [facility] 10:42:20 Tinnitus of right ear [id number] Active 2024 PONCE BACON PA-C 100 [facility], [place], [address], [facility] 11:29:09 Benign paroxysmal positional vertigo 243255854 Active 2024 PONCE BACON PA-C 100 [facility], [place], [address], [facility] 11:29:24 Problem Notes None recorded. Procedures Surgical History Date Name Laterality Status Provider Name and Address Organization Details Recorded Time 09/11/19 25 Tympanometry - 51658 completed Jaclyn Lewis [place] [facility] 09/10/2024 10:42:05 09/11/19 25 Air & Bone Audio - 03750 completed Jaclyn Lewis [place] [facility] 09/10/2024 10:42:00 Imaging Results None recorded. [...] Available Not Available No t Available [employer] [place] Lite kit USE DIRECTED TO TEST BLOOD [...] Updated DateTime 09/10/2024 162.56 cm 30.9 kg/m2 47524.63 g Aditi Butt [place] [facility] 09/10/2024 11:02:05 Social History None recorded. Functional Status None recorded. Mental Status None recorded. Family History Nothing Reported. Medical History Condition Response Allergies/Hayfever N Heart Problems N Anxiety Y Tonsil Infections N Emphysema N Migraines Y Thyroid Problems N COPD N Depression Y Developmental Delay N Glaucoma N Nasal or Sinus Problems N Anemia N Immune System Disorder N Anesthesia Complications N Heart Attack (MT) N Other Skin Condition N Diabetes Y Rhinitis N Bleeding Disorder N Food Allergy N Hearing Loss N Arthritis N Hyperlipidemia N Cancer N Stroke N Dementia N Nasal polyps N Asthma N Sleep Disorder N High Cholesterol N GERD/Reflux N Liver Disease N Headaches Y Fibromyalgia N Hypertension Y Speech Delay N Kidney Disease Y Past Encounters Encounter ID Performer Location Encounter Start Date Encounter Closed Date Diagnosis/Indication Diagnosis SNOMED-CT Code Diagnosis ICD10 Code Diagnosis IMO Codes Diagnosis Note [id number] [facility] [address] [place] [address] 09/10/2024 09:44:30 09/10/2024 11:55:41 Abnormal auditory perception 18374400 H93.299 Audiologic al evaluation results: Right ear: Essentiall y normal hearing with excellent word recognitio n. Left ear: Essentiall y normal hearing with excellent word recognitio n. Tympanomet ry: Right Ear:Type A Left Ear:Type A Tinnitus of right ear 48 26215366 108 H93.11 Benign par oxysmal positional vertigo 444250339 H81.13 Health Concerns Section Related Observation LastModified by Organization Detai ls LastModified Time None Recorded Concern Status LastModified by Organization Details LastModified Time None Recorded Advance Directives Directive None Recorded Payers Insurance Date Sequence Insurance Name Policy Number Policy Berman Covered Member ID Berman Member ID Guarantor Name 09/10/[address] [facility] - DOS ON OR AFTER 2022 - ONE CARE (MEDICARE REPLACEMENT/ADV ANTAGE - HMO) Osorio Castillo [id number] Osorio Castillo Notes Date Note Type Note [...] not suspicious for acute benign positional vertigo. Antonio-Hallpike was negative at that time. PONCE BACON PA-C 100 [facility],[address], [address], [facility] - [facility] 09/10/2024 11:29:55
--- OUTSIDE RECORDS SUMMARY | 2025-05-11 19:10 | XMS_ITS | Encounter Summary ---
Author Organization [employer] Address 75 [facility] 7t [place] [address] Care Team Providers Care Investor Relations Coordinator Name Role Phone Tammy Payan MD Primary Care Provide r Encounter Details Date Type Department Care Team ([facility] st Contact Info) Description 08/31/2024 Orders Only [facility] 505 [place], [place] [phone] Acosta Burnett MD 505 [place] [address] Social History Tobacco Use Types Packs/Day Years [...] 06/10/2025 11:00 AM EST Office Visit [facility] [address] [place] [address] Tammy Payan MD 230 [place] [address] 06/22/2025 11:30 AM EST Office Visit [facility] [address] [place] [address] Myron, Corrina, OD 230 [place] [address] 08/26/2025 9:00 AM EDT Telemedicine [facility] 230 [place] [address] Catherine North, ALLI documented as of this encounter Visit Diagnoses Not on filedocumented in this encounter Additional Health Concerns Assessment Noted Time PHQ-9 Depression Total Score: 6 01/23/20 24 10:06 AM EDT documented as of this encounter Care Teams Investor Relations Coordinator Relationship Specialty Start Date End Date Tammy Payan MD [address] [place] [address] PCP - General Family Medicine 06/09/20 documented as of this encounter
--- OUTSIDE RECORDS SUMMARY | 2025-05-11 19:10 | XMS_ITS | Encounter Summary ---
Author Organization [employer] Address [address] [facility] [address] 7t [place] [address] Care Team Providers Care Zone Maintenance Technician Name Role Phone Tammy Payan MD Primary Care Provide r Reason for Visit * Reason Comments Med Refill Encounter Details Date Type Department Care Team (Late Contact Info) Description 11/04/[address] [facility] [address] [place] [phone] Tammy Payan MD 230 [place], [place] [phone] Tinea crshereens Social History Tobacco Use Types [...] AM EST Office Visit [facility] 230 [place] [address] Tammy Payan MD 230 [place] [address] 06/22/2025 11:30 AM EST Office Visit [facility] 267 [place] [address] Corrina Sanches, OD 230 [place] [address] 08/26/2025 9:00 AM EDT Telemedicine [facility] [address] [place] [address] Catherine North, ALLI documented as of this encounter Visit Diagnoses Diagnosis Tinea cruris Dermatophytosis of groin and perianal area documented in this encounter Care Teams Zone Maintenance Technician Relationship Specialty Start Date End Date Tammy Payan MD 230 [place] [address] PCP - General Family Medicine 06/09/20 documented as of this encounter
--- OUTSIDE RECORDS SUMMARY | 2025-05-11 19:10 | XMS_ITS | Encounter Summary ---
Author Organization [employer] Address [address] [place] [address] 7t [place] [address] Care Team Providers Care Arcade Attendant Name Role Phone Tammy Payan MD Primary Care Provide r Reason for Referral * Consultation (Routine) - Closed Specialty Diagnoses / Procedures Referred By Contrikki t Referred To Contact Dermatology Diagnoses Atopic dermatitis in adult Acosta Burnett MD [address] [place] [address] Phone: tel: fax: [facility] Duplicate - [facility] [address] [place], [place] Phone: tel: fax: Referral ID Status Reason Start Date Expiration Date V isits Requested Visits Authorized [id number] Closed Specialty Services Required 12/24/2023 12/23/2024 1 1 Encounter Details Date Type Department Care Team (Late st Contact Info) Description 12/24/[address] [facility] 505 [place], [place] [phone] Acosta Burnett MD [address] [place] [phone] Atopic dermatitis in adult (Primary Dx) Social [...] Upcoming Encounters Date Type Department Care Team ([facility] st Contact Info) Description 06/10/2025 11:00 AM EST Office Visit [facility] [address] [place] [address] Tammy Payan MD 230 [place] [address] 06/22/2025 11:30 AM EST Office [address] [facility] [address] [place] [address] Corrina Sanches, BECKY 230 [place] [address] 08/26/2025 9:[address] [facility] 230 [place] [address] Catherine North, RN Scheduled Referrals Name Type Priority Associated Diagnoses Order Schedule Referral to Dermatology Outpatient Referral Routine Atopic dermatitis in adult Expected: 12/24/2023 (Approximate), Expires: 12/23/2024 documented as of this encounter Visit Diagnoses Diagnosis Atopic dermatitis in adult- Primary documented in this encounter Care Teams Arcade Attendant Relationship Specialty Start Date End Date Tammy Payan MD 230 [place] [address] PCP - General Family Medicine 06/09/20 documented as of this encounter
--- OUTSIDE RECORDS SUMMARY | 2025-05-11 19:10 | XMS_ITS | Encounter Summary ---
Author Organization [employer] Address 75 [facility] 7t [place] [address] Care Team Providers Care Textile Machine Operator Name Role Phone Tammy Payan MD Primary Care Provide r Encounter Details Date Type Department Care Team (Latest Contact Info) Description 04/05/2021 Abstract [facility] CONVERSIONS Dental, Provider, DDS Social History Tobacco [...] Description 06/10/2025 11:00 AM EST Office Visit [facility] [address] [place] [address] Tammy Payan MD 230 [place] [address] 06/22/2025 11:30 AM EST Office Visit [facility] OPT[facility] [address] [place] [address] Corrina Sanches, OD 230 [place] [address] 08/26/2025 9:00 AM EDT Telemedicine [facility] 230 [place] [address] Catherine North, ALLI documented as of this encounter Visit Diagnoses Not on filedocumented in this encounter Care Teams Textile Machine Operator Relationship Specialty Start Date End Date Tammy Payan MD 230 [place] [address] PCP - General Family Medicine 06/09/20 documented as of this encounter
--- OUTSIDE RECORDS SUMMARY | 2025-05-11 19:10 | XMS_ITS | Clinical Summary ---
Author Organization [employer] Address [address] [facility] 7t [place] [address] Care Team Providers Care Hunting Sales Leader Name Role Phone Tammy Payan MD Primary [...] IN THE EVENING FOR RASH on penis polish 60 g 2 023 Active calcipotriene (Dovonex) [...] 024 Active Blood Glucose Monitoring Suppl (FreeStyle Eolia Lite) w/Device kit TEST BLOOD SUGAR EVERY [...] 05/02/2025 HTN (hypertension) 05/02/2025 Overview (05/02/2025): follows w/[facility] Cardiovascular Atypical chest pain 05/02/2025 Musculoskeletal chest pain 05/02/2025 MIRIAM (obstructive sleep apnea) 05/02/2025 Long-term current use of opiate analgesic 2024 COVID-19 11/01/2024 UI APPLICATION DEVELOPER ([place] respiration) 11/01/2024 Subconjunctival hemorrhage 11/01/2024 [...] AM EDT): Acetaminophen PRN, lease consult with formulation scientist about CPAP machine Dermatitis 03/28/2023 Class 1 [...] 07/20/2012 Restrictive lung disease 07/20/2012 Morbid obesity ([facility]/HCC) 05/15/2012 Depressive disorder 03/30/2012 Obstructive sleep apnea syndrome 03/30/2012 Assessment & Plan (03/28/2023 10:42 AM EDT): F/u with specialist Assessment & Plan (01/01/2023 9:36 AM EDT): Patient follows with pulmonary, he reports his asthma medications where adjusted and he feels better, he also reports formulation scientist ordered again his CPAP and he is [...] Type Department Care Team Description 05/10/[address] [address] Tammy Payan MD Durable Medical Equipment 05/09/[address] [address] Tammy Payan MD Chart Prep 05/03/2025 Orders Only [address] [address] Tammy Payan MD 05/03/[address] [address] Tammy Payan MD Durable Medical Equipment (DME: Power Recliner, Diabetic Shoes) 05/02/2025 9:30 AM EST Office Visit [facility] ADULT DENTAL [address] [place] [phone] Elias-Aquino, Estefany, DDS Partially edentulous mandible, class I edentulism (Primary Dx); Edentulous maxilla 04/29/2025 10:00 AM EST Telemedicine [address] [address] Catherine North RN Long-term current use of opiate analgesic 04/29/2025 Patient Outreach [address] [address] Tammy Payan MD Pre-visit Planning (SDOH screening negative and tobacco screening negative) 04/29/2025 Telephone [facility] MEDICINE [address] [place] [phone] Catherine North RN FLAT FINISHER Agreement renewed 04/29/2025 Travel 04/26/2025 Refill [facility] [address] [place] [address] Mali Ward MD 04/17/2025 Refill [facility] [address] [place] [address] Rommel Leon MD Pain of left great toe; Pain of right great toe 04/15/2025 Refill [facility] [address] [place] [address] Tammy Payan MD Multiple joint pain 04/14/[address] [address] Catherine North RN Renewal forms 04/06/2025 Refill [facility] [address] [place] [address] Tammy Payan MD Pruritus 03/25/2025 11:00 AM EDT Office Visit [facility] [address] [place] [phone] Rommel Leon MD Pain of left great toe (Primary Dx); Pain of right great toe 03/25/2025 Telephone [facility] [address] [place] [address] Rommel Leon MD 03/25/2025 Travel 03/25/2025 Refill [facility] [address] [place] [address] Tammy Payan MD 03/23/[address] [address] Tammy Payan MD Call Back Request 03/17/2025 2:15 PM EDT Office Visit [facility] [address] [place] [address] Elias-Aquino, Estefany, DDS Partially edentulous mandible, class I edentulism (Primary Dx); Edentulous maxilla 03/15/2025 Orders Only [facility] [address] [place] [address] Suzan Loo MD 03/15/2025 Results Follow-Up [address] [address] Suzan Loo MD XR Toes 2+ Views Right, CBC auto differential, C-reactive Protein, Additional followed-up results: 2 03/14/2025 3:45 PM EDT Office Visit [facility] [address] [place] [address] Suzan Loo MD Pain in toes of both feet (Primary Dx); Ingrown toenail; Encounter for immunization 03/14/2025 Travel 03/14/[address] [address] Tammy Payan MD Nurse Triage 03/14/2025 Refill [facility] [address] [place] [address] Tammy Payan MD Multiple joint pain 03/10/2025 Refill [facility] [address] [place] [address] Acosta Burnett MD Atopic dermatitis in adult 03/09/2025 8:30 AM EDT Office Visit [facility] AD[facility] D[facility] [address] [place] [address] Elias-Aquino, Estefany, DDS Partially edentulous mandible, class I edentulism (Primary Dx); Edentulous maxilla 02/17/2025 3:00 PM EDT Office Visit [facility] OPT[facility] [address] [place] [address] Myron, Corrina, OD Meibomian gland disease, unspecified laterality (Primary Dx) 02/17/2025 Travel 02/16/2025 9:00 AM EDT Office Visit [facility] [address] [place] [address] Elias-Aquino, Estefany, DDS Edentulous maxilla (Primary Dx); Partially edentulous mandible, class I edentulism 02/10/2025 Refill [facility] [place] [address] Tammy Payan MD Vitamin D deficiency from [...] Description 06/10/2025 11:00 AM EST Office Visit [facility] MED[facility] [address] [place] [address] Tammy Payan MD [address] [place] [address] 06/22/2025 11:30 AM EST Office Visit [facility] OPT[facility] [address] [place] [address] Corrina Sanches, OD [address] [place] [address] 08/26/2025 9:00 AM EDT Telemedicine [facility] [address] [place], [place] [phone] Catherine North, ALLI Health Maintenance Due Date [...] Plan Patient has diabetic neuropathy No Catherine oNrth RN Patient has diabetic neuropathy Care Plan [...] Care Plan Weekly blood pressure task No Laomnte Diane Weekly blood pressure task Care Plan [...] Blood Count 5.3 4.8 - 10.8 X10*3/uL [facility] Red Blood Count 5.46 4.60 - 5.80 X10*6/uL [facility] Hemoglobin 14.7 14.0 - 18.0 g/dl [facility] Hematocrit 45.7 42.0 - 52.0 % [facility] Mean Corpuscular Volume 83.7 80.0 - 98.0 fL [facility] Mean Corpuscular Hemoglobin 26.9(L) 27.0 - 33.0 pg [facility] Mean Corpuscular HGB Conc 32.2 31.0 - 36.0 g/dl [facility] Red Cell Distribution Width 14.6 11.0 - 16.0 % [facility] Platelet Count 124(L) 160 - 400 X10*3/uL [facility] Mean Platelet Volume 10.0 9.4 - 12.4 fL [facility] Neutrophils Percent Auto 43.6(L) 45 - 73 % [facility] Imm Gran Pct Auto 0.4 0.0 - 0.4 % [facility] Lymphocytes Percent Auto 43.1(H) 20 - 40 % [facility] Monocytes Percent Auto 10.9 2 - 11 % [facility] Eosinophils Percent Auto 1.3 0 - 4 % [facility] Basophils Percent Auto 0.7 0 - 2 % [facility] NRBC Pct Auto 0.0 0.0 - 0.2 /100WBC [facility] Neutrophils Absolute Auto 2.3 2.0 - 8.3 x10*3/uL [facility] Imm Gran Abs Auto 0.02 0.00 - 0.03 X10*3/uL [facility] Lymphocytes Absolute Auto 2.3 1.2 - 4.9 X10*3/uL [facility] Monocytes Absolute Auto 0.6 0.1 - 1.2 X10*3/uL [facility] Eosinophils Absolute Auto 0.1 0.0 - 0.4 X10*3/uL [facility] Basophils Absolute Auto 0.0 0.0 - 0.2 X10*3/uL [facility] NRBC Abs Auto 0.000 0.0 - 0.012 X10*3/uL [facility] Blood Venous blood specimen / Unknown 03/15/2025 3:28 PM EDT 03/15/2025 3:28 PM EDT Suzan Loo MD LAB BLOOD ORDERABLES Final Resul t Performing Organization Address City/[facility]/ZIP Co de Phone Number [facility] [address] [place] [phone] * Sed Rate by Modified Westergren (03/15/2025 3:28 PM EDT) Erythrocyte Sedimentation Rate 5 0 - 15 MM/HR [facility] Comment:Patients with polycy themia and many hemoglobin abnormalitiesmay have depressed sed rates whereas patients with anemiamay have elevated sed rates. Blood Venous blood specimen / Unknown 03/15/2025 3:28 PM EDT 03/15/2025 3:28 PM EDT Suzan Loo MD LAB BLOOD ORDERABLES Final Resul t Performing Organization Address City/[facility]/ZIP Co de Phone Number [facility] [address] [place] [phone] * C-reactive Protein (03/15/2025 3:28 PM EDT) C Reactive Protein 0.14 < or = 0.50 mg/dL [facility] Blood Venous blood specimen / Unknown 03/15/2025 3:28 PM EDT 03/15/2025 3:28 PM EDT Suzan Loo MD LAB BLOOD ORDERABLES Final Resul t Performing Organization Address [facility] Co de Phone Number [facility] [address] [place] [phone] * Uric acid (03/15/2025 3:28 PM EDT) Uric Acid 6.0 3.4 - 7.0 mg/dL [facility] Blood Venous blood specimen / Unknown 03/15/2025 3:28 PM EDT 03/15/2025 3:28 PM EDT us Suzan Loo MD LAB BLOOD ORDERABLES Final Resul t Performing Organization Address [facility] Co de Phone Number [facility] [address] [place] [phone] * XR Toes 2+ Left (03/15/2025 2:50 PM EDT) Anatomical Region Laterality Modality Lower Extremities, Toes Left Radiogra phic Imaging 03/15/2025 2:50 PM EDT Narrative 03/15/2025 3:01 PM EDT [address] [address] XRay Report Signed Patient: Osorio Castillo MR#: [id number] : 1945 Acct:[id number] Age/Sex: 79 / M ADM Date: 03/15/25 Loc: LISA Attending Dr: Suzan Loo MD Ordering Physician: Suzan Loo MD Date of Service: 03/15/25 Procedure(s): XR toe LT min 2V Accession Number(s): [id number] cc: Suzan Loo MD Reason for Exam: [...] in OV> 03/15/251458 DD/ 49 TD/TT: 03/15/251455 Human Resources Partner: Procedure Note Donotuseinterpreter, Image - 03/15/2025 [place] [address] XRay Report Signed Patient: Osorio Castillo JMR#: [id number] : 7Acct:[id number] Age/Sex: 79 / MADM Date: 03/15/25 Loc: LISA Attending Dr: Suzan Loo MD Ordering Physician: Suzan Loo MD Date of Service: 03/15/25 Procedure(s): XR toe LT min 2V Accession Number(s): [id number] cc: Suzan Loo MD Reason for Exam: [...] OV> 03/15/25 1459 DD/ 49 TD/TT: 03/15/251455 Human Resources Partner: us Suzan Loo MD IMG XR PROCEDURES Final Result * XR Toes 2+ Views Right (03/15/2025 2:46 PM EDT) Anatomical Region Laterality Modality Lower Extremities, Toes Left [facility]iogra [facility] 03/15/2025 2:46 PM EDT Narrative 03/15/2025 3:04 PM EDT [place] [address] XRay Report Signed Patient: Osorio Castillo MR#: [id number] : 1945 Acct:[id number] Age/Sex: 79 / M ADM Date: 03/15/25 Loc: HO.JONNY Attending Dr: Suzan Loo MD Ordering Physician: Suzan Loo MD Date of Service: 03/15/25 Procedure(s): XR toe RT min 2V Accession Number(s): [id number] cc: Suzan Loo MD Reason for Exam: [...] 03/15/25 1501 DD/ 1446 TD/TT: 03/15/25 1456 Human Resources Partner: Procedure Note Donotuseinterpreter, Image - 03/15/[address] [address] XRay Report Signed Patient: Osorio Castillo JMR#: [id number] : 7Acct:[id number] Age/Sex: 79 / MADM Date: 03/15/25 Loc: HO.XRAY Attending Dr: Suzan Loo MD Ordering Physician: Suzan Loo MD Date of Service: 03/15/25 Procedure(s): XR toe RT min 2V Accession Number(s): [id number] cc: Suzan Loo MD Reason for Exam: [...] 03/15/25 1501 DD/ 1446 TD/TT: 03/15/25 1456 Human Resources Partner: us Suzan Loo MD IMG XR PROCEDURES Final Result * POCT HGB A1C (07/22/2024 10:10 AM EST) Hemoglobin A1C 6.0 4.0 - 6.0 % QC Media Lot # [id number] Lot# Expiration Date ,097,997 Blood 07/22/2024 10:1 0 AM EST Tammy Pimentel MD POINT OF CARE TEST EN TER/EDIT ORDERABLES Final Result * Lipid Panel, Standard (10/29/2023 9:36 AM EDT) Triglycerides 77 <150 mg/dL [facility] Comment:Desirable Triglyceri de: less than 150 mg/dLBorderline High Triglyceride 150-199 mg/dLHigh Triglyceride: 200-499 mg/dLVery High Triglyceride: greater than or equal to 5OO mg/dL Cholesterol 117 <200 mg/dL [facility] Comment:Desirable Cholestero l: less than 200 mg/dLBorderline High Cholesterol: 200-239 mg/dLHigh Cholesterol: greater than 239 mg/dL LDL Cholesterol Calculated 57 <100 mg/dL [facility] Comment:Desirable LDL: less than 100 mg/dLNear Optimal/Above Optimal LDL: 110- 129 mg/dLBorderline High LDL: 130-159 mg/dLHigh LDL: 160-189 mg/dLVery High LDL: greater than or equal to 190 mg/dL HDL Cholesterol 45 >40 mg/dL [facility] Comment:Desirable HDL: great er than 40 mg/dL Note: This HDL assay may give artificially low results in patients with liver disease. Blood Venous blood specimen / Unknown 10/29/2023 9:36 AM EDT 10/29/2023 11:56 AM EDT us Tammy Pimentel MD LAB BLOOD ORDERABLES Final Result [facility] [address] [place] [phone] * Hepatitis C Antibody with Reflex to HCV RNA,PCR w/Reflex to Genotype, LiPA (08/08/2022 9:33 AM EDT) Hepatitis C Antibody NON-REACT VIJAYA NON-REACT VIJAYA [facility] Index 0.06 <1.00 [facility] [place] [facility] Comment: HCV antibody was non-reactive. There is no laboratory evidence of HCV infection. In most cases, no further action is required. However, if recent HCV exposure is suspected, a test for HCV RNA (test code 24590) is suggested. For additional information, please refer to http://education.One Month/faq/QDU053 (This link is being provided for informational/ educational purposes only.) 08/08/2022 9:33 AM EDT 08/08/2022 9:34 AM EDT Narrative [facility] - 08/09/2022 6:44 PM EDT FASTING:UNKNOWN FASTING: UNKNOWN Salena Hutton DO LAB BLOOD ORDERABLES Final R esult [facility] [address], [place] [phone] [employer] [place] [employer] [address] [place] [phone] from Last 3 Months or Most Recently [...] 05/10/2025 Patient has diabetic neuropathy 05/10/2025 Insurance [facility] OPTIONS (O D-SNP) DENTAL - [facility] Care Teams Hunting Sales Leader Relationship Specialty Start Date End Date Tammy Payan MD [address] [place] [address] PCP - General Family Medicine 06/09/20
--- OUTSIDE RECORDS SUMMARY | 2025-05-11 19:10 | XMS_ITS | Encounter Summary ---
Author Organization [employer] Address [address] 7t [place] [address] Care Team Providers Care Medical Biller Name Role Phone Tammy Payan MD Primary Care Provide r Encounter Details Date Type Department Care Team ([facility] st Contact Info) Description 05/03/2025 Orders Only [facility] [address] [place], [place] [phone] Tammy Payan MD [address] [place], [place] [phone] Social History Tobacco Use Types Packs/Day Years [...] Description 06/10/2025 11:00 AM EST Office Visit [facility] [address] [place] [phone] Tammy Payan MD [address] [place] [address] 06/22/2025 11:30 AM EST Office Visit [facility] [address] [place] [address] Myron, Corrina, OD [address] [place] [address] 08/26/2025 9:00 AM EDT Telemedicine [facility] [address] [place] [address] Cathernie North RN documented as of this encounter [...] Care Plan Patient has diabetic neuropathy No Rihcelle Murray Weekly blood pressure task Care Plan [...] documented as of this encounter Care Teams Medical Biller Relationship Specialty Start Date End Date Tammy Payan MD [address] [place] [address] PCP - General Family Medicine 06/09/20 documented as of this encounter
--- OUTSIDE RECORDS SUMMARY | 2025-05-11 19:10 | XMS_ITS | Encounter Summary ---
Author Organization [employer] Address [address] [place] [address] Care Team Providers Care Drafter Patent Name Role Phone Tammy Payan MD Primary Care Provide r Encounter Details Date Type Department Care Team ([facility] st Contact Info) Description 03/15/2025 Orders Only [facility] [address] [place], [place] [phone] Suzan Loo MD [address] [place], [place] [phone] Social History Tobacco Use Types Packs/Day Years [...] Description 06/10/2025 11:00 AM EST Office Visit [facility] [address] [place] [address] Tammy Payan MD [address] [place] [address] 06/22/2025 11:30 AM EST Office Visit [facility] [address] [place] [address] Myron, Corrina, OD [address] [place] [address] 08/26/2025 9:00 AM EDT Telemedicine [facility] [address] [place] [address] Catherine North, ALLI documented as of this encounter Visit Diagnoses Not on filedocumented in this encounter Additional Health Concerns Assessment Noted Time PHQ-9 Depression Total Score: 6 01/23/20 24 10:06 AM EDT documented as of this encounter Care Teams Drafter Patent Relationship Specialty Start Date End Date Tammy Payan MD [address] [place] [phone] PCP - General Family Medicine 06/09/20 documented as of this encounter
== END 2025-05-11 14:58 | disposition home or self-care (01) ==
LOC: HO.HPODS 14:22
PROVIDERS: PCP Internal Medicine; Visit Provider Student in an Organized Health Care Education/Training Program
DX: L03.032 Cellulitis of left toe (principal); L03.031 Cellulitis of right toe
CPT/HCPCS: 11042; 99204

== ENCOUNTER → 2025-05-11 14:21 | Outpatient (BNVA) | payer OTHER, SELFPAY | PROVIDERS: PCP Internal Medicine; Visit Provider Student in an Organized Health Care Education/Training Program | DX: L03.031 Cellulitis of right toe (principal); E11.9 Type 2 diabetes mellitus without complications; L03.032 Cellulitis of left toe | CPT/HCPCS: 11042; 99202 ==